=== PATIENT | female | born 1975 | race Caucasian/White ===

== ENCOUNTER 2020-01-28 12:59 | Emergency (ER) | payer MEDICARE, MEDICAID, SELFPAY ==
[2020-01-28 13:03] VITALS: BP 120/76; PULSE 80; RESP 16; TEMP 36.7; O2SAT 95; BMI 41.4
--- NOTE | 2020-01-28 13:28 | XR_ITS ---
PROCEDURE: XR KNEE RT 3V CLINICAL INDICATION: HOME INJURY COMPARISON: No exams were available for comparison FINDINGS: There is mild degenerative narrowing of the medial and patellofemoral joint compartments. There is no fracture or dislocation and the soft tissues are intact IMPRESSION: Mild degenerative changes above, no fracture. Dictated by: Wai Murillo 01/28/2020 15:07 Electronically signed by Wai Murillo in [place] 01/28/2020 15:07
--- NOTE | 2020-01-28 13:42 | HMH.EDUTC ---
[facility] [place] Disposition Clinical Impression: Knee pain Qualifiers: Chronicity: unspecified Laterality: right Qualified Code(s): M25.561 - Pain in right knee Disposition: Home, Self-Care Condition on Discharge: Good Additional Instructions: Over the counter Motrin and/or Tylenol may help with pain Over the counter Rubs like aspercream may help with arthritis pain Follow up with family doctor if no improvement or any worsening of symptoms in the next 48-72 hours REturn if needed Straight to ER if any life threatening symptoms Referrals: Provider,Referral, MD [Primary Care Provider] - As needed Time of Disposition: 15:03 Medical Decision Making - Obie Inquiry Pt receiving controlled substance: No Obie was queried for this patient: No Vital Signs: 01/28/20 13:03 Temperature 98.1 F Temperature Source Oral Pulse Rate [Left Radial] 80 Respiratory Rate 16 Blood Pressure [Right Arm] 120/76 Blood Pressure Mean [Right Arm] 90 Blood Pressure Source [Right Arm] Automatic Cuff Blood Pressure Position [Right Arm] Sitting 02 Sat by Pulse Oximetry 95 Oxygen Delivery Method Room Air Orders (Tests/Meds): ED MEDICATIONS Discontinued Medications Generic Name Dose Route Start Last Admin Trade Name Freq PRN Reason Stop Dose Admin Lidocaine HCl 5 ml 01/28/20 14:52 Lidocaine 1% 10ml Mdv IM 01/28/20 14:53 ONCE ONE Triamcinolone Acetonide 40 mg 01/28/20 14:40 Kenalog 40mg/Ml Vial IM 01/28/20 14:41 ONCE ONE ORDERS Category Date Time Status XR knee RT 3V Stat Exams 01/28/20 13:28 Taken - Radiology Data #1 Image(s): Knee Image Reviewed: Yes I reviewed the patient's radiology image Preliminary Findings: No Fracture Seen arthritis noted [facility] [place] HPI - General Stated complaint: right knee hurting Time Seen by Provider: 01/28/20 13:42 Mode of Arrival: Ambulatory Source of Information: Patient Limitations: Physical Limitations Description of Symptoms (Recalled from Triage Doc. by RN): pt stated she was movig heavy furniture this past week when she began to have increasing pain in her right knee. HEENT Symptoms (Recalled from RN notes): No Resp Symptoms (Recalled from RN notes): No Skin Symptoms (Recalled from RN notes): No MS Symptoms (Recalled from RN notes): Yes Functional Status (Recalled from RN notes): n/a - History of Present Illness Provider Complaint: Patient states that she has been helping family members clean and move States that she has been on her feet alot and has been bending and lifting more than normal States that she noticed a couple of days ago that she was having pain in her right knee when she would walk States that pain is worse when she bends the knee and today she was still having pain so she came in to get it checked out denies known injury - Related Data Allergies Allergy/AdvReac Type Severity Reaction Status Date / Time No Known Allergies Allergy Verified 01/28/20 13:51 - Worker's Comp Is this a Worker's Comp case?: No [facility] History - Hepatitis A Screen Drug use history?: No High risk sexual behaviors?: No History of sexually transmitted infection?: No Currently employed?: No Childcare worker?: No Do you have indoor plumbing?: Yes Do you have electricity?: Yes Attestation statement:: This patient has been screened for Hepatitis A risk factors. I have reviewed the patient's past medical history: Yes - Social History Smoking Status: Current every day smoker # Packs/Day (cigarettes): 1 Alcohol Intake: never Occupational Status: disabled ROS Obtained: Yes All systems reviewed & no additional complaints, Yes Systems reviewed as appropriate & no additional complaints - Constitutional Constitutional: Reports system reviewed and no additional complaints, except as docu - Eyes Eyes: Reports system reviewed and no additional complaints, except as docu - ENT Ears, Nose, Mouth, and Throat: Reports system reviewed and no additional complaints
[2020-01-28 15:20] VITALS: BP 120/76; PULSE 80; RESP 16; TEMP 36.7; O2SAT 95
== END 2020-01-28 15:21 | disposition home or self-care (01) ==
PROVIDERS: Emergency Provider Nurse Practitioner
DX: M25.561 Pain in right knee (principal); F17.210 Nicotine dependence, cigarettes, uncomplicated
CPT/HCPCS: 20610; G0463; 73562; 96372; 99202

== ENCOUNTER 2024-01-02 17:47 | Inpatient (IN) | payer MEDICARE, SELFPAY ==
[2024-01-02] VITALS (8 sets, daily range): BP systolic 137–165; BP diastolic 85–121; PULSE 60–75; RESP 18–20; TEMP 36.6–36.9; O2SAT 90–96; BMI 40.0; BMI 40.5
--- NOTE | 2024-01-02 17:48 | ED_ITS ---
Discharge Plan Disposition Patient Disposition: Admitted Condition: Serious Clinical Impressions Clinical Impression: Acute hypoxemic respiratory failure, Epigastric abdominal pain Congestive heart failure Qualifiers: Heart failure type: unspecified Heart failure chronicity: acute Qualified Code(s): I50.9 - Heart failure, unspecified Breast mass Qualifiers: Laterality: right Discharge ED Provider: Bubba Pérez General Adult HPI <TAYLOR Johnson - Last Filed: 01/02/24 20:26> General Chief complaint: Abdominal Pain Stated complaint: Abd x3 months Time Seen by Provider: 01/02/24 17:48 History of Present Illness HPI narrative: Patient presents for evaluation of epigastric abdominal pain. Patient states that she was off of her home medication for approximately 8 months due to having no insurance coverage. She has recently restarted all of her home medications. In addition patient states for the last 3 weeks she thinks that the addition of metformin is creating GI upset. Patient states that she has pain and bloating with the pain located in the epigastrium worse 30 minutes or so after eating and usually last several hours. It is not continuous. There is no other aggravating or relieving factors. In addition patient reports sores all over her back. Patient states that she does have a history of anxiety and has been on Benadryl in the past but Benadryl no longer controls her anxiety. Patient states that the sores itch her but they are not painful. Patient denies cardiac chest pain fever chills hemoptysis hematochezia melena nausea vomiting or diarrhea currently. Related Data Home Medications Medication Instructions Recorded Confirmed aspirin 81 mg chewable tablet 81 mg PO DAILY 01/02/24 01/02/24 atenolol 50 mg tablet 50 mg PO DAILY 01/02/24 01/02/24 atorvastatin 40 mg tablet 40 mg PO DAILY 01/02/24 01/02/24 fluoxetine 40 mg capsule 40 mg PO DAILY 01/02/24 01/02/24 lisinopril 10 mg tablet 10 mg PO DAILY 01/02/24 01/02/24 metformin 500 mg tablet 500 mg PO BID 01/02/24 01/02/24 Allergies Allergy/AdvReac Type Severity Reaction Status Date / Time ondansetron [From Zofran] Allergy Verified 01/02/24 18:12 PFSH <TAYLOR Johnson - Last Filed: 01/02/24 20:26> [facility] Disclaimer: The information contained in this section may have been updated after the patient was seen, as this information can be updated by other users. Social History (Updated 01/02/24 @ 21:30 by [place] Burroughs RN) Smoking Status: Current every day smoker alcohol intake: never current occupational status: disabled Travel in the last 8 weeks: None <TAYLOR Johnson - Last Filed: 01/02/24 20:26> ROS Obtained: Yes Systems reviewed as appropriate & no additional complaints except as documented Physical Exam <TAYLOR Johnson - Last Filed: 01/02/24 20:26> General General appearance: alert and in no apparent distress Head Head exam: atraumatic and normal inspection Eye Eye exam: Present normal appearance, PERRL and EOMI ENT ENT exam: Present normal exam, normal oropharynx, mucous membranes moist and other (Patient is deaf) Neck Neck exam: Present normal inspection and full ROM Chest Chest inspection: Present normal inspection and symmetric chest wall rise Respiratory Respiratory exam: Present normal lung sounds bilaterally; Absent respiratory distress, wheezes or accessory muscle use Cardiovascular Cardiovascular exam: Present regular rate, normal rhythm and normal heart sounds Abdominal Exam Abdominal exam: Present soft (Obese), tenderness (Tender to palpation in the epigastrium and right upper quadrant) and normal bowel sounds; Absent guarding or rebound Extremities Exam Extremities exam: Present normal inspection and full ROM Back Exam Back exam: Present normal inspection and full ROM; Absent tenderness Neurological Exam Neurological exam: Present alert and oriented X3 Psychiatric Psychiatric exam: Present normal affect and normal mood Skin Skin exam: Present warm, dry and normal color; Absent intact (Patient has too numerous to count areas of excoriation all over her back and the scars of the same on multiple sites on the trunk and extremities. None of these appear to be acutely infected with erythema fluctuance or drainage.) Medical Decision Making <TAYLOR Johnson - Last Filed: 01/02/24 20:26> Medical Records Medical records reviewed: Yes I reviewed the patient's medical records. Obie Inquiry Pt receiving controlled substance: No Vital Signs: 01/02/24 17:47 01/02/24 18:00 01/02/24 19:00 Temperature 97.9 F Temperature Source Oral Pulse Rate 65 60 Pulse Rate [Right Radial] 66 Respiratory Rate 20 18 Blood Pressure 137/90 151/102 H Blood Pressure [Right Arm] 139/85 Blood Pressure Mean 119 Blood Pressure Mean [Right Arm] 103 02 Sat by Pulse Oximetry 95 94 L 96 Oxygen Delivery Method Nasal Cannula Oxygen Flow Rate (LPM) 2 01/02/24 20:39 Temperature 98.5 F Temperature Source Pulse Rate 75 Pulse Rate [Right Radial] Respiratory Rate 20 Blood Pressure 143/85 H Blood Pressure [Right Arm] Blood Pressure Mean Blood Pressure Mean [Right Arm] 02 Sat by Pulse Oximetry Oxygen Delivery Method Room Air Oxygen Flow Rate (LPM) Lab Data Lab results reviewed: Yes I reviewed the patient's lab results. Lab Results 01/02/24 18:15: WBC 10.0, RBC 5.39, Hgb 16.6 H, Hct 52.6 H, MCV 97.7, MCH 30.7, MCHC 31.4 L, RDW 15.3, Plt Count 288, MPV 8.0, Neut % (Auto) 55.3, Lymph % (Auto) 36.1, [place] % (Auto) 4.1, Eos % (Auto) 1.4, Baso % (Auto) 3.1 H, Neut # (Auto) 5.5, Lymph # (Auto) 3.6, [place] # (Auto) 0.4, Eos # (Auto) 0.1, Baso # (Auto) 0.3 H, Sodium 136, Potassium 4.3, Chloride 102, Carbon Dioxide 25, Anion Gap 13.3, BUN 11, Creatinine 0.60, Estimated Creat Clear 184, Estimated GFR 106, Est GFR ( Amer) 129, Glucose 110 H, Hemoglobin A1c 7.6 H, Calcium 10.0, Magnesium 1.8, Total Bilirubin 0.8, AST 32, ALT 24, Alkaline Phosphatase 89, N T-Pro-B Natriuret Pep 4030 H, Total Protein 6.8, Albumin 3.7, Globulin 3.1, Albumin/Globulin Ratio 1.2, Lipase 104 01/02/24 18:25: VBG pH 7.43 H, VBG pCO2 35.5, VBG pO2 64.3 H, VBG HCO3 23.2, VBG Total CO2 24.3, VBG O2 Saturation 93.2 H, VBG Base Excess -1.0, VBG Lactic Acid 2.2 H 01/02/24 19:56: Urine Color Yellow, Urine Appearance Clear, Urine pH 7.0, Ur Specific [place] 1.010, Urine Protein 2+, Urine Glucose (UA) Negative, Urine Ketones Negative, Urine Blood Negative, Urine Nitrate Negative, Urine Bilirubin Negative, Urine Urobilinogen 0.2, Ur Leukocyte Esterase Negative, Urine RBC Occasional, Urine WBC None, Ur Squamous Epith Cells Occasional, Urine Bacteria None 01/02/24 18:15 01/02/24 18:15 Orders (Tests/Meds): ED MEDICATIONS Generic Name Dose Route Start Last Admin Trade Name Freq PRN Reason Stop Dose Admin Albuterol/Ipratropium 3 ml 01/02/24 22:30 01/02/24 23:07 Ipratropium/Albuterol 3 Ml Neb IH 02/01/24 22:29 3 ml Q6RT PIEDAD Administration Atenolol 50 mg 01/03/24 09:00 Atenolol 50mg Tablet PO 02/02/24 08:59 DAILY PIEDAD Lamotrigine 50 mg 01/02/24 21:30 01/02/24 21:37 Lamotrigine 100mg Tablet PO 02/01/24 21:29 Not Given HS PIEDAD Lisinopril 10 mg 01/03/24 09:00 Lisinopril 10mg Tablet PO 02/02/24 08:59 DAILY PIEDAD Metformin HCl 500 mg 01/03/24 07:00 Metformin 500mg Tablet PO 02/02/24 06:59 DAILYDM PIEDAD Sodium Chloride 10 ml 01/02/24 21:22 Sodium Chloride 0.9% 10ml Flush Syringe IV 02/01/24 21:21 NEEDED PRN Maintain IV Site Temazepam 30 mg 01/02/24 22:30 01/02/24 22:32 Temazepam 30mg Capsule PO 02/01/24 22:29 30 mg HS PIEDAD Administration Discontinued Medications Generic Name Dose Route Start Last Admin Trade Name Freq PRN Reason Stop Dose Admin Acetaminophen 1,000 mg 01/02/24 18:00 01/02/24 18:26 Acetaminophen 1,000mg/100ml Vial IV 01/02/24 18:01 1,000 mg ONCE ONE Administration Belladonna Alkaloids 60 ml 01/02/24 18:00 01/02/24 18:26 Belladonna Alkaloids 60 Ml Ml PO 01/02/24 18:01 60 ml ONCE ONE Administration Lactated Ringer's 1,000 mls @ 999 mls/hr 01/02/24 18:00 01/02/24 18:27 Lactated Ringer's 1000 Ml Bag IV 01/02/24 19:00 999 mls/hr .Q1H1M ONE Administration Iopamidol 75 ml 01/02/24 19:16 01/02/24 19:17 Iopamidol-370 (76%);100ml Bottle IV 01/02/24 19:17 75 ml ONCE ONE Administration Ketorolac Tromethamine 15 mg 01/02/24 18:00 01/02/24 18:26 Ketorolac 30mg/Ml Vial IV 01/02/24 18:01 15 mg ONCE ONE Administration Promethazine HCl 25 mg 01/02/24 18:43 01/02/24 19:01 Promethazine Hcl 25mg/Ml 1ml Vial IV 01/02/24 18:44 25 mg ONCE ONE Administration Sodium Chloride 25 ml 01/02/24 18:43 01/02/24 19:01 Sodium Chloride 0.9% 25ml Bag IV 01/02/24 18:44 25 ml ONCE ONE Administration Sodium Chloride 10 ml 01/02/24 19:16 01/02/24 19:17 Sodium Chloride 0.9% 10ml Syr (Rad Only) IV 01/02/24 19:17 10 ml ONCE ONE Administration ORDERS Category Date Time Status CT abdomen pelvis w con Stat Cat Scan 01/02/24 18:00 Completed Chest XR -- portable [XR chest portable] Stat Exams 01/02/24 18:25 Completed BNP [NT Pro Brain Natriuretic Pep.] Stat Lab 01/02/24 18:15 Completed CBC w/Auto Diff [Complete Blood Count Auto Diff] Stat Lab 01/02/24 18:15 Completed CMP [Comprehensive Metabolic Panel] Stat Lab 01/02/24 18:15 Completed Hemoglobin A1C Stat Lab 01/02/24 18:15 Completed Lipase Stat Lab 01/02/24 18:15 Completed Magnesium Stat Lab 01/02/24 18:15 Completed UA [Urinalysis and Microscopic] Stat Lab 01/02/24 19:56 Completed VBG [Venous Blood Gas] Stat RT 01/02/24 18:25 Completed Medical Decision Narrative: In summary patient is a 48-year-old female who presents to the emergency department for evaluation of epigastric and right upper quadrant abdominal pain. Patient is normotensive satting in the 80s on room air which corrects to 95% on 2 L by nasal cannula with a respiratory rate of 20 pulse of 66 upon arrival, and afebrile. Physical exam is remarkable for clear breath sounds to the bases, normal heart sounds, no peripheral edema noted, epigastric and right upper quadrant tenderness to palpation but no rebound or guarding no rigidity., And extensive excoriations in various stages of healing over extensive parts of visible trunk and extremities but no obvious acute drainage cellulitis or fluctuance. Differential diagnosis includes gastritis versus ulcer disease versus esophagitis versus ACS versus cholecystitis versus cholelithiasis versus CHF versus COPD versus excoriation versus OCD versus anxiety etc. Initial workup will be conducted with hematologic labs, CT scan of the abdomen pelvis, chest x-ray, VBG. Initial interventions include crystalloid bolus Toradol Tylenol supplemental O2 continuous cardiac monitoring and continuous pulse oximetry. Initial workup reviewed by me shows that patient has no elevated white count with no shift however she has a significantly elevated NT proBNP with no known heart failure history, my informal evaluation prior to radiology read of her CT scan abdomen pelvis shows no acute intra-abdominal processes, plain film chest x-ray shows possible left lower lobe atelectasis versus infiltrate. Patient has a new oxygen requirement of 2 L, elevated NT proBNP and possible infiltrate versus atelectasis in the left lower lobe versus effusion possibly.. Upon repeat evaluation patient is still epigastric pain free. Given this I had an interactive discussion with Dr. Burroughs regarding patient management and he has agreed for admission. Beto: Independent interpretation of EKG demonstrates sinus bradycardia 57 beats a minute without ST changes concerning for ischemia. Does have T wave inversions in 1 and aVL without reciprocal change. IA, QRS interval within normal limits, QRS mildly prolonged at 121 ms with right bundle branch block morphology. I was consulted by the DANTE, and we discussed the complexity of the problems being addressed. I approved the treatment and management plan for this patient?s care in the Emergency Department, thus performing a substantive portion of the medical decision making. Bubba Pérez MD <Bubba Pérez MD - Last Filed: 01/02/24 23:30> Vital Signs: 01/02/24 17:47 01/02/24 18:00 01/02/24 19:00 Temperature 97.9 F Temperature Source Oral Pulse Rate 65 60 Pulse Rate [Right Radial] 66 Respiratory Rate 20 18 Blood Pressure 137/90 151/102 H Blood Pressure [Right Arm] 139/85 Blood Pressure Mean 119 Blood Pressure Mean [Right Arm] 103 02 Sat by Pulse Oximetry 95 94 L 96 Oxygen Delivery Method Nasal Cannula Oxygen Flow Rate (LPM) 2 01/02/24 20:39 Temperature 98.5 F Temperature Source Pulse Rate 75 Pulse Rate [Right Radial] Respiratory Rate 20 Blood Pressure 143/85 H Blood Pressure [Right Arm] Blood Pressure Mean Blood Pressure Mean [Right Arm] 02 Sat by Pulse Oximetry Oxygen Delivery Method Room Air Oxygen Flow Rate (LPM) Lab Data Lab Results 01/02/24 18:15: WBC 10.0, RBC 5.39, Hgb 16.6 H, Hct 52.6 H, MCV 97.7, MCH 30.7, MCHC 31.4 L, RDW 15.3, Plt Count 288, MPV 8.0, Neut % (Auto) 55.3, Lymph % (Auto) 36.1, [place] % (Auto) 4.1, Eos % (Auto) 1.4, Baso % (Auto) 3.1 H, Neut # (Auto) 5.5, Lymph # (Auto) 3.6, [place] # (Auto) 0.4, Eos # (Auto) 0.1, Baso # (Auto) 0.3 H, Sodium 136, Potassium 4.3, Chloride 102, Carbon Dioxide 25, Anion Gap 13.3, BUN 11, Creatinine 0.60, Estimated Creat Clear 184, Estimated GFR 106, Est GFR ( Amer) 129, Glucose 110 H, Hemoglobin A1c 7.6 H, Calcium 10.0, Magnesium 1.8, Total Bilirubin 0.8, AST 32, ALT 24, Alkaline Phosphatase 89, N T-Pro-B Natriuret Pep 4030 H, Total Protein 6.8, Albumin 3.7, Globulin 3.1, Albumin/Globulin Ratio 1.2, Lipase 104 01/02/24 18:25: VBG pH 7.43 H, VBG pCO2 35.5, VBG pO2 64.3 H, VBG HCO3 23.2, VBG Total CO2 24.3, VBG O2 Saturation 93.2 H, VBG Base Excess -1.0, VBG Lactic Acid 2.2 H 01/02/24 19:56: Urine Color Yellow, Urine Appearance Clear, Urine pH 7.0, Ur Specific [place] 1.010, Urine Protein 2+, Urine Glucose (UA) Negative, Urine Ketones Negative, Urine Blood Negative, Urine Nitrate Negative, Urine Bilirubin Negative, Urine Urobilinogen 0.2, Ur Leukocyte Esterase Negative, Urine RBC Occasional, Urine WBC None, Ur Squamous Epith Cells Occasional, Urine Bacteria None Orders (Tests/Meds): ED MEDICATIONS Generic Name Dose Route Start Last Admin Trade Name Rozina PRN Reason Stop Dose Admin Albuterol/Ipratropium 3 ml 01/02/24 22:30 01/02/24 23:07 Ipratropium/Albuterol 3 Ml Neb IH 02/01/24 22:29 3 ml Q6RT PIEDAD Administration Atenolol 50 mg 01/03/24 09:00 Atenolol 50mg Tablet PO 02/02/24 08:59 DAILY PIEDAD Lamotrigine 50 mg 01/02/24 21:30 01/02/24 21:37 Lamotrigine 100mg Tablet PO 02/01/24 21:29 Not Given HS PIEDAD Lisinopril 10 mg 01/03/24 09:00 Lisinopril 10mg Tablet PO 02/02/24 08:59 DAILY PIEDAD Metformin HCl 500 mg 01/03/24 07:00 Metformin 500mg Tablet PO 02/02/24 06:59 DAILYDM PIEDAD Sodium Chloride 10 ml 01/02/24 21:22 Sodium Chloride 0.9% 10ml Flush Syringe IV 02/01/24 21:21 NEEDED PRN Maintain IV Site Temazepam 30 mg 01/02/24 22:30 01/02/24 22:32 Temazepam 30mg Capsule PO 02/01/24 22:29 30 mg HS PIEDAD Administration Discontinued Medications Generic Name Dose Route Start Last Admin Trade Name Fremelony PRN Reason Stop Dose Admin Acetaminophen 1,000 mg 01/02/24 18:00 01/02/24 18:26 Acetaminophen 1,000mg/100ml Vial IV 01/02/24 18:01 1,000 mg ONCE ONE Administration Belladonna Alkaloids 60 ml 01/02/24 18:00 01/02/24 18:26 Belladonna Alkaloids 60 Ml Ml PO 01/02/24 18:01 60 ml ONCE ONE Administration Lactated Ringer's 1,000 mls @ 999 mls/hr 01/02/24 18:00 01/02/24 18:27 Lactated Ringer's 1000 Ml Bag IV 01/02/24 19:00 999 mls/hr .Q1H1M ONE Administration Iopamidol 75 ml 01/02/24 19:16 01/02/24 19:17 Iopamidol-370 (76%);100ml Bottle IV 01/02/24 19:17 75 ml ONCE ONE Administration Ketorolac Tromethamine 15 mg 01/02/24 18:00 01/02/24 18:26 Ketorolac 30mg/Ml Vial IV 01/02/24 18:01 15 mg ONCE ONE Administration Promethazine HCl 25 mg 01/02/24 18:43 01/02/24 19:01 Promethazine Hcl 25mg/Ml 1ml Vial IV 01/02/24 18:44 25 mg ONCE ONE Administration Sodium Chloride 25 ml 01/02/24 18:43 01/02/24 19:01 Sodium Chloride 0.9% 25ml Bag IV 01/02/24 18:44 25 ml ONCE ONE Administration Sodium Chloride 10 ml 01/02/24 19:16 01/02/24 19:17 Sodium Chloride 0.9% 10ml Syr (Rad Only) IV 01/02/24 19:17 10 ml ONCE ONE Administration ORDERS Category Date Time Status CT abdomen pelvis w con Stat Cat Scan 01/02/24 18:00 Completed Chest XR -- portable [XR chest portable] Stat Exams 01/02/24 18:25 Completed BNP [NT Pro Brain Natriuretic Pep.] Stat Lab 01/02/24 18:15 Completed CBC w/Auto Diff [Complete Blood Count Auto Diff] Stat Lab 01/02/24 18:15 Completed CMP [Comprehensive Metabolic Panel] Stat Lab 01/02/24 18:15 Completed Hemoglobin A1C Stat Lab 01/02/24 18:15 Completed Lipase Stat Lab 01/02/24 18:15 Completed Magnesium Stat Lab 01/02/24 18:15 Completed UA [Urinalysis and Microscopic] Stat Lab 01/02/24 19:56 Completed VBG [Venous Blood Gas] Stat RT 01/02/24 18:25 Completed Medical Decision Narrative: In summary patient is a 48-year-old female who presents to the emergency department for evaluation of epigastric and right upper quadrant abdominal pain. Patient is normotensive satting in the 80s on room air which corrects to 95% on 2 L by nasal cannula with a respiratory rate of 20 pulse of 66 upon arrival, and afebrile. Physical exam is remarkable for clear breath sounds to the bases, normal heart sounds, no peripheral edema noted, epigastric and right upper quadrant tenderness to palpation but no rebound or guarding no rigidity., And extensive excoriations in various stages of healing over extensive parts of visible trunk and extremities but no obvious acute drainage cellulitis or fluctuance. Differential diagnosis includes gastritis versus ulcer disease versus esophagitis versus ACS versus cholecystitis versus cholelithiasis versus CHF versus COPD versus excoriation versus OCD versus anxiety etc. Initial workup will be conducted with hematologic labs, CT scan of the abdomen pelvis, chest x-ray, VBG. Initial interventions include crystalloid bolus Toradol Tylenol supplemental O2 continuous cardiac monitoring and continuous pulse oximetry. Initial workup reviewed by me [hematologic labs are remarkable for... Imaging remarkable for... Urinalysis remarkable for]. Upon repeat evaluation [patient had acceptable resolution of symptoms, had persistent pain for which additional interventions were conducted (describe interventions), tolerated p.o., was ambulatory, etc.]. Given this [patient is appropriate for discharge at this time and will be discharged with a prescription for... The case was discussed with hospital medicine regarding management and they will admit the patient their service for continued evaluation at this time... Etc.] Beto: Independent interpretation of EKG demonstrates sinus bradycardia 57 beats a minute without ST changes concerning for ischemia. Does have T wave inversions in 1 and aVL without reciprocal change. IA, QRS interval within normal limits, QRS mildly prolonged at 121 ms with right bundle branch block morphology. I was consulted by the DANTE, and we discussed the complexity of the problems being addressed. I approved the treatment and management plan for this patient?s care in the Emergency Department, thus performing a substantive portion of the medical decision making. Bubba Pérez MD Critical Care <TAYLOR Johnson - Last Filed: 01/02/24 20:26> Critical Care Time Critical Care Time: No
--- NOTE | 2024-01-02 18:00 | CT_ITS ---
PROCEDURE INFORMATION: Exam: CT Abdomen And Pelvis With Contrast Exam date and time: 01/02/2024 7:15 PM Age: 48 years old Clinical indication: Abdominal pain; Other: Ruq; Additional info: Right upper quadrant abdominal pain TECHNIQUE: Imaging protocol: Computed tomography of the abdomen and pelvis with contrast. Radiation optimization: All CT scans at this facility use at least one of these dose optimization techniques: automated exposure control; mA and/or kV adjustment per patient size (includes targeted exams where dose is matched to clinical indication); or iterative reconstruction. Contrast material: ISOVUE; Contrast volume: 75 ml; Contrast route: IV; COMPARISON: CR XR CHEST PORTABLE 01/02/2024 7:14 PM FINDINGS: Liver: Decreased density throughout the liver compatible with hepatic steatosis. Gallbladder and bile ducts: Gallbladder partially contracted Pancreas: Pancreas unremarkable Spleen: The spleen is unremarkable. Adrenal glands: Adrenal glands unremarkable. Kidneys and ureters: No hydronephrosis. Stomach and bowel: Mild-moderate stool burden Appendix: No evidence of appendicitis. Intraperitoneal space: Unremarkable. No free air. No significant fluid collection. Vasculature: Scattered regions of atherosclerotic vascular calcification within the abdominal aorta and common iliac arteries. Lymph nodes: Unremarkable. No enlarged lymph nodes. Urinary bladder: Unremarkable as visualized. Reproductive: Unremarkable as visualized. Bones/joints: Bilateral pars defects L5. No evidence of associated spondylolisthesis. Soft tissues: Incomplete visualization of the right breast demonstrates the presence of an asymmetric approximate 5.4 cm soft tissue mass. Recommend follow-up with dedicated breast imaging as well as ultrasound. Fat filled umbilical hernia IMPRESSION: 1. Incomplete visualization of approximate 5.4 cm soft tissue mass right breast. Malignancy could not be excluded on the basis of this study. Recommend follow-up with dedicated breast imaging. 2. No evidence of acute intra-abdominal abnormality.
--- NOTE | 2024-01-02 18:25 | XR_ITS ---
PROCEDURE INFORMATION: Exam: XR Chest Exam date and time: 01/02/2024 7:14 PM Age: 48 years old Clinical indication: Shortness of breath; Additional info: Acute hypoxemic respiratory failure TECHNIQUE: Imaging protocol: Radiologic exam of the chest. Views: 1 view. COMPARISON: No relevant prior studies available. FINDINGS: Lungs: Left lower lobe region of consolidation versus atelectasis. Clinically correlate. Pleural spaces: Unremarkable. No pleural effusion. No pneumothorax. Heart/Mediastinum: Accentuation of the cardiomediastinal silhouette secondary to patient positioning. Bones/joints: Unremarkable. IMPRESSION: Left lower lobe region of consolidation versus atelectasis. Clinically correlate.
[2024-01-02 18:26] LABS: Basophils # 0.3 K/mm3 (0-0.2); Basophils % 3.1 % (0.1-2.0); Eosinophils # 0.1 K/mm3 (0.0-0.4); Eosinophils % 1.4 % (0.1-12.0); Hematocrit 52.6 % (37.0-47.0); Hemoglobin 16.6 g/dL (12.2-16.2); Lymphocytes # 3.6 K/mm3 (0.7-4.5); Lymphocytes % 36.1 % (10-50); Mean Corpuscular HGB Conc 31.4 g/dL (31.8-35.4); Mean Corpuscular Hemoglobin 30.7 pg (27.0-31.2); Mean Corpuscular Volume 97.7 fl (81-99); Monocytes # 0.4 K/mm3 (0.1-1.0); Monocytes % 4.1 % (1.7-9.3); Neutrophils # 5.5 K/mm3 (1.8-7.8); Neutrophils % 55.3 % (37.0-80.0); Platelet Count 288 K/mm3 (142-424); Red Blood Count 5.39 M/mm3 (4.20-5.40); Red Cell Distribution Width 15.3 % (11.5-17.5)
[2024-01-02] MEDS: BELLADONNA ALKALOIDS 60 ML ML PO (18:26)
[2024-01-02] MEDS: KETOROLAC 30MG/ML VIAL 15 MG IV (18:26)
[2024-01-02] MEDS: ACETAMINOPHEN 1,000MG/100ML VIAL 1000 MG IV (18:26)
[2024-01-02] MEDS: LACTATED RINGERS 1000ML 1,000 ML 999 ML IV (18:27)
[2024-01-02 18:37] LABS: Alanine Aminotransferase 24 U/L (12-78); Albumin Level 3.7 g/dl (3.5-5.0); Albumin/Globulin Ratio 1.2 (1.1-1.8); Alkaline Phosphatase 89 U/L (38-126); Anion Gap 13.3 mEq/L (5-15); Aspartate Amino Transferase 32 U/L (14-36); Bilirubin,Total 0.8 mg/dl (0.2-1.3); Blood Urea Nitrogen 11 mg/dl (7-17); Carbon Dioxide 25 mmol/L (22.0-30.0); Chloride 102 mmol/L (98-107); Creatinine Clearance Estimated 184 mL/min (50-200); Estimated Glomerular Filt Rate 106 ml/min (>60); GFR (African American) 129 ML/MIN (>60); Globulin 3.1 g/dL (1.3-3.2); Glucose 110 mg/dl (74-100); Lipase 104 U/L (23-300); Magnesium 1.8 mg/dl (1.6-2.3); Potassium 4.3 mmoL/L (3.5-5.1); Sodium 136 mmol/L (136-145); Total Protein,Serum 6.8 g/dl (6.3-8.2)
[2024-01-02 18:37] LABS: VBG HCO3 23.2 mmol/L (23-30); VBG Oxygen Saturation 93.2 % (50-70); VBG PCO2 35.5 mmol/L (35-51); VBG PH 7.43 mmol/L (7.31-7.41); VBG PO2 64.3 mmol/L (28-40); VBG Total CO2 24.3 mmol/L (23-27)
[2024-01-02 18:39] LABS: Lactate Venous 2.2 mmol/L (0.4-2.0)
--- NOTE | 2024-01-02 18:52 | ECG_ITS ---
APPROVED REPORT Exam: Resting ECG HR:57 bpm ECG Measurements Heart Rate 57 AXES IN 174 P 52 QRSd 121 QRS 127 QT 438 T 86 QTc 431 Conclusion SINUS BRADYCARDIA RIGHT BUNDLE BRANCH BLOCK [120+ ms QRS DURATION, UPRIGHT V1, 40+ ms S IN I/aVL/V4/V5/V6] LEFT POSTERIOR FASCICULAR BLOCK [QRS AXIS > 109, INFERIOR Q] Electronically signed by : CHRISTOPHER PHAM, 01/02/2024 20:47:28
[2024-01-02 18:55] LABS: NT Pro Brain Natriuretic Pep. 4030 pg/mL (0-125)
[2024-01-02] MEDS: SODIUM CHLORIDE 0.9% 25ML BAG 25 ML IV (19:01)
[2024-01-02] MEDS: PROMETHAZINE HCL 25MG/ML 1ML VIAL 25 MG IV (19:01)
[2024-01-02 19:12] LABS: Hemoglobin A1C 7.6 % (4.0-6.0)
[2024-01-02] MEDS: SODIUM CHLORIDE 0.9% 10ML SYR (RAD ONLY) 10 ML IV (19:17)
[2024-01-02] MEDS: IOPAMIDOL-370 (76%);100ML BOTTLE 75 ML IV (19:17)
[2024-01-02 20:02] LABS: Microscopic, Urine URINE MICROSCOPIC (MICROSCOPIC)
[2024-01-02 20:12] LABS: Appearance,Urine CLEAR (Clear); Bilirubin,Urine Negative (Negative); Blood, Urine Negative (Negative); Color,Urine YELLOW (Yellow); Glucose,Urine (UA) Negative (Negative); Ketones,Urine Negative (Negative); Leukocyte Esterase,Urine Negative (Negative); Nitrate,Urine Negative (Negative); Protein,Urine 2+ (Negative); Urobilinogen,Urine 0.2 EU/dl (0.2)
--- NOTE | 2024-01-02 20:25 | PC.NURSE ---
spoke with [facility] for bed assignment. dx: acute hypoxemic resp failure. jimmy
[2024-01-02 20:28] LABS: RBC,Urine Occasional #/hpf (0-3); Squamous Epithelial Cell,Urine Occasional #/hpf (0-5)
--- NOTE | 2024-01-02 20:38 | PC.NURSE ---
Called report to luan campos on 2nd floor and answered all questions
--- NOTE | 2024-01-02 20:48 | PC.NURSE ---
pt to floor via wheelchair at this time
--- NOTE | 2024-01-02 22:11 | PC.NURSE ---
Contacted Dr. Burroughs at this time to notify pt request of medication to help her sleep. recieved orders for temazepam 30mg PO HS for sleep
[2024-01-02 22:27] LABS: Reflex Lactic Add Lactic Reflex
[2024-01-02] MEDS: TEMAZEPAM 30MG CAPSULE 30 MG PO (22:32)
[2024-01-02 22:38] LABS: POC Glucose,Bedside 120 (70-110)
[2024-01-02] MEDS: IPRATROPIUM/ALBUTEROL 3 ML NEB IH (23:07)
--- NOTE | 2024-01-02 23:55 | PC.NURSE ---
Addendum entered by RT Maxime, MYRNA 01/03/24 00:25: Nurse notified of adjustments Original Note: RESP CARE NOTE: Pt was on 3LNC satting 87%. Pt placed on venti mask 50% 15L sats now at 92%-94%
[2024-01-03] VITALS (12 sets, daily range): BP systolic 103–147; BP diastolic 62–94; PULSE 55–103; RESP 16–24; TEMP 36.1–36.6; O2SAT 90–97; BMI 41.8
--- NOTE | 2024-01-03 00:02 | PC.NURSE ---
Paged Dr. Burroughs at this time with concerns of O2 requirements, pt now on venti 50%, 15L.
--- NOTE | 2024-01-03 00:17 | PC.NURSE ---
Dr Burroughs paged again at this time
--- NOTE | 2024-01-03 00:32 | PC.NURSE ---
asked protective signal operator to call Dr. Burroughs at this time
--- NOTE | 2024-01-03 01:56 | CT_ITS ---
PROCEDURE INFORMATION: Exam: CTA Chest With Contrast Exam date and time: 01/03/2024 2:27 AM Age: 48 years old Clinical indication: Other: Hypoxia TECHNIQUE: Imaging protocol: Computed tomographic angiography of the chest with contrast. Exam focused on the arteries. 3D rendering (Not supervised by radiologist): MIP and/or 3D reconstructed images were created by the technologist. Radiation optimization: All CT scans at this facility use at least one of these dose optimization techniques: automated exposure control; mA and/or kV adjustment per patient size (includes targeted exams where dose is matched to clinical indication); or iterative reconstruction. Contrast material: ISOVUE; Contrast volume: 70 ml; Contrast route: INTRAVENOUS (IV); COMPARISON: CR XR CHEST PORTABLE 01/02/2024 7:14 PM FINDINGS: Pulmonary arteries: No vascular intraluminal filling defects to suggest pulmonary embolism. Aorta: Mild atherosclerotic tortuosity of the thoracic aorta. No aortic aneurysm or dissection. Lungs: Mild interstitial pulmonary edema. Left hilar and left lower lobe calcified granulomas. Pleural spaces: No significant pleural effusion. No pneumothorax. Heart: Heart size is enlarged. Coronary arteries: Proximal LAD coronary artery stent. Lymph nodes: Calcified left hilar lymph nodes. Partially calcified right paratracheal lymph node. Small nonspecific noncalcified mediastinal and hilar lymph nodes. Bones/joints: No acute osseous abnormality. No acute fracture. Soft tissues: Incompletely visualized right breast intermediate density lesion, collection or complicated cyst measuring at least 4.4 x 6.0 x 8.0 cm with associated tiny calcifications. Right breast lesion or collection extends beyond the scan field of view. Other findings: Abdomen and pelvis findings reported separately. IMPRESSION: 1. No evidence of pulmonary embolism. 2. Cardiomegaly and mild interstitial pulmonary edema. 3. Atherosclerotic vascular disease including coronary artery disease. 4. Incompletely visualized right breast intermediate density lesion, collection or complicated cyst measuring at least 4.4 x 6.0 x 8.0 cm with associated tiny calcifications. Recommend correlation with prior breast imaging studies and clinical breast exam. If no prior studies recommend nonemergent follow-up diagnostic mammogram and breast ultrasound for further evaluation.
--- NOTE | 2024-01-03 01:58 | PC.NURSE ---
Received call back from Dr. Burroughs updated on status and changes with O2 requirements. Orders for Chest CT and PE protocol.
--- NOTE | 2024-01-03 02:10 | PC.NURSE ---
Pt transported to CT at this time, via WC accompanied by radiology staff x1
--- NOTE | 2024-01-03 02:33 | PC.NURSE ---
Pt returned from CT at this time, via WC accompanied by radiology staff x1
[2024-01-03] MEDS: IOPAMIDOL-370 (76%);100ML BOTTLE 70 ML IV (02:42)
[2024-01-03] MEDS: 0.9 % SODIUM CHLORIDE 50 ML VIAL IV (02:42)
--- NOTE | 2024-01-03 03:24 | PC.NURSE ---
Pt returned from CT at this time, via WC accompanied by radiology staff x1
[2024-01-03 05:28] LABS: POC Glucose,Bedside 138 (70-110)
--- NOTE | 2024-01-03 05:48 | PC.NURSE ---
Pt is alert and oriented x4 and currently tolerating a venti mask at 50% and 15L, pt has removed mask a couple of times and this nurse and RT educated pt on importance of leaving mask on at this time. Pt requested something for sleep and was treated per MAR, pt has slept well since. Pt glucose levels have been slightly elevated but have stayed below treatment level. Pt did have a CT this shift and results are still pending. Pt denies pain and needs at this time.
[2024-01-03] MEDS: METFORMIN 500MG TABLET 500 MG PO (06:20)
[2024-01-03] MEDS: IPRATROPIUM/ALBUTEROL 3 ML NEB IH ×3 (06:34→18:10)
[2024-01-03 06:36] LABS: Basophils # 0.2 K/mm3 (0-0.2); Basophils % 2.5 % (0.1-2.0); Eosinophils # 0.1 K/mm3 (0.0-0.4); Eosinophils % 1.7 % (0.1-12.0); Hematocrit 49.5 % (37.0-47.0); Hemoglobin 15.4 g/dL (12.2-16.2); Lymphocytes # 3.3 K/mm3 (0.7-4.5); Lymphocytes % 40.7 % (10-50); Mean Corpuscular Hemoglobin 30.3 pg (27.0-31.2); Mean Corpuscular Volume 97.7 fl (81-99); Mean Platelet Volume 8.4 fl (7.4-10.4); Monocytes # 0.5 K/mm3 (0.1-1.0); Neutrophils # 3.9 K/mm3 (1.8-7.8); Platelet Count 228 K/mm3 (142-424); Red Blood Count 5.07 M/mm3 (4.20-5.40); Red Cell Distribution Width 15.3 % (11.5-17.5)
[2024-01-03] MEDS: FUROSEMIDE 40MG/4ML VIAL 40 MG IV ×3 (06:56→16:27)
--- NOTE | 2024-01-03 07:35 | HMH.PHAINT1 ---
Pharmacy Intervention Comments: VERIFIED HOME MEDICATION LIST USING LIST FROM OUTPATIENT PHARMACY
--- NOTE | 2024-01-03 08:31 | P.HP_ITS ---
History of Present Illness *Admission Date: 01/02/24 *Reason for visit:: bloating, epigastric pain *History of present illness: Patient presents for evaluation of epigastric abdominal pain. Patient states that she was off of her home medication for approximately 8 months due to having no insurance coverage. She has recently restarted all of her home medications. In addition patient states for the last 3 weeks she thinks that the addition of metformin is creating GI upset. Patient states that she has pain and bloating with the pain located in the epigastrium worse 30 minutes or so after eating and usually last several hours. It is not continuous. There is no other aggravating or relieving factors. In addition patient reports sores all over her back. Patient states that she does have a history of anxiety and has been on Benadryl in the past but Benadryl no longer controls her anxiety. Patient states that the sores itch her but they are not painful. Patient denies cardiac chest pain fever chills hemoptysis hematochezia melena nausea vomiting or diarrhea currently. In summary patient is a 48-year-old female who presents to the emergency department for evaluation of epigastric and right upper quadrant abdominal pain. Patient is normotensive satting in the 80s on room air which corrects to 95% on 2 L by nasal cannula with a respiratory rate of 20 pulse of 66 upon arrival, and afebrile. Physical exam is remarkable for clear breath sounds to the bases, normal heart sounds, no peripheral edema noted, epigastric and right upper quadrant tenderness to palpation but no rebound or guarding no rigidity., And extensive excoriations in various stages of healing over extensive parts of visible trunk and extremities but no obvious acute drainage cellulitis or fluctuance. Differential diagnosis includes gastritis versus ulcer disease versus esophagitis versus ACS versus cholecystitis versus cholelithiasis versus CHF versus COPD versus excoriation versus OCD versus anxiety etc. Initial workup will be conducted with hematologic labs, CT scan of the abdomen pelvis, chest x-ray, VBG. Initial interventions include crystalloid bolus Toradol Tylenol supplemental O2 continuous cardiac monitoring and continuous pulse oximetry. Initial workup reviewed by me shows that patient has no elevated white count with no shift however she has a significantly elevated NT proBNP with no known heart failure history, my informal evaluation prior to radiology read of her CT scan abdomen pelvis shows no acute intra-abdominal processes, plain film chest x-ray shows possible left lower lobe atelectasis versus infiltrate. Patient has a new oxygen requirement of 2 L, elevated NT proBNP and possible infiltrate versus atelectasis in the left lower lobe versus effusion possibly.. Upon repeat evaluation patient is still epigastric pain free. Given this I had an interactive discussion with Dr. Burroughs regarding patient management and he has agreed for admission. (above as per ER physician) Patient states she has felt poorly the past 3 weeks. She thought initially it was her metformin making her sick, but decreasing the dose did not seem to help. She has also had cold symptoms (cough, rhinorrhea) for the past week as well. She is now on a venti mask but denies any SOA except with exertion PFSH PFS Disclaimer: The information contained in this section may have been updated after the patient was seen, as this information can be updated by other users. Medical History (Updated 01/03/24 @ 08:52 by TAYLOR Henry) GERD (gastroesophageal reflux disease) IBS (irritable bowel syndrome) History of MD (myocardial infarction) High cholesterol Hypertension Anxiety Depression Diabetes mellitus, type 2 Surgical History (Updated 01/03/24 @ 08:36 by TAYLOR Henry) History of right breast biopsy History of D&C History of partial hysterectomy History of Family History (Updated 01/03/24 @ 08:38 by TAYLOR Henry) Other COPD (chronic obstructive pulmonary disease) Depression FHx: mental illness Hyperlipidemia Social History (Updated 01/02/24 @ 21:30 by [place] Burroughs RN) Smoking Status: Current every day smoker alcohol intake: never current occupational status: disabled Travel in the last 8 weeks: None Review of Systems Constitutional Constitutional: Denies chills, Denies fatigue, Reports headache(s) and Denies weakness Eyes Eyes: Denies blurry vision and Denies diplopia ENT Ears, Nose, Mouth, and Throat: Reports headache(s), Reports nasal congestion, Reports sore throat and Denies vertigo *Cardiovascular Cardiovascular: Denies chest pain, Reports dyspnea on exertion and Denies leg edema *Respiratory Respiratory: Reports cough, Reports dyspnea on exertion and Denies wheezing *Gastrointestinal Gastrointestinal: Reports abdominal pain, Reports belching, Reports bloating, Reports change in stool character, Reports constipation, Reports dyspepsia, Reports excessive flatus, Denies hematemesis, Denies loose stools, Denies nausea and Denies vomiting *Genitourinary Genitourinary: Denies difficulty voiding and Denies dysuria *Musculoskeletal Musculoskeletal: Denies arthralgias and Denies myalgias Integumentary/Breasts Skin/Breast: Reports rash (on back) *Neurologic Neurologic: Reports headache(s), Denies vertigo and Denies weakness Endocrine Endocrine: Denies fatigue Allergic/Immunologic Allergic/Immunologic: Denies wheezing Meds Home Medications and Allergies Home Medications Medication Instructions Recorded Confirmed Type aspirin 81 mg chewable tablet 81 mg PO DAILY 01/02/24 01/02/24 History atenolol 50 mg tablet 50 mg PO DAILY 01/02/24 01/02/24 History atorvastatin 40 mg tablet 40 mg PO HS 01/02/24 01/03/24 History fluoxetine 40 mg capsule 40 mg PO DAILY 01/02/24 01/02/24 History lisinopril 10 mg tablet 10 mg PO DAILY 01/02/24 01/02/24 History metformin 500 mg tablet 500 mg PO BIDWMEAL 01/02/24 01/03/24 History New Prescriptions to Start Prescriptions: Allergies Allergy/AdvReac Type Severity Reaction Status Date / Time ondansetron [From Zofran] Allergy Verified 01/02/24 18:12 Exam Data for Last 24 hours Vital signs and Labs for Last 24 Hours: Temp Pulse Resp BP Pulse Ox O2 Del Method O2 Flow Rate 97.9 F 61 24 125/72 90 L Venturi Mask 12 01/03/24 07:54 01/03/24 07:54 01/03/24 07:54 01/03/24 07:54 01/03/24 07:54 01/03/24 07:54 01/03/24 06:36 FiO2 40 01/03/24 06:36 Laboratory Results - last 24 hr 01/02/24 18:15: WBC 10.0, RBC 5.39, Hgb 16.6 H, Hct 52.6 H, MCV 97.7, MCH 30.7, MCHC 31.4 L, RDW 15.3, Plt Count 288, MPV 8.0, Neut % (Auto) 55.3, Lymph % (Auto) 36.1, [place] % (Auto) 4.1, Eos % (Auto) 1.4, Baso % (Auto) 3.1 H, Neut # (Auto) 5.5, Lymph # (Auto) 3.6, [place] # (Auto) 0.4, Eos # (Auto) 0.1, Baso # (Auto) 0.3 H, Sodium 136, Potassium 4.3, Chloride 102, Carbon Dioxide 25, Anion Gap 13.3, BUN 11, Creatinine 0.60, Estimated Creat Clear 184, Estimated GFR 106, Est GFR ( Amer) 129, Glucose 110 H, Hemoglobin A1c 7.6 H, Calcium 10.0, Magnesium 1.8, Total Bilirubin 0.8, AST 32, ALT 24, Alkaline Phosphatase 89, NT-Pro-B Natriuret Pep 4030 H, Total Protein 6.8, Albumin 3.7, Globulin 3.1, Albumin/Globulin Ratio 1.2, Lipase 104 01/02/24 18:25: VBG pH 7.43 H, VBG pCO2 35.5, VBG pO2 64.3 H, VBG HCO3 23.2, VBG Total CO2 24.3, VBG O2 Saturation 93.2 H, VBG Base Excess -1.0, VBG Lactic Acid 2.2 H 01/02/24 19:56: Urine Color Yellow, Urine Appearance Clear, Urine pH 7.0, Ur Specific [place] 1.010, Urine Protein 2+, Urine Glucose (UA) Negative, Urine Ketones Negative, Urine Blood Negative, Urine Nitrate Negative, Urine Bilirubin Negative, Urine Urobilinogen 0.2, Ur Leukocyte Esterase Negative, Urine RBC Occasional, Urine WBC None, Ur Squamous Epith Cells Occasional, Urine Bacteria None 01/02/24 21:32: POC Glucose 120 H 01/02/24 22:49: Lactate 1.0 01/03/24 05:09: POC Glucose 138 H 01/03/24 05:52: WBC 8.0, RBC 5.07, Hgb 15.4, Hct 49.5 H, MCV 97.7, MCH 30.3, MCHC 31.0 L, RDW 15.3, Plt Count 228, MPV 8.4, Neut % (Auto) 49.0, Lymph % (Auto) 40.7, [place] % (Auto) 6.0, Eos % (Auto) 1.7, Baso % (Auto) 2.5 H, Neut # (Auto) 3.9, Lymph # (Auto) 3.3, [place] # (Auto) 0.5, Eos # (Auto) 0.1, Baso # (Auto) 0.2 I & O for Last 24 hours: Intake & Output 12/31/23 01/01/24 01/02/24 01/03/24 11:59 11:59 11:59 11:59 Intake Total 120 / 120 Output Total 1200 / 1200 Balance -1080 / -1080 Weight 235 lb 12.8 oz Constitutional Constitutional: no acute distress *Routine HEENT Exam Head: Present normocephalic and atraumatic Eye: Present EOMI and PERRL ENT: Present mucous membranes moist *Routine Neck Exam Neck: Present supple and full ROM *Routine Respiratory Exam Respiratory: Present decreased breath sounds; Absent crackles *Routine Cardiovascular Exam Cardiovascular: Present RRR *Routine Abdominal Exam Abdominal: Present soft, normoactive bowel sounds and tenderness (in the epigastric area); Absent rebound, guarding, firm or rigid *Routine Rectal Exam Rectal:: deferred *Routine Genitalia Exam Genitalia:: deferred *Routine Extremities Exam Extremities: Absent cyanosis, clubbing or edema *Routine Skin Exam Skin: Present intact; Absent erythema *Routine Neurological Exam Neurological: Present alert and oriented X3 H&P: Result Impressions Abdominal/Pelvic CT 1. Incomplete visualization of approximate 5.4 cm soft tissue mass right breast. Malignancy could not be excluded on the basis of this study. Recommend follow-up with dedicated breast imaging. 2. No evidence of acute intra-abdominal abnormality. CXR Left lower lobe region of consolidation versus atelectasis. Clinically correlate. Chest CTA 1. No evidence of pulmonary embolism. 2. Cardiomegaly and mild interstitial pulmonary edema. 3. Atherosclerotic vascular disease including coronary artery disease. 4. Incompletely visualized right breast intermediate density lesion, collection or complicated cyst measuring at least 4.4 x 6.0 x 8.0 cm with associated tiny calcifications. Recommend correlation with prior breast imaging studies and clinical breast exam. If no prior studies recommend nonemergent f ollow-up diagnostic mammogram and breast ultrasound for further evaluation. Assessment and Plan *Assessment and plan (1) Epigastric abdominal pain: Status: Acute Category: Medical Code(s): R10.13 - Epigastric pain (2) Acute hypoxemic respiratory failure: Status: Acute Category: Medical Code(s): J96.01 - Acute respiratory failure with hypoxia (3) Congestive heart failure: Status: Acute Qualifiers: Heart failure chronicity: acute Heart failure type: unspecified Qualified Code(s): I50.9 - Heart failure, unspecified Category: Medical Code(s): I50.9 - Heart failure, unspecified (4) Elevated brain natriuretic peptide (BNP) level: Status: Acute Category: Medical Code(s): R79.89 - Other specified abnormal findings of blood chemistry (5) Breast mass: Status: Acute Qualifiers: Laterality: right Category: Medical Code(s): N63.0 - Unspecified lump in unspecified breast (6) GERD (gastroesophageal reflux disease): Status: Acute Category: Medical Code(s): K21.9 - Gastro-esophageal reflux disease without esophagitis (7) History of MD (myocardial infarction): Status: Acute Category: Medical Code(s): I25.2 - Old myocardial infarction (8) High cholesterol: Status: Acute Category: Medical Code(s): E78.00 - Pure hypercholesterolemia, unspecified (9) Hypertension: Status: Acute Category: Medical Code(s): I10 - Essential (primary) hypertension (10) Diabetes mellitus, type 2: Status: Acute Category: Medical Code(s): E11.9 - Type 2 diabetes mellitus without complications Plan Will get a covid/flu test. Cardiology has been consulted. Awaiting echo report. Patient will likely need an EGD at some point and further breast imaging. Will discuss with Dr. Burroughs.
[2024-01-03] MEDS: LISINOPRIL 10MG TABLET 10 MG PO (09:22)
[2024-01-03] MEDS: ATENOLOL 50MG TABLET 50 MG PO (09:22)
[2024-01-03 09:26] LABS: Coronavirus 19, PCR Not Detected (NotDetected); Influenza A, PCR Not Detected (NotDetected); Influenza B, PCR Not Detected (NotDetected)
[2024-01-03 09:44] LABS: Troponin I < 0.01 ng/ml (0.00-0.034)
[2024-01-03] MEDS: EMPAGLIFLOZIN 10MG TABLET 10 MG PO (10:42)
[2024-01-03] MEDS: SPIRONOLACTONE 25MG TABLET 25 MG PO (10:42)
[2024-01-03 10:54] LABS: Alanine Aminotransferase 20 U/L (12-78); Albumin/Globulin Ratio 1.2 (1.1-1.8); Alkaline Phosphatase 82 U/L (38-126); Anion Gap 12.6 mEq/L (5-15); Aspartate Amino Transferase 25 U/L (14-36); Bilirubin,Total 0.7 mg/dl (0.2-1.3); Blood Urea Nitrogen 14 mg/dl (7-17); Calcium 9.4 mg/dl (8.4-10.2); Carbon Dioxide 26 mmol/L (22.0-30.0); Chloride 103 mmol/L (98-107); Creatinine Clearance Estimated 77 mL/min (50-200); Estimated Glomerular Filt Rate 89 ml/min (>60); GFR (African American) 108 ML/MIN (>60); Globulin 2.6 g/dL (1.3-3.2); Glucose 130 mg/dl (74-100); Potassium 4.6 mmoL/L (3.5-5.1); Sodium 137 mmol/L (136-145); Total Protein,Serum 5.6 g/dl (6.3-8.2)
[2024-01-03 11:39] LABS: POC Glucose,Bedside 138 (70-110)
--- NOTE | 2024-01-03 13:01 | EXP.CARD.CON ---
History of Present Illness History of Present Illness Consult date: 01/03/24 Requesting physician: Patricia Burroughs Consult reason: shortness of breath Chief complaint: epigastric pain, SOB History of present illness: This is a 48-year-old white female who presented to the emergency department with complaints of epigastric pain and bloating. She states that she has been off of all of her medications for the last 8 to 9 months. She does have a history of coronary artery disease, hypertension, hyperlipidemia, diabetes and a history of an [place]. She states that where she was living previously she had significant issues with access to healthcare and she lost her insurance. She states that she moved back to this area approximately 3 months ago and just started seeing her family doctor within the last 3 weeks to a month. She was restarted on all of her medications and since that time she has not felt well. She states that she initially had diarrhea when she started back on her medications which they attributed to metformin. She states that she then started to have the epigastric pain and bloating. The medication was adjusted with no improvement in her symptoms and then she became constipated. She states that her epigastric pain and bloating continued to worsen and then she started being significantly short of breath with the bloating. She denies any lower extremity edema. She denies any chest pain or pressure. She states that she is short of breath all the time and this is much worse when she feels bloated and with exertion. It does improve with rest. She states despite decreasing her dose of metformin her symptoms did not improve and that is why she came to the emergency department. The patient was found to have an elevated BNP over 4000. She did get IV Lasix. This morning she is still requiring oxygen. Her lips do appear cyanotic. She does have clubbing noted to her fingers as well. She denies any fever, chills, PND orthopnea. She states that she has been nauseated with her epigastric pain and bloating but has had no vomiting. [facility] Disclaimer: The information contained in this section may have been updated after the patient was seen, as this information can be updated by other users. Medical History (Updated 01/03/24 @ 13:51 by Raudel Aviles MD) Clubbing of digits Cyanosis Acute respiratory failure with hypoxia Pulmonary edema CAD in [place] artery SOB (shortness of breath) on exertion GERD (gastroesophageal reflux disease) IBS (irritable bowel syndrome) History of [place] (myocardial infarction) High cholesterol Hypertension Anxiety Depression Diabetes mellitus, type 2 Surgical History (Updated 01/03/24 @ 08:36 by TAYLOR Henry) History of right breast biopsy History of D&C History of partial hysterectomy History of Family History (Updated 01/03/24 @ 08:38 by TAYLOR Henry) Other COPD (chronic obstructive pulmonary disease) Depression FHx: mental illness Hyperlipidemia Social History (Updated 01/02/24 @ 21:30 by [place] Burroughs RN) Smoking Status: Current every day smoker alcohol intake: never current occupational status: disabled Travel in the last 8 weeks: None Review of Systems Review of Systems Review of systems:: pertinent systems reviewed and negative unless documented below Constitutional Constitutional: Reports system reviewed and no additional complaints, except as documented, Reports headache(s), Reports lethargy and Denies weakness Eyes Eyes: Reports system reviewed and no additional complaints, except as documented ENT Ears, Nose, Mouth, and Throat: Reports system reviewed and no additional complaints, except as documented, Reports headache(s) and Denies vertigo *Cardiovascular Cardiovascular: Reports system reviewed and no additional complaints, except as documented, Denies chest pain, Reports dyspnea, Reports dyspnea on exertion and Denies leg edema *Respiratory Respiratory: Reports system reviewed and no additional complaints, except as documented, Reports dyspnea and Reports dyspnea on exertion *Gastrointestinal Gastrointestinal: Reports system reviewed and no additional complaints, except as documented, Reports abdominal pain (Epigastric pain) and Reports bloating *Genitourinary Genitourinary: Reports system reviewed and no additional complaints, except as documented *Musculoskeletal Musculoskeletal: Reports system reviewed and no additional complaints, except as documented Integumentary/Breasts Skin/Breast: Reports system reviewed and no additional complaints, except as documented *Neurologic Neurologic: Reports headache(s), Denies vertigo and Denies weakness Psychiatric Psychiatric: Reports system reviewed and no additional complaints, except as documented Endocrine Endocrine: Reports system reviewed and no additional complaints, except as documented Hematologic/Lymphatic Hematologic/Lymphatic: Reports system reviewed and no additional complaints, except as documented Allergic/Immunologic Allergic/Immunologic: Reports system reviewed and no additional complaints, except as documented Exam Data for Last 24 hours Vital signs and Labs for Last 24 Hours: Temp Pulse Resp BP Pulse Ox O2 Del Method O2 Flow Rate 97.5 F L 55 L 22 125/76 96 Venturi Mask 15 01/03/24 11:17 01/03/24 12:00 01/03/24 11:17 01/03/24 11:17 01/03/24 11:17 01/03/24 11:17 01/03/24 11:17 FiO2 40 01/03/24 06:36 Laboratory Results - last 24 hr 01/02/24 18:15: WBC 10.0, RBC 5.39, Hgb 16.6 H, Hct 52.6 H, MCV 97.7, MCH 30.7, MCHC 31.4 L, RDW 15.3, Plt Count 288, MPV 8.0, Neut % (Auto) 55.3, Lymph % (Auto) 36.1, [place] % (Auto) 4.1, Eos % (Auto) 1.4, Baso % (Auto) 3.1 H, Neut # (Auto) 5.5, Lymph # (Auto) 3.6, [place] # (Auto) 0.4, Eos # (Auto) 0.1, Baso # (Auto) 0.3 H, Sodium 136, Potassium 4.3, Chloride 102, Carbon Dioxide 25, Anion Gap 13.3, BUN 11, Creatinine 0.60, Estimated Creat Clear 184, Estimated GFR 106, Est GFR ( Amer) 129, Glucose 110 H, Hemoglobin A1c 7.6 H, Calcium 10.0, Magnesium 1.8, Total Bilirubin 0.8, AST 32, ALT 24, Alkaline Phosphatase 89, NT-Pro-B Natriuret Pep 4030 H, Total Protein 6.8, Albumin 3.7, Globulin 3.1, Albumin/Globulin Ratio 1.2, Lipase 104 01/02/24 18:25: VBG pH 7.43 H, VBG pCO2 35.5, VBG pO2 64.3 H, VBG HCO3 23.2, VBG Total CO2 24.3, VBG O2 Saturation 93.2 H, VBG Base Excess -1.0, VBG Lactic Acid 2.2 H 01/02/24 19:56: Urine Color Yellow, Urine Appearance Clear, Urine pH 7.0, Ur Specific [place] 1.010, Urine Protein 2+, Urine Glucose (UA) Negative, Urine Ketones Negative, Urine Blood Negative, Urine Nitrate Negative, Urine Bilirubin Negative, Urine Urobilinogen 0.2, Ur Leukocyte Esterase Negative, Urine RBC Occasional, Urine WBC None, Ur Squamous Epith Cells Occasional, Urine Bacteria None 01/02/24 21:32: POC Glucose 120 H 01/02/24 22:49: Lactate 1.0 01/03/24 05:09: POC Glucose 138 H 01/03/24 05:52: WBC 8.0, RBC 5.07, Hgb 15.4, Hct 49.5 H, MCV 97.7, MCH 30.3, MCHC 31.0 L, RDW 15.3, Plt Count 228, MPV 8.4, Neut % (Auto) 49.0, Lymph % (Auto) 40.7, [place] % (Auto) 6.0, Eos % (Auto) 1.7, Baso % (Auto) 2.5 H, Neut # (Auto) 3.9, Lymph # (Auto) 3.3, [place] # (Auto) 0.5, Eos # (Auto) 0.1, Baso # (Auto) 0.2, Sodium 137, Potassium 4.6, Chloride 103, Carbon Dioxide 26, Anion Gap 12.6, BUN 14 D, Creatinine 0.70, Estimated Creat Clear 77, Estimated GFR 89, Est GFR ( Amer) 108, Glucose 130 H, Calcium 9.4, Total Bilirubin 0.7, AST 25, ALT 20, Alkaline Phosphatase 82, Troponin I < 0.01, Total Protein 5.6 L, Albumin 3.0 L D, Globulin 2.6, Albumin/Globulin Ratio 1.2 01/03/24 09:20: SARS-CoV-2 (PCR) Not detected, Influenza A Untype (PCR) Not detected, Influenza Type B (PCR) Not detected 01/03/24 11:27: POC Glucose 138 H I & O for Last 24 hours: Intake & Output 12/31/23 01/01/24 01/02/24 01/03/24 23:59 23:59 23:59 23:59 Intake Total 120 / 120 Output Total 4000 / 4000 Balance 120 / 120 -4000 / -4000 Weight 228 lb 9.6 oz 235 lb 12.8 oz Narrative: EKG is sinus rhythm with a rate of 57 bpm, right bundle branch block and left posterior hemiblock. Constitutional Constitutional: no acute distress and morbidly obese *Routine HEENT Exam Head: Present normocephalic and atraumatic ENT: Present mucous membranes moist *Routine Neck Exam Neck: Present supple, full ROM and normal carotid upstroke; Absent JVD, carotid bruit or lymphadenopathy *Routine Respiratory Exam Respiratory: Present CTA bilaterally, normal respiratory effort, able to speak in complete sentences and symmetric chest movement *Routine Cardiovascular Exam Cardiovascular: Present RRR, Normal S1 and Normal S2; Absent murmur or gallop *Routine Abdominal Exam Abdominal: Present soft and normoactive bowel sounds; Absent tenderness, distended or organomegaly *Routine Extremities Exam Extremities: Present full ROM, pulses intact and normal capillary refill; Absent cyanosis, clubbing or edema *Routine Skin Exam Skin: Present intact and warm; Absent erythema *Routine Neurological Exam Neurological: Present alert, oriented X3 and CN II-XII intact; Absent sensory deficit or motor deficit Routine Psychiatric Exam Psychiatric: Present normal affect Meds Home Medications and Allergies Home Medications Medication Instructions Recorded Confirmed Type aspirin 81 mg chewable tablet 81 mg PO DAILY 01/02/24 01/02/24 History atenolol 50 mg tablet 50 mg PO DAILY 01/02/24 01/02/24 History atorvastatin 40 mg tablet 40 mg PO HS 01/02/24 01/03/24 History fluoxetine 40 mg capsule 40 mg PO DAILY 01/02/24 01/02/24 History lisinopril 10 mg tablet 10 mg PO DAILY 01/02/24 01/02/24 History metformin 500 mg tablet 500 mg PO BIDWMEAL 01/02/24 01/03/24 History New Prescriptions to Start Prescriptions: Allergies Allergy/AdvReac Type Severity Reaction Status Date / Time ondansetron [From Zofran] Allergy Verified 01/02/24 18:12 Assessment and Plan *Assessment and plan (1) SOB (shortness of breath) on exertion: Status: Acute Category: Medical Code(s): R06.02 - Shortness of breath (2) Epigastric abdominal pain: Status: Acute Category: Medical Code(s): R10.13 - Epigastric pain (3) Elevated brain natriuretic peptide (BNP) level: Status: Acute Category: Medical Code(s): R79.89 - Other specified abnormal findings of blood chemistry (4) CAD in [place] artery: Status: Acute Category: Medical Code(s): I25.10 - Atherosclerotic heart disease of [place] coronary artery without angina pectoris (5) Hypertension: Status: Acute Qualifiers: Hypertension type: primary hypertension Qualified Code(s): I10 - Essential (primary) hypertension Category: Medical Code(s): I10 - Essential (primary) hypertension (6) High cholesterol: Status: Acute Category: Medical Code(s): E78.00 - Pure hypercholesterolemia, unspecified (7) Diabetes mellitus, type 2: Status: Acute Qualifiers: Diabetes mellitus complication status: without complication Diabetes mellitus skilled nursing insulin use: with ocean transportation intermediary use Qualified Code(s): E11.9 - Type 2 diabetes mellitus without complications; Z79.4 - intermodal dispatcher (current) use of insulin Category: Medical Code(s): E11.9 - Type 2 diabetes mellitus without complications (8) Breast mass: Status: Acute Qualifiers: Breast mass location: unspecified quadrant Laterality: right Qualified Code(s): N63.10 - Unspecified lump in the right breast, unspecified quadrant Category: Medical Code(s): N63.0 - Unspecified lump in unspecified breast (9) Congestive heart failure: Status: Acute Qualifiers: Heart failure chronicity: acute Heart failure type: unspecified Qualified Code(s): I50.9 - Heart failure, unspecified Category: Medical Code(s): I50.9 - Heart failure, unspecified (10) GERD (gastroesophageal reflux disease): Status: Acute Qualifiers: Esophagitis presence: esophagitis presence not specified Qualified Code(s): K21.9 - Gastro-esophageal reflux disease without esophagitis Category: Medical Code(s): K21.9 - Gastro-esophageal reflux disease without esophagitis (11) Pulmonary edema: Status: Acute Qualifiers: Chronicity: acute Qualified Code(s): J81.0 - Acute pulmonary edema Category: Medical Code(s): J81.1 - Chronic pulmonary edema Plan Plan: 1. This is a 48-year-old female who was admitted to the hospital with acute CHF and epigastric pain. The patient had a BNP elevated over 4000. CT of the chest did show pulmonary edema. Will diurese her with Lasix 40 mg IV twice daily. 2. Start spironolactone 25 mg p.o. daily for CHF. 3. Start Jardiance 10 mg daily for CHF. 4. Continue atenolol and lisinopril for CHF. 5. The patient does have a history of coronary artery disease. She states that she had a heart attack when she was 40 years old and had 1 stent placed to her coronary artery. She does not know which coronary artery she had stented. Will obtain a stat troponin to rule out a non-STEMI. 6. Will obtain an echocardiogram to evaluate her LV function due to her shortness of breath and CHF and pulmonary edema on CT. 7. The patient does have a history of coronary artery disease as mentioned above. She would benefit from an ischemic evaluation. If her symptoms improve significantly with diuresis then we can do her ischemic evaluation on an outpatient basis. However, if she continues to be symptomatic despite aggressive diuresis then we will likely need to proceed with an ischemic evaluation while she is hospitalized. 8. Her blood pressure is well-controlled. 9. Her LDL goal is less than 55. Will get a lipid panel in the morning. She is on a statin. 10. The patient is diabetic. She will need aggressive control of her diabetes. Will defer this to her primary care provider. 11. The patient does have a mass noted to her right breast. Will defer this to her primary care team. 12. Further recommendations will be made pending the patient's response to treatment and the results of her echocardiogram today. Thank you for the opportunity to help participate in the care of this patient. All recommendations and orders are per Dr. Contreras.
--- NOTE | 2024-01-03 13:48 | EXP.PULM.CON ---
History of Present Illness History of present illness: Ms. Frankel is a 48-year-old female current smoker presented with abdominal abdominal pain Eventually found to be in hypoxic respiratory failure and pulmonary was called for further evaluation and management. Other significant physical examination findings including climbing sinuses. Positive for Raynaud's phenomenom. No obvious telangiectasias noted. Chest clear to auscultate. [facility] Disclaimer: The information contained in this section may have been updated after the patient was seen, as this information can be updated by other users. Medical History (Updated 01/03/24 @ 13:51 by Raudel Aviles MD) Clubbing of digits Cyanosis Acute respiratory failure with hypoxia Pulmonary edema CAD in [place] artery SOB (shortness of breath) on exertion GERD (gastroesophageal reflux disease) IBS (irritable bowel syndrome) History of [place] (myocardial infarction) High cholesterol Hypertension Anxiety Depression Diabetes mellitus, type 2 Surgical History (Updated 01/03/24 @ 08:36 by TAYLOR Henry) History of right breast biopsy History of D&C History of partial hysterectomy History of Family History (Updated 01/03/24 @ 08:38 by TAYLOR Henry) Other COPD (chronic obstructive pulmonary disease) Depression FHx: mental illness Hyperlipidemia Social History (Updated 01/02/24 @ 21:30 by [place] Burroughs RN) Smoking Status: Current every day smoker alcohol intake: never current occupational status: disabled Travel in the last 8 weeks: None Review of Systems Constitutional Constitutional: Reports fatigue, Reports headache(s) and Denies weakness Eyes Eyes: Denies eye discharge, Denies dry eyes, Denies irritation and Denies itchy eyes ENT Ears, Nose, Mouth, and Throat: Reports headache(s), Denies lip swelling, Denies throat swelling and Denies vertigo *Cardiovascular Cardiovascular: Reports dyspnea and Reports dyspnea on exertion *Respiratory Respiratory: Reports chest congestion, Reports cough, Reports dyspnea, Reports dyspnea on exertion, Denies excessive phlegm production and Denies wheezing *Gastrointestinal Gastrointestinal: Denies abdominal pain, Denies belching and Denies cramping *Musculoskeletal Musculoskeletal: Reports back pain, Reports myalgias and Reports other (No small joint swelling or Pain) *Neurologic Neurologic: Reports headache(s), Denies vertigo and Denies weakness Psychiatric Psychiatric: Denies homicidal ideation and Denies suicidal ideation Endocrine Endocrine: Reports fatigue and Denies heat intolerance Hematologic/Lymphatic Hematologic/Lymphatic: Denies easy bleeding and Denies lymphadenopathy Allergic/Immunologic Allergic/Immunologic: Denies itchy eyes, Denies lip swelling, Denies throat swelling and Denies wheezing Pulmonology Exam Inpatient Vital signs and Labs for Last 24 Hours: Temp Pulse Resp BP Pulse Ox O2 Del Method O2 Flow Rate 97.5 F L 101 H 22 125/76 91 L Venturi Mask 12 01/03/24 11:17 01/03/24 13:08 01/03/24 11:17 01/03/24 11:17 01/03/24 13:08 01/03/24 13:08 01/03/24 13:08 FiO2 40 01/03/24 13:08 Laboratory Results - last 24 hr 01/02/24 18:15: WBC 10.0, RBC 5.39, Hgb 16.6 H, Hct 52.6 H, MCV 97.7, MCH 30.7, MCHC 31.4 L, RDW 15.3, Plt Count 288, MPV 8.0, Neut % (Auto) 55.3, Lymph % (Auto) 36.1, [place] % (Auto) 4.1, Eos % (Auto) 1.4, Baso % (Auto) 3.1 H, Neut # (Auto) 5.5, Lymph # (Auto) 3.6, [place] # (Auto) 0.4, Eos # (Auto) 0.1, Baso # (Auto) 0.3 H, Sodium 136, Potassium 4.3, Chloride 102, Carbon Dioxide 25, Anion Gap 13.3, BUN 11, Creatinine 0.60, Estimated Creat Clear 184, Estimated GFR 106, Est GFR ( Amer) 129, Glucose 110 H, Hemoglobin A1c 7.6 H, Calcium 10.0, Magnesium 1.8, Total Bilirubin 0.8, AST 32, ALT 24, Alkaline Phosphatase 89, NT-Pro-B Natriuret Pep 4030 H, Total Protein 6.8, Albumin 3.7, Globulin 3.1, Albumin/Globulin Ratio 1.2, Lipase 104 01/02/24 18:25: VBG pH 7.43 H, VBG pCO2 35.5, VBG pO2 64.3 H, VBG HCO3 23.2, VBG Total CO2 24.3, VBG O2 Saturation 93.2 H, VBG Base Excess -1.0, VBG Lactic Acid 2.2 H 01/02/24 19:56: Urine Color Yellow, Urine Appearance Clear, Urine pH 7.0, Ur Specific [place] 1.010, Urine Protein 2+, Urine Glucose (UA) Negative, Urine Ketones Negative, Urine Blood Negative, Urine Nitrate Negative, Urine Bilirubin Negative, Urine Urobilinogen 0.2, Ur Leukocyte Esterase Negative, Urine RBC Occasional, Urine WBC None, Ur Squamous Epith Cells Occasional, Urine Bacteria None 01/02/24 21:32: POC Glucose 120 H 01/02/24 22:49: Lactate 1.0 01/03/24 05:09: POC Glucose 138 H 01/03/24 05:52: WBC 8.0, RBC 5.07, Hgb 15.4, Hct 49.5 H, MCV 97.7, MCH 30.3, MCHC 31.0 L, RDW 15.3, Plt Count 228, MPV 8.4, Neut % (Auto) 49.0, Lymph % (Auto) 40.7, [place] % (Auto) 6.0, Eos % (Auto) 1.7, Baso % (Auto) 2.5 H, Neut # (Auto) 3.9, Lymph # (Auto) 3.3, [place] # (Auto) 0.5, Eos # (Auto) 0.1, Baso # (Auto) 0.2, Sodium 137, Potassium 4.6, Chloride 103, Carbon Dioxide 26, Anion Gap 12.6, BUN 14 D, Creatinine 0.70, Estimated Creat Clear 77, Estimated GFR 89, Est GFR ( Amer) 108, Glucose 130 H, Calcium 9.4, Total Bilirubin 0.7, AST 25, ALT 20, Alkaline Phosphatase 82, Troponin I < 0.01, Total Protein 5.6 L, Albumin 3.0 L D, Globulin 2.6, Albumin/Globulin Ratio 1.2 01/03/24 09:20: SARS-CoV-2 (PCR) Not detected, Influenza A Untype (PCR) Not detected, Influenza Type B (PCR) Not detected 01/03/24 11:27: POC Glucose 138 H I & O for Labs for Last 24 Hours: Intake & Output 12/31/23 01/01/24 01/02/24 01/03/24 23:59 23:59 23:59 23:59 Intake Total 120 / 120 Output Total 4000 / 4000 Balance 120 / 120 -4000 / -4000 Weight 228 lb 9.6 oz 235 lb 12.8 oz Constitutional: Present moderate distress Head: Present normocephalic and atraumatic ENT: Present normal exam, normal oropharynx and mucous membranes moist Neck: Present normal inspection and full ROM Respiratory: Present respiratory distress and able to speak in complete sentences; Absent prolonged expiratory phase or wheezes Cardiac: Present S1/S2, Tachycardia and radial pulses present GI: Present soft and distention; Absent tenderness or guarding Rectal (female): Present deferred (female): Present deferred Skin: Present cyanosis; Absent jaundice Comment:: Skin lesions Neuro: Present alert, awake and oriented x 3 Extremities: Present normal inspection, clubbing and cyanosis Psychiatric: Present normal affect and cooperative Meds Home Medications and Allergies Home Medications Medication Instructions Recorded Confirmed Type aspirin 81 mg chewable tablet 81 mg PO DAILY 01/02/24 01/02/24 History atenolol 50 mg tablet 50 mg PO DAILY 01/02/24 01/02/24 History atorvastatin 40 mg tablet 40 mg PO HS 01/02/24 01/03/24 History fluoxetine 40 mg capsule 40 mg PO DAILY 01/02/24 01/02/24 History lisinopril 10 mg tablet 10 mg PO DAILY 01/02/24 01/02/24 History metformin 500 mg tablet 500 mg PO BIDWMEAL 01/02/24 01/03/24 History New Prescriptions to Start Prescriptions: Allergies Allergy/AdvReac Type Severity Reaction Status Date / Time ondansetron [From Zofran] Allergy Verified 01/02/24 18:12 Results Laboratory Findings 01/03/24 05:52 01/03/24 05:52 Abnormal lab findings: Abnormal Labs 01/02/24 01/02/24 01/02/24 18:15 18:25 21:32 Hgb 16.6 H Hct 52.6 H MCHC 31.4 L Baso % (Auto) 3.1 H Baso # (Auto) 0.3 H VBG pH 7.43 H VBG pO2 64.3 H VBG O2 Saturation 93.2 H VBG Lactic Acid 2.2 H Glucose 110 H POC Glucose 120 H Hemoglobin A1c 7.6 H NT-Pro-B Natriuret Pep 4030 H Total Protein Albumin 01/03/24 01/03/24 01/03/24 05:09 05:52 11:27 Hgb Hct 49.5 H MCHC 31.0 L Baso % (Auto) 2.5 H Baso # (Auto) VBG pH VBG pO2 VBG O2 Saturation VBG Lactic Acid Glucose 130 H POC Glucose 138 H 138 H Hemoglobin A1c NT-Pro-B Natriuret Pep Total Protein 5.6 L Albumin 3.0 L D Assessment and Plan *Assessment and plan (1) Pulmonary edema: Status: Acute Qualifiers: Chronicity: acute Qualified Code(s): J81.0 - Acute pulmonary edema Category: Medical Code(s): J81.1 - Chronic pulmonary edema (2) Acute respiratory failure with hypoxia: Status: Acute Category: Medical Code(s): J96.01 - Acute respiratory failure with hypoxia (3) Cyanosis: Status: Acute Category: Medical Code(s): R23.0 - Cyanosis (4) Clubbing of digits: Status: Acute Category: Medical Plan Ms. Frankel is a 48-year-old female current smoker presented with abdominal abdominal pain Eventually found to be in hypoxic respiratory failure and pulmonary was called for further evaluation and management. Other significant physical examination findings including climbing sinuses. Positive for Raynaud's phenomenom. No obvious telangiectasias noted. Chest clear to auscultate. CTA PE protocol bilateral diffuse groundglass opacities concerning for pulmonary edema. No dense consolidation/airspace disease noted. No obvious evidence of pulmonary embolism noted. Plan: DuoNebs every 6 hours and scheduled basis Continue oxygen supplementation to maintain O2 saturation 90% and above, currently on Ventimask 40% Follow with ABG and methemoglobin levels Follow-up MARISA screen, anticentromere and anti-SCL 70 antibodies we will hold off on initiating prednisone at this point of time. Follow-up with echocardiogram
[2024-01-03 14:24] LABS: C-Reactive Protein 6.6 mg/L (0-4)
[2024-01-03 15:03] LABS: ABG Base Excess 5.3 mmol/L (-2.4-2.3); ABG HCO3 29.3 mmhg (22.0-26.0); ABG Methemoglobin 0.2 % (0.4-1.5); ABG Oxygen Saturation 91 % (90-100); ABG PCO2 42.9 mmhg (35.0-45.0); ABG PH 7.45 mmol/L (7.35-7.45); ABG PO2 59.2 mmhg (80-100); ABG TCO2 30.6 mmhg (23-27)
[2024-01-03 15:06] LABS: Allen's Test Acceptable; Oxygen 40% 12L %; Source Right Radial
[2024-01-03 16:45] LABS: POC Glucose,Bedside 118 (70-110)
--- NOTE | 2024-01-03 16:46 | PC.NURSE ---
PT IS RESTING IN BED. ALERT AND ORIENTED X4. EATING AND DRINKING WELL. O2 SATURATION HAS MAINTAINED 90-92% ON 40% VENTI MASK. ABLE TO SPEAK IN COMPLETE SENTENCES W/O FEELING DISTRESSED. PT HAS DIURESED WELL THIS SHIFT. LUNG SOUNDS DIMINISHED WITH COARSE CRACKLES (bases). ABDOMEN SOFT/NON TENDER WITH ACTIVE BOWEL SOUNDS. SCATTERED SCABS NOTED TO PT'S BACK. REDNESS/DISCOLORATION NOTED TO BILATERAL HANDS. CYANOSIS NOTED TO LIPS. WILL CONTINUE TO MONITOR.
[2024-01-03] MEDS: ACETAMINOPHEN 325MG TAB 650 MG PO (17:33)
[2024-01-03] MEDS: lamoTRIgine 100MG TABLET 50 MG PO (20:12)
[2024-01-03] MEDS: TEMAZEPAM 30MG CAPSULE 30 MG PO (20:13)
[2024-01-03 20:22] LABS: POC Glucose,Bedside 129 (70-110)
--- NOTE | 2024-01-03 21:31 | CA_ITS ---
APPROVED REPORT EXAM: Comprehensive 2D, Doppler, and color-flow Echocardiogram [employer] Operator: Samantha Pagan CRT Ht: 5 ft 2 in Wt: 235lbs BSA: 2.05 BP: 143/85 mmHg Indications: Congestive Heart Failure, stent, smoker 2D Dimensions LA Volume 32.50 mL LA Volume Index 15.50 mL/m2 (M/F) 16-34 M-Mode Dimensions RVDd 3.91 cm (0.9-2.6) LA Diam 3.24 cm (1.9-4.0) LVDd 4.07 cm (3.5-5.7) LVDs 2.96 cm (3.5-5.7) IVSd 1.70 cm (0.6-1.1) PWd 0.93 cm (0.6-1.1) EF (Teich) 53.50% FS 27.30% EDV (Teich) 72.90 mL TAPSE 1.43 (<1.7) ESV (Teich) 33.90 mL LV Diastology E Decel Time 220 (160-240 msec) E/A Ratio 0.68 MED A' 7.70 cm/s LAT A' 11.80 cm/s Aortic Valve AO Peak GR. 4.80 mmHg Mitral Valve MV A Velocity 83.0 (40-130 cm/s) E/A Ratio 0.68 Pulmonary Valve PV Peak Velocity 214.0 (50-150 cm/s) Tricuspid Valve TR P. Velocity 233.00 cm/s RAP Estimate 10.00 mmHg RVSP 31.70 mmHg Left Ventricle The left ventricle is normal size. The left ventricular systolic function is normal. The left ventricular ejection fraction is within the normal range. There is increased LV wall thickness. Septal flattening is present, consistent with increased RV volume/pressure overload. Diastolic function is indeterminate. LVEF is 55%. Right Ventricle Right ventricle is severely dilated. Right ventricle is severely hypokinetic. Atria The left atrium size is normal. Right atrium is severely dilated. There is no Doppler evidence of interatrial shunt. Aortic Valve The aortic valve is mildly thickened. There is no aortic valvular stenosis. Trace aortic regurgitation. Mitral Valve The mitral valve leaflets are mildly thickened. No evidence of mitral valve stenosis. Mild mitral regurgitation. Tricuspid Valve The tricuspid valve leaflets are thin and pliable. At least mild tricuspid regurgitation. RVSP is not well estimated due to eccentric TR jet. Pulmonic Valve The pulmonary valve is normal in structure. Mild pulmonic regurgitation. Great Vessels The aortic root is normal in size. The ascending aorta is normal in size. IVC is normal in size and collapses >50% with inspiration. Pericardium There is no pericardial effusion. Other Information Study Quality: Fair Conclusion Normal LV systolic function. Septal flattening consistent with increased RV volume/pressure overload. Severely dilated RV with severe RV dysfunction. Mild TR. Mild MR. Mild PI. Electronically signed by : Tierney Contreras MD 01/08/2024 11:19:17
[2024-01-04] VITALS (27 sets, daily range): BP systolic 97–129; BP diastolic 53–80; PULSE 63–117; RESP 16–20; TEMP 36.5–36.8; O2SAT 90–94; BMI 38.9
[2024-01-04] MEDS: IPRATROPIUM/ALBUTEROL 3 ML NEB IH ×5 (00:17→23:33)
--- NOTE | 2024-01-04 05:16 | PC.NURSE ---
02 40% V-MASK IN USE. PATIENT'S 02SATS DROP INTO THE 70s AND LOW 80S WHEN UP OOB. VITAL SIGNS STABLE. AFEBRILE. SINUS RHYTHM/BBB NOTED ON TELEMETRY. NO C/O PAIN OR DISCOMFORT .
[2024-01-04 05:49] LABS: POC Glucose,Bedside 121 (70-110)
[2024-01-04] MEDS: METFORMIN 500MG TABLET 500 MG PO (06:01)
[2024-01-04 06:13] LABS: Basophils # 0.2 K/mm3 (0-0.2); Basophils % 1.9 % (0.1-2.0); Eosinophils # 0.2 K/mm3 (0.0-0.4); Eosinophils % 1.6 % (0.1-12.0); Hematocrit 54.5 % (37.0-47.0); Lymphocytes # 2.3 K/mm3 (0.7-4.5); Lymphocytes % 23.7 % (10-50); Mean Corpuscular HGB Conc 31.1 g/dL (31.8-35.4); Mean Corpuscular Hemoglobin 30.5 pg (27.0-31.2); Monocytes # 0.7 K/mm3 (0.1-1.0); Monocytes % 7.7 % (1.7-9.3); Neutrophils # 6.2 K/mm3 (1.8-7.8); Platelet Count 240 K/mm3 (142-424); Red Blood Count 5.57 M/mm3 (4.20-5.40); Red Cell Distribution Width 15.2 % (11.5-17.5); White Blood Count 9.5 K/mm3 (4.8-10.8)
[2024-01-04 06:20] LABS: Anion Gap 11.7 mEq/L (5-15); Blood Urea Nitrogen 16 mg/dl (7-17); Calcium 9.9 mg/dl (8.4-10.2); Carbon Dioxide 31 mmol/L (22.0-30.0); Chloride 99 mmol/L (98-107); Creatinine Clearance Estimated 134 mL/min (50-200); Estimated Glomerular Filt Rate 76 ml/min (>60); GFR (African American) 92 ML/MIN (>60); Glucose 130 mg/dl (74-100); Potassium 3.7 mmoL/L (3.5-5.1); Sodium 138 mmol/L (136-145)
[2024-01-04 07:06] LABS: Alanine Aminotransferase 20 U/L (12-78); Albumin Level 3.7 g/dl (3.5-5.0); Alkaline Phosphatase 84 U/L (38-126); Aspartate Amino Transferase 29 U/L (14-36); Bilirubin,Direct 0.2 mg/dl (0.0-0.4); Bilirubin,Indirect 1.1 mg/dL (0.0-0.9); Bilirubin,Total 1.3 mg/dl (0.2-1.3); Bilirubin,Unconjugated 1.1 mg/dL (0.0-1.1); Chol/HDL Ratio 6.3 (1-3.5); Cholesterol 126 mg/dl (140-200); HDL Cholesterol 20 mg/dl (40-60); Total Protein,Serum 6.7 g/dl (6.3-8.2); Triglycerides 125 mg/dl (30-150); VLDL Cholesterol 25 mg/dL (0-40)
[2024-01-04 07:18] LABS: Direct LDL Cholesterol 89.17 mg/dL (100-129)
--- NOTE | 2024-01-04 07:57 | EXP.ACUTE.PN ---
Subjective *Date: 01/04/24 *Time: 07:57 Interval history: Patient is feeling better this am. Her abdominal pain has improved. She wonders if it was hurting due to taking so much naproxen for headaches. She is still on a ventimask but feels less SOA. Medical Exam Vital signs and Labs for Last 24 Hours: Vital Signs Temp Pulse Pulse Resp BP Pulse Ox O2 Del Method 01/04/24 06:56 Venturi Mask 01/04/24 06:40 81 01/04/24 06:40 81 01/04/24 06:40 91 L Venturi Mask 01/04/24 05:00 Venturi Mask 01/04/24 04:00 65 01/04/24 03:59 97.8 F 71 18 108/57 L 91 L Venturi Mask 01/04/24 03:00 Venturi Mask 01/04/24 00:56 Venturi Mask 01/04/24 00:17 78 01/04/24 00:17 79 01/04/24 00:00 76 01/04/24 00:00 97.7 F 63 18 99/57 L 92 L Venturi Mask 01/03/24 23:00 Venturi Mask 01/03/24 21:00 Venturi Mask 01/03/24 20:00 92 L Venturi Mask 01/03/24 20:00 66 01/03/24 19:54 97.7 F 67 18 103/62 L 92 L Venturi Mask 01/03/24 18:55 Venturi Mask 01/03/24 18:11 100 H 01/03/24 18:11 100 H 01/03/24 18:11 92 L Venturi Mask 01/03/24 17:00 Venturi Mask 01/03/24 16:00 70 01/03/24 16:00 97.4 F L 65 20 147/74 H 95 Venturi Mask 01/03/24 14:51 Venturi Mask 01/03/24 13:08 101 H 01/03/24 13:08 103 H 01/03/24 13:08 91 L Venturi Mask 01/03/24 13:00 Venturi Mask 01/03/24 12:00 55 L 01/03/24 11:17 97.5 F L 57 L 22 125/76 96 Venturi Mask 01/03/24 10:50 Venturi Mask 01/03/24 09:00 Venturi Mask 01/03/24 08:00 24 90 L Venturi Mask 01/03/24 08:00 70 O2 Flow Rate FiO2 01/04/24 06:56 40 01/04/24 06:40 01/04/24 06:40 01/04/24 06:40 12 40 01/04/24 05:00 40 01/04/24 04:00 01/04/24 03:59 01/04/24 03:00 40 01/04/24 00:56 40 01/04/24 00:17 01/04/24 00:17 01/04/24 00:00 01/04/24 00:00 01/03/24 23:00 40 01/03/24 21:00 40 01/03/24 20:00 12 40 01/03/24 20:00 01/03/24 19:54 01/03/24 18:55 40 01/03/24 18:11 01/03/24 18:11 01/03/24 18:11 40 01/03/24 17:00 01/03/24 16:00 01/03/24 16:00 15 01/03/24 14:51 40 01/03/24 13:08 01/03/24 13:08 01/03/24 13:08 12 40 01/03/24 13:00 40 01/03/24 12:00 01/03/24 11:17 15 01/03/24 10:50 01/03/24 09:00 50 01/03/24 08:00 01/03/24 08:00 Intake and Output 01/03/24 01/04/24 01/04/24 19:59 03:59 11:59 Intake Total 630 / 1080 450 / 1080 Output Total 5650 / 5651 51 Balance -5020 / -4571 449 / -4571 Intake: Intake, Oral Amount 630 / 1080 450 / 1080 Output: Output, Urine Amount 5650 / 5651 5650 Other: Number of Voids 2 Number of Unmeasured Voids 1 Number of Bowel Movements 1 Weight 219 lb 14.4 oz Patient Weight 01/04/24 11:59 Weight 219 lb 14.4 oz Laboratory Results - last 24 hr 01/03/24 05:52: Sodium 137, Potassium 4.6, Chloride 103, Carbon Dioxide 26, Anion Gap 12.6, BUN 14 D, Creatinine 0.70, Estimated Creat Clear 77, Estimated GFR 89, Est GFR ( Amer) 108, Glucose 130 H, Calcium 9.4, Total Bilirubin 0.7, AST 25, ALT 20, Alkaline Phosphatase 82, Troponin I < 0.01, C-Reactive Protein 6.6 H, Total Protein 5.6 L, Albumin 3.0 L D, Globulin 2.6, Albumin/Globulin Ratio 1.2 01/03/24 09:20: SARS-CoV-2 (PCR) Not detected, Influenza A Untype (PCR) Not detected, Influenza Type B (PCR) Not detected 01/03/24 11:27: POC Glucose 138 H 01/03/24 13:44: Specimen Source Right radial, O2 % 40% 12l, ABG pH 7.45, ABG pCO2 42.9, ABG pO2 59.2 L, ABG HCO3 29.3 H, ABG Total CO2 30.6 H, ABG O2 Saturation 91, ABG Base Excess 5.3 H, ABG Methemoglobin 0.2 L, Claudio Test Acceptable 01/03/24 16:25: POC Glucose 118 H 01/03/24 20:08: POC Glucose 129 H 01/04/24 05:40: POC Glucose 121 H 01/04/24 05:41: WBC 9.5, RBC 5.57 H, Hgb 17.0 H D, Hct 54.5 H, MCV 98.0, MCH 30.5, MCHC 31.1 L, RDW 15.2, Plt Count 240, MPV 8.0, Neut % (Auto) 65.0, Lymph % (Auto) 23.7, [place] % (Auto) 7.7, Eos % (Auto) 1.6, Baso % (Auto) 1.9, Neut # (Auto) 6.2, Lymph # (Auto) 2.3, [place] # (Auto) 0.7, Eos # (Auto) 0.2, Baso # (Auto) 0.2, Sodium 138, Potassium 3.7, Chloride 99, Carbon Dioxide 31 H, Anion Gap 11.7, BUN 16, Creatinine 0.80, Estimated Creat Clear 134, Estimated GFR 76, Est GFR ( Amer) 92, Glucose 130 H, Calcium 9.9, Total Bilirubin 1.3, Direct Bilirubin 0.2, Conjugated Bilirubin 0.0, Indirect Bilirubin 1.1 H, Unconjugated Bilirubin 1.1, AST 29, ALT 20, Alkaline Phosphatase 84, Total Protein 6.7, Albumin 3.7 D, Triglycerides 125, Cholesterol 126 L, LDL Cholesterol Direct 89.17 L, VLDL Cholesterol 25, HDL Cholesterol 20 L, Cholesterol/HDL Ratio 6.3 H I & O for Labs for Last 24 Hours: Intake & Output 01/01/24 01/02/24 01/03/24 01/04/24 11:59 11:59 11:59 11:59 Intake Total 120 / 120 1080 / 1080 Output Total 4000 / 4000 5651 / 5651 Balance -3880 / -3880 -4571 / -4571 Weight 235 lb 12.8 oz 219 lb 14.4 oz Constitutional: Present no acute distress Respiratory: Present decreased breath sounds and CTA bilaterally Cardiac: Present Reg Rate and Rhythm GI: Present soft and normal bowel sounds; Absent distention or tenderness Extremities: Absent edema, clubbing or cyanosis Skin: Present intact and rash (on back) Neuro: Present alert and awake Assessment and Plan *Assessment and plan (1) Epigastric abdominal pain: Status: Acute Category: Medical Code(s): R10.13 - Epigastric pain (2) Acute hypoxemic respiratory failure: Status: Acute Category: Medical Code(s): J96.01 - Acute respiratory failure with hypoxia (3) Congestive heart failure: Status: Acute Qualifiers: Heart failure chronicity: acute Heart failure type: unspecified Qualified Code(s): I50.9 - Heart failure, unspecified Category: Medical Code(s): I50.9 - Heart failure, unspecified (4) Elevated brain natriuretic peptide (BNP) level: Status: Acute Category: Medical Code(s): R79.89 - Other specified abnormal findings of blood chemistry (5) Breast mass: Status: Acute Qualifiers: Breast mass location: unspecified quadrant Laterality: right Qualified Code(s): N63.10 - Unspecified lump in the right breast, unspecified quadrant Category: Medical Code(s): N63.0 - Unspecified lump in unspecified breast (6) GERD (gastroesophageal reflux disease): Status: Acute Qualifiers: Esophagitis presence: esophagitis presence not specified Qualified Code(s): K21.9 - Gastro-esophageal reflux disease without esophagitis Category: Medical Code(s): K21.9 - Gastro-esophageal reflux disease without esophagitis (7) History of NM (myocardial infarction): Status: Acute Category: Medical Code(s): I25.2 - Old myocardial infarction (8) High cholesterol: Status: Acute Category: Medical Code(s): E78.00 - Pure hypercholesterolemia, unspecified (9) Hypertension: Status: Acute Qualifiers: Hypertension type: primary hypertension Qualified Code(s): I10 - Essential (primary) hypertension Category: Medical Code(s): I10 - Essential (primary) hypertension (10) Diabetes mellitus, type 2: Status: Acute Qualifiers: Diabetes mellitus care home insulin use: with [employer] use Diabetes mellitus complication status: without complication Qualified Code(s): E11.9 - Type 2 diabetes mellitus without complications; Z79.4 - [employer] (current) use of insulin Category: Medical Code(s): E11.9 - Type 2 diabetes mellitus without complications Plan Covid/Flu negative. She was seen by pulmonology who recommended duoNebs every 6 hours and ventimask to keep oxygen in the 90's. He ordered further testing and wanted to see her echo. She was seen by cardiology. They started her on lasix 40mg IV bid, spironolactone 25mg daily, and jardiance 10mg daily. They want to do an ischemic evaluation if her symptoms improve with diuresis. Echo still pending. Will discuss further care with Dr. Burroughs.
[2024-01-04] MEDS: ACETAMINOPHEN 325MG TAB 650 MG PO (08:45)
[2024-01-04] MEDS: SPIRONOLACTONE 25MG TABLET 25 MG PO (09:09)
[2024-01-04] MEDS: ASPIRIN EC 81MG TABLET 81 MG PO (09:09)
[2024-01-04] MEDS: FUROSEMIDE 40MG/4ML VIAL 40 MG IV ×2 (09:09→16:15)
[2024-01-04] MEDS: EMPAGLIFLOZIN 10MG TABLET 10 MG PO (09:10)
[2024-01-04] MEDS: LISINOPRIL 10MG TABLET 10 MG PO (09:10)
[2024-01-04] MEDS: ATENOLOL 50MG TABLET 50 MG PO (09:10)
--- NOTE | 2024-01-04 09:16 | PC.NURSE ---
Atenolol 25 mg and Lisinopril 5 mg given this am and Sylvia with Cardiology to lower the dose on patient's MAR. Verbal to give half of MAR dose.
--- NOTE | 2024-01-04 09:45 | P.PN_ITS ---
Subjective Subjective Date: 01/04/24 Time: 09:00 Principal diagnosis: CAD, acute CHF Interval history: The patient states that her shortness of breath and abdominal bloating and pain has significantly improved with diuresis. She states that she is still short of breath and requiring oxygen which is unusual for her but she is feeling much better since diuresis. She denies any chest pain or pressure. She denies any lower extremity edema. She denies any fever, chills, nausea, vomiting, diarrhea. Shortness of breath has associated orthopnea. Exam Data for Last 24 hours Vital signs and Labs for Last 24 Hours: Temp Pulse Resp BP Pulse Ox O2 Del Method O2 Flow Rate 98.0 F 83 20 97/61 L 94 L Nasal Cannula, Venturi Mask 5.5 01/04/24 07:58 01/04/24 07:58 01/04/24 07:58 01/04/24 07:58 01/04/24 08:00 01/04/24 09:00 01/04/24 09:00 FiO2 40 01/04/24 08:00 Laboratory Results - last 24 hr 01/03/24 05:52: Sodium 137, Potassium 4.6, Chloride 103, Carbon Dioxide 26, Anion Gap 12.6, BUN 14 D, Creatinine 0.70, Estimated Creat Clear 77, Estimated GFR 89, Est GFR ( Amer) 108, Glucose 130 H, Calcium 9.4, Total Bilirubin 0.7, AST 25, ALT 20, Alkaline Phosphatase 82, C-Reactive Protein 6.6 H, Total Protein 5.6 L, Albumin 3.0 L D, Globulin 2.6, Albumin/Globulin Ratio 1.2 01/03/24 09:20: SARS-CoV-2 (PCR) Not detected, Influenza A Untype (PCR) Not detected, Influenza Type B (PCR) Not detected 01/03/24 11:27: POC Glucose 138 H 01/03/24 13:44: Specimen Source Right radial, O2 % 40% 12l, ABG pH 7.45, ABG pCO2 42.9, ABG pO2 59.2 L, ABG HCO3 29.3 H, ABG Total CO2 30.6 H, ABG O2 Saturation 91, ABG Base Excess 5.3 H, ABG Methemoglobin 0.2 L, Claudio Test Acceptable 01/03/24 16:25: POC Glucose 118 H 01/03/24 20:08: POC Glucose 129 H 01/04/24 05:40: POC Glucose 121 H 01/04/24 05:41: WBC 9.5, RBC 5.57 H, Hgb 17.0 H D, Hct 54.5 H, MCV 98.0, MCH 30.5, MCHC 31.1 L, RDW 15.2, Plt Count 240, MPV 8.0, Neut % (Auto) 65.0, Lymph % (Auto) 23.7, [place] % (Auto) 7.7, Eos % (Auto) 1.6, Baso % (Auto) 1.9, Neut # (Auto) 6.2, Lymph # (Auto) 2.3, [place] # (Auto) 0.7, Eos # (Auto) 0.2, Baso # (Auto) 0.2, Sodium 138, Potassium 3.7, Chloride 99, Carbon Dioxide 31 H, Anion Gap 11.7, BUN 16, Creatinine 0.80, Estimated Creat Clear 134, Estimated GFR 76, Est GFR ( Amer) 92, Glucose 130 H, Calcium 9.9, Total Bilirubin 1.3, Direct Bilirubin 0.2, Conjugated Bilirubin 0.0, Indirect Bilirubin 1.1 H, Unconj ugated Bilirubin 1.1, AST 29, ALT 20, Alkaline Phosphatase 84, Total Protein 6.7, Albumin 3.7 D, Triglycerides 125, Cholesterol 126 L, LDL Cholesterol Direct 89.17 L, VLDL Cholesterol 25, HDL Cholesterol 20 L, Cholesterol/HDL Ratio 6.3 H I & O for Last 24 hours: Intake & Output 01/01/24 01/02/24 01/03/24 01/04/24 23:59 23:59 23:59 23:59 Intake Total 120 / 120 630 / 1080 450 / 450 Output Total 9651 / 9651 700 / 700 Balance 120 / 120 -9021 / -8571 -250 / -250 Weight 228 lb 9.6 oz 235 lb 12.8 oz 219 lb 14.4 oz Progress Note: A&P Assessment and plan (1) Atypical angina: Status: Acute (2) SOB (shortness of breath) on exertion: Status: Acute (3) HFrEF (heart failure with reduced ejection fraction): Status: Acute (4) CAD in [place] artery: Status: Acute (5) RVF (right ventricular failure): Status: Acute (6) Pulmonary hypertension: Status: Acute (7) Elevated brain natriuretic peptide (BNP) level: Status: Acute (8) Epigastric abdominal pain: Status: Acute (9) Acute hypoxemic respiratory failure: Status: Acute (10) Breast mass: Status: Acute (11) GERD (gastroesophageal reflux disease): Status: Acute (12) History of AK (myocardial infarction): Status: Acute (13) High cholesterol: Status: Acute (14) Hypertension: Status: Acute (15) Diabetes mellitus, type 2: Status: Acute Assessment and Plan Assessment and Plan for All Diagnoses:: Plan: 1. This is a 48-year-old female who was admitted to the hospital with acute H FrEF and epigastric pain. The patient had a BNP elevated over 4000. CT of the chest did show pulmonary edema. The patient diuresed 9 L yesterday with a -8 L fluid balance. Her renal function remains normal. Will continue with IV diuresis at this time. Anticipate switching her over to oral diuretics tomorrow. 2. The patient's echocardiogram shows an ejection fraction of 45%. The patient is having an acute exacerbation of HFrEF. The patient has a severely dilated right ventricle and severely reduced right ventricular function consistent with RV failure and pulmonary hypertension. 3. The patient states that her shortness of breath has improved but she still continues to be short of breath and requires oxygen which is not her normal. The patient does have a history of coronary artery disease. She states that she has been very concerned in the last several years about worsening of her coronary artery disease since she has not had this evaluated for approximately 8 years. She states that she has had significant transportation and insurance issues that prevented her from getting the care that she needed. She is having symptoms of atypical angina with new onset CHF. Will plan to proceed with left cardiac catheterization today to evaluate her coronary artery disease. 4. We will also proceed with right cardiac catheterization to evaluate her intracardial pressures secondary to her RV failure and severely reduced RV function and pulmonary hypertension. 5. The patient has been educated the risk and benefits of proceeding with right and left left cardiac catheterization. She verbalizes understanding and is agreeable in proceeding with the procedures. 6. The patient will be n.p.o. in preparation for left cardiac catheterization. 7. Continue spironolactone and Jardiance for HFrEF. 8. Her blood pressure is on the lower side this morning. Will decrease her atenolol to 25 mg p.o. daily and decrease her lisinopril to 5 mg p.o. daily. 9. Her LDL goal is less than 55. Her LDL is 89. She has been started on a statin. 10. The patient is diabetic. She will need aggressive control of her diabetes. Will defer this to her primary care team. She is now on Jardiance in addition to her metformin. 11. The patient does have a right breast mass noted. Will defer this to her primary care team. 12. The patient is being seen by pulmonology for her acute hypoxemic respiratory failure. 13. Due to her severely dilated right ventricle and severely reduced RV function, the patient will need a cardiac MRI with ARVC protocol on an outpatient basis. 14. Further recommendations will be made pending the patient's response to treatment and the results of her right and left cardiac catheterization today. Thank you for the opportunity to help participate in the care of this patient. All recommendations and orders are per Dr. Contreras.
--- NOTE | 2024-01-04 09:53 | IR_ITS ---
APPROVED REPORT Patient Location: Inpatient Machine Operators: AIDEE Grimaldo RT (R) PROCEDURES Right heart catheterization Left heart catheterization Left ventriculogram Selective coronary angiogram Informed consent was obtained prior to the procedure. COMPLICATIONS NONE Estimated Blood Loss: LESS THAN 10 ML TECHNIQUE One percent lidocaine was used to anesthetize the right anterior aspect of the right wrist. The right radial artery was accessed via the Seldinger technique and a 6 [place] hydrophilic sheath was placed in the right radial artery. Following this one percent lidocaine was used to anesthetize the right anterior aspect of the right neck. The right internal jugular vein was accessed via the Seldinger technique and a 7 [place] sheath was placed in the right internal jugular vein. Following this an arterial cocktail was administered using 5000U heparin, 2.5 mg verapamil, 1mg Lidocaine and 800mcg nitroglycerin into the right radial sheath. A papa catheter was used to perform left heart catheterization left ventriculogram and selective coronary angiography while a Seadrift-Saqib catheter was used to perform right heart catheterization. Saturations were obtained in the pulmonary artery and right atrium. At the end of the diagnostic procedure therapeutic heparin was administered and the guide catheter was placed in the right coronary artery followed by a Choice PT extra-support wire being placed in the right coronary artery and pushed through the chronic occlusion. After several attempts it was apparent the right coronary artery was chronically occluded and densely calcified therefore it was decided to abandon the procedure. The apparatus was removed the sheath was removed and hemostasis was achieved and TR banding patient was transferred to the postop putting in stable condition ANGIOGRAPHIC RESULTS The left main artery Normal The left anterior descending artery Has a stent in the proximal segment which is widely patent free of in-stent restenosis with excellent proximal distal transitioning. The circumflex artery Large codominant with a 20% mid vessel stenosis and a large first obtuse marginal artery. The right coronary artery Dominant and proximally occluded with the distal vessel filling via [id number] collaterals The [place] ventriculogram reveals Normal left ventricular size ejection fraction 45% mild inferior wall hypokinesis The left ventricular end-diastolic pressure 22 mmHg Right atrial pressure 20 mmHg Right ventricular pressure 72/20 mmHg Pulmonary artery pressure 70/50 mmHg Pulmonary occlusion pressure 18 mmHg Hemoglobin 17 Right atrial saturation 65% Pulmonary artery saturation 68% Aortic saturation 93% Cardiac output 4.5 L/min Cardiac index 2.2 IMPRESSION Widely patent proximal LAD stent Chronically occluded right coronary which fills via left to right collaterals Reduced ejection fraction with regional wall motion abnormality Severe pulmonary hypertension which is multifactorial Mildly elevated left-sided filling pressures PLAN 1. Medical management for coronary artery disease 2. Treatment of pulmonary hypertension per primary cardiology and hospitalist service Electronically signed by : Wai Luque MD 01/04/2024 14:08:43
--- NOTE | 2024-01-04 10:06 | P.PN_ITS ---
Subjective *Date: 01/04/24 *Time: 12:10 Interval history: No acute respiratory vents overnight. Patient denies any new respiratory complaints but denies any significant improvement in her respiratory status. Pulmonology Exam Inpatient Vital signs and Labs for Last 24 Hours: Temp Pulse Resp BP Pulse Ox O2 Del Method O2 Flow Rate 98.0 F 83 20 97/61 L 94 L Nasal Cannula, Venturi Mask 5.5 01/04/24 07:58 01/04/24 07:58 01/04/24 07:58 01/04/24 07:58 01/04/24 08:00 01/04/24 09:00 01/04/24 09:00 FiO2 40 01/04/24 08:00 Laboratory Results - last 24 hr 01/03/24 05:52: Sodium 137, Potassium 4.6, Chloride 103, Carbon Dioxide 26, Anion Gap 12.6, BUN 14 D, Creatinine 0.70, Estimated Creat Clear 77, Estimated GFR 89, Est GFR ( Amer) 108, Glucose 130 H, Calcium 9.4, Total Bilirubin 0.7, AST 25, ALT 20, Alkaline Phosphatase 82, C-Reactive Protein 6.6 H, Total Protein 5.6 L, Albumin 3.0 L D, Globulin 2.6, Albumin/Globulin Ratio 1.2 01/03/24 09:20: SARS-CoV-2 (PCR) Not detected, Influenza A Untype (PCR) Not detected, Influenza Type B (PCR) Not detected 01/03/24 11:27: POC Glucose 138 H 01/03/24 13:44: Specimen Source Right radial, O2 % 40% 12l, ABG pH 7.45, ABG pCO2 42.9, ABG pO2 59.2 L, ABG HCO3 29.3 H, ABG Total CO2 30.6 H, ABG O2 Saturation 91, ABG Base Excess 5.3 H, ABG Methemoglobin 0.2 L, Claudio Test Acceptable 01/03/24 16:25: POC Glucose 118 H 01/03/24 20:08: POC Glucose 129 H 01/04/24 05:40: POC Glucose 121 H 01/04/24 05:41: WBC 9.5, RBC 5.57 H, Hgb 17.0 H D, Hct 54.5 H, MCV 98.0, MCH 30.5, MCHC 31.1 L, RDW 15.2, Plt Count 240, MPV 8.0, Neut % (Auto) 65.0, Lymph % (Auto) 23.7, [place] % (Auto) 7.7, Eos % (Auto) 1.6, Baso % (Auto) 1.9, Neut # (Auto) 6.2, Lymph # (Auto) 2.3, [place] # (Auto) 0.7, Eos # (Auto) 0.2, Baso # (Auto) 0.2, Sodium 138, Potassium 3.7, Chloride 99, Carbon Dioxide 31 H, Anion Gap 11.7, BUN 16, Creatinine 0.80, Estimated Creat Clear 134, Estimated GFR 76, Est GFR ( Amer) 92, Glucose 130 H, Calcium 9.9, Total Bilirubin 1.3, Direct Bilirubin 0.2, Conjugated Bilirubin 0.0, Indirect Bilirubin 1.1 H, Unconjugated Bilirubin 1.1, AST 29, ALT 20, Alkaline Phosphatase 84, Total Protein 6.7, Albumin 3.7 D, Triglycerides 125, Cholesterol 126 L, LDL Cholesterol Direct 89.17 L, VLDL Cholesterol 25, HDL Cholesterol 20 L, Cholesterol/HDL Ratio 6.3 H Temp Pulse Resp BP Pulse Ox O2 Del Method O2 Flow Rate 97.5 F L 101 H 22 125/76 91 L Venturi Mask 12 01/03/24 11:17 01/03/24 13:08 01/03/24 11:17 01/03/24 11:17 01/03/24 13:08 01/03/24 13:08 01/03/24 13:08 FiO2 40 01/03/24 13:08 Laboratory Results - last 24 hr 01/02/24 18:15: WBC 10.0, RBC 5.39, Hgb 16.6 H, Hct 52.6 H, MCV 97.7, MCH 30.7, MCHC 31.4 L, RDW 15.3, Plt Count 288, MPV 8.0, Neut % (Auto) 55.3, Lymph % (Auto) 36.1, [place] % (Auto) 4.1, Eos % (Auto) 1.4, Baso % (Auto) 3.1 H, Neut # (Auto) 5.5, Lymph # (Auto) 3.6, [place] # (Auto) 0.4, Eos # (Auto) 0.1, Baso # (Auto) 0.3 H, Sodium 136, Potassium 4.3, Chloride 102, Carbon Dioxide 25, Anion Gap 13.3, BUN 11, Creatinine 0.60, Estimated Creat Clear 184, Estimated GFR 106, Est GFR ( Amer) 129, Glucose 110 H, Hemoglobin A1c 7.6 H, Calcium 10.0, Magnesium 1.8, Total Bilirubin 0.8, AST 32, ALT 24, Alkaline Phosphatase 89, NT-Pro-B Natriuret Pep 4030 H, Total Protein 6.8, Albumin 3.7, Globulin 3.1, Albumin/Globulin Ratio 1.2, Lipase 104 01/02/24 18:25: VBG pH 7.43 H, VBG pCO2 35.5, VBG pO2 64.3 H, VBG HCO3 23.2, VBG Total CO2 24.3, VBG O2 Saturation 93.2 H, VBG Base Excess -1.0, VBG Lactic Acid 2.2 H 01/02/24 19:56: Urine Color Yellow, Urine Appearance Clear, Urine pH 7.0, Ur Specific [place] 1.010, Urine Protein 2+, Urine Glucose (UA) Negative, Urine Ketones Negative, Urine Blood Negative, Urine Nitrate Negative, Urine Bilirubin Negative, Urine Urobilinogen 0.2, Ur Leukocyte Esterase Negative, Urine RBC Occasional, Urine WBC None, Ur Squamous Epith Cells Occasional, Urine Bacteria None 01/02/24 21:32: POC Glucose 120 H 01/02/24 22:49: Lactate 1.0 01/03/24 05:09: POC Glucose 138 H 01/03/24 05:52: WBC 8.0, RBC 5.07, Hgb 15.4, Hct 49.5 H, MCV 97.7, MCH 30.3, MCHC 31.0 L, RDW 15.3, Plt Count 228, MPV 8.4, Neut % (Auto) 49.0, Lymph % (Auto) 40.7, [place] % (Auto) 6.0, Eos % (Auto) 1.7, Baso % (Auto) 2.5 H, Neut # (Auto) 3.9, Lymph # (Auto) 3.3, [place] # (Auto) 0.5, Eos # (Auto) 0.1, Baso # (Auto) 0.2, Sodium 137, Potassium 4.6, Chloride 103, Carbon Dioxide 26, Anion Gap 12.6, BUN 14 D, Creatinine 0.70, Estimated Creat Clear 77, Estimated GFR 89, Est GFR ( Amer) 108, Glucose 130 H, Calcium 9.4, Total Bilirubin 0.7, AST 25, ALT 20, Alkaline Phosphatase 82, Troponin I < 0.01, Total Protein 5.6 L, Albumin 3.0 L D, Globulin 2.6, Albumin/Globulin Ratio 1.2 01/03/24 09:20: SARS-CoV-2 (PCR) Not detected, Influenza A Untype (PCR) Not detected, Influenza Type B (PCR) Not detected 01/03/24 11:27: POC Glucose 138 H I & O for Labs for Last 24 Hours: Intake & Output 01/01/24 01/02/24 01/03/24 01/04/24 23:59 23:59 23:59 23:59 Intake Total 120 / 120 630 / 1080 450 / 450 Output Total 9651 / 9651 700 / 700 Balance 120 / 120 -9021 / -8571 -250 / -250 Weight 228 lb 9.6 oz 235 lb 12.8 oz 219 lb 14.4 oz Intake & Output 12/31/23 01/01/24 01/02/24 01/03/24 23:59 23:59 23:59 23:59 Intake Total 120 / 120 Output Total 4000 / 4000 Balance 120 / 120 -4000 / -4000 Weight 228 lb 9.6 oz 235 lb 12.8 oz Constitutional: Present moderate distress Head: Present normocephalic and atraumatic ENT: Present normal exam, normal oropharynx and mucous membranes moist Neck: Present normal inspection and full ROM Respiratory: Present respiratory distress and able to speak in complete sentences; Absent prolonged expiratory phase or wheezes Cardiac: Present S1/S2, Tachycardia and radial pulses present GI: Present soft and distention; Absent tenderness or guarding Rectal (female): Present deferred (female): Present deferred Skin: Present cyanosis; Absent jaundice Comment:: Skin lesions Neuro: Present alert, awake and oriented x 3 Extremities: Present normal inspection, clubbing and cyanosis Psychiatric: Present normal affect and cooperative Assessment and Plan *Assessment and plan (1) Pulmonary edema: Status: Acute Qualifiers: Chronicity: acute Qualified Code(s): J81.0 - Acute pulmonary edema Category: Medical Code(s): J81.1 - Chronic pulmonary edema (2) Acute respiratory failure with hypoxia: Status: Acute Category: Medical Code(s): J96.01 - Acute respiratory failure with hypoxia (3) Cyanosis: Status: Acute Category: Medical Code(s): R23.0 - Cyanosis (4) Clubbing of digits: Status: Acute Category: Medical Plan Ms. Frankel is a 48-year-old female current smoker presented with abdominal abdominal pain Eventually found to be in hypoxic respiratory failure and pulmonary was called for further evaluation and management. Other significant physical examination findings including climbing sinuses. Positive for Raynaud's phenomenom. No obvious telangiectasias noted. Chest clear to auscultate. CTA PE protocol bilateral diffuse groundglass opacities concerning for pulmonary edema. No dense consolidation/airspace disease noted. No obvious evidence of pulmonary embolism noted. CRP - 6.6, pending autoimmue workup Interval update: No acute respiratory events overnight. Continue to receive diuretics. Net -6 L yesterday. Weaned to 6 4 L this morning. Continue to monitor. At hemoglobin levels within normal limits but ABG showed hypoxic respiratory failure. No evidence of hypercarbia. Plan: DuoNebs every 6 hours and scheduled basis Continue oxygen supplementation to maintain O2 saturation 90% and above, currently on 4l NC Follow with ABG and methemoglobin levels Follow-up MARISA screen, anticentromere and anti-SCL 70 antibodies we will hold off on initiating prednisone at this point of time. Follow-up with echocardiogram. Thank you for involving pulmonary in this patient care. Will continue to follow.
[2024-01-04 10:30] LABS: Basophils # 0.2 K/mm3 (0-0.2); Basophils % 1.4 % (0.1-2.0); Eosinophils # 0.1 K/mm3 (0.0-0.4); Eosinophils % 1.1 % (0.1-12.0); Hematocrit 54.3 % (37.0-47.0); Hemoglobin 17.2 g/dL (12.2-16.2); Lymphocytes # 1.5 K/mm3 (0.7-4.5); Lymphocytes % 13.5 % (10-50); Mean Corpuscular HGB Conc 31.6 g/dL (31.8-35.4); Mean Corpuscular Volume 98.1 fl (81-99); Mean Platelet Volume 7.9 fl (7.4-10.4); Monocytes # 0.7 K/mm3 (0.1-1.0); Monocytes % 6.3 % (1.7-9.3); Neutrophils # 8.6 K/mm3 (1.8-7.8); Neutrophils % 77.7 % (37.0-80.0); Platelet Count 255 K/mm3 (142-424); Red Blood Count 5.53 M/mm3 (4.20-5.40); Red Cell Distribution Width 15.1 % (11.5-17.5); White Blood Count 11.1 K/mm3 (4.8-10.8)
[2024-01-04 10:42] LABS: POC Glucose,Bedside 151 (70-110)
[2024-01-04 10:43] LABS: Blood Urea Nitrogen 16 mg/dl (7-17); Calcium 10.1 mg/dl (8.4-10.2); Carbon Dioxide 30 mmol/L (22.0-30.0); Chloride 96 mmol/L (98-107); Creatinine Clearance Estimated 134 mL/min (50-200); Estimated Glomerular Filt Rate 76 ml/min (>60); GFR (African American) 92 ML/MIN (>60); Glucose 161 mg/dl (74-100); Sodium 137 mmol/L (136-145)
[2024-01-04] MEDS: diphenhydrAMINE 50MG/ML VIAL 50 MG IV (14:00)
[2024-01-04] MEDS: LIDOCAINE 1% 10ML MDV 20 ML IJ (14:00)
[2024-01-04] MEDS: HEPARIN 1,000 UNITS/500ML NS (CATH LAB) 3000 UNIT IV (14:00)
[2024-01-04] MEDS: VERAPAMIL 2.5MG/ML 2ML VIAL 2.5 MG IV (14:00)
[2024-01-04] MEDS: NITROGLYCERIN 800MCG/8ML SYR (CATH LAB) 800 MCG IA (14:00)
[2024-01-04] MEDS: 0.9 % SODIUM CHLORIDE 500 ML 25 ML IV (14:01)
[2024-01-04] MEDS: HEPARIN 1,000 UNITS/ML 10ML VIAL (CATH LAB) 10000 UNIT IV (14:01)
[2024-01-04] MEDS: FENTANYL 100MCG/2ML VIAL 50 MCG IV (14:03)
[2024-01-04] MEDS: MIDAZOLAM HCL 1MG/1ML 5ML VIAL 1 MG IV (14:04)
[2024-01-04 14:13] LABS: Antiscleroderma-70 Antibodies <0.2 AI (0.0-0.9)
--- NOTE | 2024-01-04 14:27 | PC.NURSE ---
Pt arrived back to the floor at 1427 from heart cath procedure by bed.
[2024-01-04 14:44] LABS: CATHL Arterial O2 SAT 68.6 % (90-100); CATHL Venous O2 SAT 65.4 % (75-80)
--- NOTE | 2024-01-04 15:05 | PC.NURSE ---
Pt was switched to NC today to eat meals, started at 5.5 L oxygen flow. Since lunchtime pt has remained on NC at 5.5 L and has maintained her O2 saturation at 91 and 92. Pt is A&O x3 and has stated that she feels a whole lot better today. Pt's morning meds, lisinopril and atenolol, were given at a half dose per Sylvia Us APRN and discontinued later today. 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 Pt returned to the floor at 1427 with no complaints. Pt was given water and a turkey sandwich. Post op vital signs are being taken per sheet/EMR. No significant changes noted at this time, will continue to monitor.
[2024-01-04 16:40] LABS: POC Glucose,Bedside 155 (70-110)
--- NOTE | 2024-01-04 18:17 | PC.NURSE ---
2x2 gauze with tegaderm applied to right wrist.
--- NOTE | 2024-01-04 18:54 | P.PN_ITS ---
Subjective *Date: 01/04/24 *Time: 18:54 Interval history: Heart cath today revealed 45% EF, chronically occluded RCA. Patent LAD stent. BP's improved. On nasal O2. Medical Exam Vital signs and Labs for Last 24 Hours: Vital Signs Temp Pulse Pulse Resp BP BP Pulse Ox 01/04/24 18:40 90 L 01/04/24 18:37 01/04/24 18:36 83 01/04/24 18:36 74 01/04/24 18:15 97.8 F 77 18 129/72 91 L 01/04/24 17:15 97.8 F 65 17 110/62 91 L 01/04/24 16:52 01/04/24 16:45 97.8 F 86 16 102/53 L 91 L 01/04/24 16:15 97.8 F 117 H 16 91 L 01/04/24 16:00 75 01/04/24 15:45 97.8 F 72 16 114/57 L 91 L 01/04/24 15:15 97.8 F 64 16 121/80 91 L 01/04/24 15:00 97.8 F 64 16 112/71 92 L 01/04/24 14:45 97.8 F 74 16 107/64 L 01/04/24 14:45 01/04/24 14:30 97.8 F 77 16 113/67 91 L 01/04/24 12:00 70 01/04/24 12:00 98.2 F 76 20 99/66 L 92 L 01/04/24 11:10 74 01/04/24 11:10 74 01/04/24 11:10 94 L 01/04/24 10:48 01/04/24 09:00 01/04/24 08:00 90 01/04/24 08:00 94 L 01/04/24 07:58 98.0 F 83 20 97/61 L 94 L 01/04/24 06:56 01/04/24 06:40 81 01/04/24 06:40 81 01/04/24 06:40 91 L 01/04/24 05:00 01/04/24 04:00 65 01/04/24 03:59 97.8 F 71 18 108/57 L 91 L 01/04/24 03:00 01/04/24 00:56 01/04/24 00:17 78 01/04/24 00:17 79 01/04/24 00:00 76 01/04/24 00:00 97.7 F 63 18 99/57 L 92 L 01/03/24 23:00 01/03/24 21:00 01/03/24 20:00 92 L 01/03/24 20:00 66 01/03/24 19:54 97.7 F 67 18 103/62 L 92 L 01/03/24 18:55 O2 Del Method O2 Flow Rate FiO2 01/04/24 18:40 Nasal Cannula 6 01/04/24 18:37 Nasal Cannula 6 01/04/24 18:36 01/04/24 18:36 01/04/24 18:15 Nasal Cannula 6 01/04/24 17:15 Nasal Cannula 6 01/04/24 16:52 Nasal Cannula 6 01/04/24 16:45 Nasal Cannula 6 01/04/24 16:15 Nasal Cannula 6 01/04/24 16:00 01/04/24 15:45 Nasal Cannula 6 01/04/24 15:15 Nasal Cannula 6 01/04/24 15:00 Nasal Cannula 6 01/04/24 14:45 Nasal Cannula 6 01/04/24 14:45 Nasal Cannula 6 01/04/24 14:30 Nasal Cannula 6 01/04/24 12:00 01/04/24 12:00 Nasal Cannula 2 01/04/24 11:10 01/04/24 11:10 01/04/24 11:10 Venturi Mask 12 40 01/04/24 10:48 Nasal Cannula 5.5 01/04/24 09:00 Nasal Cannula, Venturi Mask 5.5 01/04/24 08:00 01/04/24 08:00 Nasal Cannula, Venturi Mask 5.5 40 01/04/24 07:58 Venturi Mask 01/04/24 06:56 Venturi Mask 40 01/04/24 06:40 01/04/24 06:40 01/04/24 06:40 Venturi Mask 12 40 01/04/24 05:00 Venturi Mask 40 01/04/24 04:00 01/04/24 03:59 Venturi Mask 01/04/24 03:00 Venturi Mask 40 01/04/24 00:56 Venturi Mask 40 01/04/24 00:17 01/04/24 00:17 01/04/24 00:00 01/04/24 00:00 Venturi Mask 01/03/24 23:00 Venturi Mask 40 01/03/24 21:00 Venturi Mask 40 01/03/24 20:00 Venturi Mask 12 40 01/03/24 20:00 01/03/24 19:54 Venturi Mask 01/03/24 18:55 Venturi Mask 40 Intake and Output 01/04/24 01/04/24 01/04/24 03:59 11:59 19:59 Intake Total 450 / 1420 340 / 1420 Output Total 7050 1400 / 51 800 / 800 Balance 449 / -5631 -1060 / -5631 -800 / -800 Intake: Intake, Oral Amount 450 / 1420 340 / 1420 Output: Output, Urine Amount 7050 1400 / 7051 800 / 800 Other: Number of Voids 1 Number of Unmeasured Voids 1 2 Weight 219 lb 14.4 oz Laboratory Results - last 24 hr 01/03/24 05:52: Scl-70 Scleroderma Ab <0.2 01/03/24 20:08: POC Glucose 129 H 01/04/24 05:40: POC Glucose 121 H 01/04/24 05:41: WBC 9.5, RBC 5.57 H, Hgb 17.0 H D, Hct 54.5 H, MCV 98.0, MCH 30.5, MCHC 31.1 L, RDW 15.2, Plt Count 240, MPV 8.0, Neut % (Auto) 65.0, Lymph % (Auto) 23.7, [place] % (Auto) 7.7, Eos % (Auto) 1.6, Baso % (Auto) 1.9, Neut # (Auto) 6.2, Lymph # (Auto) 2.3, [place] # (Auto) 0.7, Eos # (Auto) 0.2, Baso # (Auto) 0.2, Sodium 138, Potassium 3.7, Chloride 99, Carbon Dioxide 31 H, Anion Gap 11.7, BUN 16, Creatinine 0.80, Estimated Creat Clear 134, Estimated GFR 76, Est GFR ( Amer) 92, Glucose 130 H, Calcium 9.9, Total Bilirubin 1.3, Direct Bilirubin 0.2, Conjugated Bilirubin 0.0, Indirect Bilirubin 1.1 H, Unconjugated Bilirubin 1.1, AST 29, ALT 20, Alkaline Phosphatase 84, Total Protein 6.7, Albumin 3.7 D, Triglycerides 125, Cholesterol 126 L, LDL Cholesterol Direct 89.17 L, VLDL Cholesterol 25, HDL Cholesterol 20 L, Cholesterol/HDL Ratio 6.3 H 01/04/24 10:20: WBC 11.1 H, RBC 5.53 H, Hgb 17.2 H, Hct 54.3 H, MCV 98.1, MCH 31.0, MCHC 31.6 L, RDW 15.1, Plt Count 255, MPV 7.9, Neut % (Auto) 77.7, Lymph % (Auto) 13.5, [place] % (Auto) 6.3, Eos % (Auto) 1.1, Baso % (Auto) 1.4, Neut # (Auto) 8.6 H, Lymph # (Auto) 1.5, [place] # (Auto) 0.7, Eos # (Auto) 0.1, Baso # (Auto) 0.2, Sodium 137, Potassium 4.0, Chloride 96 L, Carbon Dioxide 30, Anion Gap 15.0, BUN 16, Creatinine 0.80, Estimated Creat Clear 134, Estimated GFR 76, Est GFR ( Amer) 92, Glucose 161 H D, Calcium 10.1 01/04/24 10:29: POC Glucose 151 H 01/04/24 13:52: ABG O2 Sat (Measured) 68.6 L, POC VBG O2 Sat (Umesh) 65.4 L 01/04/24 16:23: POC Glucose 155 H I & O for Labs for Last 24 Hours: Intake & Output 01/02/24 01/03/24 01/04/24 01/05/24 11:59 11:59 11:59 11:59 Intake Total 120 / 120 1420 / 1420 Output Total 4000 / 4000 7051 / 7051 800 / 800 Balance -3880 / -3880 -5631 / -5631 -800 / -800 Weight 235 lb 12.8 oz 219 lb 14.4 oz Head: Present normocephalic Neck: Present normal inspection and full ROM Respiratory: Present decreased breath sounds; Absent respiratory distress Cardiac: Present Regular Rate and Regular Rhythm GI: Present soft; Absent tenderness Rectal (female): Present deferred (female): Present deferred Extremities: Present clubbing and cyanosis; Absent edema Skin: Present cyanosis (lips, extremities) Neuro: Present alert and oriented x 3 Assessment and Plan *Assessment and plan (1) Acute respiratory failure with hypoxia: Status: Acute Category: Medical Code(s): J96.01 - Acute respiratory failure with hypoxia (2) Pulmonary hypertension: Status: Acute Category: Medical Code(s): I27.20 - Pulmonary hypertension, unspecified (3) SOB (shortness of breath) on exertion: Status: Acute Category: Medical Code(s): R06.02 - Shortness of breath (4) History of [place] (myocardial infarction): Status: Acute Category: Medical Code(s): I25.2 - Old myocardial infarction (5) Hypertension: Status: Acute Qualifiers: Hypertension type: primary hypertension Qualified Code(s): I10 - Essential (primary) hypertension Category: Medical Code(s): I10 - Essential (primary) hypertension (6) Diabetes mellitus, type 2: Status: Acute Qualifiers: Diabetes mellitus long-term insulin use: with long term care administrator use Diabetes mellitus complication status: without complication Qualified Code(s): E11.9 - Type 2 diabetes mellitus without complications; Z79.4 - prison (current) use of insulin Category: Medical Code(s): E11.9 - Type 2 diabetes mellitus without complications (7) Breast mass: Status: Acute Qualifiers: Breast mass location: unspecified quadrant Laterality: right Qualified Code(s): N63.10 - Unspecified lump in the right breast, unspecified quadrant Category: Medical Code(s): N63.0 - Unspecified lump in unspecified breast Plan See cardiology and pulmonology reports. Continue present care.
[2024-01-04 20:27] LABS: POC Glucose,Bedside 128 (70-110)
[2024-01-04] MEDS: TEMAZEPAM 30MG CAPSULE 30 MG PO (20:42)
[2024-01-04] MEDS: ATORVASTATIN 40MG TABLET 40 MG PO (20:42)
[2024-01-04] MEDS: lamoTRIgine 100MG TABLET 50 MG PO (20:42)
[2024-01-05] VITALS (14 sets, daily range): BP systolic 93–116; BP diastolic 50–81; PULSE 51–94; RESP 16–22; TEMP 36.6–37; O2SAT 86–96; BMI 38.9
[2024-01-05] MEDS: ACETAMINOPHEN 325MG TAB 650 MG PO ×3 (02:12→20:59)
[2024-01-05 05:17] LABS: POC Glucose,Bedside 131 (70-110)
--- NOTE | 2024-01-05 05:19 | PC.NURSE ---
VITAL SIGNS STABLE. 02 SATS DROP WHEN UP TO BSC/BR. LOWEST 02 SAT NOTED WAS 84%. WHILE RESTING IN BED 02 SATS RANGE BETWEEN 91-94%. FINE END INSPIRATORY CRACKLES NOTED BILAT BASES. NO COUGH NOTED. SKIN IS WARM AND DRY. OVERALL COLOR IS PINK CUT CONTINUES TO HAVE DARK BLUE NOTED AT LIPS AND FINGER TIPS. DRESSINGS TO RIGHT WRIST AND RIGHT NECK C/D/I. NO BLEEDING NOTED. SINUS RHYTHM/BBB NOTED ON TELE. C/O SOME PAIN AT RIGHT NECK CATH SITE AND RECEIVED TYLENOL 650 MG PO WHICH WAS EFFECTIVE. HAS BEEN NPO SINCE VT ORDERED.
[2024-01-05] MEDS: IPRATROPIUM/ALBUTEROL 3 ML NEB IH ×3 (06:29→23:20)
[2024-01-05] MEDS: ASPIRIN EC 81MG TABLET 81 MG PO (07:55)
[2024-01-05] MEDS: FUROSEMIDE 40MG/4ML VIAL 40 MG IV (07:55)
[2024-01-05] MEDS: EMPAGLIFLOZIN 10MG TABLET 10 MG PO (07:56)
[2024-01-05] MEDS: ATENOLOL 25MG TABLET 25 MG PO (07:56)
[2024-01-05] MEDS: LISINOPRIL 5MG TABLET 5 MG PO (07:56)
[2024-01-05] MEDS: SPIRONOLACTONE 25MG TABLET 25 MG PO (07:56)
--- NOTE | 2024-01-05 09:21 | EXP.CARD.PN ---
Subjective Subjective Date: 01/05/24 Time: 09:00 Principal diagnosis: CAD, acute CHF Interval history: The patient was admitted to the hospital with acute HFrEF. She had new onset cardiomyopathy. The patient underwent left cardiac catheterization yesterday. She was found to have a patent stent to the LAD and an occluded right coronary artery filling via [id number] collaterals. The patient states that her shortness of breath continues to improve as well as her abdominal bloating. She states that she is still feeling much better. She denies chest pain or pressure. She still has an oxygen requirement which is new for her. She denies lower extremity edema. She denies fever, chills, nausea, vomiting, diarrhea. She still has some associated orthopnea with her shortness of breath. Exam Data for Last 24 hours Vital signs and Labs for Last 24 Hours: Temp Pulse Resp BP Pulse Ox O2 Del Method O2 Flow Rate 98.2 F 90 22 116/81 96 Nasal Cannula 6 01/05/24 08:00 01/05/24 08:00 01/05/24 08:00 01/05/24 08:00 01/05/24 08:00 01/05/24 08:00 01/05/24 08:00 FiO2 40 01/04/24 11:10 Laboratory Results - last 24 hr 01/03/24 05:52: Scl-70 Scleroderma Ab <0.2 01/04/24 10:20: WBC 11.1 H, RBC 5.53 H, Hgb 17.2 H, Hct 54.3 H, MCV 98.1, MCH 31.0, MCHC 31.6 L, RDW 15.1, Plt Count 255, MPV 7.9, Neut % (Auto) 77.7, Lymph % (Auto) 13.5, [place] % (Auto) 6.3, Eos % (Auto) 1.1, Baso % (Auto) 1.4, Neut # (Auto) 8.6 H, Lymph # (Auto) 1.5, [place] # (Auto) 0.7, Eos # (Auto) 0.1, Baso # (Auto) 0.2, Sodium 137, Potassium 4.0, Chloride 96 L, Carbon Dioxide 30, Anion Gap 15.0, BUN 16, Creatinine 0.80, Estimated Creat Clear 134, Estimated GFR 76, Est GFR ( Amer) 92, Glucose 161 H D, Calcium 10.1 01/04/24 10:29: POC Glucose 151 H 01/04/24 13:52: ABG O2 Sat (Measured) 68.6 L, POC VBG O2 Sat (Umesh) 65.4 L 01/04/24 16:23: POC Glucose 155 H 01/04/24 20:16: POC Glucose 128 H 01/05/24 05:07: POC Glucose 131 H I & O for Last 24 hours: Intake & Output 01/02/24 01/03/24 01/04/24 01/05/24 23:59 23:59 23:59 23:59 Intake Total 120 / 120 630 / 1080 1150 / 1150 Output Total 9651 / 9651 2200 / 2200 200 / 200 Balance 120 / 120 -9021 / -8571 -1050 / -1050 -200 / -200 Weight 228 lb 9.6 oz 235 lb 12.8 oz 219 lb 14.4 oz 219 lb 14.225 oz Constitutional Constitutional: no acute distress and obese *Routine HEENT Exam Head: Present normocephalic and atraumatic ENT: Present mucous membranes moist *Routine Neck Exam Neck: Present supple, full ROM and normal carotid upstroke; Absent JVD, carotid bruit or lymphadenopathy *Routine Respiratory Exam Respiratory: Present CTA bilaterally, normal respiratory effort, able to speak in complete sentences and symmetric chest movement *Routine Cardiovascular Exam Cardiovascular: Present RRR, Normal S1 and Normal S2; Absent murmur or gallop *Routine Abdominal Exam Abdominal: Present soft and normoactive bowel sounds; Absent tenderness, distended or organomegaly *Routine Extremities Exam Extremities: Present full ROM, pulses intact and normal capillary refill; Absent cyanosis, clubbing or edema *Routine Skin Exam Skin: Present intact and warm; Absent erythema *Routine Neurological Exam Neurological: Present alert, oriented X3 and CN II-XII intact; Absent sensory deficit or motor deficit Routine Psychiatric Exam Psychiatric: Present normal affect Progress Note: A&P Assessment and plan (1) HFrEF (heart failure with reduced ejection fraction): Status: Acute (2) SOB (shortness of breath) on exertion: Status: Acute (3) Pulmonary hypertension: Status: Acute (4) CAD in [place] artery: Status: Acute (5) RVF (right ventricular failure): Status: Acute (6) Elevated brain natriuretic peptide (BNP) level: Status: Acute (7) Epigastric abdominal pain: Status: Acute (8) Acute hypoxemic respiratory failure: Status: Acute (9) Breast mass: Status: Acute (10) GERD (gastroesophageal reflux disease): Status: Acute (11) History of [place] (myocardial infarction): Status: Acute (12) High cholesterol: Status: Acute (13) Hypertension: Status: Acute (14) Diabetes mellitus, type 2: Status: Acute Assessment and Plan Assessment and Plan for All Diagnoses:: Plan: 1. This is a 48-year-old female who was admitted to the hospital with acute HFrEF and epigastric bloating/pain. The patient's BNP was elevated over [address] of the chest did show pulmonary edema. The patient did have a -1 L fluid balance overnight. And her right cardiac catheterization showed severe pulmonary hypertension. Her wedge pressure is approaching euvolemia but is still slightly elevated. Her right atrial pressure was still elevated at 20 mmHg. The patient would benefit from continued IV diuresis today. 2. Continue with IV Lasix today. 3. The patient can be switched over to oral Lasix tomorrow. Recommend that she be switched over to Lasix 80 mg p.o. daily tomorrow, January 05. 4. The patient has severe pulmonary hypertension which does appear to be multifactorial but with her pulmonary artery pressure of 70/50 mmHg this is likely stemming from a primarily pulmonary cause per Dr. Contreras. She is currently seeing pulmonology. Will add isosorbide mononitrate 30 mg p.o. daily for the elevated pulmonary artery pressure. 5. Continue spironolactone and Jardiance for HFrEF. 6. Continue metoprolol and lisinopril for HFrEF. Will consider switching her lisinopril to Entresto on an outpatient basis but she has had a marginal blood pressure so we want to leave her medications as they are for now in order to add the isosorbide mononitrate. 7. Coronary artery disease is stable. Continue aspirin 81 mg daily. 8. Her blood pressure is well-controlled. 9. Her LDL goal is less than 55. Her LDL is 89. She has been started on a statin. 10. The patient is diabetic. She will need aggressive control of her diabetes. Will defer this to her primary care team. She is now on Jardiance in addition to her metformin. 11. The patient does have a right breast mass. Will defer this to her primary care team. 12. We do recommend a cardiac MRI with [facility] protocol on an outpatient basis. 13. Further recommendations will be made pending the patient's response to treatment. Anticipate discharge home tomorrow when she is switched over to oral Lasix. The patient will need to follow-up in cardiology clinic next week. She can be discharged on the following cardiac medications once she is stable for discharge tomorrow: Aspirin 81 mg daily, atenolol 25 mg daily, atorvastatin 40 mg p.o. nightly, Jardiance 10 mg daily, Lasix 80 mg p.o. daily, lisinopril 5 mg daily, spironolactone 25 mg daily. Thank you for the opportunity to help participate in the care of this patient. All recommendations and orders are per Dr. Contreras.
[2024-01-05 09:32] LABS: Basophils # 0.2 K/mm3 (0-0.2); Basophils % 1.7 % (0.1-2.0); Eosinophils # 0.2 K/mm3 (0.0-0.4); Eosinophils % 2.3 % (0.1-12.0); Hemoglobin 17.3 g/dL (12.2-16.2); Lymphocytes # 2.2 K/mm3 (0.7-4.5); Lymphocytes % 25.1 % (10-50); Mean Corpuscular HGB Conc 30.8 g/dL (31.8-35.4); Mean Corpuscular Hemoglobin 30.4 pg (27.0-31.2); Mean Corpuscular Volume 98.6 fl (81-99); Mean Platelet Volume 7.9 fl (7.4-10.4); Monocytes # 0.4 K/mm3 (0.1-1.0); Monocytes % 5.1 % (1.7-9.3); Neutrophils # 5.7 K/mm3 (1.8-7.8); Neutrophils % 65.8 % (37.0-80.0); Platelet Count 253 K/mm3 (142-424); Red Blood Count 5.68 M/mm3 (4.20-5.40); Red Cell Distribution Width 15.2 % (11.5-17.5); White Blood Count 8.7 K/mm3 (4.8-10.8)
--- NOTE | 2024-01-05 09:42 | EXP.ACUTE.PN ---
Subjective *Date: 01/05/24 *Time: 09:42 Interval history: She remains comfortable but is still cyanotic and not ready for discharge. See cardiology note. I need to speak to Dr. Jenkins today regarding her pulmonary status. She has some degree of pulmonary hypertension and like to know about addressing this further. Medical Exam Vital signs and Labs for Last 24 Hours: Vital Signs Temp Pulse Pulse Resp BP BP Pulse Ox 01/05/24 08:00 80 01/05/24 08:00 98.2 F 90 22 116/81 96 01/05/24 07:25 01/05/24 07:16 01/05/24 06:30 71 01/05/24 06:30 72 01/05/24 06:30 91 L 01/05/24 06:29 01/05/24 05:00 01/05/24 04:00 98.4 F 77 16 111/61 88 L 01/05/24 04:00 70 01/05/24 02:51 01/05/24 01:00 01/05/24 00:00 98.2 F 67 16 113/66 92 L 01/05/24 00:00 76 01/04/24 23:38 83 01/04/24 23:38 80 01/04/24 23:00 01/04/24 21:15 97.8 F 85 18 129/75 91 L 01/04/24 21:00 01/04/24 20:15 98.0 F 77 18 117/69 91 L 01/04/24 20:00 83 01/04/24 19:52 94 L 01/04/24 19:15 98.3 F 89 18 127/67 94 L 01/04/24 18:40 90 L 01/04/24 18:37 01/04/24 18:36 83 01/04/24 18:36 74 01/04/24 18:15 97.8 F 77 18 129/72 91 L 01/04/24 17:15 97.8 F 65 17 110/62 91 L 01/04/24 16:52 01/04/24 16:45 97.8 F 86 16 102/53 L 91 L 01/04/24 16:15 97.8 F 117 H 16 91 L 01/04/24 16:00 75 01/04/24 15:45 97.8 F 72 16 114/57 L 91 L 01/04/24 15:15 97.8 F 64 16 121/80 91 L 01/04/24 15:00 97.8 F 64 16 112/71 92 L 01/04/24 14:45 97.8 F 74 16 107/64 L 01/04/24 14:45 01/04/24 14:30 97.8 F 77 16 113/67 91 L 01/04/24 12:00 70 01/04/24 12:00 98.2 F 76 20 99/66 L 92 L 01/04/24 11:10 74 01/04/24 11:10 74 01/04/24 11:10 94 L 01/04/24 10:48 O2 Del Method O2 Flow Rate FiO2 01/05/24 08:00 01/05/24 08:00 Nasal Cannula 6 01/05/24 07:25 Nasal Cannula 6 01/05/24 07:16 Nasal Cannula 6 01/05/24 06:30 01/05/24 06:30 01/05/24 06:30 Nasal Cannula 6 01/05/24 06:29 Nasal Cannula 6 01/05/24 05:00 Nasal Cannula 6 01/05/24 04:00 Nasal Cannula 6 01/05/24 04:00 01/05/24 02:51 Nasal Cannula 6 01/05/24 01:00 Nasal Cannula 6 01/05/24 00:00 Nasal Cannula 6 01/05/24 00:00 01/04/24 23:38 01/04/24 23:38 01/04/24 23:00 Nasal Cannula 6 01/04/24 21:15 Nasal Cannula 6 01/04/24 21:00 Nasal Cannula 6 01/04/24 20:15 Nasal Cannula 6 01/04/24 20:00 01/04/24 19:52 Nasal Cannula 6 01/04/24 19:15 Nasal Cannula 6 01/04/24 18:40 Nasal Cannula 6 01/04/24 18:37 Nasal Cannula 6 01/04/24 18:36 01/04/24 18:36 01/04/24 18:15 Nasal Cannula 6 01/04/24 17:15 Nasal Cannula 6 01/04/24 16:52 Nasal Cannula 6 01/04/24 16:45 Nasal Cannula 6 01/04/24 16:15 Nasal Cannula 6 01/04/24 16:00 01/04/24 15:45 Nasal Cannula 6 01/04/24 15:15 Nasal Cannula 6 01/04/24 15:00 Nasal Cannula 6 01/04/24 14:45 Nasal Cannula 6 01/04/24 14:45 Nasal Cannula 6 01/04/24 14:30 Nasal Cannula 6 01/04/24 12:00 01/04/24 12:00 Nasal Cannula 2 01/04/24 11:10 01/04/24 11:10 01/04/24 11:10 Venturi Mask 12 40 01/04/24 10:48 Nasal Cannula 5.5 Intake and Output 01/04/24 01/05/24 01/05/24 19:59 03:59 11:59 Intake Total 360 / 360 Output Total 800 / 1000 200 / 1000 Balance -800 / -640 360 / -640 -200 / -640 Intake: Intake, Oral Amount 360 / 360 Output: Output, Urine Amount 800 / 1000 200 / 1000 Other: Number of Voids 1 Number of Unmeasured Voids 1 Number of Bowel Movements 1 Weight 219 lb 14.225 oz Patient Weight 01/05/24 11:59 Weight 219 lb 14.225 oz Laboratory Results - last 24 hr 01/03/24 05:52: Scl-70 Scleroderma Ab <0.2 01/04/24 10:20: WBC 11.1 H, RBC 5.53 H, Hgb 17.2 H, Hct 54.3 H, MCV 98.1, MCH 31.0, MCHC 31.6 L, RDW 15.1, Plt Count 255, MPV 7.9, Neut % (Auto) 77.7, Lymph % (Auto) 13.5, [place] % (Auto) 6.3, Eos % (Auto) 1.1, Baso % (Auto) 1.4, Neut # (Auto) 8.6 H, Lymph # (Auto) 1.5, [place] # (Auto) 0.7, Eos # (Auto) 0.1, Baso # (Auto) 0.2, Sodium 137, Potassium 4.0, Chloride 96 L, Carbon Dioxide 30, Anion Gap 15.0, BUN 16, Creatinine 0.80, Estimated Creat Clear 134, Estimated GFR 76, Est GFR ( Amer) 92, Glucose 161 H D, Calcium 10.1 01/04/24 10:29: POC Glucose 151 H 01/04/24 13:52: ABG O2 Sat (Measured) 68.6 L, POC VBG O2 Sat (Umesh) 65.4 L 01/04/24 16:23: POC Glucose 155 H 01/04/24 20:16: POC Glucose 128 H 01/05/24 05:07: POC Glucose 131 H 01/05/24 09:22: WBC 8.7, RBC 5.68 H, Hgb 17.3 H, Hct 56.0 H, MCV 98.6, MCH 30.4, MCHC 30.8 L, RDW 15.2, Plt Count 253, MPV 7.9, Neut % (Auto) 65.8, Lymph % (Auto) 25.1, [place] % (Auto) 5.1, Eos % (Auto) 2.3, Baso % (Auto) 1.7, Neut # (Auto) 5.7, Lymph # (Auto) 2.2, [place] # (Auto) 0.4, Eos # (Auto) 0.2, Baso # (Auto) 0.2 I & O for Labs for Last 24 Hours: Intake & Output 01/02/24 01/03/24 01/04/24 01/05/24 11:59 11:59 11:59 11:59 Intake Total 120 / 120 1420 / 1420 360 / 360 Output Total 4000 / 4000 7051 / 7051 1000 / 1000 Balance -3880 / -3880 -5631 / -5631 -640 / -640 Weight 235 lb 12.8 oz 219 lb 14.4 oz 219 lb 14.225 oz Head: Present normocephalic Neck: Present normal inspection Respiratory: Present rales (Bibasilar worse on the left.); Absent respiratory distress Cardiac: Present Reg Rate and Rhythm and S4 GI: Present soft; Absent tenderness Rectal (female): Present deferred (female): Present deferred Extremities: Present clubbing; Absent edema Skin: Present cyanosis Neuro: Present alert and oriented x 3 Assessment and Plan *Assessment and plan (1) Acute respiratory failure with hypoxia: Status: Acute Category: Medical Code(s): J96.01 - Acute respiratory failure with hypoxia (2) Pulmonary hypertension: Status: Acute Category: Medical Code(s): I27.20 - Pulmonary hypertension, unspecified (3) HFrEF (heart failure with reduced ejection fraction): Status: Acute Category: Medical Code(s): I50.20 - Unspecified systolic (congestive) heart failure (4) Diabetes mellitus, type 2: Status: Acute Qualifiers: Diabetes mellitus ferry terminal supervisor insulin use: with ferry terminal supervisor use Diabetes mellitus complication status: without complication Qualified Code(s): E11.9 - Type 2 diabetes mellitus without complications; Z79.4 - shelter (current) use of insulin Category: Medical Code(s): E11.9 - Type 2 diabetes mellitus without complications (5) Congestive heart failure: Status: Acute Qualifiers: Heart failure chronicity: acute Heart failure type: unspecified Qualified Code(s): I50.9 - Heart failure, unspecified Category: Medical Code(s): I50.9 - Heart failure, unspecified Plan Cont present care.
[2024-01-05 09:48] LABS: Alanine Aminotransferase 26 U/L (12-78); Albumin/Globulin Ratio 1.3 (1.1-1.8); Alkaline Phosphatase 83 U/L (38-126); Aspartate Amino Transferase 32 U/L (14-36); Bilirubin,Total 1.2 mg/dl (0.2-1.3); Blood Urea Nitrogen 14 mg/dl (7-17); Calcium 9.8 mg/dl (8.4-10.2); Carbon Dioxide 27 mmol/L (22.0-30.0); Chloride 97 mmol/L (98-107); Creatinine Clearance Estimated 119 mL/min (50-200); Estimated Glomerular Filt Rate 67 ml/min (>60); GFR (African American) 81 ML/MIN (>60); Globulin 3.1 g/dL (1.3-3.2); Glucose 223 mg/dl (74-100); Sodium 135 mmol/L (136-145); Total Protein,Serum 7.1 g/dl (6.3-8.2)
--- NOTE | 2024-01-05 10:13 | PC.NURSE ---
respiratory called about pt's sats in the mid 80's on 6L nc and also in the mid 80's on Venti mask 40%.
[2024-01-05 10:33] LABS: POC Glucose,Bedside 160 (70-110)
[2024-01-05] MEDS: ISOSORBIDE MONO 30MG TAB.ER.24H 30 MG PO (11:42)
--- NOTE | 2024-01-05 12:15 | EXP.PULM.PN ---
Subjective *Date: 01/05/24 *Time: 12:15 Interval history: No acute respiratory vents overnight. Patient admits improvement in her clinical symptoms. Pulmonology Exam Inpatient Vital signs and Labs for Last 24 Hours: Temp Pulse Resp BP Pulse Ox O2 Del Method O2 Flow Rate 98.3 F 76 20 109/66 L 90 L Venturi Mask 15 01/05/24 11:55 01/05/24 11:55 01/05/24 11:55 01/05/24 11:55 01/05/24 11:55 01/05/24 11:55 01/05/24 10:24 FiO2 50 01/05/24 10:24 Laboratory Results - last 24 hr 01/03/24 05:52: Scl-70 Scleroderma Ab <0.2 01/04/24 13:52: ABG O2 Sat (Measured) 68.6 L, POC VBG O2 Sat (Umesh) 65.4 L 01/04/24 16:23: POC Glucose 155 H 01/04/24 20:16: POC Glucose 128 H 01/05/24 05:07: POC Glucose 131 H 01/05/24 09:22: WBC 8.7, RBC 5.68 H, Hgb 17.3 H, Hct 56.0 H, MCV 98.6, MCH 30.4, MCHC 30.8 L, RDW 15.2, Plt Count 253, MPV 7.9, Neut % (Auto) 65.8, Lymph % (Auto) 25.1, [place] % (Auto) 5.1, Eos % (Auto) 2.3, Baso % (Auto) 1.7, Neut # (Auto) 5.7, Lymph # (Auto) 2.2, [place] # (Auto) 0.4, Eos # (Auto) 0.2, Baso # (Auto) 0.2, Sodium 135 L, Potassium 4.0, Chloride 97 L, Carbon Dioxide 27, Anion Gap 15.0, BUN 14, Creatinine 0.90, Estimated Creat Clear 119, Estimated GFR 67, Est GFR ( Amer) 81, Glucose 223 H D, Calcium 9.8, Total Bilirubin 1.2, AST 32, ALT 26 D, Alkaline Phosphatase 83, Total Protein 7.1, Albumin 4.0, Globulin 3.1, Albumin/Globulin Ratio 1.3 01/05/24 10:26: POC Glucose 160 H Temp Pulse Resp BP Pulse Ox O2 Del Method O2 Flow Rate 97.5 F L 101 H 22 125/76 91 L Venturi Mask 12 01/03/24 11:17 01/03/24 13:08 01/03/24 11:17 01/03/24 11:17 01/03/24 13:08 01/03/24 13:08 01/03/24 13:08 FiO2 40 01/03/24 13:08 Laboratory Results - last 24 hr 01/02/24 18:15: WBC 10.0, RBC 5.39, Hgb 16.6 H, Hct 52.6 H, MCV 97.7, MCH 30.7, MCHC 31.4 L, RDW 15.3, Plt Count 288, MPV 8.0, Neut % (Auto) 55.3, Lymph % (Auto) 36.1, [place] % (Auto) 4.1, Eos % (Auto) 1.4, Baso % (Auto) 3.1 H, Neut # (Auto) 5.5, Lymph # (Auto) 3.6, [place] # (Auto) 0.4, Eos # (Auto) 0.1, Baso # (Auto) 0.3 H, Sodium 136, Potassium 4.3, Chloride 102, Carbon Dioxide 25, Anion Gap 13.3, BUN 11, Creatinine 0.60, Estimated Creat Clear 184, Estimated GFR 106, Est GFR ( Amer) 129, Glucose 110 H, Hemoglobin A1c 7.6 H, Calcium 10.0, Magnesium 1.8, Total Bilirubin 0.8, AST 32, ALT 24, Alkaline Phosphatase 89, NT-Pro-B Natriuret Pep 4030 H, Total Protein 6.8, Albumin 3.7, Globulin 3.1, Albumin/Globulin Ratio 1.2, Lipase 104 01/02/24 18:25: VBG pH 7.43 H, VBG pCO2 35.5, VBG pO2 64.3 H, VBG HCO3 23.2, VBG Total CO2 24.3, VBG O2 Saturation 93.2 H, VBG Base Excess -1.0, VBG Lactic Acid 2.2 H 01/02/24 19:56: Urine Color Yellow, Urine Appearance Clear, Urine pH 7.0, Ur Specific [place] 1.010, Urine Protein 2+, Urine Glucose (UA) Negative, Urine Ketones Negative, Urine Blood Negative, Urine Nitrate Negative, Urine Bilirubin Negative, Urine Urobilinogen 0.2, Ur Leukocyte Esterase Negative, Urine RBC Occasional, Urine WBC None, Ur Squamous Epith Cells Occasional, Urine Bacteria None 01/02/24 21:32: POC Glucose 120 H 01/02/24 22:49: Lactate 1.0 01/03/24 05:09: POC Glucose 138 H 01/03/24 05:52: WBC 8.0, RBC 5.07, Hgb 15.4, Hct 49.5 H, MCV 97.7, MCH 30.3, MCHC 31.0 L, RDW 15.3, Plt Count 228, MPV 8.4, Neut % (Auto) 49.0, Lymph % (Auto) 40.7, [place] % (Auto) 6.0, Eos % (Auto) 1.7, Baso % (Auto) 2.5 H, Neut # (Auto) 3.9, Lymph # (Auto) 3.3, [place] # (Auto) 0.5, Eos # (Auto) 0.1, Baso # (Auto) 0.2, Sodium 137, Potassium 4.6, Chloride 103, Carbon Dioxide 26, Anion Gap 12.6, BUN 14 D, Creatinine 0.70, Estimated Creat Clear 77, Estimated GFR 89, Est GFR ( Amer) 108, Glucose 130 H, Calcium 9.4, Total Bilirubin 0.7, AST 25, ALT 20, Alkaline Phosphatase 82, Troponin I < 0.01, Total Protein 5.6 L, Albumin 3.0 L D, Globulin 2.6, Albumin/Globulin Ratio 1.2 01/03/24 09:20: SARS-CoV-2 (PCR) Not detected, Influenza A Untype (PCR) Not detected, Influenza Type B (PCR) Not detected 01/03/24 11:27: POC Glucose 138 H I & O for Labs for Last 24 Hours: Intake & Output 01/02/24 01/03/24 01/04/24 01/05/24 23:59 23:59 23:59 23:59 Intake Total 120 / 120 630 / 1080 1150 / 1150 Output Total 9651 / 9651 2200 / 2200 200 / 200 Balance 120 / 120 -9021 / -8571 -1050 / -1050 -200 / -200 Weight 228 lb 9.6 oz 235 lb 12.8 oz 219 lb 14.4 oz 219 lb 14.225 oz Intake & Output 12/31/23 01/01/24 01/02/24 01/03/24 23:59 23:59 23:59 23:59 Intake Total 120 / 120 Output Total 4000 / 4000 Balance 120 / 120 -4000 / -4000 Weight 228 lb 9.6 oz 235 lb 12.8 oz Constitutional: Present moderate distress Head: Present normocephalic and atraumatic ENT: Present normal exam, normal oropharynx and mucous membranes moist Neck: Present normal inspection and full ROM Respiratory: Present respiratory distress and able to speak in complete sentences; Absent prolonged expiratory phase or wheezes Cardiac: Present S1/S2, Tachycardia and radial pulses present GI: Present soft and distention; Absent tenderness or guarding Rectal (female): Present deferred (female): Present deferred Skin: Present cyanosis; Absent jaundice Comment:: Skin lesions Neuro: Present alert, awake and oriented x 3 Extremities: Present normal inspection, clubbing and cyanosis Psychiatric: Present normal affect and cooperative Assessment and Plan *Assessment and plan (1) Pulmonary edema: Status: Acute Qualifiers: Chronicity: acute Qualified Code(s): J81.0 - Acute pulmonary edema Category: Medical Code(s): J81.1 - Chronic pulmonary edema (2) Acute respiratory failure with hypoxia: Status: Acute Category: Medical Code(s): J96.01 - Acute respiratory failure with hypoxia (3) Cyanosis: Status: Acute Category: Medical Code(s): R23.0 - Cyanosis (4) Clubbing of digits: Status: Acute Category: Medical (5) Pulmonary hypertension: Status: Acute Category: Medical Code(s): I27.20 - Pulmonary hypertension, unspecified Plan Ms. Frankel is a 48-year-old female current smoker presented with abdominal abdominal pain Eventually found to be in hypoxic respiratory failure and pulmonary was called for further evaluation and management. Other significant physical examination findings including climbing sinuses. Positive for Raynaud's phenomenom. No obvious telangiectasias noted. Chest clear to auscultate. CTA PE protocol bilateral diffuse groundglass opacities concerning for pulmonary edema. No dense consolidation/airspace disease noted. No obvious evidence of pulmonary embolism noted. CRP - 6.6, pending autoimmue workup. With hemoglobin levels within normal limits. ABG showed hypoxic respiratory failure. Interval update: No acute respiratory vents overnight. No significant improvement in her respiratory status. Continued with diuresis. Right heart cath pulmonary hypertension with a mean of 50 and a PVR of 8.1 sam. PCWP at 18, concern for concomitant primary and secondary pulmonary hypertension continue to receive diuretics. Patient does have prior history of CAD status post stenting. Anti-SCL 70 negative. Other autoimmune workup pending. Plan: DuoNebs every 6 hours and scheduled basis Prednisone 40mg daily Continue oxygen supplementation to maintain O2 saturation 90% and above, Ventimask 35%, will attempt to wean to nasal cannula Follow-up MARISA screen, anticentromere and anti-SCL 70 antibodies we will hold off on initiating prednisone at this point of time. Initated on isosorbide for pulmonary hypertension. Will follow as outpatient and will initiate pulmonary hypertension definitive therapy pending further blood work and imaging studies. Thank you for involving pulmonary in this patient care. Will continue to follow.
[2024-01-05 13:02] LABS: C-Reactive Protein 9.6 mg/L (0-4)
[2024-01-05] MEDS: predniSONE 20MG TAB 40 MG PO (13:03)
--- NOTE | 2024-01-05 13:41 | CA_ITS ---
APPROVED REPORT EXAM: Comprehensive 2D, Doppler, and color-flow Echocardiogram Ring Attacher: Jeny Campos RT(R) Ht: 5 ft 3 in Wt: 226lbs BSA: 2.04 BP: 109/66 mmHg Indications: resp failure, HTN, smoker, HAJI, hyperlipidemia ,pulm edema, pulm HTN. Ordered as a limited bubble study. Complete echo performed 01/03/24. Echo Enhancing Agent Indication: Rule out Shunt Agent(s) / Amount(s) Used: Agitated Saline 15 cc Other Information Study Quality: Fair Conclusion This is a limited TTE to evaluate for interatrial shunt in the setting of severe RV dysfunction. Limited windows were obtained. Agitated saline administration demonstrates no evidence of interatrial shunt at rest and following sniff and Valsalva maneuvers. Electronically signed by : Tierney Contreras MD 01/10/2024 12:08:35
[2024-01-05] MEDS: SILDENAFIL 20 MG PO (14:29)
[2024-01-05 16:19] LABS: POC Glucose,Bedside 155 (70-110)
--- NOTE | 2024-01-05 17:09 | PC.NURSE ---
arrived byw/c from ED
[2024-01-05 19:59] LABS: POC Glucose,Bedside 225 (70-110)
[2024-01-05] MEDS: TEMAZEPAM 30MG CAPSULE 30 MG PO (20:56)
[2024-01-05] MEDS: ATORVASTATIN 40MG TABLET 40 MG PO (20:57)
[2024-01-05] MEDS: lamoTRIgine 100MG TABLET 50 MG PO (20:57)
[2024-01-06] VITALS (13 sets, daily range): BP systolic 106–138; BP diastolic 57–98; PULSE 70–110; RESP 18–22; TEMP 36.6–37.2; O2SAT 89–95; BMI 39.4
[2024-01-06] MEDS: ACETAMINOPHEN 325MG TAB 650 MG PO ×2 (03:10→10:30)
--- NOTE | 2024-01-06 05:29 | PC.NURSE ---
THIS RN PAGED DR. MARTINEZ @ 1982 FOR A NICOTINE PATCH REQUEST PER PT; GAVE TELEPHONE ORDER FOR 14MG PATCH; FAX SENT X 3; PRIMARY RN CALLED PHARMACY FOR UPDATE ON ORDER AND FAX WAS NEVER RECEIVED. PATCH ORDER PLACED PER DR. MARTINEZ'S TELEPHONE ORDER; PEGGY, RN VERIFIED ORDER W/ THIS RN.
[2024-01-06] MEDS: IPRATROPIUM/ALBUTEROL 3 ML NEB IH ×4 (06:10→23:23)
[2024-01-06] MEDS: METFORMIN 500MG TABLET 500 MG PO (06:19)
[2024-01-06] MEDS: NICOTINE 14MG/24HRS PATCH 14 MG TD (06:19)
[2024-01-06 06:54] LABS: POC Glucose,Bedside 147 (70-110)
[2024-01-06 07:53] LABS: Anion Gap 14.1 mEq/L (5-15); Blood Urea Nitrogen 18 mg/dl (7-17); Calcium 10.4 mg/dl (8.4-10.2); Carbon Dioxide 27 mmol/L (22.0-30.0); Chloride 98 mmol/L (98-107); Creatinine Clearance Estimated 155 mL/min (50-200); Estimated Glomerular Filt Rate 89 ml/min (>60); GFR (African American) 108 ML/MIN (>60); Glucose 142 mg/dl (74-100); Potassium 4.1 mmoL/L (3.5-5.1); Sodium 135 mmol/L (136-145)
[2024-01-06 08:42] LABS: Basophils # 0.1 K/mm3 (0-0.2); Basophils % 0.9 % (0.1-2.0); Eosinophils % 0.4 % (0.1-12.0); Hematocrit 57.6 % (37.0-47.0); Hemoglobin 17.3 g/dL (12.2-16.2); Lymphocytes # 2.3 K/mm3 (0.7-4.5); Lymphocytes % 22.4 % (10-50); Mean Corpuscular HGB Conc 30.1 g/dL (31.8-35.4); Mean Corpuscular Hemoglobin 30.4 pg (27.0-31.2); Mean Platelet Volume 8.3 fl (7.4-10.4); Monocytes # 0.6 K/mm3 (0.1-1.0); Monocytes % 5.5 % (1.7-9.3); Neutrophils # 7.3 K/mm3 (1.8-7.8); Neutrophils % 70.8 % (37.0-80.0); Platelet Count 253 K/mm3 (142-424); Red Blood Count 5.71 M/mm3 (4.20-5.40); Red Cell Distribution Width 15.1 % (11.5-17.5); White Blood Count 10.4 K/mm3 (4.8-10.8)
[2024-01-06] MEDS: ASPIRIN EC 81MG TABLET 81 MG PO (10:31)
[2024-01-06] MEDS: ATENOLOL 25MG TABLET 25 MG PO (10:31)
[2024-01-06] MEDS: EMPAGLIFLOZIN 10MG TABLET 10 MG PO (10:31)
[2024-01-06] MEDS: SPIRONOLACTONE 25MG TABLET 25 MG PO (10:32)
[2024-01-06] MEDS: FUROSEMIDE 40MG/4ML VIAL 40 MG IV ×2 (10:32→16:48)
[2024-01-06] MEDS: ISOSORBIDE MONO 30MG TAB.ER.24H 30 MG PO (10:32)
[2024-01-06] MEDS: LISINOPRIL 5MG TABLET 5 MG PO (10:33)
[2024-01-06] MEDS: SILDENAFIL 20 MG PO ×2 (10:33→13:29)
--- NOTE | 2024-01-06 11:22 | P.PN_ITS ---
Subjective *Date: 01/06/24 *Time: 11:22 Interval history: She seems better. Still with cyanosis. No respiratory distress. She is still on 6 L of nasal O2 to be able to sat greater then 90. Her current saturation is 94%. Sildenafil was added yesterday 10 mg 3 times a day for her pulmonary hypertension. This was after consultation with pulmonology and cardiology. Medical Exam Vital signs and Labs for Last 24 Hours: Vital Signs Temp Pulse Pulse Resp BP Pulse Ox O2 Del Method 01/06/24 11:18 94 H 01/06/24 11:18 97 H 01/06/24 11:18 94 L Nasal Cannula 01/06/24 08:00 90 01/06/24 07:58 98.2 F 91 H 18 127/66 95 Nasal Cannula 01/06/24 06:43 Nasal Cannula 01/06/24 06:11 95 H 01/06/24 06:11 85 01/06/24 06:11 93 L Venturi Mask 01/06/24 04:00 97.9 F 74 18 114/66 92 L Venturi Mask 01/06/24 04:00 70 01/06/24 00:00 90 01/06/24 00:00 98.9 F 88 22 106/57 L 92 L 01/05/24 23:28 83 01/05/24 23:28 85 01/05/24 20:00 90 01/05/24 20:00 98.6 F 93 H 18 104/58 L 92 L Nasal Cannula 01/05/24 20:00 Venturi Mask 01/05/24 18:25 94 H 01/05/24 18:25 89 01/05/24 18:25 91 L Venturi Mask 01/05/24 17:11 Venturi Mask 01/05/24 16:18 Venturi Mask 01/05/24 16:00 70 01/05/24 15:59 98.2 F 70 22 93/50 L 91 L Venturi Mask 01/05/24 15:52 86 L Venturi Mask 01/05/24 14:50 97.8 F 51 L 18 102/63 L 96 Room Air 01/05/24 13:11 Nasal Cannula 01/05/24 12:54 Nasal Cannula 01/05/24 12:00 70 01/05/24 11:55 98.3 F 76 20 109/66 L 90 L Venturi Mask O2 Flow Rate FiO2 01/06/24 11:18 01/06/24 11:18 01/06/24 11:18 6 01/06/24 08:00 01/06/24 07:58 6 01/06/24 06:43 6 01/06/24 06:11 01/06/24 06:11 01/06/24 06:11 15 50 01/06/24 04:00 01/06/24 04:00 01/06/24 00:00 01/06/24 00:00 15 01/05/24 23:28 01/05/24 23:28 01/05/24 20:00 01/05/24 20:00 15 01/05/24 20:00 15 50 01/05/24 18:25 01/05/24 18:25 01/05/24 18:25 15 50 01/05/24 17:11 01/05/24 16:18 01/05/24 16:00 01/05/24 15:59 01/05/24 15:52 35 01/05/24 14:50 01/05/24 13:11 6 01/05/24 12:54 6 01/05/24 12:00 01/05/24 11:55 Intake and Output 01/05/24 01/06/24 01/06/24 19:59 03:59 11:59 Intake Total 836 / 1396 200 / 1396 360 / 1396 Output Total 2500 / 4200 300 / 4200 1400 / 4200 Balance -1664 / -2804 -100 / -2804 -1040 / -2804 Intake: Intake, Oral Amount 836 / 1396 200 / 1396 360 / 1396 Output: Output, Urine Amount 2500 / 4200 300 / 4200 1400 / 4200 Other: Number of Unmeasured Voids 1 0 Number of Bowel Movements 1 Weight 222 lb 11.2 oz Patient Weight 01/06/24 11:59 Weight 222 lb 11.2 oz Laboratory Results - last 24 hr 01/05/24 09:22: C-Reactive Protein 9.6 H D 01/05/24 16:12: POC Glucose 155 H 01/05/24 19:51: POC Glucose 225 H 01/06/24 06:20: POC Glucose 147 H 01/06/24 06:46: WBC 10.4, RBC 5.71 H, Hgb 17.3 H, Hct 57.6 H, MCV 101.0 H, MCH 30.4, MCHC 30.1 L, RDW 15.1, Plt Count 253, MPV 8.3, Neut % (Auto) 70.8, Lymph % (Auto) 22.4, [place] % (Auto) 5.5, Eos % (Auto) 0.4, Baso % (Auto) 0.9, Neut # (Auto) 7.3, Lymph # (Auto) 2.3, [place] # (Auto) 0.6, Eos # (Auto) 0.0, Baso # (Auto) 0.1, Sodium 135 L, Potassium 4.1, Chloride 98, Carbon Dioxide 27, Anion Gap 14.1, BUN 18 H D, Creatinine 0.70 D, Estimated Creat Clear 155, Estimated GFR 89, Est GFR ( Amer) 108 D, Glucose 142 H D, Calcium 10.4 H I & O for Labs for Last 24 Hours: Intake & Output 01/03/24 01/04/24 01/05/24 01/06/24 11:59 11:59 11:59 11:59 Intake Total 120 / 120 1420 / 1420 360 / 360 1396 / 1396 Output Total 4000 / 4000 7051 / 7051 1000 / 1000 4200 / 4200 Balance -3880 / -3880 -5631 / -5631 -640 / -640 -2804 / -2804 Weight 235 lb 12.8 oz 219 lb 14.4 oz 219 lb 14.225 oz 222 lb 11.2 oz Head: Present normocephalic Neck: Present normal inspection Respiratory: Present decreased breath sounds and rales (Seem decreased today); Absent respiratory distress Cardiac: Present Reg Rate and Rhythm GI: Present soft; Absent tenderness Rectal (female): Present deferred (female): Present deferred Extremities: Present clubbing and cyanosis; Absent edema Skin: Present wounds (Excoriations of the back) Neuro: Present alert and oriented x 3 Assessment and Plan *Assessment and plan (1) Pulmonary hypertension: Status: Acute Category: Medical Code(s): I27.20 - Pulmonary hypertension, unspecified (2) HFrEF (heart failure with reduced ejection fraction): Status: Acute Category: Medical Code(s): I50.20 - Unspecified systolic (congestive) heart failure (3) RVF (right ventricular failure): Status: Acute Category: Medical Code(s): I50.810 - Right heart failure, unspecified (4) Clubbing of digits: Status: Acute Category: Medical (5) Cyanosis: Status: Acute Category: Medical Code(s): R23.0 - Cyanosis (6) Acute respiratory failure with hypoxia: Status: Acute Category: Medical Code(s): J96.01 - Acute respiratory failure with hypoxia (7) CAD in [place] artery: Status: Acute Category: Medical Code(s): I25.10 - Atherosclerotic heart disease of [place] coronary artery without angina pectoris (8) SOB (shortness of breath) on exertion: Status: Acute Category: Medical Code(s): R06.02 - Shortness of breath (9) Elevated brain natriuretic peptide (BNP) level: Status: Acute Category: Medical Code(s): R79.89 - Other specified abnormal findings of blood chemistry (10) GERD (gastroesophageal reflux disease): Status: Acute Qualifiers: Esophagitis presence: esophagitis presence not specified Qualified Code(s): K21.9 - Gastro-esophageal reflux disease without esophagitis Category: Medical Code(s): K21.9 - Gastro-esophageal reflux disease without esophagitis (11) History of [place] (myocardial infarction): Status: Acute Category: Medical Code(s): I25.2 - Old myocardial infarction (12) Hypertension: Status: Acute Qualifiers: Hypertension type: primary hypertension Qualified Code(s): I10 - Essential (primary) hypertension Category: Medical Code(s): I10 - Essential (primary) hypertension (13) Diabetes mellitus, type 2: Status: Acute Qualifiers: Diabetes mellitus extermination inspector insulin use: with mcfp use Diabetes mellitus complication status: without complication Qualified Code(s): E11.9 - Type 2 diabetes mellitus without complications; Z79.4 - superintendent marine [employer] (current) use of insulin Category: Medical Code(s): E11.9 - Type 2 diabetes mellitus without complications (14) Breast mass: Status: Acute Qualifiers: Breast mass location: unspecified quadrant Laterality: right Qualified Code(s): N63.10 - Unspecified lump in the right breast, unspecified quadrant Category: Medical Code(s): N63.0 - Unspecified lump in unspecified breast Plan Labs reviewed. Continue present respiratory management. An ultrasound was ordered to evaluate the breast mass on the right.
[2024-01-06] MEDS: predniSONE 20MG TAB 40 MG PO (12:20)
[2024-01-06 13:24] LABS: Lactate Dehydrogenase 273 U/L (313-618)
[2024-01-06] MEDS: IBUPROFEN 600 MG TABLET PO ×2 (13:29→20:49)
[2024-01-06 13:43] LABS: Procalcitonin 0.047 ng/mL (0.0-2.0)
[2024-01-06 16:56] LABS: POC Glucose,Bedside 146 (70-110)
--- NOTE | 2024-01-06 18:46 | PC.NURSE ---
Patient unable to wean past 6L this shift. Patient a&ox4 and vss.
[2024-01-06] MEDS: ATORVASTATIN 40MG TABLET 40 MG PO (20:49)
[2024-01-06] MEDS: lamoTRIgine 100MG TABLET 50 MG PO (20:49)
[2024-01-06] MEDS: TEMAZEPAM 30MG CAPSULE 30 MG PO (20:50)
[2024-01-06 21:05] LABS: POC Glucose,Bedside 205 (70-110)
[2024-01-07] VITALS (13 sets, daily range): BP systolic 101–130; BP diastolic 51–84; PULSE 66–100; RESP 16–26; TEMP 36.4–36.6; O2SAT 89–98; BMI 39.0
[2024-01-07 05:55] LABS: POC Glucose,Bedside 125 (70-110)
[2024-01-07] MEDS: IPRATROPIUM/ALBUTEROL 3 ML NEB IH ×4 (06:22→22:57)
--- NOTE | 2024-01-07 06:29 | PC.NURSE ---
Pt is alert and oriented x4 and currently tolerating 4L well. Pt has c/o of moderate ALEXANDER and has been treated per MAR. Pt has had no other acute changes this shift and denies pain at this time.
[2024-01-07] MEDS: METFORMIN 500MG TABLET 500 MG PO (07:51)
[2024-01-07] MEDS: ACETAMINOPHEN 325MG TAB 650 MG PO ×3 (07:52→22:08)
[2024-01-07] MEDS: EMPAGLIFLOZIN 10MG TABLET 10 MG PO (08:00)
[2024-01-07] MEDS: ATENOLOL 25MG TABLET 25 MG PO (08:00)
[2024-01-07] MEDS: LISINOPRIL 5MG TABLET 5 MG PO (08:00)
[2024-01-07] MEDS: ASPIRIN EC 81MG TABLET 81 MG PO (08:00)
[2024-01-07] MEDS: SPIRONOLACTONE 25MG TABLET 25 MG PO (08:00)
[2024-01-07] MEDS: ISOSORBIDE MONO 30MG TAB.ER.24H 30 MG PO (08:00)
[2024-01-07] MEDS: predniSONE 20MG TAB 40 MG PO (08:01)
[2024-01-07] MEDS: FUROSEMIDE 40MG/4ML VIAL 40 MG IV ×2 (08:01→15:55)
[2024-01-07] MEDS: NICOTINE 14MG/24HRS PATCH 14 MG TD (08:01)
[2024-01-07 08:53] LABS: Antinuclear Antibodies (ANA) Negative
[2024-01-07] MEDS: SILDENAFIL 20 MG PO ×2 (09:53→13:51)
[2024-01-07] MEDS: IBUPROFEN 600 MG TABLET PO (09:53)
[2024-01-07 12:00] LABS: POC Glucose,Bedside 181 (70-110)
[2024-01-07] MEDS: ALUMINUM/MAGNESIUM/SIMETHICONE 30ML UDC 30 ML PO ×2 (14:40→22:11)
--- NOTE | 2024-01-07 14:41 | EXP.ACUTE.PN ---
Subjective *Date: 01/07/24 *Time: 14:41 Interval history: She complains of a severe headache. Apart from that she is feeling better. She is breathing better. Her color is better. She is in no respiratory distress. Her weight is noted and seems stable around 220. Medical Exam Vital signs and Labs for Last 24 Hours: Vital Signs Temp Pulse Pulse Resp BP Pulse Ox O2 Del Method 01/07/24 12:00 97.8 F 86 17 120/80 92 L Room Air 01/07/24 11:08 78 01/07/24 11:08 88 01/07/24 11:08 90 L Nasal Cannula 01/07/24 09:00 Nasal Cannula 01/07/24 08:00 Nasal Cannula 01/07/24 08:00 100 H 01/07/24 08:00 97.7 F 85 17 124/83 91 L Nasal Cannula 01/07/24 06:43 Room Air 01/07/24 06:22 76 01/07/24 06:22 66 01/07/24 06:22 98 Nasal Cannula 01/07/24 05:00 Nasal Cannula 01/07/24 04:00 67 01/07/24 04:00 97.5 F L 69 18 101/55 L 94 L Nasal Cannula 01/07/24 03:00 Nasal Cannula 01/07/24 01:00 Nasal Cannula 01/07/24 00:00 85 01/07/24 00:00 97.5 F L 80 18 130/77 95 Nasal Cannula 01/06/24 23:41 89 L Room Air 01/06/24 23:40 Nasal Cannula 01/06/24 23:40 91 H 01/06/24 23:39 90 01/06/24 23:00 Nasal Cannula 01/06/24 21:00 Nasal Cannula 01/06/24 20:00 81 01/06/24 20:00 92 L Nasal Cannula 01/06/24 20:00 98.0 F 84 20 118/61 92 L Nasal Cannula 01/06/24 18:41 92 H 01/06/24 18:41 91 H 01/06/24 16:00 80 01/06/24 16:00 98.0 F 80 18 122/74 92 L Nasal Cannula O2 Flow Rate 01/07/24 12:00 01/07/24 11:08 01/07/24 11:08 01/07/24 11:08 2 01/07/24 09:00 2 01/07/24 08:00 2 01/07/24 08:00 01/07/24 08:00 01/07/24 06:43 01/07/24 06:22 01/07/24 06:22 01/07/24 06:22 4 01/07/24 05:00 4 01/07/24 04:00 01/07/24 04:00 4 01/07/24 03:00 4 01/07/24 01:00 4 01/07/24 00:00 01/07/24 00:00 4 01/06/24 23:41 01/06/24 23:40 4 01/06/24 23:40 01/06/24 23:39 01/06/24 23:00 4 01/06/24 21:00 4 01/06/24 20:00 01/06/24 20:00 6 01/06/24 20:00 4 01/06/24 18:41 01/06/24 18:41 01/06/24 16:00 01/06/24 16:00 5 Intake and Output 01/07/24 01/07/24 01/07/24 03:59 11:59 19:59 Intake Total 360 / 630 Output Total 0 / 0 1200 / 1200 Balance 360 / 630 -1200 / -1200 Intake: Intake, Oral Amount 360 / 630 Output: Output, Urine Amount 0 / 0 1200 / 1200 Other: Number of Unmeasured Voids 1 Weight 220 lb 6.4 oz Laboratory Results - last 24 hr 01/03/24 05:52: Anti-Centromere Ab 01/03/24 15:22: MARISA Screen Negative 01/06/24 16:48: POC Glucose 146 H 01/06/24 20:48: POC Glucose 205 H 01/07/24 05:35: POC Glucose 125 H 01/07/24 11:28: POC Glucose 181 H I & O for Labs for Last 24 Hours: Intake & Output 01/05/24 01/06/24 01/07/24 01/08/24 11:59 11:59 11:59 11:59 Intake Total 360 / 360 1396 / 1396 630 / 630 Output Total 1000 / 1000 4200 / 4200 0 / 0 1200 / 1200 Balance -640 / -640 -2804 / -2804 630 / 630 -1200 / -1200 Weight 219 lb 14.225 oz 222 lb 11.2 oz 220 lb 6.4 oz Head: Present normocephalic Neck: Present normal inspection Respiratory: Present CTA bilaterally (Moving air better. Not wheezing. Rales have decreased.); Absent respiratory distress Cardiac: Present Reg Rate and Rhythm GI: Present soft; Absent tenderness Rectal (female): Present deferred (female): Present deferred Extremities: Present clubbing and cyanosis (Seems improved); Absent edema Skin: Present wounds (Back lesions as mentioned before.) Neuro: Present alert and oriented x 3 Assessment and Plan *Assessment and plan (1) Pulmonary hypertension: Status: Acute Category: Medical Code(s): I27.20 - Pulmonary hypertension, unspecified (2) HFrEF (heart failure with reduced ejection fraction): Status: Acute Category: Medical Code(s): I50.20 - Unspecified systolic (congestive) heart failure (3) Clubbing of digits: Status: Acute Category: Medical (4) Cyanosis: Status: Acute Category: Medical Code(s): R23.0 - Cyanosis (5) Acute respiratory failure with hypoxia: Status: Acute Category: Medical Code(s): J96.01 - Acute respiratory failure with hypoxia (6) CAD in [place] artery: Status: Acute Category: Medical Code(s): I25.10 - Atherosclerotic heart disease of [place] coronary artery without angina pectoris (7) SOB (shortness of breath) on exertion: Status: Acute Category: Medical Code(s): R06.02 - Shortness of breath (8) Elevated brain natriuretic peptide (BNP) level: Status: Acute Category: Medical Code(s): R79.89 - Other specified abnormal findings of blood chemistry (9) GERD (gastroesophageal reflux disease): Status: Acute Qualifiers: Esophagitis presence: esophagitis presence not specified Qualified Code(s): K21.9 - Gastro-esophageal reflux disease without esophagitis Category: Medical Code(s): K21.9 - Gastro-esophageal reflux disease without esophagitis (10) History of [place] (myocardial infarction): Status: Acute Category: Medical Code(s): I25.2 - Old myocardial infarction (11) High cholesterol: Status: Acute Category: Medical Code(s): E78.00 - Pure hypercholesterolemia, unspecified (12) Hypertension: Status: Acute Qualifiers: Hypertension type: primary hypertension Qualified Code(s): I10 - Essential (primary) hypertension Category: Medical Code(s): I10 - Essential (primary) hypertension (13) Diabetes mellitus, type 2: Status: Acute Qualifiers: Diabetes mellitus nursing home insulin use: with terminal computer operator use Diabetes mellitus complication status: without complication Qualified Code(s): E11.9 - Type 2 diabetes mellitus without complications; Z79.4 - terminal supervisor (current) use of insulin Category: Medical Code(s): E11.9 - Type 2 diabetes mellitus without complications (14) Breast mass: Status: Acute Qualifiers: Breast mass location: unspecified quadrant Laterality: right Qualified Code(s): N63.10 - Unspecified lump in the right breast, unspecified quadrant Category: Medical Code(s): N63.0 - Unspecified lump in unspecified breast Plan I ordered tramadol for her headache. Nitroglycerin is discontinued though she has already had today's dose. Incentive spirometry ordered. Tomorrow cardiology and pulmonology will follow-up on the case.
[2024-01-07] MEDS: TRAMADOL 50MG TABLET 50 MG PO ×2 (18:29→22:08)
[2024-01-07 20:21] LABS: POC Glucose,Bedside 296 (70-110)
[2024-01-07] MEDS: ATORVASTATIN 40MG TABLET 40 MG PO (21:07)
[2024-01-07] MEDS: lamoTRIgine 100MG TABLET 50 MG PO (21:07)
[2024-01-07] MEDS: TEMAZEPAM 30MG CAPSULE 30 MG PO (21:07)
--- NOTE | 2024-01-07 21:19 | PC.NURSE ---
DR. MARTINEZ PAGED FOR PT C/O ALEXANDER AND NOT BEING RELIEVED WITH PRN MEDS GIVEN; NEW ORDERS RECEIVED; SEE MAR
[2024-01-08] VITALS (9 sets, daily range): BP systolic 104–131; BP diastolic 62–77; PULSE 65–90; RESP 16–18; TEMP 36.6–36.9; O2SAT 88–97; BMI 39.3
--- NOTE | 2024-01-08 | US_ITS ---
PROCEDURE INFORMATION: Exam: US Right Breast, Complete Exam date and time: 01/08/2024 9:09 AM Age: 48 years old Clinical indication: Recall on the basis CT 01/02/2024 Soft tissues: Incomplete visualization of the right breast demonstrates the presence of an asymmetric approximate 5.4 cm soft tissue mass. follow-up with dedicated breast imaging as well as ultrasound. TECHNIQUE: Imaging protocol: Complete ultrasound of all four quadrants of the right breast and the retroareolar regions, including ultrasound of the axilla when performed. COMPARISON: CT ABDOMEN PELVIS W CON 01/02/2024 7:15 PM FINDINGS: ULTRASOUND: Breast ultrasound findings: Right sonography, all 4 quadrants, retroareolar and axilla. At 10 o'clock 10 cm from the nipple, there is a heterogeneous isodense solid and cystic mass measuring 8.8 x 2.4 x 6.8 cm which appears to correspond to the mass seen on recent CT scan. There are a few dots of related Doppler flow within the mass. At 2 o'clock 4 cm from the nipple, oval hypoechoic avascular mass measuring 0.5 x 0.3 x 0.4 cm. Sonographically unremarkable axillary lymph node. IMPRESSION: See comments CT detected mass appears to correspond to an indeterminate 8.0 cm predominantly solid mass with ultrasound-guided see recommended. However, before biopsy, bilateral diagnostic mammography is recommended. Also, suggest six-month follow-up of probably benign mass on the right at 2 o'clock unless otherwise clinically indicated. ASSESSMENT: BI-RADS Category 4: Suspicious.
[2024-01-08] MEDS: ALUMINUM/MAGNESIUM/SIMETHICONE 30ML UDC 30 ML PO ×2 (03:20→16:15)
[2024-01-08] MEDS: TRAMADOL 50MG TABLET 50 MG PO ×4 (03:20→21:40)
[2024-01-08] MEDS: ACETAMINOPHEN 325MG TAB 650 MG PO ×3 (03:21→20:19)
[2024-01-08] MEDS: IPRATROPIUM/ALBUTEROL 3 ML NEB IH (06:08)
[2024-01-08 06:13] LABS: Basophils # 0.2 K/mm3 (0-0.2); Basophils % 1.5 % (0.1-2.0); Eosinophils # 0.1 K/mm3 (0.0-0.4); Eosinophils % 0.8 % (0.1-12.0); Hematocrit 57.1 % (37.0-47.0); Hemoglobin 17.9 g/dL (12.2-16.2); Lymphocytes # 3.6 K/mm3 (0.7-4.5); Lymphocytes % 30.2 % (10-50); Mean Corpuscular HGB Conc 31.4 g/dL (31.8-35.4); Mean Corpuscular Hemoglobin 30.8 pg (27.0-31.2); Mean Corpuscular Volume 97.9 fl (81-99); Mean Platelet Volume 8.2 fl (7.4-10.4); Monocytes # 0.8 K/mm3 (0.1-1.0); Neutrophils # 7.2 K/mm3 (1.8-7.8); Neutrophils % 60.5 % (37.0-80.0); Platelet Count 261 K/mm3 (142-424); Red Blood Count 5.83 M/mm3 (4.20-5.40); Red Cell Distribution Width 15.1 % (11.5-17.5); White Blood Count 11.9 K/mm3 (4.8-10.8)
[2024-01-08 06:22] LABS: Chloride 91 mmol/L (98-107)
[2024-01-08 06:23] LABS: Potassium 4.6 mmoL/L (3.5-5.1); Sodium 132 mmol/L (136-145)
[2024-01-08 06:25] LABS: Alanine Aminotransferase 30 U/L (12-78); Alkaline Phosphatase 80 U/L (38-126); Anion Gap 13.6 mEq/L (5-15); Aspartate Amino Transferase 38 U/L (14-36); Bilirubin,Total 1.2 mg/dl (0.2-1.3); Blood Urea Nitrogen 28 mg/dl (7-17); Creatinine Clearance Estimated 135 mL/min (50-200); Estimated Glomerular Filt Rate 76 ml/min (>60); GFR (African American) 92 ML/MIN (>60)
[2024-01-08 06:26] LABS: Calcium 10.9 mg/dl (8.4-10.2); Glucose 135 mg/dl (74-100); Total Protein,Serum 7.6 g/dl (6.3-8.2)
[2024-01-08 06:27] LABS: Troponin I 0.05 ng/ml (0.00-0.034)
[2024-01-08] MEDS: METFORMIN 500MG TABLET 500 MG PO (06:28)
--- NOTE | 2024-01-08 07:05 | ECG_ITS ---
APPROVED REPORT Exam: Resting ECG HR:79 bpm ECG Measurements Heart Rate 79 AXES MT 191 P 36 QRSd 132 QRS 125 QT 383 T 50 QTc 418 Conclusion SINUS RHYTHM RIGHT BUNDLE BRANCH BLOCK [120+ ms QRS DURATION, UPRIGHT V1, 40+ ms S IN I/aVL/V4/V5/V6] LEFT POSTERIOR FASCICULAR BLOCK [QRS AXIS > 109, INFERIOR Q] ABNORMAL ECG UNCONFIRMED REPORT Electronically signed by : Jovany Carrasco MD 01/09/2024 17:29:27
--- NOTE | 2024-01-08 07:58 | P.PN_ITS ---
Subjective *Date: 01/08/24 *Time: 07:58 Interval history: Patient's biggest complaint is her headache. It is much better after less medication during the night. She has some nausea associated with this. She has had no vomiting. She has had 2 watery stools throughout the night. She is a little nauseated this morning and does not want her breakfast. She is voiding QS. She ambulates in the room. She remains on O2 and is increased to 4 L/min. O2 sats are 96% on 4 L/min. Weight is 221 pounds today. White blood cell count is 11,900 with a hemoglobin of 17.9 hematocrit 57.1. Blood chemistries show sodium of 132 and potassium of 4.6. BUN is 28 and creatinine 0.8. Sputum cultu re is pending. Medical Exam Vital signs and Labs for Last 24 Hours: Vital Signs Temp Pulse Pulse Resp BP Pulse Ox O2 Del Method 01/08/24 07:49 Nasal Cannula 01/08/24 07:44 98.1 F 85 17 131/70 96 Nasal Cannula 01/08/24 07:00 Nasal Cannula 01/08/24 06:09 75 01/08/24 06:09 79 01/08/24 06:09 90 L Nasal Cannula 01/08/24 05:00 Nasal Cannula 01/08/24 04:00 98.4 F 80 16 116/70 90 L Nasal Cannula 01/08/24 04:00 70 01/08/24 03:00 Nasal Cannula 01/08/24 01:00 Nasal Cannula 01/08/24 00:00 80 01/08/24 00:00 98.2 F 84 18 108/64 L 88 L Nasal Cannula 01/07/24 23:52 73 01/07/24 23:52 73 01/07/24 23:00 Nasal Cannula 01/07/24 21:00 Nasal Cannula 01/07/24 20:00 90 01/07/24 20:00 Nasal Cannula 01/07/24 19:34 97.7 F 89 16 103/51 L 91 L Nasal Cannula 01/07/24 18:47 Nasal Cannula 01/07/24 18:47 73 01/07/24 18:47 73 01/07/24 18:34 Nasal Cannula 01/07/24 18:10 89 L Room Air 01/07/24 17:00 Nasal Cannula 01/07/24 16:00 90 06/02/24 15:34 97.8 F 89 26 H 121/84 91 L Nasal Cannula 01/07/24 15:00 Nasal Cannula 01/07/24 13:00 Nasal Cannula 01/07/24 12:00 90 01/07/24 12:00 97.8 F 86 17 120/80 92 L Room Air 01/07/24 11:08 78 01/07/24 11:08 88 01/07/24 11:08 90 L Nasal Cannula 01/07/24 11:00 Nasal Cannula 01/07/24 09:00 Nasal Cannula 01/07/24 08:00 Nasal Cannula 01/07/24 08:00 100 H 01/07/24 08:00 97.7 F 85 17 124/83 91 L Nasal Cannula O2 Flow Rate FiO2 01/08/24 07:49 4 01/08/24 07:44 4 01/08/24 07:00 4 01/08/24 06:09 01/08/24 06:09 01/08/24 06:09 4 01/08/24 05:00 4 01/08/24 04:00 4 01/08/24 04:00 01/08/24 03:00 4 01/08/24 01:00 2 01/08/24 00:00 01/08/24 00:00 2 01/07/24 23:52 01/07/24 23:52 01/07/24 23:00 2 01/07/24 21:00 2 01/07/24 20:00 01/07/24 20:00 2 01/07/24 19:34 2 01/07/24 18:47 2 28 01/07/24 18:47 01/07/24 18:47 01/07/24 18:34 2 01/07/24 18:10 01/07/24 17:00 2 01/07/24 16:00 01/07/24 15:34 2 01/07/24 15:00 2 01/07/24 13:00 2 01/07/24 12:00 01/07/24 12:00 01/07/24 11:08 01/07/24 11:08 01/07/24 11:08 2 01/07/24 11:00 2 01/07/24 09:00 2 01/07/24 08:00 2 01/07/24 08:00 01/07/24 08:00 Intake and Output 01/07/24 01/08/24 01/08/24 19:59 03:59 11:59 Intake Total 270 / 270 Output Total 2700 / 2700 0 / 2700 0 / 2700 Balance -2430 / -2430 0 / -2430 0 / -2430 Intake: Intake, Oral Amount 270 / 270 Output: Output, Urine Amount 2700 / 2700 0 / 2700 0 / 2700 Other: Number of Unmeasured Voids 0 2 1 Number of Bowel Movements 1 1 1 Weight 221 lb 14.4 oz Patient Weight 01/08/24 11:59 Weight 221 lb 14.4 oz Laboratory Results - last 24 hr 01/03/24 05:52: Anti-Centromere Ab 01/03/24 15:22: MARISA Screen Negative 01/07/24 11:28: POC Glucose 181 H 01/07/24 19:57: POC Glucose 296 H 01/08/24 05:44: WBC 11.9 H, RBC 5.83 H, Hgb 17.9 H, Hct 57.1 H, MCV 97.9, MCH 30.8, MCHC 31.4 L, RDW 15.1, Plt Count 261, MPV 8.2, Neut % (Auto) 60.5, Lymph % (Auto) 30.2, [place] % (Auto) 7.0, Eos % (Auto) 0.8, Baso % (Auto) 1.5, Neut # (Auto) 7.2, Lymph # (Auto) 3.6, [place] # (Auto) 0.8, Eos # (Auto) 0.1, Baso # (Auto) 0.2, Sodium 132 L, Potassium 4.6, Chloride 91 L, Carbon Dioxide 32 H, Anion Gap 13.6, BUN 28 H D, Creatinine 0.80, Estimated Creat Clear 135, Estimated GFR 76, Est GFR ( Amer) 92, Glucose 135 H, Calcium 10.9 H, Total Bilirubin 1.2, AST 38 H, ALT 30, Alkaline Phosphatase 80, Troponin I 0.05 H, Total Protein 7.6, Albumin 4.4 I & O for Labs for Last 24 Hours: Intake & Output 01/05/24 01/06/24 01/07/24 01/08/24 11:59 11:59 11:59 11:59 Intake Total 360 / 360 1396 / 1396 630 / 630 270 / 270 Output Total 1000 / 1000 4200 / 4200 0 / 0 2700 / 2700 Balance -640 / -640 -2804 / -2804 630 / 630 -2430 / -2430 Weight 219 lb 14.225 oz 222 lb 11.2 oz 220 lb 6.4 oz 221 lb 14.4 oz Microbiology Reports for the Last 24 Hours: Microbiology 01/07/24 14:15 Sputum - Expectorated Sputum Gram Stain - Final 01/07/24 14:15 Sputum - Expectorated Sputum Sputum Culture - Preliminary Constitutional: Present no acute distress Comment:: Conversant. Speech impediment noted. Speaks without shortness of breath. Respiratory: Present wheezes (Few wheezes noted greater on the left) Cardiac: Present Reg Rate and Rhythm GI: Present soft, normal bowel sounds and other (Obese); Absent tenderness Extremities: Present full ROM; Absent tenderness, edema or calf tenderness Neuro: Present alert and oriented x 3 Assessment and Plan *Assessment and plan (1) Pulmonary hypertension: Status: Acute Category: Medical Code(s): I27.20 - Pulmonary hypertension, unspecified (2) HFrEF (heart failure with reduced ejection fraction): Status: Acute Category: Medical Code(s): I50.20 - Unspecified systolic (congestive) heart failure (3) Clubbing of digits: Status: Acute Category: Medical (4) Cyanosis: Status: Acute Category: Medical Code(s): R23.0 - Cyanosis (5) Acute respiratory failure with hypoxia: Status: Acute Category: Medical Code(s): J96.01 - Acute respiratory failure with hypoxia (6) CAD in [place] artery: Status: Acute Category: Medical Code(s): I25.10 - Atherosclerotic heart disease of [place] coronary artery without angina pectoris (7) SOB (shortness of breath) on exertion: Status: Acute Category: Medical Code(s): R06.02 - Shortness of breath (8) Elevated brain natriuretic peptide (BNP) level: Status: Acute Category: Medical Code(s): R79.89 - Other specified abnormal findings of blood chemistry (9) GERD (gastroesophageal reflux disease): Status: Acute Qualifiers: Esophagitis presence: esophagitis presence not specified Qualified Code(s): K21.9 - Gastro-esophageal reflux disease without esophagitis Category: Medical Code(s): K21.9 - Gastro-esophageal reflux disease without esophagitis (10) History of [place] (myocardial infarction): Status: Acute Category: Medical Code(s): I25.2 - Old myocardial infarction (11) High cholesterol: Status: Acute Category: Medical Code(s): E78.00 - Pure hypercholesterolemia, unspecified (12) Hypertension: Status: Acute Qualifiers: Hypertension type: primary hypertension Qualified Code(s): I10 - Essential (primary) hypertension Category: Medical Code(s): I10 - Essential (primary) hypertension (13) Diabetes mellitus, type 2: Status: Acute Qualifiers: Diabetes mellitus tank terminal gauger insulin use: with assisted use Diabetes mellitus complication status: without complication Qualified Code(s): E11.9 - Type 2 diabetes mellitus without complications; Z79.4 - oil heaterman (current) use of insulin Category: Medical Code(s): E11.9 - Type 2 diabetes mellitus without complications (14) Breast mass: Status: Acute Qualifiers: Breast mass location: unspecified quadrant Laterality: right Qualified Code(s): N63.10 - Unspecified lump in the right breast, unspecified quadrant Category: Medical Code(s): N63.0 - Unspecified lump in unspecified breast (15) Headache: Status: Acute Category: Medical Code(s): R51.9 - Headache, unspecified Plan Continue with current care. Would like to wean oxygen. Pulmonology and cardiology to follow-up today.
[2024-01-08 08:05] LABS: Albumin Level 4.4 g/dl (3.5-5.0); Albumin/Globulin Ratio 1.4 (1.1-1.8); Carbon Dioxide 32 mmol/L (22.0-30.0); Globulin 3.2 g/dL (1.3-3.2)
[2024-01-08] MEDS: ATENOLOL 25MG TABLET 25 MG PO (08:11)
[2024-01-08] MEDS: ASPIRIN EC 81MG TABLET 81 MG PO (08:11)
[2024-01-08] MEDS: LISINOPRIL 5MG TABLET 5 MG PO (08:11)
[2024-01-08] MEDS: predniSONE 20MG TAB 40 MG PO (08:12)
[2024-01-08] MEDS: SPIRONOLACTONE 25MG TABLET 25 MG PO (08:12)
[2024-01-08] MEDS: NICOTINE 14MG/24HRS PATCH 14 MG TD (08:12)
[2024-01-08] MEDS: EMPAGLIFLOZIN 10MG TABLET 10 MG PO (08:12)
[2024-01-08] MEDS: SILDENAFIL 20 MG PO (08:13)
[2024-01-08] MEDS: FUROSEMIDE 40MG/4ML VIAL 40 MG IV (08:18)
--- NOTE | 2024-01-08 09:22 | P.PN_ITS ---
Subjective Subjective Date: 01/08/24 Time: 08:00 Principal diagnosis: CAD, acute CHF Interval history: Patient continues to require 4 L of oxygen to maintain oxygen saturation. Morning labs reviewed. Exam Data for Last 24 hours Vital signs and Labs for Last 24 Hours: Temp Pulse Resp BP Pulse Ox O2 Del Method O2 Flow Rate 98.1 F 90 17 131/70 96 Nasal Cannula 4 01/08/24 07:44 01/08/24 08:00 01/08/24 07:44 01/08/24 07:44 01/08/24 07:44 01/08/24 08:00 01/08/24 08:00 FiO2 28 01/07/24 18:47 Laboratory Results - last 24 hr 01/07/24 11:28: POC Glucose 181 H 01/07/24 19:57: POC Glucose 296 H 01/08/24 05:44: WBC 11.9 H, RBC 5.83 H, Hgb 17.9 H, Hct 57.1 H, MCV 97.9, MCH 30.8, MCHC 31.4 L, RDW 15.1, Plt Count 261, MPV 8.2, Neut % (Auto) 60.5, Lymph % (Auto) 30.2, [place] % (Auto) 7.0, Eos % (Auto) 0.8, Baso % (Auto) 1.5, Neut # (Aut o) 7.2, Lymph # (Auto) 3.6, [place] # (Auto) 0.8, Eos # (Auto) 0.1, Baso # (Auto) 0.2, Sodium 132 L, Potassium 4.6, Chloride 91 L, Carbon Dioxide 32 H, Anion Gap 13.6, BUN 28 H D, Creatinine 0.80, Estimated Creat Clear 135, Estimated GFR 76, Est GFR ( Amer) 92, Glucose 135 H, Calcium 10.9 H, Total Bilirubin 1.2, AST 38 H, ALT 30, Alkaline Phosphatase 80, Troponin I 0.05 H, Total Protein 7.6, Albumin 4.4, Globulin 3.2, Albumin/Globulin Ratio 1.4 I & O for Last 24 hours: Intake & Output 01/05/24 01/06/24 01/07/24 01/08/24 23:59 23:59 23:59 23:59 Intake Total 836 / 1036 830 / 1190 630 / 630 240 / 240 Output Total 2700 / 3000 1700 / 1700 2700 / 2700 0 / 0 Balance -1864 / -1964 -870 / -510 -2069 / -2069 240 / 240 Weight 219 lb 14.225 oz 222 lb 11.2 oz 220 lb 6.4 oz 221 lb 14.4 oz Microbiology Reports for the Last 24 Hours: Microbiology 01/07/24 14:15 Sputum - Expectorated Sputum Gram Stain - Final 01/07/24 14:15 Sputum - Expectorated Sputum Sputum Culture - Preliminary Progress Note: A&P Assessment and plan (1) Pulmonary hypertension: Status: Acute (2) HFrEF (heart failure with reduced ejection fraction): Status: Acute (3) Clubbing of digits: Status: Acute (4) Cyanosis: Status: Acute (5) Acute respiratory failure with hypoxia: Status: Acute (6) CAD in [place] artery: Status: Acute (7) SOB (shortness of breath) on exertion: Status: Acute (8) Elevated brain natriuretic peptide (BNP) level: Status: Acute (9) GERD (gastroesophageal reflux disease): Status: Acute (10) History of [place] (myocardial infarction): Status: Acute (11) High cholesterol: Status: Acute (12) Hypertension: Status: Acute (13) Diabetes mellitus, type 2: Status: Acute (14) Breast mass: Status: Acute (15) Headache: Status: Acute Assessment and Plan Assessment and Plan for All Diagnoses:: This is a 48-year-old white female with past medical history of coronary artery disease, hypertension, hyperlipidemia and diabetes mellitus who presented to emergency department with initial complaints of epigastric pain and bloating. Patient was found to have a BNP over 4000 on admission and was started on IV diuretics. Patient has underwent a left and right heart catheterization. Her right heart catheterization showed severe pulmonary hypertension and her left heart catheterization showed a widely patent proximal LAD stent with a chronically occluded right coronary which fills via left to right collaterals. Patient continues to require supplemental oxygen to maintain oxygen saturation. Acute HFpEF-NYHA III Right heart catheterization 01/04/2024: Severe pulmonary hypertension which is multifactorial and mildly elevated left-sided filling pressures Echo 01/02-Normal LV function, septal flattening consistent with increased RV volume pressure overload, severely dilated RV with severe RV dysfunction, mild TR mild MR mild PI Change lasix to Bumex 2mg IV BID Continue Aldactone 25 mg daily Continue Jardiance 10 mg daily Continue lisinopril 5 mg p.o. daily Recommend outpatient cardiac MRI/ARVC protocol Severe pulmonary hypertension Imdur has been stopped and sildenafil 10 mg 3 times daily has been started per pulmonology. Will increase to 20mg TID. Coronary artery disease Left heart catheterization 01/04/2024 showed widely patent proximal LAD stent, chronically occluded right coronary artery fills via left to right collaterals. Continue aspirin 81 mg daily, atorvastatin 40 mg daily, atenolol 25 mg daily and lisinopril 5 mg daily Right breast mass Defer to primary service CV summary 01/07/2023: Patient still requiring supplemental O2, will increase diuretics and increase sildenafil to 20mg TID.
--- NOTE | 2024-01-08 10:01 | XR_ITS ---
FINAL REPORT CLINICAL HISTORY: PNM COMPARISON: 01/02/2024 FINDINGS: A single portable view of the chest was obtained. The heart size is enlarged. The pulmonary vascularity is within normal limits. The mediastinum is within normal limits. There are persistent right base opacities which are consistent with pneumonia. The bony thorax is intact. IMPRESSION: Persistent right base opacities consistent with pneumonia. Reviewed, Interpreted and Dictated by Michael Rubio III, MD Transcribed by Nita Alfred Authenticated and [facility]
--- NOTE | 2024-01-08 10:01 | EXP.PULM.PN ---
Subjective *Date: 01/08/24 *Time: 11:02 Interval history: No acute respiratory events overnight. Patient denies any new respiratory complaints. Pulmonology Exam Inpatient Vital signs and Labs for Last 24 Hours: Temp Pulse Resp BP Pulse Ox O2 Del Method O2 Flow Rate 98.1 F 90 17 131/70 96 Nasal Cannula 4 01/08/24 07:44 01/08/24 08:00 01/08/24 07:44 01/08/24 07:44 01/08/24 07:44 01/08/24 08:00 01/08/24 08:00 FiO2 28 01/07/24 18:47 Laboratory Results - last 24 hr 01/07/24 11:28: POC Glucose 181 H 01/07/24 19:57: POC Glucose 296 H 01/08/24 05:44: WBC 11.9 H, RBC 5.83 H, Hgb 17.9 H, Hct 57.1 H, MCV 97.9, MCH 30.8, MCHC 31.4 L, RDW 15.1, Plt Count 261, MPV 8.2, Neut % (Auto) 60.5, Lymph % (Auto) 30.2, [place] % (Auto) 7.0, Eos % (Auto) 0.8, Baso % (Auto) 1.5, Neut # (Auto) 7.2, Lymph # (Auto) 3.6, [place] # (Auto) 0.8, Eos # (Auto) 0.1, Baso # (Auto) 0.2, Sodium 132 L, Potassium 4.6, Chloride 91 L, Carbon Dioxide 32 H, Anion Gap 13.6, BUN 28 H D, Creatinine 0.80, Estimated Creat Clear 135, Estimated GFR 76, Est GFR ( Amer) 92, Glucose 135 H, Calcium 10.9 H, Total Bilirubin 1.2, AST 38 H, ALT 30, Alkaline Phosphatase 80, Troponin I 0.05 H, Total Protein 7.6, Albumin 4.4, Globulin 3.2, Albumin/Globulin Ratio 1.4 I & O for Labs for Last 24 Hours: Intake & Output 01/05/24 01/06/24 01/07/24 01/08/24 23:59 23:59 23:59 23:59 Intake Total 836 / 1036 830 / 1190 630 / 630 240 / 240 Output Total 2700 / 3000 1700 / 1700 2700 / 2700 0 / 0 Balance -1864 / -1964 -870 / -510 -0 / -2069 240 / 240 Weight 219 lb 14.225 oz 222 lb 11.2 oz 220 lb 6.4 oz 221 lb 14.4 oz Microbiology Reports for the Last 24 Hours: Microbiology 01/07/24 14:15 Sputum - Expectorated Sputum Gram Stain - Final 01/07/24 14:15 Sputum - Expectorated Sputum Sputum Culture - Preliminary Assessment and Plan *Assessment and plan (1) Pulmonary edema: Status: Acute Qualifiers: Chronicity: acute Qualified Code(s): J81.0 - Acute pulmonary edema Category: Medical Code(s): J81.1 - Chronic pulmonary edema (2) Acute respiratory failure with hypoxia: Status: Acute Category: Medical Code(s): J96.01 - Acute respiratory failure with hypoxia (3) Cyanosis: Status: Acute Category: Medical Code(s): R23.0 - Cyanosis (4) Clubbing of digits: Status: Acute Category: Medical (5) Pulmonary hypertension: Status: Acute Category: Medical Code(s): I27.20 - Pulmonary hypertension, unspecified Plan Ms. Frankel is a 48-year-old female current smoker presented with abdominal abdominal pain Eventually found to be in hypoxic respiratory failure and pulmonary was called for further evaluation and management. Other significant physical examination findings including climbing sinuses. Positive for Raynaud's phenomenom. No obvious telangiectasias noted. Chest clear to auscultate. CTA PE protocol bilateral diffuse groundglass opacities concerning for pulmonary edema. No dense consolidation/airspace disease noted. No obvious evidence of pulmonary embolism noted. CRP - 6.6, pending autoimmue workup. MARISA screen negative. Anti-SCL 70 and anticentromere antibodies both resulted negative. CRP within normal limits. Right heart cath pulmonary hypertension with a mean of 50 and a PVR of 8.1 sam. PCWP at 18 Procalcitonin within normal limits. Interval update: No acute respiratory events over the weekend. Continue to remain on oxygen supplementation at this point, this morning on 4 L saturating 92 to 93%. Weaned to 3 L. Given negative autoimmune workup in the setting of smoking history, emphysema and heart failure with elevated PCWP it is not clear at this point of time as as whether this patient is having a competent of pulmonary arterial hypertension or not. However, she will definitely need to be evaluated for possible etiologies of primary/idiopathic pulmonary arterial hypertension as an outpatient basis. Up until then, recommend continuing active treatment for heart failure and COPD. She is also currently receiving sildenafil 20 mg 3 times daily given her significantly elevated PA pressure Plan: Follow with chest x-ray HIV screen Trelegy 100 inhaler along with DuoNebs every 6 hours on as-needed basis Continue prednisone for a total of 7 days and then discontinue. Continue oxygen supplementation to maintain O2 saturation 90% and above Thank you for involving pulmonary in this patient care. Will continue to follow.
[2024-01-08 10:49] LABS: POC Glucose,Bedside 190 (70-110)
[2024-01-08] MEDS: BUMETANIDE 1MG/4ML VIAL 1 MG IV (12:22)
[2024-01-08] MEDS: SILDENAFIL 20 MG 1 EACH PO ×2 (12:24→21:34)
--- NOTE | 2024-01-08 14:47 | PC.NURSE ---
pt has overall had an okay shift. she started the shift on 4L NC and continues to use her o2 at this level. she has been satting in between mid-80s and low 90s. pt has been walking throughout room this shift. pt has had c/o headaches off and on. pt was medicated per OCT. pt has had significant output throughout shift. pt is now taking bumex for diuresis . no new orders at this time.
[2024-01-08] MEDS: BUMETANIDE 1MG/4ML VIAL 2 MG IV (16:15)
[2024-01-08 16:53] LABS: POC Glucose,Bedside 199 (70-110)
[2024-01-08] MEDS: PROMETHAZINE HCL 25MG/ML 1ML VIAL 12.5 MG IV (20:15)
[2024-01-08 21:09] LABS: POC Glucose,Bedside 191 (70-110)
[2024-01-08] MEDS: ATORVASTATIN 40MG TABLET 40 MG PO (21:33)
[2024-01-08] MEDS: lamoTRIgine 100MG TABLET 50 MG PO (21:35)
[2024-01-08] MEDS: TEMAZEPAM 30MG CAPSULE 30 MG PO (21:38)
[2024-01-09] VITALS (9 sets, daily range): BP systolic 97–109; BP diastolic 53–85; PULSE 60–87; RESP 16–22; TEMP 36.4–37; O2SAT 91–95; BMI 37.6
--- NOTE | 2024-01-09 05:42 | PC.NURSE ---
pt remains on 4l/nc. sat 90-92%. pt cont to c/o caballero and nausea treated per mar
[2024-01-09] MEDS: FLUTICASONE/UMECLIDIN/VILANTER 100/62.5/25MCG INHALER 1 PUFF IH (05:58)
[2024-01-09 06:13] LABS: HIV Screen 4th Generation wRfx Non Reactive (Non Reactive)
[2024-01-09] MEDS: TRAMADOL 50MG TABLET 50 MG PO ×2 (06:18→14:51)
[2024-01-09] MEDS: ACETAMINOPHEN 325MG TAB 650 MG PO ×3 (06:18→20:43)
[2024-01-09] MEDS: METFORMIN 500MG TABLET 500 MG PO (06:18)
[2024-01-09 06:19] LABS: POC Glucose,Bedside 151 (70-110)
[2024-01-09] MEDS: LISINOPRIL 5MG TABLET 5 MG PO (08:59)
[2024-01-09] MEDS: predniSONE 20MG TAB 40 MG PO (08:59)
[2024-01-09] MEDS: EMPAGLIFLOZIN 10MG TABLET 10 MG PO (08:59)
[2024-01-09] MEDS: ASPIRIN EC 81MG TABLET 81 MG PO (08:59)
[2024-01-09] MEDS: SILDENAFIL 20 MG 1 EACH PO ×3 (09:00→20:45)
[2024-01-09] MEDS: ATENOLOL 25MG TABLET 25 MG PO (09:00)
[2024-01-09] MEDS: SPIRONOLACTONE 25MG TABLET 25 MG PO (09:00)
[2024-01-09] MEDS: NICOTINE 14MG/24HRS PATCH 14 MG TD (09:02)
[2024-01-09] MEDS: BUMETANIDE 1MG/4ML VIAL 2 MG IV (09:02)
--- NOTE | 2024-01-09 09:09 | P.PN_ITS ---
Subjective *Date: 01/09/24 *Time: 09:09 Interval history: She states that her headache is better this morning though it was bothersome last night. Sildenafil has been increased to 20 mg 3 times a day. We are still looking for cardiopulmonary stability. She Is still cyanotic but seems to tolerate activity better. See notes from cardiology and pulmonology. Medical Exam Vital signs and Labs for Last 24 Hours: Vital Signs Temp Pulse Pulse Resp BP Pulse Ox O2 Del Method 01/09/24 08:00 80 01/09/24 07:57 97.6 F 87 20 100/74 L 94 L Nasal Cannula 01/09/24 07:00 Nasal Cannula 01/09/24 05:00 Nasal Cannula 01/09/24 04:00 98.0 F 67 16 99/67 L 94 L Nasal Cannula 01/09/24 04:00 80 01/09/24 03:00 Nasal Cannula 01/09/24 01:00 Nasal Cannula 01/09/24 00:00 60 01/09/24 00:00 98.0 F 65 16 109/57 L 91 L Nasal Cannula 01/08/24 23:00 Nasal Cannula 01/08/24 21:00 Nasal Cannula 01/08/24 20:00 Nasal Cannula 01/08/24 20:00 78 01/08/24 20:00 97.8 F 77 17 104/62 L 97 Nasal Cannula 01/08/24 19:00 Nasal Cannula 01/08/24 16:47 Nasal Cannula 01/08/24 16:00 98.1 F 65 16 111/67 97 Nasal Cannula 01/08/24 16:00 70 01/08/24 14:45 Nasal Cannula 01/08/24 13:00 Nasal Cannula 01/08/24 12:00 80 01/08/24 11:58 98 F 75 17 123/77 94 L Nasal Cannula 01/08/24 10:44 Nasal Cannula O2 Flow Rate 01/09/24 08:00 01/09/24 07:57 4 01/09/24 07:00 4 01/09/24 05:00 4 01/09/24 04:00 01/09/24 04:00 01/09/24 03:00 4 01/09/24 01:00 4 01/09/24 00:00 01/09/24 00:00 01/08/24 23:00 4 01/08/24 21:00 4 01/08/24 20:00 4 01/08/24 20:00 01/08/24 20:00 01/08/24 19:00 4 01/08/24 16:47 4 01/08/24 16:00 01/08/24 16:00 01/08/24 14:45 4 01/08/24 13:00 3 01/08/24 12:00 01/08/24 11:58 3 01/08/24 10:44 4 Intake and Output 01/08/24 01/09/24 01/09/24 19:59 03:59 11:59 Intake Total 1200 / 1770 570 / 1770 Output Total 2650 / 2950 0 / 2950 300 / 2950 Balance -1450 / -1180 0 / -1180 270 / -1180 Intake: Intake, Oral Amount 1200 / 1770 570 / 1770 Output: Output, Urine Amount 2650 / 2950 0 / 2950 300 / 2950 Other: Number of Unmeasured Voids 0 1 0 Number of Bowel Movements 1 1 Weight 212 lb 8 oz Patient Weight 01/09/24 11:59 Weight 212 lb 8 oz Laboratory Results - last 24 hr 01/08/24 10:42: POC Glucose 190 H 01/08/24 11:32: HIV 1&2 Ag/Ab, 4th Gen Non reactive 01/08/24 16:45: POC Glucose 199 H 01/08/24 20:12: POC Glucose 191 H 01/09/24 06:10: POC Glucose 151 H I & O for Labs for Last 24 Hours: Intake & Output 01/06/24 01/07/24 01/08/24 01/09/24 11:59 11:59 11:59 11:59 Intake Total 1396 / 1396 630 / 630 510 / 510 1770 / 1770 Output Total 4200 / 4200 0 / 0 2700 / 2700 2950 / 2950 Balance -2804 / -2804 630 / 630 -2190 / -2190 -1180 / -1180 Weight 222 lb 11.2 oz 220 lb 6.4 oz 221 lb 14.4 oz 212 lb 8 oz Microbiology Reports for the Last 24 Hours: Microbiology 01/07/24 14:15 Sputum - Expectorated Sputum Gram Stain - Final 01/07/24 14:15 Sputum - Expectorated Sputum Sputum Culture - Preliminary Head: Present normocephalic ENT: Present normal exam Neck: Present normal inspection Respiratory: Present decreased breath sounds; Absent accessory muscle use or respiratory distress Cardiac: Present Reg Rate and Rhythm GI: Present soft; Absent tenderness Rectal (female): Present deferred (female): Present deferred Extremities: Present clubbing and cyanosis; Absent edema Skin: Present wounds (Excoriations of the back are healing) Neuro: Present alert and oriented x 3 Assessment and Plan *Assessment and plan (1) Pulmonary hypertension: Status: Acute Category: Medical Code(s): I27.20 - Pulmonary hypertension, unspecified (2) RVF (right ventricular failure): Status: Acute Category: Medical Code(s): I50.810 - Right heart failure, unspecified (3) Headache: Status: Acute Category: Medical Code(s): R51.9 - Headache, unspecified (4) Clubbing of digits: Status: Acute Category: Medical (5) Cyanosis: Status: Acute Category: Medical Code(s): R23.0 - Cyanosis (6) Acute respiratory failure with hypoxia: Status: Acute Category: Medical Code(s): J96.01 - Acute respiratory failure with hypoxia (7) SOB (shortness of breath) on exertion: Status: Acute Category: Medical Code(s): R06.02 - Shortness of breath (8) CAD in [place] artery: Status: Acute Category: Medical Code(s): I25.10 - Atherosclerotic heart disease of [place] coronary artery without angina pectoris (9) Elevated brain natriuretic peptide (BNP) level: Status: Acute Category: Medical Code(s): R79.89 - Other specified abnormal findings of blood chemistry (10) History of GA (myocardial infarction): Status: Acute Category: Medical Code(s): I25.2 - Old myocardial infarction (11) Hypertension: Status: Acute Qualifiers: Hypertension type: primary hypertension Qualified Code(s): I10 - Essential (primary) hypertension Category: Medical Code(s): I10 - Essential (primary) hypertension (12) Diabetes mellitus, type 2: Status: Acute Qualifiers: Diabetes mellitus longwall shearer operator insulin use: with longwall shearer operator use Diabetes mellitus complication status: without complication Qualified Code(s): E11.9 - Type 2 diabetes mellitus without complications; Z79.4 - terminal gauger supervisor (current) use of insulin Category: Medical Code(s): E11.9 - Type 2 diabetes mellitus without complications (13) Breast mass: Status: Acute Qualifiers: Breast mass location: unspecified quadrant Laterality: right Qualified Code(s): N63.10 - Unspecified lump in the right breast, unspecified quadrant Category: Medical Code(s): N63.0 - Unspecified lump in unspecified breast Plan needle biopsy of the breast mass is indicated. Continue present course of treatment.
--- NOTE | 2024-01-09 10:11 | EXP.PULM.PN ---
Subjective *Date: 01/09/24 *Time: 12:20 Interval history: No acute respiratory vents overnight. Denies any new respiratory complaints. Pulmonology Exam Inpatient Vital signs and Labs for Last 24 Hours: Temp Pulse Resp BP Pulse Ox O2 Del Method O2 Flow Rate 97.6 F 80 20 100/74 L 94 L Nasal Cannula 2 01/09/24 07:57 01/09/24 08:00 01/09/24 07:57 01/09/24 07:57 01/09/24 07:57 01/09/24 09:00 01/09/24 09:00 FiO2 28 01/07/24 18:47 Laboratory Results - last 24 hr 01/08/24 10:42: POC Glucose 190 H 01/08/24 11:32: HIV 1&2 Ag/Ab, 4th Gen Non reactive 01/08/24 16:45: POC Glucose 199 H 01/08/24 20:12: POC Glucose 191 H 01/09/24 06:10: POC Glucose 151 H I & O for Labs for Last 24 Hours: Intake & Output 01/06/24 01/07/24 01/08/24 01/09/24 23:59 23:59 23:59 23:59 Intake Total 830 / 1190 630 / 630 1440 / 1440 570 / 570 Output Total 1700 / 1700 2700 / 2700 2650 / 2650 300 / 300 Balance -870 / -510 -2070 / -2070 -1210 / -1210 270 / 270 Weight 222 lb 11.2 oz 220 lb 6.4 oz 221 lb 14.4 oz 212 lb 8 oz Microbiology Reports for the Last 24 Hours: Microbiology 01/07/24 14:15 Sputum - Expectorated Sputum Gram Stain - Final 01/07/24 14:15 Sputum - Expectorated Sputum Sputum Culture - Preliminary Assessment and Plan *Assessment and plan (1) Pulmonary edema: Status: Acute Qualifiers: Chronicity: acute Qualified Code(s): J81.0 - Acute pulmonary edema Category: Medical Code(s): J81.1 - Chronic pulmonary edema (2) Acute respiratory failure with hypoxia: Status: Acute Category: Medical Code(s): J96.01 - Acute respiratory failure with hypoxia (3) Cyanosis: Status: Acute Category: Medical Code(s): R23.0 - Cyanosis (4) Clubbing of digits: Status: Acute Category: Medical (5) Pulmonary hypertension: Status: Acute Category: Medical Code(s): I27.20 - Pulmonary hypertension, unspecified Plan Ms. Frankel is a 48-year-old female current smoker presented with abdominal abdominal pain Eventually found to be in hypoxic respiratory failure and pulmonary was called for further evaluation and management. Other significant physical examination findings including climbing sinuses. Positive for Raynaud's phenomenom. No obvious telangiectasias noted. Chest clear to auscultate. CTA PE protocol bilateral diffuse groundglass opacities concerning for pulmonary edema. No dense consolidation/airspace disease noted. No obvious evidence of pulmonary embolism noted. CRP - 6.6, pending autoimmue workup. MARISA screen negative. Anti-SCL 70 and anticentromere antibodies both resulted negative. CRP within normal limits. Right heart cath pulmonary hypertension with a mean of 50 and a PVR of 8.1 sam. PCWP at 18 Procalcitonin within normal limits. HIV screen non-reactivve Given negative autoimmune workup in the setting of smoking history, emphysema and heart failure with elevated PCWP it is not clear at this point of time as as whether this patient is having a competent of pulmonary arterial hypertension or not. However, she will definitely need to be evaluated for possible etiologies of primary/idiopathic pulmonary arterial hypertension as an outpatient basis. Up until then, recommend continuing active treatment for heart failure and COPD. Interval update: No acute respiratory events over the weekend. Continued needing oxygen supplementation, now on 2 L saturating 91 to 92%. Patient also today mentions about her younger sister diagnosed with pulmonary tract complications 30s. Chest x-ray from yesterday concerning right lower lobe infiltrate. Slight worsening leukocytosis. Procalcitonin negative. Will closely monitor. Continue to receive diuretics and sildenafil 20 mg 3 times daily. Hemodynamically stable. Plan: Trelegy 100 inhaler along with DuoNebs every 6 hours on as-needed basis Continue prednisone for a total of 7 days and then discontinue. Continue oxygen supplementation to maintain O2 saturation 90% and above Thank you for involving pulmonary in this patient care. Will continue to follow.
[2024-01-09 10:17] LABS: Anion Gap 18.6 mEq/L (5-15); Blood Urea Nitrogen 36 mg/dl (7-17); Calcium 11.2 mg/dl (8.4-10.2); Carbon Dioxide 27 mmol/L (22.0-30.0); Chloride 90 mmol/L (98-107); Creatinine Clearance Estimated 115 mL/min (50-200); Estimated Glomerular Filt Rate 67 ml/min (>60); GFR (African American) 81 ML/MIN (>60); Glucose 159 mg/dl (74-100); Potassium 4.6 mmoL/L (3.5-5.1); Sodium 131 mmol/L (136-145)
--- NOTE | 2024-01-09 10:37 | EXP.CARD.PN ---
Subjective Subjective Date: 01/09/24 Time: 08:00 Principal diagnosis: CAD, acute CHF Interval history: Patient doing well this morning. Denies chest pain or shortness of breath. Has continued to diurese. Morning labs reviewed and stable. Patient maintaining oxygen saturation on 2 L nasal cannula. Exam Data for Last 24 hours Vital signs and Labs for Last 24 Hours: Temp Pulse Resp BP Pulse Ox O2 Del Method O2 Flow Rate 97.6 F 80 20 100/74 L 94 L Nasal Cannula 2 01/09/24 07:57 01/09/24 08:00 01/09/24 07:57 01/09/24 07:57 01/09/24 07:57 01/09/24 09:00 01/09/24 09:00 FiO2 28 01/07/24 18:47 Laboratory Results - last 24 hr 01/08/24 10:42: POC Glucose 190 H 01/08/24 11:32: HIV 1&2 Ag/Ab, 4th Gen Non reactive 01/08/24 16:45: POC Glucose 199 H 01/08/24 20:12: POC Glucose 191 H 01/09/24 06:10: POC Glucose 151 H 01/09/24 09:55: Sodium 131 L, Potassium 4.6, Chloride 90 L, Carbon Dioxide 27, Anion Gap 18.6 H, BUN 36 H D, Creatinine 0.90, Estimated Creat Clear 115, Estimated GFR 67, Est GFR ( Amer) 81, Glucose 159 H, Calcium 11.2 H I & O for Last 24 hours: Intake & Output 01/06/24 01/07/24 01/08/24 01/09/24 23:59 23:59 23:59 23:59 Intake Total 830 / 1190 630 / 630 1440 / 1440 570 / 570 Output Total 1700 / 1700 2700 / 2700 2650 / 2650 300 / 300 Balance -870 / -510 -2070 / -2070 -1210 / -1210 270 / 270 Weight 222 lb 11.2 oz 220 lb 6.4 oz 221 lb 14.4 oz 212 lb 8 oz Microbiology Reports for the Last 24 Hours: Microbiology 01/07/24 14:15 Sputum - Expectorated Sputum Gram Stain - Final 01/07/24 14:15 Sputum - Expectorated Sputum Sputum Culture - Preliminary Constitutional Constitutional: no acute distress *Routine Respiratory Exam Respiratory: Present CTA bilaterally and symmetric chest movement *Routine Cardiovascular Exam Cardiovascular: Present RRR, Normal S1 and Normal S2 *Routine Abdominal Exam Abdominal: Present soft and normoactive bowel sounds; Absent tenderness *Routine Extremities Exam Extremities: Present full ROM and normal capillary refill; Absent edema *Routine Skin Exam Skin: Present intact, dry and warm Detailed Neck Exam: Thyroids Thyroid: Absent bruit Progress Note: A&P Assessment and plan (1) Pulmonary edema: Status: Acute (2) Acute respiratory failure with hypoxia: Status: Acute (3) Cyanosis: Status: Acute (4) Clubbing of digits: Status: Acute (5) Pulmonary hypertension: Status: Acute Assessment and Plan Assessment and Plan for All Diagnoses:: This is a 48-year-old white female with past medical history of coronary artery disease, hypertension, hyperlipidemia and diabetes mellitus who presented to emergency department with initial complaints of epigastric pain and bloating. Patient was found to have a BNP over 4000 on admission and was started on IV diuretics. Patient has underwent a left and right heart catheterization. Her right heart catheterization showed severe pulmonary hypertension and her left heart catheterization showed a widely patent proximal LAD stent with a chronically occluded right coronary which fills via left to right collaterals. Patient continues to require supplemental oxygen to maintain oxygen saturation, however is improving, sats > 92 on 2 Liters. Acute HFpEF-NYHA III on admission Right heart catheterization 01/04/2024: Severe pulmonary hypertension which is multifactorial and mildly elevated left-sided filling pressures Echo 01/02-Normal LV function, septal flattening consistent with increased RV volume pressure overload, severely dilated RV with severe RV dysfunction, mild TR mild MR mild PI Switch Bumex to 1mg BID Continue Aldactone 25 mg daily Continue Jardiance 10 mg daily Continue lisinopril 5 mg p.o. daily Recommend outpatient cardiac MRI/ARVC protocol Severe pulmonary hypertension Continue sildenafil 20 mg 3 times daily. Pulmonology is following Coronary artery disease Left heart catheterization 01/04/2024 showed widely patent proximal LAD stent, chronically occluded right coronary artery fills via left to right collaterals. Continue aspirin 81 mg daily, atorvastatin 40 mg daily, atenolol 25 mg daily and lisinopril 5 mg daily Right breast mass Defer to primary service CV summary 01/10/2024: Patient is CV stable for discharge home. Will transition patient from IV Bumex to oral Bumex today. Patient can follow-up in cardiology clinic in 1 week for reevaluation. Does need an outpatient cardiac MRI?ARVC protocol. Please continue below listed medications. Cardiac meds for discharge: Bumex 1 mg p.o. twice daily Aldactone 25 mg daily Jardiance 10 mg daily Lisinopril 5 mg daily Aspirin 81 mg daily Atorvastatin 40 mg daily Atenolol 25 mg daily
--- NOTE | 2024-01-09 12:32 | PC.NURSE ---
spoke with Fatimah in care management. Unable to perform bilateral mammogram for inpatient. dr camara office made aware.
[2024-01-09 12:33] LABS: POC Glucose,Bedside 169 (70-110)
[2024-01-09] MEDS: PROMETHAZINE HCL 25MG/ML 1ML VIAL 12.5 MG IV (13:39)
[2024-01-09] MEDS: BUMETANIDE 1 MG TABLET PO (16:55)
--- NOTE | 2024-01-09 17:40 | PC.NURSE ---
AOX4, PT WAS ABLE TO TOLERATE BEING WEANED TO 2LNC FOR A COUPLE OF HOURS BUT ENDED UP DESATING WHICH REQUIRED O2 TO BE TITRATED BACK TO 4LNC. MEDICATED FOR HEADACHE PER MAR. DID C/O NAUSEA ONCE AND WAS MEDICATED WITH PRN PHENERGAN WITH GOOD EFFECTIVENESS.
[2024-01-09] MEDS: TEMAZEPAM 30MG CAPSULE 30 MG PO (20:43)
[2024-01-09] MEDS: lamoTRIgine 100MG TABLET 50 MG PO (20:43)
[2024-01-09] MEDS: ATORVASTATIN 40MG TABLET 40 MG PO (20:44)
[2024-01-09 21:11] LABS: POC Glucose,Bedside 156 (70-110)
--- NOTE | 2024-01-09 23:13 | PC.NURSE ---
sat >90% @ 4L NC - RT Will increased to 5L NC
[2024-01-10] VITALS (7 sets, daily range): BP systolic 102–115; BP diastolic 61–74; PULSE 64–100; RESP 16–20; TEMP 36.4–37; O2SAT 90–98; BMI 38.9
[2024-01-10 05:43] LABS: POC Glucose,Bedside 129 (70-110)
[2024-01-10] MEDS: METFORMIN 500MG TABLET 500 MG PO (06:02)
[2024-01-10] MEDS: FLUTICASONE/UMECLIDIN/VILANTER 100/62.5/25MCG INHALER 1 PUFF IH (06:14)
--- NOTE | 2024-01-10 06:24 | PC.NURSE ---
Patient alert and oriented x4 through shift. Tolerating 5L NC well through night, stating >90%. Patient has had no complaints through shift and not expressed any needs. Call light within reach.
[2024-01-10] MEDS: EMPAGLIFLOZIN 10MG TABLET 10 MG PO (08:40)
[2024-01-10] MEDS: BUMETANIDE 1 MG TABLET PO ×2 (08:40→15:33)
[2024-01-10] MEDS: LISINOPRIL 5MG TABLET 5 MG PO (08:40)
[2024-01-10] MEDS: ASPIRIN EC 81MG TABLET 81 MG PO (08:40)
[2024-01-10] MEDS: ATENOLOL 25MG TABLET 25 MG PO (08:40)
[2024-01-10] MEDS: NICOTINE 14MG/24HRS PATCH 14 MG TD (08:41)
[2024-01-10] MEDS: SPIRONOLACTONE 25MG TABLET 25 MG PO (08:41)
[2024-01-10] MEDS: predniSONE 20MG TAB 40 MG PO (08:41)
[2024-01-10] MEDS: SILDENAFIL 20 MG 1 EACH PO ×2 (08:41→12:40)
[2024-01-10] MEDS: 0.9 % SODIUM CHLORIDE 25 ML 100 ML IV (08:54)
[2024-01-10] MEDS: PROMETHAZINE HCL 25MG/ML 1ML VIAL 12.5 MG IV (08:54)
[2024-01-10] MEDS: TRAMADOL 50MG TABLET 50 MG PO (08:54)
--- NOTE | 2024-01-10 09:30 | P.PN_ITS ---
Subjective *Date: 01/10/24 *Time: 10:11 Interval history: No acute respiratory events overnight. Stable oxygen requirements. Pulmonology Exam Inpatient Vital signs and Labs for Last 24 Hours: Temp Pulse Resp BP Pulse Ox O2 Del Method O2 Flow Rate 97.8 F 91 H 19 115/68 96 Nasal Cannula 4 01/10/24 08:00 01/10/24 08:00 01/10/24 08:00 01/10/24 08:00 01/10/24 08:00 01/10/24 09:00 01/10/24 09:00 FiO2 28 01/07/24 18:47 Laboratory Results - last 24 hr 01/09/24 09:55: Sodium 131 L, Potassium 4.6, Chloride 90 L, Carbon Dioxide 27, Anion Gap 18.6 H, BUN 36 H D, Creatinine 0.90, Estimated Creat Clear 115, Estimated GFR 67, Est GFR ( Amer) 81, Glucose 159 H, Calcium 11.2 H 01/09/24 12:25: POC Glucose 169 H 01/09/24 20:33: POC Glucose 156 H 01/10/24 05:30: POC Glucose 129 H Temp Pulse Resp BP Pulse Ox O2 Del Method O2 Flow Rate 97.5 F L 101 H 22 125/76 91 L Venturi Mask 12 01/03/24 11:17 01/03/24 13:08 01/03/24 11:17 01/03/24 11:17 01/03/24 13:08 01/03/24 13:08 01/03/24 13:08 FiO2 40 01/03/24 13:08 Laboratory Results - last 24 hr 01/02/24 18:15: WBC 10.0, RBC 5.39, Hgb 16.6 H, Hct 52.6 H, MCV 97.7, MCH 30.7, MCHC 31.4 L, RDW 15.3, Plt Count 288, MPV 8.0, Neut % (Auto) 55.3, Lymph % (Auto) 36.1, [place] % (Auto) 4.1, Eos % (Auto) 1.4, Baso % (Auto) 3.1 H, Neut # (Auto) 5.5, Lymph # (Auto) 3.6, [place] # (Auto) 0.4, Eos # (Auto) 0.1, Baso # (Auto) 0.3 H, Sodium 136, Potassium 4.3, Chloride 102, Carbon Dioxide 25, Anion Gap 13.3, BUN 11, Creatinine 0.60, Estimated Creat Clear 184, Estimated GFR 106, Est GFR ( Amer) 129, Glucose 110 H, Hemoglobin A1c 7.6 H, Calcium 10.0, Magnesium 1.8, Total Bilirubin 0.8, AST 32, ALT 24, Alkaline Phosphatase 89, NT-Pro-B Natriuret Pep 4030 H, Total Protein 6.8, Albumin 3.7, Globulin 3.1, Albumin/Globulin Ratio 1.2, Lipase 104 01/02/24 18:25: VBG pH 7.43 H, VBG pCO2 35.5, VBG pO2 64.3 H, VBG HCO3 23.2, VBG Total CO2 24.3, VBG O2 Saturation 93.2 H, VBG Base Excess -1.0, VBG Lactic Acid 2.2 H 01/02/24 19:56: Urine Color Yellow, Urine Appearance Clear, Urine pH 7.0, Ur Specific [place] 1.010, Urine Protein 2+, Urine Glucose (UA) Negative, Urine Ketones Negative, Urine Blood Negative, Urine Nitrate Negative, Urine Bilirubin Negative, Urine Urobilinogen 0.2, Ur Leukocyte Esterase Negative, Urine RBC Occasional, Urine WBC None, Ur Squamous Epith Cells Occasional, Urine Bacteria None 01/02/24 21:32: POC Glucose 120 H 01/02/24 22:49: Lactate 1.0 01/03/24 05:09: POC Glucose 138 H 01/03/24 05:52: WBC 8.0, RBC 5.07, Hgb 15.4, Hct 49.5 H, MCV 97.7, MCH 30.3, MCHC 31.0 L, RDW 15.3, Plt Count 228, MPV 8.4, Neut % (Auto) 49.0, Lymph % (Auto) 40.7, [place] % (Auto) 6.0, Eos % (Auto) 1.7, Baso % (Auto) 2.5 H, Neut # (Auto) 3.9, Lymph # (Auto) 3.3, [place] # (Auto) 0.5, Eos # (Auto) 0.1, Baso # (Auto) 0.2, Sodium 137, Potassium 4.6, Chloride 103, Carbon Dioxide 26, Anion Gap 12.6, BUN 14 D, Creatinine 0.70, Estimated Creat Clear 77, Estimated GFR 89, Est GFR ( Amer) 108, Glucose 130 H, Calcium 9.4, Total Bilirubin 0.7, AST 25, ALT 20, Alkaline Phosphatase 82, Troponin I < 0.01, Total Protein 5.6 L, Albumin 3.0 L D, Globulin 2.6, Albumin/Globulin Ratio 1.2 01/03/24 09:20: SARS-CoV-2 (PCR) Not detected, Influenza A Untype (PCR) Not detected, Influenza Type B (PCR) Not detected 01/03/24 11:27: POC Glucose 138 H I & O for Labs for Last 24 Hours: Intake & Output 01/07/24 01/08/24 01/09/24 01/10/24 23:59 23:59 23:59 23:59 Intake Total 630 / 630 1440 / 1440 570 / 570 450 / 450 Output Total 2700 / 2700 2650 / 2650 1150 / 1150 0 / 0 Balance -2070 / -2070 -1210 / -1210 -580 / -580 450 / 450 Weight 220 lb 6.4 oz 221 lb 14.4 oz 212 lb 8 oz 219 lb 14.4 oz Intake & Output 12/31/23 01/01/24 01/02/24 01/03/24 23:59 23:59 23:59 23:59 Intake Total 120 / 120 Output Total 4000 / 4000 Balance 120 / 120 -4000 / -4000 Weight 228 lb 9.6 oz 235 lb 12.8 oz Microbiology Reports for the Last 24 Hours: Microbiology 01/07/24 14:15 Sputum - Expectorated Sputum Gram Stain - Final 01/07/24 14:15 Sputum - Expectorated Sputum Sputum Culture - Preliminary Gram Negative Rods Constitutional: Present moderate distress Head: Present normocephalic and atraumatic ENT: Present normal exam, normal oropharynx and mucous membranes moist Neck: Present normal inspection and full ROM Respiratory: Present respiratory distress and able to speak in complete sentences; Absent prolonged expiratory phase or wheezes Cardiac: Present S1/S2, Tachycardia and radial pulses present GI: Present soft and distention; Absent tenderness or guarding Rectal (female): Present deferred (female): Present deferred Skin: Present cyanosis; Absent jaundice Comment:: Skin lesions Neuro: Present alert, awake and oriented x 3 Extremities: Present normal inspection, clubbing and cyanosis Psychiatric: Present normal affect and cooperative Assessment and Plan *Assessment and plan (1) Pulmonary edema: Status: Acute Qualifiers: Chronicity: acute Qualified Code(s): J81.0 - Acute pulmonary edema Category: Medical Code(s): J81.1 - Chronic pulmonary edema (2) Acute respiratory failure with hypoxia: Status: Acute Category: Medical Code(s): J96.01 - Acute respiratory failure with hypoxia (3) Cyanosis: Status: Acute Category: Medical Code(s): R23.0 - Cyanosis (4) Clubbing of digits: Status: Acute Category: Medical (5) Pulmonary hypertension: Status: Acute Category: Medical Code(s): I27.20 - Pulmonary hypertension, unspecified Plan Ms. Frankel is a 48-year-old female current smoker presented with abdominal abdominal pain Eventually found to be in hypoxic respiratory failure and pulmonary was called for further evaluation and management. Other significant physical examination findings including climbing sinuses. Positive for Raynaud's phenomenom. No obvious telangiectasias noted. Chest clear to auscultate. CTA PE protocol bilateral diffuse groundglass opacities concerning for pulmonary edema. No dense consolidation/airspace disease noted. No obvious evidence of pulmonary embolism noted. CRP - 6.6, pending autoimmue workup. MARISA screen negative. Anti-SCL 70 and anticentromere antibodies both resulted negative. CRP within normal limits. Right heart cath pulmonary hypertension with a mean of 50 and a PVR of 8.1 sam. PCWP at 18 Procalcitonin within normal limits. HIV screen non-reactivve Given negative autoimmune workup in the setting of smoking history, emphysema and heart failure with elevated PCWP it is not clear at this point of time as as whether this patient is having a competent of pulmonary arterial hypertension or not. However, she will definitely need to be evaluated for possible etiologies of primary/idiopathic pulmonary arterial hypertension as an outpatient basis. Up until then, recommend continuing active treatment for heart failure and COPD. Interval update: No acute respiratory events overnight, her oxygen Has been relatively stable ranging from 2 to 4 L for the last 48 hours. Stable slight worsening leukocytosis from yesterday. No labs from. Sputum cultures from this week and showing gram-negative rods. Given her complex clinical status despite negative/normal procalcitonin will initiate patient on levofloxacin pending final cultures, will have low threshold to discontinue. Plan: Trelegy 100 inhaler along with DuoNebs every 6 hours on as-needed basis Levofloxacin subsequently milligrams daily x 5 days. Follow with final sputum cultures. Continue prednisone for a total of 7 days and then discontinue. Stop date 01/15/2024 Continue oxygen supplementation to maintain O2 saturation 90% and above Thank you for involving pulmonary in this patient care. No acute interventions from pulmonary at this point of time. Pt can be discharged home with 5-10 days followup with pulmonary with repeat CXR on the day of clinic visit.
[2024-01-10] MEDS: LEVOFLOXACIN/D5W 750 MG/150 ML 750 MG/150 ML PIGGYBACK 100 MG IV (11:04)
[2024-01-10 11:51] LABS: POC Glucose,Bedside 169 (70-110)
--- NOTE | 2024-01-10 13:12 | P.PN_ITS ---
Subjective *Date: 01/10/24 *Time: 13:12 Interval history: I have discussed the case today with , pulmonology. He feels that she is nearing the point that she can be discharged. She will be continued on levofloxacin. There will be follow-up in his office with additional testing. Medical Exam Vital signs and Labs for Last 24 Hours: Vital Signs Temp Pulse Pulse Resp BP Pulse Ox O2 Del Method 01/10/24 12:38 Nasal Cannula 01/10/24 12:00 98.4 F 80 20 103/61 L 98 Room Air 01/10/24 12:00 80 01/10/24 11:00 Nasal Cannula 01/10/24 09:00 Nasal Cannula 01/10/24 08:00 100 H 01/10/24 08:00 Nasal Cannula 01/10/24 08:00 97.8 F 91 H 19 115/68 96 Nasal Cannula 01/10/24 06:39 Nasal Cannula 01/10/24 06:14 95 Nasal Cannula 01/10/24 05:00 Nasal Cannula 01/10/24 04:00 98.6 F 74 16 102/66 L 90 L Nasal Cannula 01/10/24 04:00 80 01/10/24 02:50 Nasal Cannula 01/10/24 00:48 Nasal Cannula 01/10/24 00:00 64 01/10/24 00:00 98.1 F 75 16 111/69 96 Nasal Cannula 01/09/24 23:33 Nasal Cannula 01/09/24 23:05 Nasal Cannula 01/09/24 21:00 Nasal Cannula 01/09/24 20:00 95 Nasal Cannula 01/09/24 20:00 97.7 F 84 20 108/67 L 95 Nasal Cannula 01/09/24 20:00 80 01/09/24 18:37 Nasal Cannula 01/09/24 17:00 Nasal Cannula 01/09/24 16:00 60 01/09/24 16:00 98.6 F 73 20 97/53 L 93 L Nasal Cannula 01/09/24 15:00 Nasal Cannula O2 Flow Rate 01/10/24 12:38 3 01/10/24 12:00 01/10/24 12:00 01/10/24 11:00 3 01/10/24 09:00 4 01/10/24 08:00 01/10/24 08:00 4 01/10/24 08:00 01/10/24 06:39 4 01/10/24 06:14 5 01/10/24 05:00 5 01/10/24 04:00 5 01/10/24 04:00 01/10/24 02:50 5 01/10/24 00:48 5 01/10/24 00:00 01/10/24 00:00 5 01/09/24 23:33 5 01/09/24 23:05 4 01/09/24 21:00 4 01/09/24 20:00 4 01/09/24 20:00 4 01/09/24 20:00 01/09/24 18:37 4 01/09/24 17:00 4 01/09/24 16:00 01/09/24 16:00 4 01/09/24 15:00 4 Intake and Output 01/10/24 01/10/24 01/10/24 03:59 11:59 19:59 Intake Total 450 / 450 Output Total 0 / 1450 600 / 1450 Balance 0 / -1000 -150 / -1000 Intake: Intake, Oral Amount 450 / 450 Output: Output, Urine Amount 0 / 1450 600 / 1450 Other: Number of Unmeasured Voids 1 0 Number of Bowel Movements 1 Weight 219 lb 14.4 oz Laboratory Results - last 24 hr 01/09/24 20:33: POC Glucose 156 H 01/10/24 05:30: POC Glucose 129 H 01/10/24 11:25: POC Glucose 169 H I & O for Labs for Last 24 Hours: Intake & Output 01/08/24 01/09/24 01/10/24 01/11/24 11:59 11:59 11:59 11:59 Intake Total 510 / 510 1770 / 1770 450 / 450 Output Total 2700 / 2700 2950 / 2950 1450 / 1450 Balance -2190 / -2190 -1180 / -1180 -1000 / -1000 Weight 221 lb 14.4 oz 212 lb 8 oz 219 lb 14.4 oz Microbiology Reports for the Last 24 Hours: Microbiology 01/07/24 14:15 Sputum - Expectorated Sputum Gram Stain - Final 01/07/24 14:15 Sputum - Expectorated Sputum Sputum Culture - Preliminary Gram Negative Rods Head: Present normocephalic Neck: Present normal inspection Respiratory: Present decreased breath sounds; Absent respiratory distress Cardiac: Present Reg Rate and Rhythm GI: Present soft; Absent tenderness Rectal (female): Present deferred (female): Present deferred Extremities: Present clubbing and cyanosis; Absent edema Skin: Present cyanosis Neuro: Present alert and oriented x 3 Assessment and Plan *Assessment and plan (1) Pulmonary hypertension: Status: Acute Category: Medical Code(s): I27.20 - Pulmonary hypertension, unspecified (2) RVF (right ventricular failure): Status: Acute Category: Medical Code(s): I50.810 - Right heart failure, unspecified (3) Clubbing of digits: Status: Acute Category: Medical (4) Cyanosis: Status: Acute Category: Medical Code(s): R23.0 - Cyanosis (5) Acute respiratory failure with hypoxia: Status: Acute Category: Medical Code(s): J96.01 - Acute respiratory failure with hypoxia (6) CAD in [place] artery: Status: Acute Category: Medical Code(s): I25.10 - Atherosclerotic heart disease of [place] coronary artery without angina pectoris (7) History of [place] (myocardial infarction): Status: Acute Category: Medical Code(s): I25.2 - Old myocardial infarction (8) Diabetes mellitus, type 2: Status: Acute Qualifiers: Diabetes mellitus shelter insulin use: with buttermaker continuous churn use Diabetes mellitus complication status: without complication Qualified Code(s): E11.9 - Type 2 diabetes mellitus without complications; Z79.4 - intermediate (current) use of insulin Category: Medical Code(s): E11.9 - Type 2 diabetes mellitus without complications Plan I hope to discharge the patient in the morning.
--- NOTE | 2024-01-10 13:29 | PC.NURSE ---
PATIENT'S ROOM AIR OXYGEN SATURATION 80% AT REST.
--- NOTE | 2024-01-10 15:18 | CARE MANAGER ---
Spoke with patient regarding need for home supplemental O2, she is agreeable to [facility] which is who her insurance mandates as supplier. Order/clinical faxed and they have confirmed that they are on their way to deliver to bedside.
--- NOTE | 2024-01-11 09:03 | CARE MANAGER ---
Called and spoke with patient regarding recent discharge. She stated that she has everything she needs. Home O2 has been set up. She plans to have her sister schedule [facility] for upcoming MD appointments.
--- NOTE | 2024-01-11 11:53 | CARE MANAGER ---
Addendum entered by Aniyah Santamaria 01/11/24 14:40: Maci abreu/ [facility] stated services will start tomorrow for this patient. Original Note: Received a call from PCP office who requested an order be placed for SN due to patient's new O2 requirement. Order and clinical faxed to [facility].
--- NOTE | 2024-01-14 19:36 | EXP.DC.SUM ---
General Admission date:: 01/02/24 Discharge date: 01/10/24 HPI HPI HPI: Patient presents for evaluation of epigastric abdominal pain. Patient states that she was off of her home medication for approximately 8 months due to having no insurance coverage. She has recently restarted all of her home medications. In addition patient states for the last 3 weeks she thinks that the addition of metformin is creating GI upset. Patient states that she has pain and bloating with the pain located in the epigastrium worse 30 minutes or so after eating and usually last several hours. It is not continuous. There is no other aggravating or relieving factors. In addition patient reports sores all over her back. Patient states that she does have a history of anxiety and has been on Benadryl in the past but Benadryl no longer controls her anxiety. Patient states that the sores itch her but they are not painful. Patient denies cardiac chest pain fever chills hemoptysis hematochezia melena nausea vomiting or diarrhea currently. In summary patient is a 48-year-old female who presents to the emergency department for evaluation of epigastric and right upper quadrant abdominal pain. Patient is normotensive satting in the 80s on room air which corrects to 95% on 2 L by nasal cannula with a respiratory rate of 20 pulse of 66 upon arrival, and afebrile. Physical exam is remarkable for clear breath sounds to the bases, normal heart sounds, no peripheral edema noted, epigastric and right upper quadrant tenderness to palpation but no rebound or guarding no rigidity., And extensive excoriations in various stages of healing over extensive parts of visible trunk and extremities but no obvious acute drainage cellulitis or fluctuance. Differential diagnosis includes gastritis versus ulcer disease versus esophagitis versus ACS versus cholecystitis versus cholelithiasis versus CHF versus COPD versus excoriation versus OCD versus anxiety etc. Initial workup will be conducted with hematologic labs, CT scan of the abdomen pelvis, chest x-ray, VBG. Initial interventions include crystalloid bolus Toradol Tylenol supplemental O2 continuous cardiac monitoring and continuous pulse oximetry. Initial workup reviewed by me shows that patient has no elevated white count with no shift however she has a significantly elevated NT proBNP with no known heart failure history, my informal evaluation prior to radiology read of her CT scan abdomen pelvis shows no acute intra-abdominal processes, plain film chest x-ray shows possible left lower lobe atelectasis versus infiltrate. Patient has a new oxygen requirement of 2 L, elevated NT proBNP and possible infiltrate versus atelectasis in the left lower lobe versus effusion possibly.. Upon repeat evaluation patient is still epigastric pain free. Given this I had an interactive discussion with Dr. Burroughs regarding patient management and he has agreed for admission. (above as per ER physician) Patient states she has felt poorly the past 3 weeks. She thought initially it was her metformin making her sick, but decreasing the dose did not seem to help. She has also had cold symptoms (cough, rhinorrhea) for the past week as well. She is now on a venti mask but denies any SOA except with exertion Hospital Course Hospital Course Hospital Course: Cardiology and pulmonology were consulted on admission and followed throughout her hospital stay. Patient was started on oxygen supplementation with DuoNebs every 6 hours. Pulmonology noted CTA PE protocol revealed diffuse ground glass opacities concerning for pulmonary edema. No obvious evidence of a PE. She was started on spironolactone, Jardiance, with continuation of atenolol and lisinopril for CHF.. Patient's shortness of breath and abdominal bloating did improve. And patient was feeling better. She denied chest pain or pressure. BNP was noted to be over 4000. She was started on aggressive diuresis therapy. She was noted to have severe pulmonary hypertension considered to be multifactorial with a pulmonary artery pressure of 70/50 mmHg. Isosorbide mono nitrite 30 mg was added daily for her elevated pulmonary artery pressure. Sildenafil was added to her medicine regime. Patient remained on O2 throughout her stay to maintain satisfactory O2 sats greater than 90. Patient did develop headaches. Body weight did decrease with her diuresis. Imdur was discontinued and Trelegy 100 was initiated 100 along with her DuoNebs. Breast mass was evaluated and revealed need for a biopsy of the breast mass. On 01/09 patient was felt to be stable by cardiology for discharge. Patient was transitioned to IV Bumex and then to oral Bumex. She was noted to need a cardiac MRI?[facility] protocol. Home medicines to be Bumex 1 mg p.o. twice daily, Aldactone 25 mg daily, Jardiance 10 mg daily, Lisinopril 5 mg daily, Aspirin 81 mg daily, Atorvastatin 40 mg daily and Atenolol 25 mg daily. Pulmonology noted sputum cultures at discharge showing gram-negative rods with a slight worsening leukocytosis from the previous day. She was initiated on levofloxacin pending the final cultures along with the Trelegy 100 daily with DuoNebs every 6 hours. She was to continue her prednisone for total of 7 days and oxygen to maintain her O2 sats 90% or better. And on 01/11/2024 patient was discharged home. She was to follow-up with [facility], cardiology, and pulmonology, Exam Data for Last 24 hours Vital signs and Labs for Last 24 Hours: Temp Pulse Resp BP Pulse Ox O2 Del Method O2 Flow Rate 97.5 F L 70 18 115/74 96 Nasal Cannula 3 01/10/24 15:39 01/10/24 16:00 01/10/24 15:39 01/10/24 15:39 01/10/24 15:39 01/10/24 17:00 01/10/24 17:00 FiO2 28 01/07/24 18:47 Narrative: Head: Present normocephalic Neck: Present normal inspection Respiratory: Present decreased breath sounds; Absent respiratory distress Cardiac: Present Reg Rate and Rhythm GI: Present soft; Absent tenderness Rectal (female): Present deferred (female): Present deferred Extremities: Present clubbing and cyanosis; Absent edema Skin: Present cyanosis Neuro: Present alert and oriented x 3 Results Data Completed and Pending Completed studies during hospitalization [Text1]: 01/02/2024 CT abd/pelvis Head: Present normocephalic Neck: Present normal inspection Respiratory: Present decreased breath sounds; Absent respiratory distress Cardiac: Present Reg Rate and Rhythm GI: Present soft; Absent tenderness Rectal (female): Present deferred (female): Present deferred Extremities: Present clubbing and cyanosis; Absent edema Skin: Present cyanosis Neuro: Present alert and oriented x 3 01/02/2024 CXR IMPRESSION: Left lower lobe region of consolidation versus atelectasis. Clinically correlate. 01/03/2024 Chest CTA IMPRESSION: 1. No evidence of pulmonary embolism. 2. Cardiomegaly and mild interstitial pulmonary edema. 3. Atherosclerotic vascular disease including coronary artery disease. 4. Incompletely visualized right breast intermediate density lesion, collection or complicated cyst measuring at least 4.4 x 6.0 x 8.0 cm with associated tiny calcifications. Recommend correlation with prior breast imaging studies and clinical breast exam. If no prior studies recommend nonemergent follow-up diagnostic mammogram and breast ultrasound for further evaluation. 01/03/2024 ECHO Conclusion Normal LV systolic function. Septal flattening consistent with increased RV volume/pressure overload. Severely dilated RV with severe RV dysfunction. Mild TR. Mild MR. Mild PI. 01/04/2024 heart cath IMPRESSION Widely patent proximal LAD stent Chronically occluded right coronary which fills via left to right collaterals Reduced ejection fraction with regional wall motion abnormality Severe pulmonary hypertension which is multifactorial Mildly elevated left-sided filling pressures PLAN 1. Medical management for coronary artery disease 2. Treatment of pulmonary hypertension per primary cardiology and hospitalist service 01/08/2024 US right breast IMPRESSION: See comments CT detected mass appears to correspond to an indeterminate 8.0 cm predominantly solid mass with ultrasound-guided see recommended. However, before biopsy, bilateral diagnostic mammography is recommended. Also, suggest six-month follow-up of probably benign mass on the right at 2 o'clock unless otherwise clinically indicated. 01/08/2024 CR IMPRESSION: Persistent right base opacities consistent with pneumonia. 01/02/24 18:15: WBC 10.0, RBC 5.39, Hgb 16.6 H, Hct 52.6 H, MCV 97.7, MCH 30.7, MCHC 31.4 L, RDW 15.3, Plt Count 288, MPV 8.0, Neut % (Auto) 55.3, Lymph % (Auto) 36.1, [place] % (Auto) 4.1, Eos % (Auto) 1.4, Baso % (Auto) 3.1 H, Neut # (Auto) 5.5, Lymph # (Auto) 3.6, [place] # (Auto) 0.4, Eos # (Auto) 0.1, Baso # (Auto) 0.3 H, Sodium 136, Potassium 4.3, Chloride 102, Carbon Dioxide 25, Anion Gap 13.3, BUN 11, Creatinine 0.60, Estimated Creat Clear 184, Estimated GFR 106, Est GFR ( Amer) 129, Glucose 110 H, Hemoglobin A1c 7.6 H, Calcium 10.0, Magnesium 1.8, Total Bilirubin 0.8, AST 32, ALT 24, Alkaline Phosphatase 89, NT-Pro-B Natriuret Pep 4030 H, Total Protein 6.8, Albumin 3.7, Globulin 3.1, Albumin/Globulin Ratio 1.2, Lipase 104 01/02/24 18:25: VBG pH 7.43 H, VBG pCO2 35.5, VBG pO2 64.3 H, VBG HCO3 23.2, VBG Total CO2 24.3, VBG O2 Saturation 93.2 H, VBG Base Excess -1.0, VBG Lactic Acid 2.2 H 01/02/24 19:56: Urine Color Yellow, Urine Appearance Clear, Urine pH 7.0, Ur Specific [place] 1.010, Urine Protein 2+, Urine Glucose (UA) Negative, Urine Ketones Negative, Urine Blood Negative, Urine Nitrate Negative, Urine Bilirubin Negative, Urine Urobilinogen 0.2, Ur Leukocyte Esterase Negative, Urine RBC Occasional, Urine WBC None, Ur Squamous Epith Cells Occasional, Urine Bacteria None 01/02/24 21:32: POC Glucose 120 H 01/02/24 22:49: Lactate 1.0 01/03/24 05:09: POC Glucose 138 H 01/03/24 05:52: WBC 8.0, RBC 5.07, Hgb 15.4, Hct 49.5 H, MCV 97.7, MCH 30.3, MCHC 31.0 L, RDW 15.3, Plt Count 228, MPV 8.4, Neut % (Auto) 49.0, Lymph % (Auto) 40.7, [place] % (Auto) 6.0, Eos % (Auto) 1.7, Baso % (Auto) 2.5 H, Neut # (Auto) 3.9, Lymph # (Auto) 3.3, [place] # (Auto) 0.5, Eos # (Auto) 0.1, Baso # (Auto) 0.2 01/04/24 05:41: WBC 9.5, RBC 5.57 H, Hgb 17.0 H D, Hct 54.5 H, MCV 98.0, MCH 30.5, MCHC 31.1 L, RDW 15.2, Plt Count 240, MPV 8.0, Neut % (Auto) 65.0, Lymph % (Auto) 23.7, [place] % (Auto) 7.7, Eos % (Auto) 1.6, Baso % (Auto) 1.9, Neut # (Auto) 6.2, Lymph # (Auto) 2.3, [place] # (Auto) 0.7, Eos # (Auto) 0.2, Baso # (Auto) 0.2, Sodium 138, Potassium 3.7, Chloride 99, Carbon Dioxide 31 H, Anion Gap 11.7, BUN 16, Creatinine 0.80, Estimated Creat Clear 134, Estimated GFR 76, Est GFR ( Amer) 92, Glucose 130 H, Calcium 9.9, Total Bilirubin 1.3, Direct Bilirubin 0.2, Conjugated Bilirubin 0.0, Indirect Bilirubin 1.1 H, Unconjugated Bilirubin 1.1, AST 29, ALT 20, Alkaline Phosphatase 84, Total Protein 6.7, Albumin 3.7 D, Triglycerides 125, Cholesterol 126 L, LDL Cholesterol Direct 89.17 L, VLDL Cholesterol 25, HDL Cholesterol 20 L, Cholesterol/HDL Ratio 6.3 H 01/08/24 05:44: WBC 11.9 H, RBC 5.83 H, Hgb 17.9 H, Hct 57.1 H, MCV 97.9, MCH 30.8, MCHC 31.4 L, RDW 15.1, Plt Count 261, MPV 8.2, Neut % (Auto) 60.5, Lymph % (Auto) 30.2, [place] % (Auto) 7.0, Eos % (Auto) 0.8, Baso % (Auto) 1.5, Neut # (Auto) 7.2, Lymph # (Auto) 3.6, [place] # (Auto) 0.8, Eos # (Auto) 0.1, Baso # (Auto) 0.2, Sodium 132 L, Potassium 4.6, Chloride 91 L, Carbon Dioxide 32 H, Anion Gap 13.6, BUN 28 H D, Creatinine 0.80, Estimated Creat Clear 135, Estimated GFR 76, Est GFR ( Amer) 92, Glucose 135 H, Calcium 10.9 H, Total Bilirubin 1.2, AST 38 H, ALT 30, Alkaline Phosphatase 80, Troponin I 0.05 H, Total Protein 7.6, Albumin 4.4 01/09/24 09:55: Sodium 131 L, Potassium 4.6, Chloride 90 L, Carbon Dioxide 27, Anion Gap 18.6 H, BUN 36 H D, Creatinine 0.90, Estimated Creat Clear 115, Estimated GFR 67, Est GFR ( Amer) 81, Glucose 159 H, Calcium 11.2 H 06/04/24 12:25: POC Glucose 169 H 01/09/24 20:33: POC Glucose 156 H 01/10/24 05:30: POC Glucose 129 H DS: Diagnosis Discharge Diagnosis (1) Pulmonary hypertension: Status: Acute Code(s): I27.20 - Pulmonary hypertension, unspecified (2) RVF (right ventricular failure): Status: Acute Code(s): I50.810 - Right heart failure, unspecified (3) Clubbing of digits: Status: Acute (4) Cyanosis: Status: Acute Code(s): R23.0 - Cyanosis (5) Acute respiratory failure with hypoxia: Status: Resolved Code(s): J96.01 - Acute respiratory failure with hypoxia (6) CAD in [place] artery: Status: Acute Code(s): I25.10 - Atherosclerotic heart disease of [place] coronary artery without angina pectoris (7) History of MN (myocardial infarction): Status: Acute Code(s): I25.2 - Old myocardial infarction (8) Diabetes mellitus, type 2: Status: Acute Code(s): E11.9 - Type 2 diabetes mellitus without complications Qualifiers: Diabetes mellitus complication status: without complication Diabetes mellitus detention insulin use: with detention use Qualified Code(s): E11.9 - Type 2 diabetes mellitus without complications; Z79.4 - tank terminal gauger (current) use of insulin Meds Home Medications and Allergies Home Medications Medication Instructions Recorded Confirmed Type aspirin 81 mg chewable tablet 81 mg PO DAILY 01/02/24 01/02/24 History atorvastatin 40 mg tablet 40 mg PO HS 01/02/24 01/03/24 History fluoxetine 40 mg capsule 40 mg PO DAILY 01/02/24 01/02/24 History metformin 500 mg tablet 500 mg PO BIDWMEAL 01/02/24 01/03/24 History bumetanide 1 mg tablet 1 mg PO BIDL #60 tabs 01/10/24 Rx empagliflozin 10 mg tablet 10 mg PO DAILY #30 tabs 01/10/24 Rx (Jardiance) fluticasone fur. 100 mcg-umeclid 1 inh inhalation DAILY #1 ea 01/10/24 Rx 62.5 mcg-vilant 25 mcg inhalat.powder (Trelegy Ellipta) ipratropium 0.5 mg-albuterol 3 mg 3 ml inhalation Q6HP PRN Shortness 01/10/24 Rx (2.5 mg base)/3 mL nebulization Of Breath Or Wheezing #120 mL soln levofloxacin 750 mg tablet 750 mg PO DAILY pneumonia #7 tabs 01/10/24 Rx nicotine 14 mg/24 hr daily 14 mg transdermal DAILY tobacco 01/10/24 Rx transdermal patch use #28 ea prednisone 10 mg tablet 10 mg PO DAILY #30 tabs 01/10/24 Rx sildenafil (pulm.hypertension) 20 20 mg PO TID pulmonary 01/10/24 Rx mg tablet hypertension #90 tabs spironolactone 25 mg tablet 25 mg PO DAILY #30 tabs 01/10/24 Rx tramadol 50 mg tablet 50 mg PO Q6HP PRN pain #60 tabs 01/10/24 Rx New Prescriptions to Start Prescriptions: bureneede Patricia Burroughs empagliflozin [Jardiance] Patricia Burroughs [id number] [Trelegy Ellipta] Patricia Burroughs ipratropium-albuterol Patricia Burroughs levofloxacin Patricia Burroughs nicotine Patricia Burroughs prednisone Patricia Burroughs sildenafil (pulm.hypertension) Patricia Burroughs spironolactone Patricia Burroughs tramadol Patricia Burroughs Allergies Allergy/AdvReac Type Severity Reaction Status Date / Time ondansetron [From Zofran] Allergy Verified 01/02/24 18:12 Discharge Plan Disposition Patient Disposition: Home Health Service Condition: Serious Discharge Order Discharge Orders: Discharge Order (Routine); Ordered 01/10/24 Ordered By: Patricia Burroughs Follow up Plan Follow up with: Patricia Burroughs MD [Primary Care Provider] - 02/01/24 Wai Luque MD [Staff Physician] - 01/16/24 1:45 pm Raudel Aviles MD [Physician] - 01/16/24 1:00 pm Prescriptions/Medication Reconciliation: New ipratropium-albuterol 0.5 mg-3 mg(2.5 mg base)/3 mL Solution For Nebulization 3 ml inhalation Q6HP PRN (Reason: Shortness Of Breath Or Wheezing) Qty: 120 5RF bumetanide 1 mg Tablet 1 mg PO BIDL Qty: 60 5RF Jardiance 10 mg Tablet 10 mg PO DAILY Qty: 30 5RF Trelegy Ellipta 100-62.5-25 mcg Blister With Device 1 inh inhalation DAILY Qty: 1 5RF nicotine 14 mg/24 hr Patch 24 Hour 14 mg transdermal DAILY Qty: 28 3RF tramadol 50 mg Tablet 50 mg PO Q6HP PRN (Reason: pain) Qty: 60 1RF spironolactone 25 mg Tablet 25 mg PO DAILY Qty: 30 5RF levofloxacin 750 mg tablet 750 mg PO DAILY Qty: 7 0RF sildenafil (pulm.hypertension) 20 mg tablet 20 mg PO TID Qty: 90 4RF Rx Instructions: administer doses at least 4-6 hours apart prednisone 10 mg tablet 10 mg PO DAILY Qty: 30 2RF Continued fluoxetine 40 mg capsule 40 mg PO DAILY Patient Comments: TAKE 1 CAPSULE BY MOUTH ONCE DAILY atorvastatin 40 mg tablet 40 mg PO HS Patient Comments: TAKE 1 TABLET BY MOUTH ONCE DAILY metformin 500 mg tablet 500 mg PO BIDWMEAL Patient Comments: TAKE 1 TABLET BY MOUTH TWICE DAILY WITH A MEAL aspirin 81 mg Tablet,Chewable 81 mg PO DAILY Discontinued lisinopril 10 mg tablet 10 mg PO DAILY atenolol 50 mg tablet 50 mg PO DAILY Patient Comments: TAKE 1 TABLET BY MOUTH ONCE DAILY Other Ambulatory Orders: RT walk test 6 minutes (Routine) Timeframe: 1 Week Facility: [facility] - Location: Respiratory Therapy Ordered By: Raudel Aviles XR chest 2V (Routine) Timeframe: 1 Week Facility: [facility] - Location: Radiology Ordered By: Raudel Aviles Problem Reconciliation Problems Reviewed?: Yes Patient Discharge Instructions ACTIVITY: Limited activity DIET: diabetic diet Patient Instructions: Low-Carbohydrate Diet (Alternative Therapy), Heart-Healthy Diet, High-Fiber Diet, Carbohydrate-Counting Diet, DI for Cardiac Catheterization, DI for Surgical Site Infection, DI for Respiratory Failure Providers Primary Care Provider: Patricia Burroughs Admit Provider: Patricia Burroughs Attending Provider: Patricia Burroughs
== END 2024-01-10 18:55 | disposition home or self-care (01) | DRG 286 ==
LOC: ER 18:38 → 2ND 20:29
PROVIDERS: Internal Medicine; Internal Medicine Pulmonary Disease; Nurse Practitioner; Nurse Practitioner Family; Physician Assistant; Admitting Provider Family Medicine; Emergency Provider Emergency Medicine; PCP Family Medicine; Visit Provider Family Medicine
PROC: 4A023N8 Measurement of Cardiac Sampling and Pressure, Bilateral, Percutaneous Approach (ICD-10-PCS; principal; 2024-01-04 13:00)
DX: I11.0 Hypertensive heart disease with heart failure (principal); I50.31 Acute diastolic (congestive) heart failure; J96.01 Acute respiratory failure with hypoxia; R79.89 Other specified abnormal findings of blood chemistry; K21.9 Gastro-esophageal reflux disease without esophagitis; I25.2 Old myocardial infarction; E78.00 Pure hypercholesterolemia, unspecified; E11.9 Type 2 diabetes mellitus without complications; I27.20 Pulmonary hypertension, unspecified; F17.210 Nicotine dependence, cigarettes, uncomplicated; Z79.84 Long term (current) use of oral hypoglycemic drugs; F32.A Depression, unspecified; F41.9 Anxiety disorder, unspecified; R51.9 Headache, unspecified; N63.11 Unspecified lump in the right breast, upper outer quadrant; R10.13 Epigastric pain; Z79.899 Other long term (current) drug therapy
CPT/HCPCS: 36415; 71045; 71275; 74177; 76641; 80048; 80053; 80061; 80076; 81001; 82803; 82810; 82962; 83036; 83050; 83605; 83615; 83690; 83735; 83880; 84145; 84484; 85025; 86038; 86140; 86235; 86703; 87070; 87077; 87186; 87205; 87636; 93005; 93306; 93308; 93460; 94640; 94761; 99152; 99153; 99285; C1725; C1769; C1894; G0432; J0131; J1644; J1956; J7120; Q9967

== ENCOUNTER 2024-01-16 16:29 | Outpatient (CLI) | payer MEDICARE, SELFPAY ==
[2024-01-16 17:53] LABS: Uric Acid 4.3 mg/dl (2.5-6.2)
[2024-01-16 18:00] LABS: C-Reactive Protein 10.8 mg/L (0-4)
[2024-01-16 18:12] LABS: Erythrocyte Sedimentation Rate 1 mm/hr (0-20)
[2024-01-18 11:19] LABS: RA Latex Turbid. 30.3 IU/mL (<14.0)
[2024-01-18 15:16] LABS: Aldolase 10.4 U/L (3.3-10.3)
[2024-01-18 16:36] LABS: Cytoplasmic (C-ANCA) <1:20 titer (Neg:<1:20); Perinuclear (P-ANCA) <1:20 titer (Neg:<1:20)
[2024-01-19 12:14] LABS: Antinuclear Antibodies, IFA Negative (.)
[2024-01-19 15:11] LABS: Sjogren's Anti-SS-A <0.2 AI (0.0-0.9); Sjogren's Anti-SS-B <0.2 AI (0.0-0.9); Smith/RNP Antibodies <0.2 AI (0.0-0.9)
[2024-01-19 22:06] LABS: QuantiFERON-TB Gold Plus Negative (Negative)
[2024-01-25 08:46] LABS: Strongyloides IgG Antibody Negative (Negative)
== END 2024-01-16 23:59 | disposition home or self-care (01) ==
LOC: LAB 16:29
PROVIDERS: PCP Family Medicine; Visit Provider Internal Medicine Pulmonary Disease
DX: J84.9 Interstitial pulmonary disease, unspecified (principal); I27.20 Pulmonary hypertension, unspecified; R06.09 Other forms of dyspnea; D72.10 Eosinophilia, unspecified; R23.0 Cyanosis
CPT/HCPCS: 36415; 82085; 84550; 85651; 86038; 86140; 86235; 86256; 86431; 86480; 86682

== ENCOUNTER 2024-01-22 13:53 | Outpatient (CLI) | payer MEDICARE, SELFPAY ==
--- NOTE | 2024-01-22 14:00 | MM_ITS ---
PROCEDURE INFORMATION: Exam: Right Diagnostic Breast Tomosynthesis Exam date and time: 01/22/2024 1:55 PM Age: 48 years old Clinical indication: Patient recalled on the basis of a screening mammogram for further evaluation; Right breast; mass TECHNIQUE: Imaging protocol: Right Diagnostic tomosynthesis and 2D mammography including computer-aided detection (CAD) when performed. Unilateral or bilateral exam. COMPARISON: US BREAST RT COMPLETE 01/08/2024 9:09 AM FINDINGS: MAMMOGRAPHY: Breast composition: The breasts are heterogeneously dense, which may obscure small masses. Breast mammogram findings: Partially calcified lobulated 10.0 x 5.7 cm mass in the right lateral breast corresponds to the patient's complaint of a palpable abnormality as well as to a recently CT detected mass. Probable subcentimeter cyst seen in the right 2 o'clock axis 4 cm from on sonogram dated 01/08/2024 is not seen on mammography. Coarse subcentimeter nodular parenchymal pattern throughout much of the left breast. No solitary suspicious mass lesion is noted on the left. No skin thickening or axillary adenopathy. IMPRESSION: Indeterminate mass in the right lateral breast. Ultrasound-guided core biopsy is recommended for further evaluation. ASSESSMENT: BI-RADS Category 4: Suspicious.
== END 2024-01-22 23:59 | disposition home or self-care (01) ==
LOC: RAD 13:55
PROVIDERS: PCP Family Medicine; Visit Provider Nurse Practitioner Family
DX: Z12.31 Encounter for screening mammogram for malignant neoplasm of breast (principal); N63.12 Unspecified lump in the right breast, upper inner quadrant
CPT/HCPCS: 77062; 77066; G0279

== ENCOUNTER 2024-01-26 07:31 | Emergency (ER) | payer MEDICARE, SELFPAY ==
[2024-01-26] VITALS (15 sets, daily range): BP systolic 115–153; BP diastolic 74–99; PULSE 68–89; RESP 10–18; TEMP 36.7–36.9; O2SAT 92–97; BMI 38.9
--- NOTE | 2024-01-26 07:11 | ECG_ITS ---
APPROVED REPORT Exam: Resting ECG HR:67 bpm ECG Measurements Heart Rate 67 AXES AZ 177 P 43 QRSd 119 QRS 113 QT 386 T 41 QTc 402 Conclusion SINUS RHYTHM RIGHT BUNDLE BRANCH BLOCK [120+ ms QRS DURATION, UPRIGHT V1, 40+ ms S IN I/aVL/V4/V5/V6] LEFT POSTERIOR FASCICULAR BLOCK [QRS AXIS > 109, INFERIOR Q] Electronically signed by : CHRISTOPHER PHAM, 01/26/2024 13:24:45
--- NOTE | 2024-01-26 07:14 | XR_ITS ---
FINAL REPORT CLINICAL HISTORY: soa, cp L sided FINDINGS: No acute pulmonary opacity is present. There is no evidence of effusion or pneumothorax. Mediastinum is unremarkable. Heart size is normal. IMPRESSION: No acute abnormality. Reviewed, Interpreted and Dictated by Patricia Jalloh MD Transcribed by Tomeka Sethi Authenticated and [facility]
--- NOTE | 2024-01-26 07:21 | PC.NURSE ---
dr britt at bedside
[2024-01-26 07:22] LABS: VBG Base Excess 2.4 mmol/L (-2.4-2.3); VBG HCO3 27.8 mmol/L (23-30); VBG Oxygen Saturation 53.9 % (50-70); VBG PH 7.36 mmol/L (7.31-7.41); VBG PO2 29.2 mmol/L (28-40); VBG Total CO2 29.4 mmol/L (23-27)
[2024-01-26 07:22] LABS: Basophils # 0.2 K/mm3 (0-0.2); Basophils % 1.9 % (0.1-2.0); Eosinophils # 0.2 K/mm3 (0.0-0.4); Eosinophils % 1.9 % (0.1-12.0); Hematocrit 57.9 % (37.0-47.0); Lymphocytes # 4.5 K/mm3 (0.7-4.5); Lymphocytes % 36.3 % (10-50); Mean Corpuscular HGB Conc 32.1 g/dL (31.8-35.4); Mean Corpuscular Hemoglobin 30.8 pg (27.0-31.2); Monocytes # 0.6 K/mm3 (0.1-1.0); Monocytes % 4.7 % (1.7-9.3); Neutrophils # 6.8 K/mm3 (1.8-7.8); Neutrophils % 55.3 % (37.0-80.0); Platelet Count 311 K/mm3 (142-424); Red Blood Count 6.03 M/mm3 (4.20-5.40); Red Cell Distribution Width 14.5 % (11.5-17.5); White Blood Count 12.3 K/mm3 (4.8-10.8)
[2024-01-26 07:24] LABS: Lactate Venous 3.3 mmol/L (0.4-2.0); VBG PCO2 50.3 mmol/L (35-51)
[2024-01-26 07:25] LABS: Hemoglobin 18.6 g/dL (12.2-16.2)
[2024-01-26] MEDS: ASPIRIN 81MG CHEWABLE TABLET 324 MG PO (07:32)
[2024-01-26 07:35] LABS: Chloride 98 mmol/L (98-107)
[2024-01-26 07:36] LABS: Potassium 3.3 mmoL/L (3.5-5.1); Sodium 139 mmol/L (136-145)
--- NOTE | 2024-01-26 07:36 | PC.NURSE ---
XR AT BEDSIDE
[2024-01-26 07:38] LABS: Alanine Aminotransferase 36 U/L (12-78); Aspartate Amino Transferase 40 U/L (14-36); Blood Urea Nitrogen 15 mg/dl (7-17); Creatinine Clearance Estimated 179 mL/min (50-200); Estimated Glomerular Filt Rate 106 ml/min (>60); GFR (African American) 129 ML/MIN (>60)
[2024-01-26 07:39] LABS: Albumin Level 4.7 g/dl (3.5-5.0); Albumin/Globulin Ratio 1.3 (1.1-1.8); Alkaline Phosphatase 64 U/L (38-126); Anion Gap 14.3 mEq/L (5-15); Bilirubin,Total 0.7 mg/dl (0.2-1.3); Calcium 10.9 mg/dl (8.4-10.2); Carbon Dioxide 30 mmol/L (22.0-30.0); Globulin 3.6 g/dL (1.3-3.2); Glucose 130 mg/dl (74-100); Total Protein,Serum 8.3 g/dl (6.3-8.2)
--- NOTE | 2024-01-26 07:49 | ED_ITS ---
Discharge Plan Disposition Patient Disposition: Home, Self-Care Prescriptions Prescriptions: New nitrofurantoin monohyd/m-cryst [Macrobid] 100 mg capsule 100 mg PO BID 5 Days Qty: 10 0RF Rx Instructions: must administer with a meal/food potassium chloride 20 mEq tablet extended release 20 meq PO DAILY Qty: 30 0RF No Action fluoxetine 40 mg capsule 40 mg PO DAILY Patient Comments: TAKE 1 CAPSULE BY MOUTH ONCE DAILY atorvastatin 40 mg tablet 40 mg PO HS Patient Comments: TAKE 1 TABLET BY MOUTH ONCE DAILY metformin 500 mg tablet 500 mg PO BIDWMEAL Patient Comments: TAKE 1 TABLET BY MOUTH TWICE DAILY WITH A MEAL aspirin 81 mg Tablet,Chewable 81 mg PO DAILY ipratropium-albuterol 0.5 mg-3 mg(2.5 mg base)/3 mL Solution For Nebulization 3 ml inhalation Q6HP PRN (Reason: Shortness Of Breath Or Wheezing) Qty: 120 5RF bumetanide 1 mg Tablet 1 mg PO BIDL Qty: 60 5RF Jardiance 10 mg Tablet 10 mg PO DAILY Qty: 30 5RF Trelegy Ellipta 100-62.5-25 mcg Blister With Device 1 inh inhalation DAILY Qty: 1 5RF nicotine 14 mg/24 hr Patch 24 Hour 14 mg transdermal DAILY Qty: 28 3RF tramadol 50 mg Tablet 50 mg PO Q6HP PRN (Reason: pain) Qty: 60 1RF spironolactone 25 mg Tablet 25 mg PO DAILY Qty: 30 5RF levofloxacin 750 mg tablet 750 mg PO DAILY Qty: 7 0RF sildenafil (pulm.hypertension) 20 mg tablet 20 mg PO TID Qty: 90 4RF Rx Instructions: administer doses at least 4-6 hours apart prednisone 10 mg tablet 10 mg PO DAILY Qty: 30 2RF Activity Restrictions/Add. Instructions Additional Instructions/Restrictions: Call your family doctor to establish care for this visit to the emergency department and schedule follow-up within 48 hours to ensure improvement. If you have any worsening of your condition or any other concerning signs or symptoms, return to the emergency department or your primary care doctor for further evaluation. Take Macrobid twice daily for 5 days to treat UTI. Potassium daily until following up with family doctor and cardiology. Clinical Impressions Clinical Impression: Chest pain Discharge ED Provider: Bubba Pérez General Chief Complaint: Chest Pain Stated Complaint: chest pain Time Seen by Provider: 01/26/24 07:33 Mode of Arrival: EMS Source of Information: Patient Limitations: No Limitations Description of Symptoms (Recalled from ER Triage Doc. by RN): chest pain started @0600. history of heart issues History of Present Illness HPI narrative: Please note that above description of symptoms, in this electronic medical record under categorization of recalled from ER triage doctor by RN are reflective of an initial nursing assessment, however, is not reflective of my full history and physical exam that was personally taken and clarified. Consequentially, this preceding description of symptoms, which may include the patient's categorized chief complaint in the EMR, do not reflect my personal clinical impression, and the ultimate description of history of present illness and patient stated complaints should be deferred to this section of the note. Unless stated otherwise or congruent with this section of the note, additional signs, symptoms, or incongruence should be interpreted as inaccurate with my clinical impression. Related Data Home Medications Medication Instructions Recorded Confirmed aspirin 81 mg chewable tablet 81 mg PO DAILY 01/02/24 01/16/24 atorvastatin 40 mg tablet 40 mg PO HS 01/02/24 01/16/24 fluoxetine 40 mg capsule 40 mg PO DAILY 01/02/24 01/16/24 metformin 500 mg tablet 500 mg PO BIDWMEAL 01/02/24 01/16/24 Previous Rx's Medication Instructions Recorded bumetanide 1 mg tablet 1 mg PO BIDL #60 tabs 01/10/24 empagliflozin 10 mg tablet 10 mg PO DAILY #30 tabs 01/10/24 (Jardiance) fluticasone fur. 100 mcg-umeclid 1 inh inhalation DAILY #1 ea 01/10/24 62.5 mcg-vilant 25 mcg inhalat.powder (Trelegy Ellipta) ipratropium 0.5 mg-albuterol 3 mg 3 ml inhalation Q6HP PRN Shortness 01/10/24 (2.5 mg base)/3 mL nebulization Of Breath Or Wheezing #120 mL soln levofloxacin 750 mg tablet 750 mg PO DAILY pneumonia #7 tabs 01/10/24 nicotine 14 mg/24 hr daily 14 mg transdermal DAILY tobacco 01/10/24 transdermal patch use #28 ea prednisone 10 mg tablet 10 mg PO DAILY #30 tabs 01/10/24 sildenafil (pulm.hypertension) 20 20 mg PO TID pulmonary 01/10/24 mg tablet hypertension #90 tabs spironolactone 25 mg tablet 25 mg PO DAILY #30 tabs 01/10/24 tramadol 50 mg tablet 50 mg PO Q6HP PRN pain #60 tabs 01/10/24 nitrofurantoin 100 mg PO BID 5 days #10 caps 01/26/24 monohydrate/macrocrystals 100 mg capsule (Macrobid) potassium chloride 20 mEq 20 meq PO DAILY #30 tabs 01/26/24 tablet,extended release Allergies Allergy/AdvReac Type Severity Reaction Status Date / Time ondansetron [From Zofran] Allergy Verified 01/16/24 14:39 [facility] Disclaimer: The information contained in this section may have been updated after the patient was seen, as this information can be updated by other users. Medical History (Updated 01/26/24 @ 11:17 by Bubba Pérez MD) Pulmonary emphysema Smoking greater than 30 pack years (HFpEF) heart failure with preserved ejection fraction Headache Elevated brain natriuretic peptide (BNP) level Epigastric abdominal pain Knee pain Pneumonia Pulmonary hypertension RVF (right ventricular failure) HFrEF (heart failure with reduced ejection fraction) Atypical angina Clubbing of digits Cyanosis Acute respiratory failure with hypoxia Pulmonary edema CAD in [place] artery SOB (shortness of breath) on exertion GERD (gastroesophageal reflux disease) IBS (irritable bowel syndrome) History of AR (myocardial infarction) High cholesterol Hypertension Anxiety Depression Diabetes mellitus, type 2 Surgical History History of right breast biopsy History of D&C History of partial hysterectomy History of Family History Other COPD (chronic obstructive pulmonary disease) Depression FHx: mental illness Hyperlipidemia Social History Smoking Status: Former smoker alcohol intake: never current occupational status: disabled Travel in the last 8 weeks: None ROS Obtained: Yes All systems reviewed & no additional complaints except as documented Physical Exam General General appearance: alert Neck Neck exam: Present trachea midline Chest Chest inspection: Present normal inspection and symmetric chest wall rise Respiratory Respiratory exam: Present normal lung sounds bilaterally; Absent respiratory distress, wheezes, stridor, accessory muscle use or prolonged expiratory phase Cardiovascular Cardiovascular exam: Present regular rate and normal rhythm Extremities Exam Extremities exam: Absent edema Neurological Exam Neurological exam: Present alert, oriented X3 and CN II-XII intact Skin Skin exam: Present warm and dry; Absent cyanosis, diaphoresis or pallor HEART Score HEART Score HEART Score assessment performed?: Yes History (anamnesis): Slightly suspicious ECG: Normal Age: 45-65 years Risk factors: 3 or more risk factors Troponin: </= normal limit HEART Score: 3 Procedures Limited Ultrasound Indication:: Limited cardiac ultrasound Indication: Chest pain Identified cardiac views: -Cardiac parasternal long axis -Cardiac parasternal short axis Findings: -Cardiac activity present -Gross wall motion normal -Pericardial effusion scant -Right heart strain absent Impression: -Scant pericardial effusion with otherwise normal echo Images were saved to permanent archive The study was technically adequate CPT: 90064 This study was performed by me, and I personally interpreted all images/videos. Based on my clinical judgement, these images were adequate and did not necessitate further imaging. Critical Care Critical Care Time Critical Care Time: No Medical Decision Making Medical Records Medical records reviewed: Yes I reviewed the patient's medical records. [place] Inquiry Pt receiving controlled substance: No [place] was queried for this patient: No Vital Signs Vital Signs: 01/26/24 07:11 01/26/24 07:31 01/26/24 07:40 Temperature 98.1 F Temperature Source Oral Pulse Rate 74 77 Pulse Rate [Right] 72 Respiratory Rate 18 15 Blood Pressure 141/84 H 133/82 Blood Pressure [Right Arm] 153/99 H Blood Pressure Mean [Right Arm] 117 02 Sat by Pulse Oximetry 95 97 92 L Oxygen Delivery Method Nasal Cannula Oxygen Flow Rate (LPM) 2 01/26/24 07:50 01/26/24 08:00 01/26/24 08:10 Temperature Temperature Source Pulse Rate 79 81 79 Pulse Rate [Right] Respiratory Rate 12 15 18 Blood Pressure 128/79 131/82 129/96 H Blood Pressure [Right Arm] Blood Pressure Mean [Right Arm] 02 Sat by Pulse Oximetry 93 L 94 L 96 Oxygen Delivery Method Oxygen Flow Rate (LPM) 01/26/24 08:30 01/26/24 08:40 01/26/24 09:00 Temperature Temperature Source Pulse Rate 81 89 78 Pulse Rate [Right] Respiratory Rate 14 18 13 Blood Pressure 115/89 136/99 H 130/85 Blood Pressure [Right Arm] Blood Pressure Mean [Right Arm] 02 Sat by Pulse Oximetry 96 97 94 L Oxygen Delivery Method Oxygen Flow Rate (LPM) 01/26/24 09:10 01/26/24 09:29 01/26/24 09:30 Temperature Temperature Source Pulse Rate 72 71 74 Pulse Rate [Right] Respiratory Rate 11 L 13 10 L Blood Pressure 128/80 122/76 137/96 H Blood Pressure [Right Arm] Blood Pressure Mean [Right Arm] 02 Sat by Pulse Oximetry 92 L 96 97 Oxygen Delivery Method Room Air Oxygen Flow Rate (LPM) 01/26/24 10:00 01/26/24 10:30 01/26/24 11:18 Temperature 98.4 F Temperature Source Oral Pulse Rate 79 68 72 Pulse Rate [Right] Respiratory Rate 18 16 18 Blood Pressure 117/83 124/82 119/74 Blood Pressure [Right Arm] Blood Pressure Mean [Right Arm] 02 Sat by Pulse Oximetry 97 94 L Oxygen Delivery Method Room Air Room Air Room Air Oxygen Flow Rate (LPM) Lab Data Labs: Lab Results 01/26/24 07:00: WBC 12.3 H, RBC 6.03 H, Hgb 18.6 H, Hct 57.9 H, MCV 96.0, MCH 30.8, MCHC 32.1, RDW 14.5, Plt Count 311, MPV 9.0, Neut % (Auto) 55.3, Lymph % (Auto) 36.3, [place] % (Auto) 4.7, Eos % (Auto) 1.9, Baso % (Auto) 1.9, Neut # (Auto) 6.8, Lymph # (Auto) 4.5, [place] # (Auto) 0.6, Eos # (Auto) 0.2, Baso # (Auto) 0.2, Sodium 139, Potassium 3.3 L, Chloride 98, Carbon Dioxide 30, Anion Gap 14.3, BUN 15, Creatinine 0.60, Estimated Creat Clear 179, Estimated GFR 106, Est GFR ( Amer) 129, Glucose 130 H, Calcium 10.9 H, Total Bilirubin 0.7, AST 40 H, ALT 36, Alkaline Phosphatase 64, Troponin I < 0.01, NT-Pro-B Natriuret Pep 173 H, Total Protein 8.3 H, Albumin 4.7, Globulin 3.6 H, Albumin/Globulin Ratio 1.3, Lipase 135 01/26/24 07:15: VBG pH 7.36, VBG pCO2 50.3, VBG pO2 29.2, VBG HCO3 27.8, VBG Total CO2 29.4 H, VBG O2 Saturation 53.9, VBG Base Excess 2.4 H, VBG Lactic Acid 3.3 H 01/26/24 10:15: Urine Color Yellow, Urine Appearance Clear, Urine pH 6.0, Ur Specific [place] 1.015, Urine Protein Negative, Urine Glucose (UA) 3+, Urine Ketones Negative, Urine Blood Negative, Urine Nitrate Negative, Urine Bilirubin Negative, Urine Urobilinogen 0.2, Ur Leukocyte Esterase Trace, Urine WBC 3-5, Ur Squamous Epith Cells 5-10, Urine Bacteria Trace 01/26/24 10:30: Troponin I < 0.01 01/26/24 07:00 01/26/24 07:00 Response Orders (Tests/Meds): ED MEDICATIONS Discontinued Medications Generic Name Dose Route Start Last Admin Trade Name Freq PRN Reason Stop Dose Admin Aspirin 324 mg 01/26/24 07:14 01/26/24 07:32 Aspirin 81mg Chewable Tablet PO 01/26/24 07:15 324 mg ONCE ONE Administration Potassium Chloride 40 meq 01/26/24 09:32 01/26/24 09:36 Potassium Chloride 20meq Tab PO 01/26/24 09:33 40 meq ONCE ONE Administration ORDERS Category Date Time Status POCUS Point of Care (ER Only) Stat Exams 01/26/24 09:51 Completed XR chest portable Stat Exams 01/26/24 07:14 Completed Complete Blood Count Auto Diff Stat Lab 01/26/24 07:00 Completed Comprehensive Metabolic Panel Stat Lab 01/26/24 07:00 Completed Lipase Stat Lab 01/26/24 07:00 Completed NT Pro Brain Natriuretic Pep. Stat Lab 01/26/24 07:00 Completed Troponin I Q3H Lab 01/26/24 10:30 Completed Troponin I Stat Lab 01/26/24 07:00 Completed UA [Urinalysis and Microscopic] Stat Lab 01/26/24 10:15 Completed VBG [Venous Blood Gas] Stat RT 01/26/24 07:15 Completed MDM Narrative Medical Decision Narrative: 48-year-old female history of hypertension, hyperlipidemia, COPD on nightly oxygen at home, CHF, type 2 diabetes, presenting with shortness of breath. Patient states that shortness of breath started this morning at 5 AM. Associated with left-sided/substernal chest pain that does not radiate. It is a dull pain, feels like the last time she had a minor heart attack, but is not currently present. Did not wake her up from sleep, woke up and realized that it was there. Did not radiate. Did not take anything for the pain or discomfort itself is resolved. She states she came to the emergency department because she wanted to make sure that it was not a heart attack or fluid based on her previous experience. States that she has been taking all her medications as prescribed and wearing her oxygen at night as she should be. History was obtained via conversation with patient. On arrival, patient hemodynamically stable, alert, oriented x4, appropriate, GCS 15, moving all extremities spontaneously, pupils equal and reactive to light. Full physical exam performed and significant for very well-appearing woman who is in no acute distress. Lungs are clear to auscultation anterior and posterior bilaterally. Cardiac exam within normal limits, pulses are equal and symmetric in upper and lower extremities. No evidence of murmurs, gallops, rubs. No lower extremity edema, neurologically intact. On arrival, patient placed on 2 L nasal cannula saturating right around 97%. I remove the nasal cannula and patient still saturating 92 to 95%. Differential includes COPD exacerbation, metabolic abnormality, microvascular coronary artery disease, CHF, ACS, AR, coronary artery dissection, pneumothorax, PE, dissection, pericarditis, myocarditis, pneumothorax, aortic aneurysm, pneumonia, bronchitis, among others. Patient was given 324 mg aspirin,for symptomatic management and correction of underlying abnormalities. Workup independently interpreted and significant for negative initial troponin. Mild leukocytosis 12.3. Remainder of workup with VBG pH 7.36, CO2 normal, oxygen normal, lactic acid mildly elevated at 3.3. Chemistry with mild hypokalemia 3.3, this was repleted. Sodium normal. BNP -173. UA with concern for UTI chest x-ray without acute cardiopulmonary airspace disease. See radiology read for full review of final results. Independent interpretation of EKG shows sinus rhythm 69 beats a minute with nonspecific T wave inversions in V2. [place] 178, QRS 117, QTc 403. [place] normal. Patient placed on continuous cardiac monitoring and continuous pulse ox with initial blood pressure 153/99, heart rate 72, saturation 95% on 2 L nasal cannula. Nasal cannula removed and patient still saturating 92 to 95%, this is appropriate given her COPD. Heart score 3. Patient was placed in observation beginning at 8 AM in order to rule out evolving AR with delta troponins and determine need for admission versus home-going. The patient was provided serial exams, monitoring, [id number] ultrasound at bedside while awaiting results. Independent interpretation of results demonstrated negative delta troponin. On reevaluation, patient still feeling baseline, no symptoms at this time. At this time, I feel patient is appropriate for discharge. Total observation time 3 hours. Macrobid sent to pharmacy as well as potassium for hypokalemia close return precautions were discussed with patient and family at bedside. They both voiced their understanding. Because patient at baseline without signs or symptoms of clinical decompensation, deemed appropriate for discharge. Results were relayed to patient who voiced understanding and were agreeable to outpatient management and follow up. I discussed my clinical impression with patient and answered all questions. At this time, the evidence for any other entities in the differential is insufficient to warrant any further testing or ED observation. This was explained as well. Advisory was given that persistent or worsening symptoms require further evaluation. I confirmed the understanding of this discussion. [employer] disclaimer Much of this encounter note is an electronic special investigation unit investigator spoken language to printed text. Electronic special investigation unit investigator of the spoken language may permit errors. Although I have reviewed the note, some errors may still exist.
[2024-01-26 07:53] LABS: Troponin I < 0.01 ng/ml (0.00-0.034)
--- NOTE | 2024-01-26 08:30 | PC.NURSE ---
PT RESTING IN BED, CALL LIGHT WITHIN REACH. NO NEEDS AT THIS TIME
[2024-01-26 08:56] LABS: Lipase 135 U/L (23-300)
[2024-01-26 09:06] LABS: NT Pro Brain Natriuretic Pep. 173 pg/mL (0-125)
[2024-01-26] MEDS: POTASSIUM CHLORIDE 20MEQ TAB 40 MEQ PO (09:36)
--- NOTE | 2024-01-26 09:47 | PC.NURSE ---
DR PHAM AT BEDSIDE TO UPDATE PT AND FAMILY
--- NOTE | 2024-01-26 10:11 | PC.NURSE ---
TO BATHROOM FOR UA
[2024-01-26 10:18] LABS: Microscopic, Urine URINE MICROSCOPIC (MICROSCOPIC)
[2024-01-26 10:29] LABS: Appearance,Urine CLEAR (Clear); Bilirubin,Urine Negative (Negative); Blood, Urine Negative (Negative); Color,Urine YELLOW (Yellow); Glucose,Urine (UA) 3+ (Negative); Ketones,Urine Negative (Negative); Leukocyte Esterase,Urine TRACE (Negative); Nitrate,Urine Negative (Negative); Protein,Urine Negative (Negative); Specific Gravity, Urine 1.015 (1.005-1.030); Urobilinogen,Urine 0.2 EU/dl (0.2)
--- NOTE | 2024-01-26 10:36 | PC.NURSE ---
REPEAT TROP SENT
[2024-01-26 10:44] LABS: Bacteria,Urine Trace /lpf
[2024-01-26 11:08] LABS: Troponin I < 0.01 ng/ml (0.00-0.034)
[2024-01-26 11:22] LABS: Reflex Lactic Add Lactic Reflex
== END 2024-01-26 11:25 | disposition home or self-care (01) ==
PROVIDERS: Emergency Provider Emergency Medicine; PCP Family Medicine
DX: R07.9 Chest pain, unspecified (principal); I44.4 Left anterior fascicular block; I45.19 Other right bundle-branch block; R06.02 Shortness of breath; J44.9 Chronic obstructive pulmonary disease, unspecified; E11.9 Type 2 diabetes mellitus without complications; I11.0 Hypertensive heart disease with heart failure; I50.9 Heart failure, unspecified; E78.5 Hyperlipidemia, unspecified; Z87.891 Personal history of nicotine dependence; Z79.84 Long term (current) use of oral hypoglycemic drugs; E87.6 Hypokalemia
CPT/HCPCS: 71045; 80053; 81001; 82803; 83690; 83880; 84484; 85025; 93005; 99285

== ENCOUNTER 2024-02-10 10:58 | Emergency (ER) | payer MEDICARE, SELFPAY ==
[2024-02-10 10:58] VITALS: BP 163/97; PULSE 77; RESP 20; TEMP 37.1; O2SAT 94; BMI 35.4
--- NOTE | 2024-02-10 11:02 | ECG_ITS ---
APPROVED REPORT Exam: Resting ECG HR:74 bpm ECG Measurements Heart Rate 74 AXES MN 169 P 46 QRSd 113 QRS 128 QT 359 T 59 QTc 386 Conclusion SINUS RHYTHM RIGHT BUNDLE BRANCH BLOCK [120+ ms QRS DURATION, UPRIGHT V1, 40+ ms S IN I/aVL/V4/V5/V6] LEFT POSTERIOR FASCICULAR BLOCK [QRS AXIS > 109, INFERIOR Q] ABNORMAL ECG Electronically signed by : JUDI DIAZ, 02/10/2024 23:20:36
--- NOTE | 2024-02-10 11:29 | HMH.EDGENADL ---
Discharge Plan Disposition Patient Disposition: Home, Self-Care Condition: Good Prescriptions Prescriptions: New omeprazole 20 mg capsule,delayed release(DR/EC) 20 mg PO BID 10 Days Qty: 20 0RF methocarbamol 500 mg tablet 500 mg PO Q8H Qty: 90 0RF sildenafil (pulm.hypertension) 20 mg tablet 20 mg PO TID 3 Days Qty: 9 0RF Rx Instructions: administer doses at least 4-6 hours apart omeprazole 20 mg capsule,delayed release(DR/EC) 20 mg PO BID 10 Days Qty: 20 0RF Held bumetanide 1 mg Tablet 1 mg PO BIDL Qty: 60 5RF Hold Instructions: Resume on 02/13/24. sildenafil (pulm.hypertension) 20 mg tablet 20 mg PO TID Qty: 90 4RF Hold Instructions: Resume on 02/13/24. Rx Instructions: administer doses at least 4-6 hours apart No Action fluoxetine 40 mg capsule 40 mg PO DAILY Patient Comments: TAKE 1 CAPSULE BY MOUTH ONCE DAILY atorvastatin 40 mg tablet 40 mg PO HS Patient Comments: TAKE 1 TABLET BY MOUTH ONCE DAILY metformin 500 mg tablet 500 mg PO BIDWMEAL Patient Comments: TAKE 1 TABLET BY MOUTH TWICE DAILY WITH A MEAL aspirin 81 mg Tablet,Chewable 81 mg PO DAILY ipratropium-albuterol 0.5 mg-3 mg(2.5 mg base)/3 mL Solution For Nebulization 3 ml inhalation Q6HP PRN (Reason: Shortness Of Breath Or Wheezing) Qty: 120 5RF Jardiance 10 mg Tablet 10 mg PO DAILY Qty: 30 5RF Trelegy Ellipta 100-62.5-25 mcg Blister With Device 1 inh inhalation DAILY Qty: 1 5RF nicotine 14 mg/24 hr Patch 24 Hour 14 mg transdermal DAILY Qty: 28 3RF tramadol 50 mg Tablet 50 mg PO Q6HP PRN (Reason: pain) Qty: 60 1RF spironolactone 25 mg Tablet 25 mg PO DAILY Qty: 30 5RF levofloxacin 750 mg tablet 750 mg PO DAILY Qty: 7 0RF prednisone 10 mg tablet 10 mg PO DAILY Qty: 30 2RF nitrofurantoin monohyd/m-cryst [Macrobid] 100 mg capsule 100 mg PO BID 5 Days Qty: 10 0RF Rx Instructions: must administer with a meal/food potassium chloride 20 mEq tablet extended release 20 meq PO DAILY Qty: 30 0RF Referrals Follow up/Referrals: Provider,Referral, [Primary Care Provider] - See instructions Activity Restrictions/Add. Instructions Additional Instructions/Restrictions: As we discussed, your labs overall reassuring, and not suggestive of a heart attack or heart failure, or infection. I have written prescriptions for a muscle relaxer as well as an increased dose of your omeprazole for you to take twice daily. Please take the muscle relaxer as needed. I have written prescriptions for short courses every 2 home medications for you to take until new medications arrive. Please return with any new or worsening symptoms and follow-up with your heart and lung doctors. Clinical Impressions Clinical Impression: Acute chest pain, Muscle spasm Discharge ED Provider: Aurelio Win Adult HPI General Chief complaint: PAIN Stated complaint: back pain Time Seen by Provider: 02/10/24 11:29 Mode of Arrival: EMS Source of Information: Patient Limitations: No Limitations Description of Symptoms (Recalled from ER Triage Doc. by RN): pt to ed c/o chest wall pain that radiates into her lower back. pt states she has a hx of sciatic pain that shppts down her legs constantly but the pain is radiating upwards. pt denies any new accident or injury. History of Present Illness HPI narrative: Patient reports approximately 24 hours of pain in left scapular area, chest wall, substernal area, radiating to left arm, nonpleuritic, exertional in nature, intermittent, no identifiable exacerbating or alleviating factors. She reports she has had similar symptoms before that were more localized to her chest wall. She denies any fevers or chills, denies any palpitations, denies any syncope or presyncope or changes in medications or new medications. Denies any shortness of breath, orthopnea, leg pain, leg swelling, no previous therapies. No missed doses of medications. No fevers, no sick contacts, no recent travel. Please note that above description of symptoms, in this electronic medical record under categorization of recalled from ER triage doctor by RN are reflective of an initial nursing assessment, however, is not reflective of my full history and physical exam that was personally taken and clarified. Consequentially, this preceding description of symptoms, which may include the patient's categorized chief complaint in the EMR, do not reflect my personal clinical impression, and the ultimate description of history of present illness and patient stated complaints should be deferred to this section of the note. Unless stated otherwise or congruent with this section of the note, additional signs, symptoms, or incongruence should be interpreted as inaccurate with my clinical impression. Related Data Home Medications Medication Instructions Recorded Confirmed aspirin 81 mg chewable tablet 81 mg PO DAILY 01/02/24 01/16/24 atorvastatin 40 mg tablet 40 mg PO HS 01/02/24 01/16/24 fluoxetine 40 mg capsule 40 mg PO DAILY 01/02/24 01/16/24 metformin 500 mg tablet 500 mg PO BIDWMEAL 01/02/24 01/16/24 Previous Rx's Medication Instructions Recorded bumetanide 1 mg tablet 1 mg PO BIDL #60 tabs 01/10/24 empagliflozin 10 mg tablet 10 mg PO DAILY #30 tabs 01/10/24 (Jardiance) fluticasone fur. 100 mcg-umeclid 1 inh inhalation DAILY #1 ea 01/10/24 62.5 mcg-vilant 25 mcg inhalat.powder (Trelegy Ellipta) ipratropium 0.5 mg-albuterol 3 mg 3 ml inhalation Q6HP PRN Shortness 01/10/24 (2.5 mg base)/3 mL nebulization Of Breath Or Wheezing #120 mL soln levofloxacin 750 mg tablet 750 mg PO DAILY pneumonia #7 tabs 01/10/24 nicotine 14 mg/24 hr daily 14 mg transdermal DAILY tobacco 01/10/24 transdermal patch use #28 ea prednisone 10 mg tablet 10 mg PO DAILY #30 tabs 01/10/24 sildenafil (pulm.hypertension) 20 20 mg PO TID pulmonary 01/10/24 mg tablet hypertension #90 tabs spironolactone 25 mg tablet 25 mg PO DAILY #30 tabs 01/10/24 tramadol 50 mg tablet 50 mg PO Q6HP PRN pain #60 tabs 01/10/24 nitrofurantoin 100 mg PO BID 5 days #10 caps 01/26/24 monohydrate/macrocrystals 100 mg capsule (Macrobid) potassium chloride 20 mEq 20 meq PO DAILY #30 tabs 01/26/24 tablet,extended release methocarbamol 500 mg tablet 500 mg PO Q8H #90 tabs 02/10/24 omeprazole 20 mg capsule,delayed 20 mg PO BID 10 days #20 caps 02/10/24 release omeprazole 20 mg capsule,delayed 20 mg PO BID 10 days #20 caps 02/10/24 release sildenafil (pulm.hypertension) 20 20 mg PO TID 3 days #9 tabs 02/10/24 mg tablet Allergies Allergy/AdvReac Type Severity Reaction Status Date / Time ondansetron [From Zofran] Allergy Verified 01/16/24 14:39 [facility] Disclaimer: The information contained in this section may have been updated after the patient was seen, as this information can be updated by other users. Medical History (Updated 02/10/24 @ 15:21 by Aurelio Win MD) Pulmonary emphysema Smoking greater than 30 pack years (HFpEF) heart failure with preserved ejection fraction Headache Elevated brain natriuretic peptide (BNP) level Epigastric abdominal pain Knee pain Pneumonia Pulmonary hypertension RVF (right ventricular failure) HFrEF (heart failure with reduced ejection fraction) Atypical angina Clubbing of digits Cyanosis Acute respiratory failure with hypoxia Pulmonary edema CAD in [place] artery SOB (shortness of breath) on exertion GERD (gastroesophageal reflux disease) IBS (irritable bowel syndrome) History of DC (myocardial infarction) High cholesterol Hypertension Anxiety Depression Diabetes mellitus, type 2 Surgical History History of right breast biopsy History of D&C History of partial hysterectomy History of Family History Other COPD (chronic obstructive pulmonary disease) Depression FHx: mental illness Hyperlipidemia Social History Smoking Status: Never smoker alcohol intake: never current occupational status: disabled Travel in the last 8 weeks: None ROS Obtained: Yes other As per HPI Physical Exam General General appearance: alert and in no apparent distress Head Head exam: atraumatic and normocephalic Eye Eye exam: Present normal appearance Neck Neck exam: Present normal inspection Chest Chest inspection: Present normal inspection and symmetric chest wall rise Respiratory Respiratory exam: Present normal lung sounds bilaterally; Absent respiratory distress Cardiovascular Cardiovascular exam: Present regular rate and normal rhythm Abdominal Exam Abdominal exam: Present soft Neurological Exam Neurological exam: Present alert and oriented X3 Psychiatric Psychiatric exam: Present normal affect and normal mood Skin Skin exam: Present warm and dry Other Other exam information: Reproducible left scapular tenderness to palpation, no reproducible chest wall tenderness to palpation, no abdominal tenderness to palpation Medical Decision Making Medical Records Medical records reviewed: Yes I reviewed the patient's medical records. Obie Inquiry Pt receiving controlled substance: No Vital Signs: 02/10/24 10:58 02/10/24 14:58 02/10/24 15:34 Temperature 98.7 F 98.7 F Temperature Source Oral Oral Pulse Rate 93 H 90 Pulse Rate [Left Radial] 77 Respiratory Rate 20 18 20 Blood Pressure 118/74 124/78 Blood Pressure [Right Arm] 163/97 H Blood Pressure Mean [Right Arm] 119 02 Sat by Pulse Oximetry 94 L 95 Oxygen Delivery Method Room Air Room Air Room Air Lab Data Lab Results 02/10/24 12:58: WBC 9.1, RBC 5.41 H, Hgb 16.8 H, Hct 50.8 H, MCV 93.9, MCH 31.0, MCHC 33.0, RDW 14.4, Plt Count 185, MPV 9.4, Neut % (Auto) 64.5, Lymph % (Auto) 28.3, [place] % (Auto) 3.7, Eos % (Auto) 2.3, Baso % (Auto) 1.1, Neut # (Auto) 5.9, Lymph # (Auto) 2.6, [place] # (Auto) 0.3, Eos # (Auto) 0.2, Baso # (Auto) 0.1, Sodium 139, Potassium 3.7, Chloride 103, Carbon Dioxide 28, Anion Gap 11.7, BUN 15, Creatinine 0.80, Estimated Creat Clear 122, Estimated GFR 76, Est GFR ( Amer) 92, Glucose 139 H, Calcium 11.3 H, Magnesium 1.9, Total Bilirubin 0.9, AST 43 H, ALT 42, Alkaline Phosphatase 70, Troponin I < 0.01, NT-Pro-B Natriuret Pep 185 H, Total Protein 8.0, Albumin 4.7, Globulin 3.3 H, Albumin/Globulin Ratio 1.4, Lipase 125 02/10/24 14:34: Troponin I < 0.01 02/10/24 12:58 02/10/24 12:58 Orders (Tests/Meds): ED MEDICATIONS Discontinued Medications Generic Name Dose Route Start Last Admin Trade Name Freq PRN Reason Stop Dose Admin Belladonna Alkaloids 60 ml 02/10/24 11:49 02/10/24 12:11 Belladonna Alkaloids 60 Ml Ml PO 02/10/24 11:50 60 ml ONCE ONE Administration ORDERS Category Date Time Status XR chest 2V Stat Exams 02/10/24 11:49 Completed BNP [NT Pro Brain Natriuretic Pep.] Stat Lab 02/10/24 12:58 Completed CBC w/Auto Diff [Complete Blood Count Auto Diff] Stat Lab 02/10/24 12:58 Completed CMP [Comprehensive Metabolic Panel] Stat Lab 02/10/24 12:58 Completed Lipase Stat Lab 02/10/24 12:58 Completed MAG [Magnesium] Stat Lab 02/10/24 12:58 Completed Troponin I Q3H Lab 02/10/24 12:58 Completed Troponin I Q3H Lab 02/10/24 14:34 Completed HEART Score History (anamnesis): Moderately suspicious ECG: Non-specific disturbance Age: 45-65 years Risk factors: 3 or more risk factors Troponin: </= normal limit HEART Score: 5 Medical Decision Narrative: Patient with history and exam per above presenting for evaluation of chest pain, back pain Diagnoses considered include ACS,, pneumonia, GERD, costochondritis, referred pain. Insufficient evidence based off of history of present illness and clinical exam to warrant testing for dissection, pulmonary embolism. ED workup and treatment included: ED MEDICATIONS Discontinued Medications Generic Name Dose Route Start Last Admin Trade Name Freq PRN Reason Stop Dose Admin Belladonna Alkaloids 60 ml 02/10/24 11:49 02/10/24 12:11 Belladonna Alkaloids 60 Ml Ml PO 02/10/24 11:50 60 ml ONCE ONE Administration ORDERS Category Date Time Status XR chest 2V Stat Exams 02/10/24 11:49 Completed BNP [NT Pro Brain Natriuretic Pep.] Stat Lab 02/10/24 12:58 Completed CBC w/Auto Diff [Complete Blood Count Auto Diff] Stat Lab 02/10/24 12:58 Completed CMP [Comprehensive Metabolic Panel] Stat Lab 02/10/24 12:58 Completed Lipase Stat Lab 02/10/24 12:58 Completed MAG [Magnesium] Stat Lab 02/10/24 12:58 Completed Troponin I Q3H Lab 02/10/24 12:58 Completed Troponin I Q3H Lab 02/10/24 14:34 Completed Labs were independently interpreted by me, significant for BNP 185, lipase within normal limits, no leukocytosis, troponins undetectable x 2 Imaging was independently visualized and interpreted by me, significant for no acute findings Please refer to radiology report for full details. Patient reports resolution of symptoms upon repeat evaluation after administration of GI cocktail. She is deemed stable for discharge at this time and reports multiple upcoming appointments with cardiology, pulmonology, and primary care provider. I discussed my clinical impression with patient and answered all questions. At this time, the evidence for any other entities in the differential is insufficient to warrant any further testing or ED observation. This was explained to the patient. The patient was advised that persistent or worsening symptoms require further evaluation. I confirmed the patient's understanding of this discussion. Critical Care Critical Care Time Critical Care Time: No
--- NOTE | 2024-02-10 11:49 | XR_ITS ---
PROCEDURE INFORMATION: Exam: XR Chest Exam date and time: 02/10/2024 11:47 AM Age: 48 years old Clinical indication: Pain; Chest pressure; Additional info: Chest pain, HX chf TECHNIQUE: Imaging protocol: Radiologic exam of the chest. Views: 2 views. COMPARISON: CR XR CHEST PORTABLE 01/26/2024 7:29 AM FINDINGS: Lungs: Unremarkable. No consolidation. Pleural spaces: Unremarkable. No pleural effusion. No pneumothorax. Heart/Mediastinum: Unremarkable. No cardiomegaly. Bones/joints: Unremarkable. IMPRESSION: No acute findings.
--- NOTE | 2024-02-10 12:00 | PC.NURSE ---
rounded on pt no need at this time,call light in reach
[2024-02-10] MEDS: BELLADONNA ALKALOIDS 60 ML ML PO (12:11)
--- NOTE | 2024-02-10 13:15 | PC.NURSE ---
rounded on pt no need at this time,call light in reach
[2024-02-10 13:21] LABS: Chloride 103 mmol/L (98-107); Potassium 3.7 mmoL/L (3.5-5.1); Sodium 139 mmol/L (136-145)
[2024-02-10 13:23] LABS: Alanine Aminotransferase 42 U/L (12-78); Aspartate Amino Transferase 43 U/L (14-36); Blood Urea Nitrogen 15 mg/dl (7-17); Creatinine Clearance Estimated 122 mL/min (50-200); Estimated Glomerular Filt Rate 76 ml/min (>60); GFR (African American) 92 ML/MIN (>60)
[2024-02-10 13:24] LABS: Albumin Level 4.7 g/dl (3.5-5.0); Albumin/Globulin Ratio 1.4 (1.1-1.8); Alkaline Phosphatase 70 U/L (38-126); Anion Gap 11.7 mEq/L (5-15); Bilirubin,Total 0.9 mg/dl (0.2-1.3); Calcium 11.3 mg/dl (8.4-10.2); Carbon Dioxide 28 mmol/L (22.0-30.0); Globulin 3.3 g/dL (1.3-3.2); Glucose 139 mg/dl (74-100); Lipase 125 U/L (23-300); Magnesium 1.9 mg/dl (1.6-2.3)
[2024-02-10 13:33] LABS: NT Pro Brain Natriuretic Pep. 185 pg/mL (0-125)
[2024-02-10 13:39] LABS: Troponin I < 0.01 ng/ml (0.00-0.034)
[2024-02-10 13:57] LABS: Basophils # 0.1 K/mm3 (0-0.2); Basophils % 1.1 % (0.1-2.0); Eosinophils # 0.2 K/mm3 (0.0-0.4); Eosinophils % 2.3 % (0.1-12.0); Hematocrit 50.8 % (37.0-47.0); Hemoglobin 16.8 g/dL (12.2-16.2); Lymphocytes # 2.6 K/mm3 (0.7-4.5); Lymphocytes % 28.3 % (10-50); Mean Corpuscular Volume 93.9 fl (81-99); Mean Platelet Volume 9.4 fl (7.4-10.4); Monocytes # 0.3 K/mm3 (0.1-1.0); Monocytes % 3.7 % (1.7-9.3); Neutrophils # 5.9 K/mm3 (1.8-7.8); Neutrophils % 64.5 % (37.0-80.0); Platelet Count 185 K/mm3 (142-424); Red Blood Count 5.41 M/mm3 (4.20-5.40); Red Cell Distribution Width 14.4 % (11.5-17.5); White Blood Count 9.1 K/mm3 (4.8-10.8)
--- NOTE | 2024-02-10 14:20 | PC.NURSE ---
rounded on pt no need at this time,call light in reach
[2024-02-10 14:58] VITALS: BP 118/74; PULSE 93; RESP 18; O2SAT 95
[2024-02-10 15:03] LABS: Troponin I < 0.01 ng/ml (0.00-0.034)
--- NOTE | 2024-02-10 15:06 | PC.NURSE ---
rounded on pt no need at this time,call light in reach
[2024-02-10 15:34] VITALS: BP 124/78; PULSE 90; RESP 20; TEMP 37.1; O2SAT 97
== END 2024-02-10 15:37 | disposition home or self-care (01) ==
PROVIDERS: Emergency Provider Emergency Medicine
DX: R07.89 Other chest pain (principal); I45.10 Unspecified right bundle-branch block; I44.5 Left posterior fascicular block; E11.9 Type 2 diabetes mellitus without complications; F17.210 Nicotine dependence, cigarettes, uncomplicated; J43.9 Emphysema, unspecified; K21.9 Gastro-esophageal reflux disease without esophagitis; I11.9 Hypertensive heart disease without heart failure; I25.119 Atherosclerotic heart disease of native coronary artery with unspecified angina pectoris; E78.5 Hyperlipidemia, unspecified; Z79.84 Long term (current) use of oral hypoglycemic drugs
CPT/HCPCS: 71046; 80053; 83690; 83735; 83880; 84484; 85025; 93005; 99284

== ENCOUNTER 2024-02-14 12:58 | Outpatient (CLI) | payer MEDICARE, SELFPAY ==
--- NOTE | 2024-02-14 14:36 | XR_ITS ---
FINAL REPORT CLINICAL HISTORY: Pneumonia COMPARISON: None FINDINGS: Two views of the chest were obtained. The heart size and pulmonary vascularity are within normal limits. The mediastinum is normal. Mild right base opacities are present, atelectasis or pneumonia. There is no pneumothorax. The bony thorax is intact. IMPRESSION: Mild right base opacities are present, atelectasis or pneumonia. Reviewed, Interpreted and Dictated by Michael Rubio III, MD Transcribed by Gerri Ram Authenticated and . [facility]
== END 2024-02-14 23:59 | disposition home or self-care (01) ==
LOC: RT 12:59
PROVIDERS: PCP Family Medicine; Visit Provider Internal Medicine Pulmonary Disease
DX: I27.20 Pulmonary hypertension, unspecified (principal); J18.9 Pneumonia, unspecified organism; R06.09 Other forms of dyspnea
CPT/HCPCS: 71046; 94060; 94618; 94726; 94729

== ENCOUNTER 2024-02-16 07:07 | Outpatient (CLI) | payer MEDICARE, SELFPAY ==
--- NOTE | 2024-02-16 07:11 | CT_ITS ---
FINAL REPORT TECHNIQUE: Axial images through the chest was performed by computed tomography utilizing high-resolution technique with supine images inspiration and expiration and prone inspiration. CLINICAL HISTORY: soa COMPARISON: 01/03/2024 FINDINGS: There is persistent mild mediastinal adenopathy. Precarinal node measures 26 mm, was 29 mm. There is a small calcified granuloma in the left lower lobe. There is mild scarring. There is no significant interstitial lung disease, emphysema, or bronchiectasis. There has been interval improvement in the bronchial wall thickening. Minimal patchy ground-glass opacities have improved, may represent improved edema. No pleural effusion is identified. Again identified is a right lateral breast mass measuring up to approximately 4 cm. IMPRESSION: No evidence of interstitial lung disease, emphysema, or bronchiectasis. Improved bronchial wall thickening. Minimal ground-glass opacities have improved, may represent improved edema. Reviewed, Interpreted and Dictated by Michael Rubio III, MD Transcribed by Tomeka Sethi Authenticated and [facility]
== END 2024-02-16 23:59 | disposition home or self-care (01) ==
PROVIDERS: PCP Family Medicine; Visit Provider Internal Medicine Pulmonary Disease
DX: J84.9 Interstitial pulmonary disease, unspecified (principal)
CPT/HCPCS: 71250

== ENCOUNTER 2024-02-19 08:10 | Outpatient (CLI) | payer MEDICARE, SELFPAY ==
--- NOTE | 2024-02-19 08:30 | US_ITS ---
FINAL REPORT CLINICAL HISTORY: 1000 10 CM FN NODULE -- LT BREAST CORE BX -- DR JANETH BECK FINDINGS: ULTRASOUND-GUIDED RIGHT BREAST CORE BIOPSY HISTORY: Right breast mass COMPARISON: Ultrasound 01/08/2024 and mammogram 01/22/2024. Imaging revealed a large mass exceeding 8 cm in the upper outer quadrant. TECHNIQUE: The right breast was prepped in a routine sterile fashion and locally anesthetized with 1% lidocaine. Using sonographic guidance a 16 gauge needle was directed toward the lesion of interest. The needle was positioned within the outer periphery of the lesion. A total of 4 passes were made with a 16 gauge core biopsy needle. Tissue material were noted to be fragmented with complex cystic fluid A biopsy marker clip was deployed in satisfactory position. Limited postbiopsy images showed no evidence of significant hemorrhage. Procedure was well tolerated. IMPRESSION: 1. Technically successful image guided biopsy of right breast lesion as above. 2. Biopsy marker clip deployed Histopathology results reveal cystic dilatation of the ducts with stromal fibrosis. Pathology does not account for sonographic and mammographic findings consisting of a greater than 8 cm mass. Surgical consultation is recommended for consideration of excisional biopsy. Authenticated and [facility]
== END 2024-02-19 23:59 | disposition home or self-care (01) ==
LOC: RAD 08:11
PROVIDERS: PCP Family Medicine; Visit Provider Family Medicine
DX: R92.8 Other abnormal and inconclusive findings on diagnostic imaging of breast
CPT/HCPCS: 19083; 88305

== ENCOUNTER 2024-03-04 15:09 | Outpatient (CLI) | payer MEDICARE, SELFPAY ==
[2024-03-04 16:48] LABS: Free T4 (Free Thyroxine) 0.72 ng/dl (0.78-2.19)
[2024-03-04 17:01] LABS: Thyroid Stimulating Hormone 0.59 uIU/mL (0.465-4.68)
== END 2024-03-04 23:59 | disposition home or self-care (01) ==
LOC: LAB 15:10
PROVIDERS: PCP Family Medicine; Visit Provider Physician Assistant
DX: R00.2 Palpitations (principal); I51.9 Heart disease, unspecified; I50.32 Chronic diastolic (congestive) heart failure; I27.20 Pulmonary hypertension, unspecified; I50.810 Right heart failure, unspecified; I25.10 Atherosclerotic heart disease of native coronary artery without angina pectoris; K21.9 Gastro-esophageal reflux disease without esophagitis; E78.00 Pure hypercholesterolemia, unspecified; I10 Essential (primary) hypertension; E11.9 Type 2 diabetes mellitus without complications; Z79.4 Long term (current) use of insulin; N63.10 Unspecified lump in the right breast, unspecified quadrant
CPT/HCPCS: 36415; 84439; 84443; 93225; 93227

== ENCOUNTER 2024-03-06 15:57 | Outpatient (CLI) | payer MEDICARE, SELFPAY | END 2024-03-06 23:59 | disposition home or self-care (01) | LOC: RT 15:59 | PROVIDERS: PCP Family Medicine; Visit Provider Internal Medicine | DX: R00.2 Palpitations (principal) | CPT/HCPCS: 93270 ==

== ENCOUNTER 2024-03-29 08:32 | Outpatient (CLI) | payer MEDICARE, MEDICAID, SELFPAY ==
--- NOTE | 2024-03-29 08:32 | MM_ITS ---
FINAL REPORT CLINICAL HISTORY: .RT BREAST DENSITY FINDINGS: PROCEDURE: VACUUM ASSISTED STEREOTACTIC BREAST NEEDLE CORE BIOPSY WITH POST BIOPSY MAMMOGRAM, SPECIMEN RADIOGRAPH AND CLIP PLACMENT ? INDICATION: ?Mass/abnormal density/abnormal mammogram? TECHNIQUE/FINDINGS: ? Informed consent was obtained. Time-out was observed to verify patient's identity and correct location of the breast abnormality. ? Lateral approach was used. The lesion was targeted with stereotactic images. The breast was cleansed with Betadine and local anesthesia was obtained with 1% Lidocaine, with and without Epinephrine. A small skin incision was made with a scalpel and an 9 gauge Mammotome probe was then advanced into the breast using tomographic and stereotactic guidance. Images were obtained to confirm accurate positioning of the probe. Multiple vacuum-assisted core samples were then obtained in a radial fashion. Sampling was thought to be adequate and the biopsy marker clip was deployed in the region of biopsy. . The needle was withdrawn and pressure was applied until all appreciable bleeding subsided. The incision was closed with Steri-strips and a dressing/ice pack was applied. ? Routine mammographic images were obtained in MLO and CC projections to document position of the clip relative to the biopsy site. A specimen radiograph was obtained. ? ?Post procedure routine CC and lateral view mammogram: Normal post biopsy changes. Biopsy marker clip located in appropriate position. ?Specimen radiograph: No suspicious calcification are seen within the tissue specimen samples.? Biopsy specimens were forwarded to the Pathology Department. Post-biopsy instructions were reviewed with the patient and a written copy was given to the patient as well. IMPRESSION: 1. Technically successful stereotactic guided biopsy of right breast lesion. 2. Biopsy marker clip deployed. 3. Post biopsy mammogram obtained as above. 4. Specimen radiograph obtained as above. Histopathology results reveal fibroadenoma. Pathology is ?concordant ?with mammographic findings. ??? Authenticated and [facility]
--- NOTE | 2024-03-29 09:09 | MM_ITS ---
FINAL REPORT CLINICAL HISTORY: .SPECIMEN RADIOGRAPH FINDINGS: Specimen radiograph: No calcifications are seen contained within multiple core soft tissue specimens. Authenticated and [facility]
--- NOTE | 2024-03-29 09:09 | MM_ITS ---
FINAL REPORT CLINICAL HISTORY: .CLIP PLACEMENT FINDINGS: MAMMOGRAM RIGHT 2D ?? TECHNIQUE: Standard digital 2D views COMPARISON: ?None? DENSITY: ?There are scattered areas of fibroglandular density? FINDINGS: Post biopsy marker clip is noted in satisfactory position. Postbiopsy changes are noted. ?findings? IMPRESSION: Biopsy marker clip in good position ? ASSESSMENT: Post procedure mammogram for marker placement RECOMMENDATION: Pathology shows fibroadenoma, concordant with imaging findings. Annual mammography Authenticated and [facility]
[2024-03-29] MEDS: ALPRAZolam 0.5MG TABLET 0.5 MG PO (09:10)
[2024-03-29] MEDS: HYDROCODONE/APAP 5/325 MG TABLET 1 TAB PO (09:10)
[2024-03-29] MEDS: LIDOCAINE 1% W/EPI 1:100,000 20ML VIAL 20 ML IJ (11:25)
== END 2024-03-29 23:59 | disposition home or self-care (01) ==
LOC: RAD 08:32
PROVIDERS: PCP Family Medicine; Visit Provider Surgery
DX: R92.1 Mammographic calcification found on diagnostic imaging of breast (principal); R92.8 Other abnormal and inconclusive findings on diagnostic imaging of breast
CPT/HCPCS: 19081; 76098; 77065

== ENCOUNTER 2024-04-12 10:04 | Outpatient (CLI) | payer MEDICARE, MEDICAID, SELFPAY | END 2024-04-12 23:59 | disposition home or self-care (01) | LOC: RT 10:05 | PROVIDERS: PCP Family Medicine; Visit Provider Internal Medicine Pulmonary Disease | DX: R06.09 Other forms of dyspnea (principal) | CPT/HCPCS: 94618 ==

== ENCOUNTER 2024-04-19 08:19 | Outpatient (CLI) | payer MEDICARE, MEDICAID, SELFPAY ==
--- NOTE | 2024-04-19 08:21 | CA_ITS ---
APPROVED REPORT EXAM: Comprehensive 2D, Doppler, and color-flow Echocardiogram Curriculum Development Specialist: Scarlet Lowry, DANIEL, RVS Ht: 5 ft 3 in Wt: 208lbs BSA: 1.97 BP: 111/71 mmHg Indications: portable O2, SOA, CAD, H/o-DC, HFrEF, PHTN, COPD, Smoker, DM, HTN, HLD 2D Dimensions Aortic Root 2.99 cm LVEF (Keene's) 45.70 % Left Atrium 2.77 cm LV Volume 49.90 mL RVID Base (AP4) 3.77 cm (M/F) 2.5-4.1 LV Volume Index 25.170258 mL/m2 F: 29 - 61 LVOT 1.71 cm (M/F) 1.5-2.5 LA Volume 31.80 mL LA Volume Index 16.143753 mL/m2 (M/F) 16-34 EF AP4 47.00 % EF AP2 46.8 % EF BP 45.7 % GL Strain -15.9 % M-Mode Dimensions RVDd 3.16 cm (0.9-2.6) LVDd 4.13 cm (3.5-5.7) Ao Diam 3.27 cm (2.0-3.7) LVDs 2.65 cm (3.5-5.7) IVSd 1.26 cm (0.6-1.1) PWd 1.11 cm (0.6-1.1) EF (Teich) 65.80% EPSs 0.68 cm FS 35.80% EDV (Teich) 75.50 mL TAPSE 1.49 (<1.7) ESV (Teich) 25.80 mL LV Diastology E Decel Time 147 (160-240 msec) E/A Ratio 0.76 MED E' 4.9 (>= 7 cm/sec) MED A' 10.80 cm/s E'/MED E' Ratio 8.67 (<= 14) LAT E' 7.1 (>= 10 cm/sec) LAT A' 10.20 cm/s E/LAT E' Ratio 5.99 (<= 14) Aortic Valve LVOT Max 83.0 (70-110 cm/s) LISETH Index 0.75 cm2/m2 LVOT VTI 12.68 cm AoV Peak Joselito. 107.0 (50-130 cm/s) AO Mean GR. 3.10 (<5 mmHg) AO VTI 19.7 (18-25 cm) LISETH (VTI) 1.48 (2.5-4.5 cm2) Mitral Valve MV E Max Joselito. 43.0 (40-130 cm/s) MV A Velocity 56.0 (40-130 cm/s) E/A Ratio 0.76 MV Decel. Time 147 (160-240 ms) Pulmonary Valve MA End VMAX 189.0 cm/s Tricuspid Valve TR P. Velocity 264.00 cm/s RAP Estimate 10.00 mmHg RVSP 38.00 mmHg Left Ventricle The left ventricle is normal size. The left ventricular systolic function is low normal. There is increased LV wall thickness. There is mild hypokinesis of the inferolateral LV wall. The left ventricular diastolic function is normal. LVEF is 50%. Right Ventricle The right ventricle is normal size. The right ventricular systolic function is normal. Atria The left atrium size is normal. The right atrium size is normal. There is no Doppler evidence of interatrial shunt. Aortic Valve The aortic valve opens well. There is no aortic valvular stenosis. No aortic regurgitation is present. Mitral Valve The mitral valve is normal in structure. No evidence of mitral valve stenosis. Mild mitral regurgitation. Tricuspid Valve The tricuspid valve leaflets are thin and pliable. Mild tricuspid regurgitation. RVSP is 20-25 mmHg. Pulmonic Valve The pulmonary valve is normal in structure. Mild pulmonic regurgitation. Great Vessels The aortic root is normal in size. The ascending aorta is normal in size. IVC is normal in size and collapses >50% with inspiration. Pericardium There is no pericardial effusion. Other Information Study Quality: Fair Conclusion Low-normal LV systolic function (LVEF 50%). Mild hypokinesis of the inferolateral LV wall. Normal RV size and function. Mild MR, mild TR, mild PI. RVSP 20-25 mmHg. Electronically signed by : Tierney Contreras MD 04/24/2024 12:28:43
--- NOTE | 2024-04-19 09:01 | MR_ITS ---
APPROVED REPORT Retail Team Member: CLINICAL INDICATION RV dilation on TTE TECHNIQUE Image Acquisition: Cardiac magnetic resonance (CMR) was performed on Siemens Espree MRI 1.5T scanner. Software platform sequences were performed using the Siemens [employer] MR B19 platform. A set of three-plane, low-resolution, large [id number] localizers were initially acquired. Then axial, coronal, sagittal TrueFISP, as well as axial HASTE images, were obtained. These were followed by gated TrueFISP breathold cinematic sequences obtained in the short axis with 8 mm slices and 2 mm gaps, 2-chamber (vertical long axis), 3-chamber, 4-chamber (horizontal long axis). A bolus of contrast was injected intravenously with first-pass sequences obtained in the short axis and four-chamber planes. After approximately 10 minutes, a TI advance scout sequence was performed to determine the optimal TI time. Using the optimized TI time, delayed contrast enhancement segmented inversion???recovery TurboFLASH sequences were obtained in the short axis, 2-chamber, 3-chamber, and 4-chamber projections. 2D-velocity phase mapping was performed. Functional parameters were calculated by offline analysis on an independent workstation ([employer], [employer]). Contrast: ProHance??? (Gadoteridol) FINDINGS MORPHOLOGY AND FUNCTION Left ventricle: The left ventricle is normal in size. The indexed left ventricular end-diastolic volume (LVEDVi) is 50 ml/m2 (reference range 57-105 ml/m2 in males, 56-96 ml/m2 in females). Normal left ventricular systolic function is present. There is normal left ventricular wall thickness. There are no regional wall motion abnormalities noted. LVEF is calculated at 53.9% (reference range 57-77%). Right ventricle: The right ventricle is normal in size. The indexed right ventricular end-diastolic volume (RVEDVi) is 74 ml/m2 (reference range 61-121 ml/m2 in males, 48-112 ml/m2 in females). There is moderate reduction in right ventricular systolic function. RVEF is calculated at 36.0% (reference range 52-72% in males, 51-71% in females). Atria: The left atrium is normal in size. The maximum indexed left atrial volume is 24 ml/m2 (reference range 26-52 ml/m2 in males, 27-53 ml/m2 in females). The right atrium is normal in size. The maximum indexed right atrial volume is 18 ml/m2 (reference range 18-90 ml/m2). Aorta: The diameter of the aortic annulus is normal, measuring 24 mm (coronal view reference range 21-30 mm in males, 19-27 mm in females). The diameter of the aortic sinus is normal, measuring 29 mm (coronal view reference range 25-42 mm in males, 24-36 mm in females). The diameter of the sinotubular junction is normal, measuring 25 mm (coronal view reference range 18-32 mm in males, 18-28 mm in females). The diameters of the ascending and descending thoracic aorta are normal. Main pulmonary artery: The main pulmonary artery d is mildly dilated, measuring 3.1 cm in diameter. Pericardium: The pericardial thickness is normal. The pericardial thickness measures 2.6 mm (normal < 4.0 mm). There is no pericardial effusion. VALVES The valvular morphologies in the visualized sequences appear normal. There is no significant valvular stenosis or regurgitation of the mitral, aortic, tricuspid, or pulmonic valve noted visually. Systolic anterior motion of the mitral valve is not visualized. Ratio of pulmonary to systemic flow, Qp:Qs ratio = 1.3 (normal < or = 1.2, hemodynamically significant shunt > 1.5), demonstrating no evidence of hemodynamically significant shunt. TISSUE CHARACTERIZATION Resting Perfusion: Normal myocardial blood flow at rest. No evidence of resting hypoperfusion. Myocardial Fibrosis and/or edema: Normal gadolinium kinetics are present. No evidence of late gadolinium enhancement is noted, consistent with absence of myocardial scarring, infarction, or necrosis. T2-weighted imaging demonstrates no evidence of myocardial edema or inflammation. OTHER Bilateral increase in pulmonary interstitial markings. Heterogeneous pulmonary lesion is noted in the right lower lobe, measuring up to 3 cm time 1.7 cm in its largest dimensions. Bilateral increase in pulmonary interstitial markings. IMPRESSION Normal LV size with normal LV systolic function. LVEDVi= 50 ml/m2 and LVEF= 53.9 %. Normal RV size with moderate reductoin in RV systolic function. RVEDVi= 74 ml/m2 and RVEF= 36.0%. No atrial enlargement. No CMR evidence of myocardial scarring, infarction, or necrosis. No evidence of myocardial edema or inflammation. Perfusion analysis demonstrates normal blood flow at rest with no evidence of resting hypoperfusion. Ratio of pulmonary to systemic flow, Qp:Qs ratio = 1.3 (normal < or = 1.2, hemodynamically significant shunt > 1.5), demonstrating no evidence of hemodynamically significant shunt. The main pulmonary artery d is mildly dilated, measuring 3.1 cm in diameter. Heterogeneous pulmonary lesion is noted in the right lower lobe, measuring up to 3 cm time 1.7 cm in its largest dimensions. Bilateral increase in pulmonary interstitial markings. The above findings are suggestive of normal LV systolic function with moderate reduction in RV function. Findings do not meet CMR criteria for ARVC. The pulmonary findings, including dilated PA, increased interstitial markings and possible right lower lobe lesion, warrant further pulmonary workup. COMPARISON None CRITICAL RESULT None COMMUNICATION The above findings were communicated with the patient at the time of her routine outpatient clinic visit. The findings of this cardiac MR were reviewed, reported, and signed by Jason Contreras MD (Tugboat Dispatcher). Conclusion Electronically signed by : Tierney Contreras MD 04/30/2024 01:30:22
[2024-04-19] MEDS: SODIUM CHLORIDE 0.9% 10ML SYR (RAD ONLY) 10 ML IV (11:34)
[2024-04-19] MEDS: 0.9 % SODIUM CHLORIDE 50 ML VIAL 25 ML IV (11:34)
[2024-04-19] MEDS: GADOTERIDOL INJ 20ML SYRINGE 20 ML IV (11:35)
== END 2024-04-19 23:59 | disposition home or self-care (01) ==
LOC: RT 08:21
PROVIDERS: PCP Family Medicine; Visit Provider Nurse Practitioner Family
DX: I34.0 Nonrheumatic mitral (valve) insufficiency (principal); I07.1 Rheumatic tricuspid insufficiency; I37.1 Nonrheumatic pulmonary valve insufficiency; R06.02 Shortness of breath; R00.2 Palpitations; I25.10 Atherosclerotic heart disease of native coronary artery without angina pectoris; I27.20 Pulmonary hypertension, unspecified; I50.32 Chronic diastolic (congestive) heart failure; I11.0 Hypertensive heart disease with heart failure
CPT/HCPCS: 75561; 93306; A9576

== ENCOUNTER 2024-05-16 08:24 | Day surgery (SDC) | payer MEDICARE, MEDICAID, SELFPAY ==
--- NOTE | 2024-05-16 07:04 | IR_ITS ---
APPROVED REPORT Patient Location: Outpatient PROCEDURES Right heart catheterization INDICATION Pulmonary hypertension Informed consent was obtained prior to the procedure. COMPLICATIONS none Estimated Blood Loss: less than 10ml TECHNIQUE One percent lidocaine was used to anesthetize the right anterior aspect of the right wrist. The right radial artery was accessed via the Seldinger technique and a 6 [place] hydrophilic sheath was placed in the right radial artery. Following this one percent lidocaine was used to anesthetize the right anterior aspect of the right neck. The right internal jugular vein was accessed via the Seldinger technique and a 7 [place] sheath was placed in the right internal jugular vein. Following this an arterial cocktail was administered using 5000U heparin, 2.5 mg verapamil, 1mg Lidocaine and 800mcg nitroglycerin into the right radial sheath. A papa catheter was used to perform left heart catheterization left ventriculogram and selective coronary angiography while a [place]-Saqib catheter was used to perform right heart catheterization. Saturations were obtained in the pulmonary artery and right atrium. At the end of the procedure the arterial sheath was removed good hemostasis was achieved using Traclet band. Patient was transferred to the postop holding area in stable condition for venous sheath removal. ANGIOGRAPHIC RESULTS Right atrial pressure 7 mmHg Right ventricular pressure 50/7 mmHg Pulmonary artery pressure 50/25 mmHg Pulmonary occlusion pressure 25 mmHg Right atrial saturation 79% Pulmonary saturation 79% Aortic saturation 99% Hemoglobin 15 Cardiac output 6.0 L/min Cardiac index 3.1 IMPRESSION Moderate pulmonary hypertension with elevated left-sided filling pressures consistent with diastolic dysfunction PLAN 1. Treatment of HFpEF/diastolic dysfunction 2. Increased diuretics fluid and sodium restriction Electronically signed by : Wai Luque MD 05/16/2024 11:35:59
[2024-05-16 08:29] VITALS: BMI 37.0
[2024-05-16 08:43] VITALS: BP 135/77; PULSE 87; RESP 20; O2SAT 97
[2024-05-16 08:53] LABS: Basophils # 0.2 K/mm3 (0-0.2); Basophils % 2.2 % (0.1-2.0); Eosinophils # 0.3 K/mm3 (0.0-0.4); Eosinophils % 3.1 % (0.1-12.0); Hematocrit 45.4 % (37.0-47.0); Hemoglobin 15.3 g/dL (12.2-16.2); Lymphocytes # 3.3 K/mm3 (0.7-4.5); Lymphocytes % 34.8 % (10-50); Mean Corpuscular HGB Conc 33.7 g/dL (31.8-35.4); Mean Corpuscular Hemoglobin 33.4 pg (27.0-31.2); Mean Corpuscular Volume 99.1 fl (81-99); Mean Platelet Volume 8.2 fl (7.4-10.4); Monocytes # 0.4 K/mm3 (0.1-1.0); Monocytes % 4.5 % (1.7-9.3); Neutrophils # 5.3 K/mm3 (1.8-7.8); Neutrophils % 55.4 % (37.0-80.0); Platelet Count 302 K/mm3 (142-424); Red Blood Count 4.58 M/mm3 (4.20-5.40); Red Cell Distribution Width 14.2 % (11.5-17.5); White Blood Count 9.6 K/mm3 (4.8-10.8)
[2024-05-16 09:02] LABS: Chloride 98 mmol/L (98-107); Potassium 4.2 mmoL/L (3.5-5.1); Sodium 137 mmol/L (136-145)
[2024-05-16 09:05] LABS: Blood Urea Nitrogen 19 mg/dl (7-17); Creatinine Clearance Estimated 170 mL/min (50-200); Estimated Glomerular Filt Rate 106 ml/min (>60); GFR (African American) 129 ML/MIN (>60)
[2024-05-16 09:06] LABS: Anion Gap 14.2 mEq/L (5-15); Calcium 10.7 mg/dl (8.4-10.2); Carbon Dioxide 29 mmol/L (22.0-30.0); Glucose 126 mg/dl (74-100)
[2024-05-16] MEDS: diphenhydrAMINE 50MG/ML VIAL 50 MG IV (11:19)
[2024-05-16] MEDS: 0.9 % SODIUM CHLORIDE 500 ML 25 ML IV (11:19)
[2024-05-16] MEDS: HEPARIN 1,000 UNITS/500ML NS (CATH LAB) 3000 UNIT IV (11:19)
[2024-05-16] MEDS: LIDOCAINE 1% 10ML MDV 20 ML IJ (11:19)
[2024-05-16] MEDS: MIDAZOLAM HCL 1MG/1ML 5ML VIAL 1 MG IV (11:35)
[2024-05-16] MEDS: FENTANYL 100MCG/2ML VIAL 50 MCG IV (11:35)
[2024-05-16 11:46] VITALS: BP 122/78; PULSE 67; PULSE 68; RESP 20; O2SAT 97
[2024-05-16 11:50] VITALS: BP 142/80; PULSE 68; RESP 20; O2SAT 100
[2024-05-16 11:55] VITALS: BP 129/76; PULSE 65; RESP 20; O2SAT 100
[2024-05-16 12:20] VITALS: BP 130/69; PULSE 79; RESP 20; O2SAT 100
[2024-05-16 12:30] VITALS: BP 137/86; PULSE 80; RESP 20; O2SAT 100
[2024-05-16 12:32] LABS: CATHL Arterial O2 SAT 79 % (90-100); CATHL Venous O2 SAT 79.7 % (75-80)
== END 2024-05-16 12:50 | disposition home or self-care (01) ==
LOC: CATHLAB 08:25
PROVIDERS: PCP Family Medicine; Visit Provider Internal Medicine
DX: I27.20 Pulmonary hypertension, unspecified (principal); Z79.899 Other long term (current) drug therapy; Z79.84 Long term (current) use of oral hypoglycemic drugs; I50.42 Chronic combined systolic (congestive) and diastolic (congestive) heart failure; I25.2 Old myocardial infarction; F17.210 Nicotine dependence, cigarettes, uncomplicated; I11.0 Hypertensive heart disease with heart failure; I25.10 Atherosclerotic heart disease of native coronary artery without angina pectoris; Z95.5 Presence of coronary angioplasty implant and graft
CPT/HCPCS: 80048; 82810; 85025; 93451; 99152; C1894; J1200; J1644; J2250; J3010

== ENCOUNTER 2024-05-25 11:21 | Emergency (ER) | payer MEDICARE, MEDICAID, SELFPAY ==
[2024-05-25] VITALS (7 sets, daily range): BP systolic 93–116; BP diastolic 53–69; PULSE 72–87; RESP 14–20; TEMP 36.7–37.2; O2SAT 93–97; BMI 35.9
--- NOTE | 2024-05-25 11:22 | ECG_ITS ---
APPROVED REPORT Exam: Resting ECG HR:72 bpm ECG Measurements Heart Rate [address] 157 P 38 QRSd 121 QRS 87 QT 370 T 52 QTc 394 Conclusion SINUS RHYTHM POSSIBLE INFERIOR MYOCARDIAL INFARCTION , OF INDETERMINATE AGE [30 ms Q WAVE IN II/aVF] ABNORMAL ECG UNCONFIRMED REPORT Electronically signed by : Paul Love, 05/25/2024 15:04:26
--- NOTE | 2024-05-25 11:40 | XR_ITS ---
PROCEDURE INFORMATION: Exam: XR Chest Exam date and time: 05/25/2024 11:45 AM Age: 48 years old Clinical indication: Dyspnea; Prior surgery; Surgery date: <1 month; Surgery type: Heart cath TECHNIQUE: Imaging protocol: Radiologic exam of the chest. Views: 1 view. COMPARISON: CT HR CHEST X3 02/16/2024 7:12 AM FINDINGS: Lungs: Bibasilar atelectasis versus parenchymal scarring. Pleural spaces: Unremarkable. No pleural effusion. No pneumothorax. Heart/Mediastinum: See Soft tissues finding. Bones/joints: Unremarkable. Soft tissues: Previous noncontrast CT demonstrated presence of mediastinal adenopathy as well as right breast mass. Postoperative changes partially visualized in the right breast. Other findings: Consider follow-up with computerized tomography with contrast if appropriate. IMPRESSION: 1. No evidence of acute cardiopulmonary disease. 2. Consider follow-up with computerized tomography with contrast if appropriate.
--- NOTE | 2024-05-25 11:44 | HMH.EDGENADL ---
Discharge Plan Disposition Patient Disposition: Home, Self-Care Prescriptions Prescriptions: No Action atorvastatin 40 mg tablet 40 mg PO HS Qty: 90 3RF sildenafil (pulm.hypertension) 20 mg tablet 10 mg PO TID Qty: 135 3RF Rx Instructions: administer doses at least 4-6 hours apart fluoxetine 40 mg capsule 40 mg PO DAILY Patient Comments: TAKE 1 CAPSULE BY MOUTH ONCE DAILY metformin 500 mg tablet 500 mg PO BIDWMEAL Patient Comments: TAKE 1 TABLET BY MOUTH TWICE DAILY WITH A MEAL aspirin 81 mg Tablet,Chewable 81 mg PO DAILY ipratropium-albuterol 0.5 mg-3 mg(2.5 mg base)/3 mL Solution For Nebulization 3 ml inhalation Q6HP PRN (Reason: Shortness Of Breath Or Wheezing) Qty: 120 5RF Jardiance 10 mg Tablet 10 mg PO DAILY Qty: 30 5RF Trelegy Ellipta 100-62.5-25 mcg Blister With Device 1 inh inhalation DAILY Qty: 1 5RF nicotine 14 mg/24 hr Patch 24 Hour 14 mg transdermal DAILY Qty: 28 3RF tramadol 50 mg Tablet 50 mg PO Q6HP PRN (Reason: pain) Qty: 60 1RF prednisone 10 mg tablet 10 mg PO DAILY Qty: 30 2RF omeprazole 20 mg capsule,delayed release(DR/EC) 20 mg PO BID 10 Days Qty: 20 0RF methocarbamol 500 mg tablet 500 mg PO Q8H Qty: 90 0RF omeprazole 20 mg capsule,delayed release(DR/EC) 20 mg PO BID 10 Days Qty: 20 0RF bumetanide 2 mg Tablet 2 mg PO BID Qty: 60 3RF spironolactone [Aldactone] 100 mg Tablet 100 mg PO DAILY Qty: 30 3RF Referrals Follow up/Referrals: Provider,Referral, MD [Referring] - See instructions Activity Restrictions/Add. Instructions Additional Instructions/Restrictions: There is no clinical evidence of significant soft tissue fluid retention or any acute exacerbation of your chronic medical conditions. No evidence of any emergent medical condition identified today. You are stable to continue outpatient management and follow-up with your primary care doctor and temperature control inspector and dinkey engine firer/fireman as previously instructed. Please return with any acute or significant worsening of your symptoms. Clinical Impressions Clinical Impression: Chronic dyspnea, Pulmonary hypertension Print Language Print Language: Divehi Discharge ED Provider: Love,J Ezequiel General Adult HPI General Chief complaint: Weakness Stated complaint: fluid around abdomen, low back pain Time Seen by Provider: 05/25/24 11:25 Mode of Arrival: EMS Source of Information: Patient and EMS Limitations: No Limitations Description of Symptoms (Recalled from ER Triage Doc. by RN): pt has general complaints such as abd pain and swelling, chest pain and back pain. recent heart cath done here, pt is alox4 upon triage and all vitals WNL History of Present Illness HPI narrative: 48-year-old female presenting today with multiple complaints. Pulmonary hypertension had an admission several months ago where in her words she states that she had fluid around her heart and lungs sound her interpretation of what was told to her is that if her fluid continue to increase that her heart would stop and she was worried about that today. She states that she has had a little bit decreased urine output with her diuretics and that she feels like her abdomen was getting slightly more distended. She denies any significant weight gain or edema in her lower extremities she did states she had an intermittent episode of chest discomfort and right arm discomfort yesterday but nothing today. She currently denies any shortness of breath. No fevers or chills. Related Data Home Medications ?Medication ?Instructions ?Recorded ?Confirmed aspirin 81 mg chewable tablet 81 mg PO DAILY 01/02/24 05/16/24 fluoxetine 40 mg capsule 40 mg PO DAILY 01/02/24 05/16/24 metformin 500 mg tablet 500 mg PO BIDWMEAL 01/02/24 05/16/24 Previous Rx's ?Medication ?Instructions ?Recorded empagliflozin 10 mg tablet 10 mg PO DAILY #30 tabs 01/10/24 (Jardiance) fluticasone fur. 100 mcg-umeclid 1 inh inhalation DAILY #1 ea 01/10/24 62.5 mcg-vilant 25 mcg inhalat.powder (Trelegy Ellipta) ipratropium 0.5 mg-albuterol 3 mg 3 ml inhalation Q6HP PRN Shortness 01/10/24 (2.5 mg base)/3 mL nebulization Of Breath Or Wheezing #120 mL soln nicotine 14 mg/24 hr daily 14 mg transdermal DAILY tobacco 01/10/24 transdermal patch use #28 ea prednisone 10 mg tablet 10 mg PO DAILY #30 tabs 01/10/24 tramadol 50 mg tablet 50 mg PO Q6HP PRN pain #60 tabs 01/10/24 methocarbamol 500 mg tablet 500 mg PO Q8H #90 tabs 02/10/24 omeprazole 20 mg capsule,delayed 20 mg PO BID 10 days #20 caps 02/10/24 release omeprazole 20 mg capsule,delayed 20 mg PO BID 10 days #20 caps 02/10/24 release atorvastatin 40 mg tablet 40 mg PO HS #90 tabs 04/30/24 sildenafil (pulm.hypertension) 20 10 mg (1/2 x 20 mg) PO TID #135 05/02/24 mg tablet tabs bumetanide 2 mg tablet 2 mg PO BID #60 tabs 05/16/24 spironolactone 100 mg tablet 100 mg PO DAILY #30 tabs 05/16/24 (Aldactone) Allergies Allergy/AdvReac Type Severity Reaction Status Date / Time ondansetron [From Zofran] Allergy Headache Verified 05/16/24 08:48 [facility] Disclaimer: The information contained in this section may have been updated after the patient was seen, as this information can be updated by other users. Medical History Right ventricular dysfunction Pulmonary emphysema Smoking greater than 30 pack years (HFpEF) heart failure with preserved ejection fraction Headache Elevated brain natriuretic peptide (BNP) level Epigastric abdominal pain Knee pain Pneumonia Pulmonary hypertension RVF (right ventricular failure) HFrEF (heart failure with reduced ejection fraction) Atypical angina Clubbing of digits Cyanosis Acute respiratory failure with hypoxia Pulmonary edema CAD in [place] artery SOB (shortness of breath) on exertion GERD (gastroesophageal reflux disease) IBS (irritable bowel syndrome) History of VT (myocardial infarction) High cholesterol Hypertension Anxiety Depression Diabetes mellitus, type 2 Surgical History History of right breast biopsy History of D&C History of partial hysterectomy History of Family History Other COPD (chronic obstructive pulmonary disease) Depression FHx: mental illness Hyperlipidemia Social History Smoking Status: Former smoker alcohol intake: never current occupational status: disabled Travel in the last 8 weeks: None Other Medical History Have you received the Flu Vaccine for this season: No Have you received the Pneumonia Vaccine: No ROS Obtained: Yes All systems reviewed & no additional complaints except as documented Physical Exam General General appearance: alert and in no apparent distress Respiratory Respiratory exam: Present normal lung sounds bilaterally; Absent respiratory distress Cardiovascular Cardiovascular exam: Present regular rate and normal rhythm Abdominal Exam Abdominal exam: Present soft and other (No abdominal wall edema noted or fluid wave); Absent distention or tenderness Extremities Exam Extremities exam: Present other (No lower extremity edema) Neurological Exam Neurological exam: Present alert and oriented X3 Medical Decision Making Medical Records Screening: Per USPSTF and CDC recommendations, given the prevalence of disease in our region, it is our hospital?s policy to screen for HIV and viral Hepatitis for all patients aged 18 and over and those with ongoing risk factors. Obie Inquiry Pt receiving controlled substance: No Vital Signs: 05/25/24 11:21 05/25/24 11:22 05/25/24 11:30 Temperature 98.9 F Temperature Source Oral Pulse Rate 73 79 Pulse Rate [Left Radial] 73 Respiratory Rate 20 Blood Pressure 103/62 L 114/69 Blood Pressure [Right Arm] 103/62 L Blood Pressure Mean Blood Pressure Mean [Right Arm] 75 02 Sat by Pulse Oximetry 95 95 96 Oxygen Delivery Method Nasal Cannula Room Air Room Air Oxygen Flow Rate (LPM) 2 05/25/24 12:00 05/25/24 12:30 Temperature Temperature Source Pulse Rate 72 Pulse Rate [Left Radial] Respiratory Rate 14 Blood Pressure 93/53 L 109/59 L Blood Pressure [Right Arm] Blood Pressure Mean 66 76 Blood Pressure Mean [Right Arm] 02 Sat by Pulse Oximetry 93 L Oxygen Delivery Method Nasal Cannula Oxygen Flow Rate (LPM) 2 Lab Data Lab Results 05/25/24 11:23: WBC 9.3, RBC 4.69, Hgb 15.2, Hct 46.5, MCV 99.3 H, MCH 32.4 H, MCHC 32.6, RDW 13.1, Plt Count 259, MPV 8.1, Neut % (Auto) 68.6, Lymph % (Auto) 23.6, Harper % (Auto) 4.5, Eos % (Auto) 1.5, Baso % (Auto) 1.8, Neut # (Auto) 6.4, Lymph # (Auto) 2.2, Harper # (Auto) 0.4, Eos # (Auto) 0.1, Baso # (Auto) 0.2, Sodium 138, Potassium 4.3, Chloride 98, Carbon Dioxide 28, Anion Gap 16.3 H, BUN 28 H, Creatinine 1.00, Estimated Creat Clear 99, Estimated GFR 59, Est GFR ( Amer) 71, Glucose 156 H, Calcium 11.1 H, Magnesium 1.7, Total Bilirubin 0.6, AST 34, ALT 31, Alkaline Phosphatase 67, Troponin I < 0.01, NT-Pro-B Natriuret Pep 38.0, Total Protein 8.1, Albumin 4.9, Globulin 3.2, Albumin/Globulin Ratio 1.5, Lipase 268 05/25/24 11:23 05/25/24 11:23 Orders (Tests/Meds): ORDERS Category Date Time Status CXR --portable [XR chest portable] Stat Exams 05/25/24 11:40 Completed POCUS Point of Care (ER Only) Stat Exams 05/25/24 11:32 Completed BNP [NT Pro Brain Natriuretic Pep.] Stat Lab 05/25/24 11:23 Completed CBC w/Auto Diff [Complete Blood Count Auto Diff] Stat Lab 05/25/24 11:23 Completed CMP [Comprehensive Metabolic Panel] Stat Lab 05/25/24 11:23 Completed Lipase Stat Lab 05/25/24 11:23 Completed Magnesium Stat Lab 05/25/24 11:23 Completed Trop I [Troponin I] Stat Lab 05/25/24 11:23 Completed Troponin I Q3H Lab 05/25/24 14:45 Ordered Troponin I Q3H Lab 05/25/24 17:45 Ordered 12-lead EKG Request [ECG Request] Stat Y 05/25/24 11:28 Ordered ECG Data Tracing #1: I reviewed this ECG and interpreted as documented below: Ventricular to 72 no acute ischemic changes noted there is a an indeterminate axis no significant conduction abnormalities Medical Decision Narrative: Well-appearing female with above history and physical. Her perception in terms of her medical condition is that she had fluid around her heart and abdomen. She also believes that if her fluid continue to accumulate that her heart would stop. On reviewing her recent heart cath which was just 1 week ago as well as her hospitalization several months ago she has pulmonary hypertension it seems as though she was started on diuretics at that time with some improvement which seems to be what she was perceiving as what was going on. No evidence of any ascites or pericardial effusion. Today limited bedside ultrasound also confirmed that there was no ascites or pericardial effusion. She is at 92 kg today which is actually about as low as she has been in our system no clinical evidence of any edema in her abdomen pulmonary edema or lower extremity edema as well. Will get basic blood work and she appears very stable without any acute abnormalities at the moment and she will be okay to follow-up outpatient with her primary care doctor and temperature control inspector. Chest x-ray performed which I personally interpreted which shows no acute cardiopulmonary emergency specifically no evidence of any pulmonary edema. Again clinically patient has no lower extremity edema her weight is at its lowest point since we have been measuring it she has no pulmonary edema BNP is normal no other abnormalities on her lab from an acute standpoint that I am worried about. In fact her BUN/creatinine ratio is elevated which suggest that she may have even be vascular depleted. Certainly no evidence of volume retention or fluid retention. It appears that the majority of her dyspnea is chronic in the setting of pulmonary hypertension which she is being followed by cardiology and pulmonology for. From my perspective there is no emergent medical condition going on and she is stable to follow-up outpatient with she was discharged in stable condition. Critical Care Critical Care Time Critical Care Time: No
[2024-05-25 12:00] LABS: Basophils # 0.2 K/mm3 (0-0.2); Basophils % 1.8 % (0.1-2.0); Eosinophils # 0.1 K/mm3 (0.0-0.4); Eosinophils % 1.5 % (0.1-12.0); Hematocrit 46.5 % (37.0-47.0); Hemoglobin 15.2 g/dL (12.2-16.2); Lymphocytes # 2.2 K/mm3 (0.7-4.5); Lymphocytes % 23.6 % (10-50); Mean Corpuscular HGB Conc 32.6 g/dL (31.8-35.4); Mean Corpuscular Hemoglobin 32.4 pg (27.0-31.2); Mean Corpuscular Volume 99.3 fl (81-99); Mean Platelet Volume 8.1 fl (7.4-10.4); Monocytes # 0.4 K/mm3 (0.1-1.0); Monocytes % 4.5 % (1.7-9.3); Neutrophils # 6.4 K/mm3 (1.8-7.8); Neutrophils % 68.6 % (37.0-80.0); Platelet Count 259 K/mm3 (142-424); Red Blood Count 4.69 M/mm3 (4.20-5.40); Red Cell Distribution Width 13.1 % (11.5-17.5); White Blood Count 9.3 K/mm3 (4.8-10.8)
[2024-05-25 12:05] LABS: Albumin Level 4.9 g/dl (3.5-5.0); Chloride 98 mmol/L (98-107); Potassium 4.3 mmoL/L (3.5-5.1); Sodium 138 mmol/L (136-145)
[2024-05-25 12:07] LABS: Blood Urea Nitrogen 28 mg/dl (7-17); Creatinine Clearance Estimated 99 mL/min (50-200); Estimated Glomerular Filt Rate 59 ml/min (>60); GFR (African American) 71 ML/MIN (>60)
[2024-05-25 12:08] LABS: Alanine Aminotransferase 31 U/L (12-78); Albumin/Globulin Ratio 1.5 (1.1-1.8); Alkaline Phosphatase 67 U/L (38-126); Anion Gap 16.3 mEq/L (5-15); Aspartate Amino Transferase 34 U/L (14-36); Bilirubin,Total 0.6 mg/dl (0.2-1.3); Calcium 11.1 mg/dl (8.4-10.2); Carbon Dioxide 28 mmol/L (22.0-30.0); Globulin 3.2 g/dL (1.3-3.2); Glucose 156 mg/dl (74-100); Lipase 268 U/L (23-300); Magnesium 1.7 mg/dl (1.6-2.3); Total Protein,Serum 8.1 g/dl (6.3-8.2)
[2024-05-25 12:22] LABS: Troponin I < 0.01 ng/ml (0.00-0.034)
== END 2024-05-25 13:17 | disposition home or self-care (01) ==
PROVIDERS: Emergency Provider Student in an Organized Health Care Education/Training Program; PCP Family Medicine
DX: I27.20 Pulmonary hypertension, unspecified (principal); R06.09 Other forms of dyspnea; R10.9 Unspecified abdominal pain; R14.0 Abdominal distension (gaseous); R07.9 Chest pain, unspecified; M54.9 Dorsalgia, unspecified; R53.1 Weakness
CPT/HCPCS: 71045; 80053; 83690; 83735; 83880; 84484; 85025; 93005; 99284

== ENCOUNTER 2024-05-30 10:46 | Outpatient (CLI) | payer MEDICARE, MEDICAID, SELFPAY ==
[2024-05-30 11:04] LABS: Basophils # 0.2 K/mm3 (0-0.2); Basophils % 1.7 % (0.1-2.0); Eosinophils # 0.3 K/mm3 (0.0-0.4); Eosinophils % 2.6 % (0.1-12.0); Hematocrit 44.2 % (37.0-47.0); Hemoglobin 15.2 g/dL (12.2-16.2); Lymphocytes # 3.1 K/mm3 (0.7-4.5); Lymphocytes % 29.2 % (10-50); Mean Corpuscular HGB Conc 34.3 g/dL (31.8-35.4); Mean Corpuscular Hemoglobin 33.3 pg (27.0-31.2); Mean Corpuscular Volume 97.1 fl (81-99); Mean Platelet Volume 8.3 fl (7.4-10.4); Monocytes # 0.6 K/mm3 (0.1-1.0); Monocytes % 5.7 % (1.7-9.3); Neutrophils # 6.4 K/mm3 (1.8-7.8); Neutrophils % 60.7 % (37.0-80.0); Platelet Count 261 K/mm3 (142-424); Red Blood Count 4.55 M/mm3 (4.20-5.40); White Blood Count 10.5 K/mm3 (4.8-10.8)
[2024-05-30 11:32] LABS: Albumin Level 4.8 g/dl (3.5-5.0); Chloride 100 mmol/L (98-107); Potassium 4.7 mmoL/L (3.5-5.1); Sodium 137 mmol/L (136-145)
[2024-05-30 11:34] LABS: Bilirubin,Unconjugated 0.5 mg/dL (0.0-1.1); Blood Urea Nitrogen 15 mg/dl (7-17); Estimated Glomerular Filt Rate 89 ml/min (>60); GFR (African American) 108 ML/MIN (>60)
[2024-05-30 11:35] LABS: Alanine Aminotransferase 28 U/L (12-78); Alkaline Phosphatase 32 U/L (38-126); Anion Gap 12.7 mEq/L (5-15); Aspartate Amino Transferase 45 U/L (14-36); Bilirubin,Direct 0.5 mg/dl (0.0-0.4); Bilirubin,Indirect 0.5 mg/dL (0.0-0.9); Calcium 10.6 mg/dl (8.4-10.2); Carbon Dioxide 29 mmol/L (22.0-30.0); Chol/HDL Ratio 4.4 (1-3.5); Cholesterol 164 mg/dl (140-200); Glucose 128 mg/dl (74-100); HDL Cholesterol 37 mg/dl (40-60); Total Protein,Serum 7.7 g/dl (6.3-8.2); Triglycerides 127 mg/dl (30-150); VLDL Cholesterol 25 mg/dL (0-40)
[2024-05-30 11:46] LABS: Direct LDL Cholesterol 107.44 mg/dL (100-129)
[2024-05-30 11:52] LABS: Free T4 (Free Thyroxine) 1.14 ng/dl (0.78-2.19)
[2024-05-30 12:05] LABS: Thyroid Stimulating Hormone 1.23 uIU/mL (0.465-4.68)
== END 2024-05-30 23:59 | disposition home or self-care (01) ==
LOC: LAB 10:47
PROVIDERS: PCP Family Medicine; Visit Provider Physician Assistant
DX: I25.10 Atherosclerotic heart disease of native coronary artery without angina pectoris (principal); I27.20 Pulmonary hypertension, unspecified; E78.00 Pure hypercholesterolemia, unspecified; I10 Essential (primary) hypertension
CPT/HCPCS: 36415; 80048; 80061; 80076; 84439; 84443; 85025

== ENCOUNTER → 2024-06-27 10:08 | Outpatient (CLI) | payer MEDICARE, MEDICAID, SELFPAY | LOC: RT 10:11 → SL 10:15 | PROVIDERS: PCP Family Medicine; Visit Provider Internal Medicine Pulmonary Disease | DX: I27.20 Pulmonary hypertension, unspecified (principal); J43.9 Emphysema, unspecified | CPT/HCPCS: 94762 ==

== ENCOUNTER 2024-09-06 07:33 | Outpatient (CLI) | payer MEDICARE, MEDICAID, SELFPAY ==
--- NOTE | 2024-09-06 07:35 | CT_ITS ---
FINAL REPORT TECHNIQUE: Sagittal and coronal images were obtained by computed tomography without contrast. This study was performed with techniques to keep radiation doses as low as reasonably achievable, (ALARA). Individualized dose reduction techniques using automated exposure control or adjustment of mA and/or kV according to the patients' size were employed. CLINICAL HISTORY: ACUTE SINUSITIS COMPARISON: None FINDINGS: There is no evidence of mucoperiosteal thickening. No fluid levels are identified. There is a small amount of soft tissue partially bridging the right ostiomeatal unit. The left ostiomeatal unit is widely patent. The nasal septum is in the midline. No fracture or acute bony abnormality is identified. IMPRESSION: Small amount of soft tissue partially bridging the right ostiomeatal unit. Reviewed, Interpreted and Dictated by Ramos Walsh MD Transcribed by Nisha Roper Authenticated and [facility]
== END 2024-09-06 23:59 | disposition home or self-care (01) ==
LOC: RAD 07:33
PROVIDERS: PCP Family Medicine; Visit Provider Family Medicine
DX: J01.90 Acute sinusitis, unspecified (principal)
CPT/HCPCS: 70486

== ENCOUNTER 2024-11-04 10:27 | Outpatient (CLI) | payer MEDICARE, MEDICAID, SELFPAY ==
--- NOTE | 2024-11-04 10:34 | MM_ITS ---
PROCEDURE INFORMATION: Exam: MG Bilateral Diagnostic Breast Tomosynthesis Exam date and time: 11/04/2024 10:41 AM Age: 49 years old Clinical indication: Short-term radiographic followup; Right breast; Bilateral breast palpable lumps; Additional info: New lump felt in left breast, right breast (patient still feels area that was previously biopsied ) TECHNIQUE: Imaging protocol: Bilateral Diagnostic tomosynthesis and 2D mammography including computer-aided detection (CAD) when performed. Unilateral or bilateral exam. COMPARISON: 1. MG MM CLIP PLACEMENT RT 03/29/2024 10:03 AM 2. MG MM SURGICAL SPECIMEN RT 03/29/2024 9:45 AM FINDINGS: MAMMOGRAPHY: Breast composition: The breasts are heterogeneously dense, which may obscure small masses. Breast mammogram findings: Coarse nodular parenchyma throughout the entirety of the left upper outer quadrant including a round palpable mass in the middle third of the left upper quadrant measuring 1.0 cm . Previously biopsied mass in the right upper outer quadrant containing several coarse calcifications and 2 clips is stable measuring 10.4 cm in greatest dimension No suspicious calcifications in either breast. No skin thickening or axillary adenopathy IMPRESSION: Patient to return for complete left breast ultrasound for further evaluation of a 1 cm ovoid palpable mass in the upper-outer quadrant as well as scattered subcentimeter masses throughout the entire left upper outer quadrant possibly on the basis of underlying cystic change ASSESSMENT: BI-RADS Category 0: Incomplete- Need Additional Imaging Evaluation
== END 2024-11-04 23:59 | disposition home or self-care (01) ==
LOC: RAD 10:28
PROVIDERS: PCP Family Medicine; Visit Provider Family Medicine
DX: R92.8 Other abnormal and inconclusive findings on diagnostic imaging of breast (principal); R89.7 Abnormal histological findings in specimens from other organs, systems and tissues
CPT/HCPCS: 77062; 77066; G0279

== ENCOUNTER 2024-11-14 14:13 | Outpatient (CLI) | payer MEDICARE, MEDICAID, SELFPAY ==
--- NOTE | 2024-11-14 14:18 | XR_ITS ---
FINAL REPORT CLINICAL HISTORY: .great toe pain COMPARISON: None FINDINGS: 2 views of the left great toe were obtained. There is no acute fracture or dislocation. The joint spaces are intact. There is no soft tissue abnormality. IMPRESSION: No acute findings. Reviewed, Interpreted and Dictated by Patricia Jalloh MD Transcribed by Nita Alfred Authenticated and [facility]
--- NOTE | 2024-11-14 14:18 | XR_ITS ---
FINAL REPORT CLINICAL HISTORY: .pain COMPARISON: None FINDINGS: LUMBOSACRAL SPINE SERIES Five views of the lumbosacral spine were obtained. There is no fracture present. There is grade 2 spondylolisthesis of L5 on S1 secondary to pars defects. Mild disc space narrowing is noted at L3-4 and L4-5. IMPRESSION: Grade 2 spondylolisthesis of L5 on S1. Reviewed, Interpreted and Dictated by Patricia Jalloh MD Transcribed by Nita Alfred Authenticated and [facility]
--- NOTE | 2024-11-14 14:18 | XR_ITS ---
FINAL REPORT CLINICAL HISTORY: PAIN COMPARISON: None FINDINGS: LEFT HIP: Two views of the left hip with an AP view of the pelvis demonstrate no acute fracture or dislocation. There are moderate degenerative changes. Mild spurring is noted. There is mild subchondral sclerosis. IMPRESSION: Moderate degenerative changes. Reviewed, Interpreted and Dictated by Patricia Jalloh MD Transcribed by Nita Alfred Authenticated and [facility]
--- OUTSIDE RECORDS SUMMARY | 2024-11-14 23:33 | XMS_ITS ---
Author Organization Unknown Problems Date Problem Result OnSetDate Icd10 SnomedCode Severity 12/14/2023 00:00:00 Essential hypertension I10 [id number] 12/14/2023 00:00:00 Type 2 diabetes mellitus without complication, without long-term current use of insulin E11.9 [id number] 12/14/2023 00:00:00 Depression with anxiety F41.8 [id number] 01/11/2024 00:00:00 Pulmonary hypertension I27.20 [id number] 01/11/2024 00:00:00 Atherosclerosis of [place] coronary artery without angina pectoris, unspecified whether [place] or transplanted heart I25.10 [id number] 01/11/2024 00:00:00 Type 2 diabetes mellitus without complication, unspecified whether prison insulin use E11.9 [id number] 01/16/2024 00:00:00 GERD (gastroesophageal reflux disease) K21.9 01/26/2024 00:00:00 Abnormal mammogram R92.8 [id number] 02/01/2024 00:00:00 Pulmonary emphysema, unspecified emphysema type J43.9 [id number] 02/01/2024 00:00:00 Bandemia D72.825 [id number] 02/27/2024 00:00:00 Abnormal breast biopsy R89.7 [id number] 08/30/2024 00:00:00 Acute sinusitis, recurrence not specified, unspecified location J01.90 [id number] 10/25/2024 00:00:00 Constipation K59.00 10/25/2024 00:00:00 Hyperlipidemia, unspecified hyperlipidemia type E78.5 [id number]
== END 2024-11-14 23:59 | disposition home or self-care (01) ==
LOC: RAD 14:15
PROVIDERS: PCP Family Medicine; Visit Provider Physician Assistant
DX: M25.552 Pain in left hip (principal); M79.675 Pain in left toe(s); M54.50 Low back pain, unspecified
CPT/HCPCS: 72110; 73502; 73660

== ENCOUNTER 2024-12-17 08:34 | Outpatient (CLI) | payer MEDICARE, MEDICAID, SELFPAY ==
--- NOTE | 2024-12-17 08:37 | MR_ITS ---
FINAL REPORT CLINICAL HISTORY: low back pain [id number]. no injury COMPARISON: None FINDINGS: Multiplanar MR imaging of the lumbar spine was performed without contrast. On the sagittal T2-weighted images, there is abnormal decreased signal at the L2-3, L3-4, and L5-S1 disc levels. The vertebrae are of normal height. The vertebral alignment is normal. L1-2: There is no significant canal stenosis or neural foraminal narrowing. L2-3: There is no significant canal stenosis or neural foraminal narrowing. L3-4: There is no significant canal stenosis or neural foraminal narrowing. L4-5: There is no significant canal stenosis or neural foraminal narrowing. L5-S1: Right posterolateral disc protrusion. Moderate right and mild left neuroforaminal narrowing. IMPRESSION: Right posterolateral disc protrusion at L5-S1 with moderate right and mild left neuroforaminal narrowing. Reviewed, Interpreted and Dictated by Ramos Walsh MD Transcribed by Nita Alfred Authenticated and . [facility]
--- NOTE | 2024-12-17 09:23 | US_ITS ---
PROCEDURE INFORMATION: Exam: US Left Breast, Complete Exam date and time: 12/17/2024 10:18 AM Age: 49 years old Clinical indication: Findings on left breast mammogram dated 11/04/2024, for further evaluation with ultrasound. TECHNIQUE: Imaging protocol: Complete ultrasound of all four quadrants of the left breast and the retroareolar regions, including ultrasound of the axilla when performed. COMPARISON: MG MM DIG MAMM BI DX W/CAD 11/04/2024 10:41 AM FINDINGS: ULTRASOUND: Breast ultrasound findings: In the left breast at the palpable area concern in the upper-outer quadrant there is a hypoechoic circumscribed mass that is most consistent with fat necrosis, measuring 1.1 x 0.8 x 1.1 cm. This correlates to the finding on the mammogram in this region. Scattered subcentimeter cystic changes are noted in the 2 o'clock axis, 10-12 cm from the nipple. A complicated cyst is seen in the left breast 2 o'clock axis, 6 cm from the nipple measuring 0.5 x 0.3 x 0.5 cm. Calipers are drawn around what appears to be fibroglandular tissue in the left breast lower outer quadrant, 6 cm from the nipple, measuring up to 2.0 cm. In the left breast lower outer quadrant, 5 o'clock axis, 3 cm from the nipple, there is a complicated cyst/hypoechoic mass that measures 0.5 x 0.4 x 0.3 cm. IMPRESSION: 1. Probably benign cystic changes in the left breast at the 2 o'clock axis, 6 cm from the nipple, 5 o'clock axis, 3 cm from the nipple, and lower outer quadrant, 6 cm from the nipple as above. 2. The palpable area concern in the left upper outer quadrant correlates to an area of what is believed to be fat necrosis with underlying hypoechoic mass that measures 1.1 cm just beneath the skin surface. This correlates to the round mass seen mammographically in this region. Further evaluation of a palpable abnormality should be based on clinical grounds regardless of radiographic findings or lack thereof. 3. Follow-up left breast mammogram and ultrasound in 6 months is recommended to ensure stability the above findings. ASSESSMENT: BI-RADS Category 3: Probably benign.
== END 2024-12-17 23:59 | disposition home or self-care (01) ==
LOC: RAD 08:35
PROVIDERS: PCP Family Medicine; Visit Provider Physician Assistant
DX: M51.27 Other intervertebral disc displacement, lumbosacral region (principal); M99.73 Connective tissue and disc stenosis of intervertebral foramina of lumbar region; R92.8 Other abnormal and inconclusive findings on diagnostic imaging of breast; N60.12 Diffuse cystic mastopathy of left breast; N63.21 Unspecified lump in the left breast, upper outer quadrant
CPT/HCPCS: 72148; 76641

== ENCOUNTER 2025-01-15 09:24 | Emergency (ER) | payer MEDICARE, MEDICAID, SELFPAY ==
--- OUTSIDE RECORDS SUMMARY | 2024-11-14 09:30 | XMS_ITS ---
Author Organization [facility] Address 12[address] [facility] [address] [place] [id number] Care Team Providers Care Medicare Nurse Name Role Phone Brionna Burroughs Unavailable [phone] Carlie Garcia Unavailable [phone] Allergies Allergen (clinical drug ingredient) Drug/Non Drug [...] ck pain without sciatica (M54.50) [facility] Referring Provider First Name Carlie Referring Provider Last Name Radha Referring Provider Speciality Physician Channel Sales Manager Referred Provider Orthopedics, . Referred Provider Specialty [...] 40 MG 1 capsule Orally Once a day for 30 day(s) Not-Taking Potassium Chloride ER 20 MEQ 1 tablet with food Orally Once a day for 30 day(s) Not-Taking Mupirocin 2 % 1 application Externally Twice a day for 7 days 09/19/2024 Active Ipratropium-Albutero l 0.5-2.5 [...] 50 MG 1 tablet Orally Once a day for 30 day(s) Active Medrol 4 MG as directed orally daily for 6 days 11/14/2024 Active oxyBUTYnin Chloride ER 5 MG 1 tablet Orally Once a day for 30 day(s) Urinary Incontinence 09/09/2024 Active Nitroglycerin 0.4 MG as directed Sublingual Active predniSONE 10 mg TAKE 1/2 TABLET BY MOUTH EVERY DAY --TAKE WITH FOOD-- for Active Omeprazole 20 MG 1 capsule 30 minutes before morning meal Orally Once a day for 30 day(s) Active Aspirin 81 81 MG 1 tablet Orally Once a day Active Atorvastatin Calcium 40 MG 1 tablet Orally Once a day for 90 days Active Metoprolol Succinate ER 25 MG 1 tablet Orally Once a day for 30 day(s) Active Acetaminophen PM 500-25 MG [...] tablet with a meal Orally once daily for 90 days Active Jardiance 10 MG 1 tablet Orally Once a day for 90 days Active traMADol HCl 50 MG 1 tablet as needed Orally four times a day as needed for 15 day(s) 10/25/2024 Active Social History Tobacco Use: Social History Observation Description Date Smoking Status WARNING: Information temporarily unavailable CURRENT TOBACCO USE: Question Answer Notes Are you a: 1/2 pack per day Problems Problem Type SNOMED Code ICD Code Onset Dates Problem Status W/U Status Risk Notes Problem [id number] BMI 33.0-33.9,ad ult (Z68.33) Active confirmed Vital Signs Blood pressure systolic 100 mm Hg 11/15/19 25 Blood pressure diastolic 72 mm Hg 025 Heart Rate 78 /min 11/14/2024 Height 63.5 in 11/14/2024 Weight 190.0 lbs 11/14/2024 BMI 33.13 kg/m2 11/14/2024 Encounters Encounter Location Date Provider Diagnosis [facility] [address] [facility] 36 [facility] [address] [place] [id number] 11/14/2024 Carlie Garcia Left hip pain M25.55 2 ; Acute [...] Notes Medrol 4 MG as directed orally daily for 6 days 11/14/2024 Referrals Referral Date Details 11/14/2024 11/14/2024, . Orthop edics Next Appt Details Follow Up: via phone to repo rt test results, Reason: Provider Name:Brionna king, 01/27/2025 03:15:00 PM, [address] [facility] 36 [facility], [address], [place], [id number], Provider Name:Brionna king, 02/24/2025 10:15:00 AM, [address], [place], [phone], Progress Notes * ARUNA TIANDOB:[birth year] (49 yo F)Acc No.[id number]:11/14/2024 Progress Notes Patient: ARUNA HARTMAN Provider: TAYLOR Franco :1975 A ge:49 Y S ex:Female Date:11/14/2024 Address:[address] [place], [place] [id number] Subjective: * Chief Complaints: * 1 . [...] acute respiratory failure with hypoxia; ASCVD of [place] coronoary artery; T2 DM; Breast mass 01/01-01/10/2024. [...] H ip / Thigh: Hip joint: left. Inspection: n o effusion, ecchymosis or deformities. Palpation: tenderness on trochanteric bursa and in the groin area. Range of motion: restricted rotations and abduction. Ipsilateral knee joint: n ormal ROM, no tenderness. Gait: favoring affected side. L ower back: Inspection: n ormal curvature of spine. Palpation: v ertebral spine tenderness along the lower lumbar spine. Straight leg raising test: n egative bilaterally. Motor system: pain with figure 4 test. Sensory exam: n ormal bilateral LE. Gait: favoring affected side. Range of motion: decreased at terminal ranges. A nkle / Foot: Foot: left great toe unable to fully flex. ? Assessment: * Assessment: 1. L eft hip pain - M25.552 (Primary) 2 . A cute midline low back pain without sciatica - M54.50 3 . T oe pain, left - M79.675 4 . T obacco use - Z72.0 5 . B VT 33.0-33.9,adult - Z68.33 Plan: * Treatment: ? Referral To:. Orthopedics??Orthopedic Surgery ?Reason: 2.?Acute midline low back pain without sciatica?Imaging: X ray : Spine, lumbosacral (Performed Date - 11/15/2024)* Carlie Garcia 11/14/2024 01:56:28 PM > left great toe Arlene Browning 11/20/2024 03:55:26 PM > See phone encounter ? Referral To:. Orthopedics??Orthopedic Surgery ?Reason: 3.?Toe pain, left?Imaging: X ray : Toe (Performed Date - 11/14/2024)* Carlei Garcia 11/14/2024 01:56:28 PM > left great toe Arlene Browning 11/20/2024 03:55:26 PM > See phone encounter ? Referral To:. Orthopedics??Orthopedic Surgery ?Reason: * Procedure Codes: G 2211 Complex e/m visit add on, G8752 MOST RECENT SYSTOLIC BP < 140MM HG, G8754 MOST RECENT DIASTOLIC BP < 90MM HG * Follow Up: v ia phone to report test results * Billing Information: * Visit Code: 38718 Office Visit, Est Pt., Level 4. * Procedure Codes: G2211 Complex e/m visit add on. G8752 MOST RECENT SYSTOLIC BP < 140MM HG. G8754 MOST RECENT DIASTOLIC BP < 90MM HG. * Electronic signature of TAYLOR Barber on 01/15/2025 at 09:38 AM EDT Sign off status: Pending * Provider: TAYLOR Franco Date: 0 11/14/2024 Generated for Iraisi corrina/Faedward/eTransmitting on: 0 01/15/2025 09:38 AM EDT History and Physical Notes * HPI (History [...]
--- OUTSIDE RECORDS SUMMARY | 2024-12-06 07:00 | XMS_ITS ---
Author Organization [facility] Address [facility] [facility] [address] [place] [id number] Care Team Providers Care Guest Service Supervisor Name Role Phone Brionna Burroughs Unavailable [phone] Allergies Allergen (clinical drug ingredient) Drug/Non Drug [...] Once a day for 30 day(s) Not-Taking Bumetanide 2 MG 1 tablet Orally Two times a day Active oxyBUTYnin Chloride ER 5 MG 1 tablet Orally Once a day for 30 day(s) Urinary Incontinence 09/09/2024 Active Mupirocin 2 % 1 application Externally Twice a day for 7 days 09/19/2024 Active Atorvastatin Calcium 40 MG 1 tablet Orally Once a day for 90 days Active Desvenlafaxine Succinate ER 50 MG 1 tablet Orally Once a day for 30 day(s) Active Spironolactone 100 MG 1 tablet Orally Once a day Active predniSONE 10 mg TAKE 1/2 TABLET BY MOUTH EVERY DAY --TAKE WITH FOOD-- for 90 Not-Taking Omeprazole 20 MG 1 capsule [...] as needed for 15 day(s) 10/25/2024 Active Metoprolol Succinate ER 25 MG 1 tablet Orally Once a day for 30 day(s) Active metFORMIN HCl 500 MG 1 tablet with a meal Orally once daily for 90 days Active Social History Tobacco Use: [...] 12/06/2024 Encounters Encounter Location Date Provider Diagnosis [facility] [address], [place] [phone] 12/06/2024 Brionna Burroughs Essential hypertensi on I10 [...] Up: PAP, Reason: Provider Name:Brionna Dietrich er, 01/27/2025 03:15:00 PM, [address], [address], [place], [phone], Provider Name:Brionna Dietrich er, 02/24/2025 10:15:00 AM, [address], [address], [place], [phone], Progress Notes * ARUNA TIANDOB:[birth year] (49 yo F)Acc No.[id number]:12/06/2024 Progress Notes Patient: ARUNA HARTMAN Provider: Brionna Burroughs M.D. :1975 A ge:49 Y S ex:Female Date:12/06/2024 Address:[address] [place] [address] [id number] Subjective: * Chief Complaints: * 1 . 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 [...] General Appearance: N AD, color is good. HEENT: u nremarkable. Oral cavity: n o lesions, mucosa moist and WNL, no erythema. Neck: s upple, no lymphadenopathy, no carotid bruits. Chest: n ormal shape and expansion. Heart: R SR. Lungs: c lear to auscultation, occasional wheeze. Abdomen: soft and nontender, no organomegaly or masses.? Neurologic Exam: I ntact, gait normal. Skin: n ormal, no rash. Peripheral pulses: n ormal . Back: normal. Extremities: n o significant l eg edema, clubbing of fingers, n ails painted. Assessment: * Assessment: 1. E ssential hypertension [...] 7.0% * Follow Up: P AP * Billing Information: * Visit Code: 37788 Office Visit, Est Pt., Level 4. * Procedure Codes: G2211 Complex e/m visit add on. G8752 MOST RECENT SYSTOLIC BP < 140MM HG. G8754 MOST RECENT DIASTOLIC BP < 90MM HG. 3044F HG A1C LEVEL LT 7.0%. * Electronic signature of Brionna Burroughs MD on 01/15/2025 at 09:38 AM EDT Sign off status: Pending * Provider: Brionna Burroughs M.D. Date: 0 12/06/2024 Generated for Iraisi ng/Fagonzálezg/eTransmitting on: 0 01/15/2025 09:38 AM EDT History [...]
--- OUTSIDE RECORDS SUMMARY | 2024-12-09 11:00 | XMS_ITS ---
Author Organization [facility] Address [address] [place] [id number] Care Team Providers Care Cylinder Machine Operator Pulp Drier Name Role Phone Brionna Burroughs Unavailable [phone] Allergies Allergen (clinical drug ingredient) Drug/Non Drug Allergy documented on EMR Reaction Allergy Type Onset Date Status buspirone busPIRone HCl Unknown Drug Allergy Act edson sertraline Zoloft Unknown Drug Allergy Active Results Component Value Reference Range Notes HPV High Risk Screen (TMA) ( Not yet reviewed by provider) Interpretation:DETECTED Performing Lab: Notes/Report: HPV High Risk DETECTED The human papillomavirus (HPV) High Risk Screen is an FDA-approved in-vitro amplified nucleic acid test for the qualitative detection of E6/E7 viral mRNA. Results should be correlated with patient presentation, history, cervical cytology and other clinical and laboratory findings. See https://www.GreenItaly1.com/ sites/default/files/2017/AW-12820_002_01.pd f for further information. Test performed by [facility] d/b/a [facility], [address] [place] [address] , [address], [place] [address], Abdiel Oates DO, Proposal Analyst, [facility]# [id number] P-Pap Test Thin Prep (Not ye t reviewed by provider) Interpretation:ATYPICAL SQUAMOUS CELLS OF UNDETERMINED SIGNIFICANCE Performing Lab: Notes/Report: Pap Test Thin Prep ATYPICAL SQUAMOUS CELLS OF UNDETERMINED SIGNIFICANCE Source: Cervical/Endocervical LMP: and gt;5 years Date Taken: 12/09/2024 Specimen Type: ThinPrep Vial Date Reported: 12/11/2024 Clinical Data: partial hysterectomy Hyst: Total Last Pap: WNL ( and gt; 5 years) Cytotech: HAO Duff(ASCP) MD Abby electronically signed 12/11/2024 at 3:57 PM Specimen Adequacy: Satisfactory for evaluation General Categorization: EPITHELIAL CELL ABNORMALITY: SEE INTERPRETATION/RESULT Interpretation/Result: ATYPICAL SQUAMOUS CELLS OF UNDETERMINED SIGNIFICANCE Shift in isaak suggestive of bacterial vaginosis The following tests have been ordered as requested and a separate report will be issued: HPV High Risk Screen (TMA), HPV Genotype (TMA) This specimen has been analyzed by the [employer] Imaging System, an interactive computer system which assists the lab in the screening of ThinPrep Pap Test slides. Following imaging, the slide was reviewed by a Access Tech and/or Pathologist. End of Report Technical services provided by [facility], d/b/a [facility], [address] [place] [address] , [place] [address] Jose Meza MD, Proposal Analyst. Case reviewed and diagnosis rendered at [facility], [address] [place] [address] Michael Mora MD, Proposal Analyst. CONFIDENTIAL HPV Genotype (TMA) (Not yet reviewed by provider) Interpretation:Negative Performing Lab: Notes/Report: HPV Type 16 NOT DETECTED The human papillomavirus (HPV) Genotype test is an FDA-approved in-vitro diagnostic amplified nucleic acid test for the qualitative detection of E6/E7 viral mRNA of independent HPV types 16 and 18/45 in cervical specimens. See https://www.GreenItaly1.com/ sites/default/files/2017AW-12821_002_01.pd f for further information. Test performed by [facility] d/b/a [address] [place], [place] [address], Abdiel Oates DO, Proposal Analyst, [place]# [id number] HPV Type 18/45 NOT DETECTED The human papillomavirus (HPV) Genotype test is an FDA-approved in-vitro diagnostic amplified nucleic acid test for the qualitative detection of E6/E7 viral mRNA of independent HPV types 16 and 18/45 in cervical specimens. See https://www.GreenItaly1.com/ sites/default/files/2017AW-12821_002_01.pd f for further information. Test performed by [facility] d/b/a [facility], [address] [place] [address] [address] [place] [address], Abdiel Oates DO, Proposal Analyst, [facility]# [id number] REASON FOR VISIT pap, Needs shingles vaccine Medications Medication SIG (Take, Route, Frequency, Duration) Notes Start Date End Date Status Potassium Chloride ER 20 MEQ 1 tablet with food Orally Once a day for 30 day(s) Not-Taking FLUoxetine HCl 40 MG 1 capsule Orally Once a day for 30 day(s) Not-Taking predniSONE 10 mg TAKE 1/2 TABLET BY MOUTH EVERY DAY --TAKE WITH FOOD-- for 90 Not-Taking Sildenafil Citrate 20 MG 1/2 tablet Orally Three times a day Would like delivered Not-Taking Ipratropium-Albutero l 0.5-2.5 (3) MG/3ML 3 mL as needed Inhalation every 6 hrs Not-Taking Spironolactone 100 MG 1 tablet Orally Once a day Active Stool Softener Laxative 8.6-50 MG 2 TABS Orally Twice a day Active Mupirocin 2 % 1 application Externally Twice a day for 7 days 09/19/2024 Active oxyBUTYnin Chloride ER 5 MG 1 tablet Orally Once a day for 30 day(s) Urinary Incontinence 09/09/2024 Active Bumetanide 2 MG 1 tablet Orally Two times a day Active Atorvastatin Calcium 40 MG 1 tablet Orally Once a day for 90 days Active Aspirin 81 81 MG 1 tablet Orally Once a day Active Nitroglycerin 0.4 MG as directed Sublingual Active Desvenlafaxine Succinate ER 50 MG 1 tablet Orally Once a day for 30 day(s) Active Omeprazole 20 MG 1 capsule 30 minutes before morning meal Orally Once a day for 30 day(s) Active Trelegy Ellipta 100-62.5-25 MCG/ACT 1 puff Inhalation Once a day Active Vitamin B-12 1000 MCG 1 tablet Orally Once a day Active Acetaminophen PM 500-25 MG 1 tablet at bedtime as needed Orally Once a day Active Metoprolol Succinate ER 25 MG 1 tablet Orally Once a day for 30 day(s) Active traMADol HCl 50 MG 1 tablet as needed Orally four times a day as needed for 15 day(s) 10/25/2024 Active metFORMIN HCl 500 MG 1 tablet with a meal Orally once daily for 90 days Active Social History Tobacco Use: Social History Observation Description Date Smoking Status WARNING: Information temporarily unavailable CURRENT TOBACCO USE: Question Answer Notes Are you a: 1/2 pack per day Problems Problem Type SNOMED Code ICD Code Onset Dates Problem Status W/U Status Risk Notes Problem [id number] BMI 32.0-32.9,ad ult (Z68.32) Active confirmed Vital Signs Blood pressure systolic 114 mm Hg 12/10/19 25 Blood pressure diastolic 70 mm Hg 025 Heart Rate 71 /min 12/09/2024 Height 63.5 in 12/09/2024 Weight 188.6 lbs 12/09/2024 BMI 32.88 kg/m2 12/09/2024 Encounters Encounter Location Date Provider Diagnosis [facility] [address] [place] [id number] 12/09/2024 Brionna Burroughs Well woman exam with routine gynecological exam Z01.419 and BMI 32.0-32.9,adult Z68.32 Assessments Encounter Date Diagnosis (ICD Code) Assessment Notes Treatment Notes Treatment Clinical Notes Section Notes 12/09/2024 Well woman exam with routine gynecological exam (ICD-10 - Z01.419) 12/09/2024 BMI 32.0-32.9,adult (ICD-10 - Z68.32) Plan Of Treatment Pending Test Test Name Order Date HPV High Risk Screen (TMA) 12/09/2024 P-Pap Test Thin Prep 12/09/2024 HPV Genotype (TMA) 12/09/2024 Next Appt Details Follow Up: 3 Months, Reason: Provider Name:Brionna Dietrich , 01/27/2025 03:15:00 PM, [address] [facility], [address], [place], [id number], Provider Name:Brionna Dietrich , 02/24/2025 10:15:00 AM, [address] [facility], [address], [place], [id number], Progress Notes * ARUNA TIANDOB:[birth year] (49 yo F)Acc No.[id number]:12/09/2024 Progress Notes Patient: ARUNA HARTMAN Provider: Brionna Burroughs M.D. :1975 A ge:49 Y S ex:Female Date:12/09/2024 Address:[address] [place] [address] [place], [id number] Subjective: * Chief Complaints: * 1 . Pap. 2. Needs shingles vaccine. * HPI: G YN: 49 year old female presents with c/o routine pap smear L ast Pap Smear 5 years ago. LMP 2019. Partial Hysterectomy in 2019. Denies : vaginal discharge. D enies : pelvic pain. D enies : Fever. She describes a Partial hysterectomy and thinks she may have a cervix. We do not have surgical records. * ROS: D ERMATOLOGY: no R josafat. [...] acute respiratory failure with hypoxia; ASCVD of grindstone coronoary artery; T2 DM; Breast mass 01/01-01/10/2024. [...] needed Orally Once a day , Taking Vitamin B-12 1000 [...] 1 application Externally Twice a day , Taking Stool Softener Laxative 8.6-50 MG Tablet 2 TABS Orally Twice a day , Not-Taking predniSONE 10 [...] Side Effects. Objective: * Vitals: W t: 188.6, Temp: 98.3, BP: 114/70, HR: 71, Nurse: DIONY, Ht: 63.5, BMI:32.88. * Examination: G eneral Examination: General Appearance: N AD, color is good. HEENT: u nremarkable. Oral cavity: n o lesions, mucosa moist and WNL, no erythema. Neck: s upple, no lymphadenopathy, no carotid bruits. Chest: n ormal shape and expansion. Heart: R SR. Lungs: c lear to auscultation , decreased breath sounds.? Abdomen: soft and nontender, no organomegaly or masses.? Neurologic Exam: I ntact, gait normal. Skin: n ormal, no rash. Peripheral pulses: n ormal . Back: normal. Extremities: n o significant l eg edema, clubbing of fingers, n ails painted. G YN: External genitalia n ormal , no lesions seen. Urethra: m eatus normal. Vagina: n ormal, no lesions , cuff well healed, I DO NOT THINK THERE IS CERVICAL TISSUE, but a PAP was performed with broom and brush. Uterus: a bsent. Adnexa: n ormal, no masses. Rectal exam: n ormal , no masses. Breasts: n ot examined, wearing bra. Assessment: * Assessment: 1. W ell woman exam with routine gynecological exam - Z01.419 (Primary) 2 .?BMI 32.0-32.9,adult - Z68.32 Plan: * Treatment: Value Reference Range P ap Test Thin Prep ATYPICAL SQUAMOUS CELLS OF UNDETERMINED SIGNIFICANCE A - * Labs: * L ab: HPV Genotype (TMA) (Collection Date & Time - 12/09/2024 03:13 PM) N egative Value Reference Range H PV Type 16 NOT DETECTED - * H PV Type 18/45 NOT DETECTED - * [facility], IT support 12/12/2024 09:25:03 : This order was created by the Interface. ?Lab: HPV High Risk Screen (TMA) (Collection Date & Time - 12/09/2024 03:13 PM)?DETECTED* Value Reference Range H PV High Risk DETECTED A - * [facility], IT support 12/12/2024 09:25:03 : This order was created by the Interface. * Procedure Codes: G 2211 Complex e/m visit add on, G8752 MOST RECENT SYSTOLIC BP < 140MM HG, G8754 MOST RECENT DIASTOLIC BP < 90MM HG * Follow Up: 3 Months * Billing Information: * Visit Code: 20532 Preventive Care Est Pt Age 40-64. * Procedure Codes: G2211 Complex e/m visit add on. G8752 MOST RECENT SYSTOLIC BP < 140MM HG. G8754 MOST RECENT DIASTOLIC BP < 90MM HG. * Electronic signature of Brionna Burroughs MD on 01/15/2025 at 09:38 AM EDT Sign off status: Pending * Provider: Brionna Burroughs M.D. 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 We do not have surgical records. vaginal discharge pelvic pain routine pap smear Last Pap Smear 5 yea rs ago. LMP 2019. Partial Hysterectomy in 2020 Examination Category Sub-Category Detail Notes Category Not es General Examination HEENT: unremarkable Heart: RSR Lungs: clear to auscultatio n , decreased breath sounds Abdomen: soft and nontender, no organomegaly or [...] normal Chest: normal shape and exp ansion DOOR MANAGER Vagina: normal, no lesio ns , cuff well healed, I DO NOT THINK THERE IS CERVICAL TISSUE, but a PAP was performed with broom and brush Uterus: absent Adnexa: normal, no masses Urethra: meatus normal Rectal exam: normal , no masses Breasts: not examined, wearin g bra External genitalia normal , no lesions seen
[2025-01-15 09:31] VITALS: BP 125/78; PULSE 80; O2SAT 88
--- OUTSIDE RECORDS SUMMARY | 2025-01-15 09:38 | XMS_ITS | Encounter Summary ---
Author Organization [facility] Address [address] [place] [address] Care Team Providers Care Screen Printing Machine Operator Helper Name Role Phone Jossue Orourke MD Primary Care Provider [phone] Encounter Details Date Type Department Care Team (Late st Contact Info) Description 04/24/2023 Orders Only Bonnie [facility] [address] [place] [address] ProviderBonnie MD Social History Tobacco Use Types Packs/Day Years Used Date Smoking Tobacco: Every Day Cigarettes Smokeless Tobacco: Never Alcohol Use Standard Drinks/Week Comments No 0 (1 standard drink = 0.6 oz pur e alcohol) Overall Financial Resource Strain (CARDIA) Answe r Date Recorded How hard is it for you to pa y for the very basics like food, housing, medical care, and heating? Not very hard 04/05/2023 PHQ-2 Answer Date Recorded PHQ-9 Total Score 1 02/08/2022 Exercise Vital Sign Answer Date Recorde d On average, how many days pe r week do you engage in moderate to strenuous exercise (like a brisk walk)? 0 days 02/08/2022 On average, how many minutes do you engage in exercise at this level? 20 min 02/08/2022 Hunger Vital Sign Answer Date Recorded Within the past 12 months, y ou worried that your food would run out before you got the money to buy more. Sometimes true Within the past 12 months, t he food you bought just didn't last and you didn't have money to get more. Sometimes true PRAPARE - Transportation Answer Date Re corded Lack of Transportation (Medical) Not on file 04/05/2023 In the past 12 months, has l ack of transportation kept you from meetings, work, or from getting things needed for daily living? Yes 04/05/2023 Housing Stability Vital Sign Answer Anthony e Recorded Unable to Pay for Housing in the Last Year Not o n file 04/05/2023 Number of Places Lived in the Last Year Not on f ile 04/05/2023 In the last 12 months, was t here a time when you did not have a steady place to sleep or slept in a chcf (including now)? No 04/05/2023 Food Insecurity Answer Date Recorded Within the past 12 months, y ou worried that your food would run out before you got the money to buy more. 2 04/05/2023 Within the past 12 months, t he food you bought just didn't last and you didn't have money to get more. 2 04/05/2023 Comments No Sex and Gender Information Value Date Recorded Sex Assigned at Female 02/08/2022 12:08 PM EDT Legal Sex Female 6:49 AM EST Gender Identity Female 02/08/2022 12:08 PM EDT Sexual Orientation Not on file documented as of this encounter Plan of Treatment Not on file documented as of this encounter Procedures Procedure Name Priority Date/Time Associated Diagnosis Comments HEMOGLOBIN A1C Routine 04/14/2023 LIPID PANEL Routine 04/14/2023 documented in this encounter Results * Hemoglobin A1C (04/14/2023) Hemoglobin A1C 6.3 % Estimated Avg Glucose BLOOD SPECIMEN / Unknown us Historical Provider CHEMISTRY ORDERABLES Edit ed Result - Final * (ABNORMAL) Lipid Panel (04/14/2023) Cholesterol, Total 181 mg/dL HDL 26(A) 35 - 70 mg/dL LDL Calculated 119 0 - 160 mg/dL Triglycerides 181 mg/dL Chol/HDL Ratio VLDL 36 mg/dL Cholesterol non HDL 155 BLOOD SPECIMEN / Unknown us Historical Provider CHEMISTRY ORDERABLES Edit ed Result - Final documented in this encounter Visit Diagnoses Not on filedocumented in this encounter Care Teams Screen Printing Machine Operator Helper Relationship Specialty Start Date End Date Jossue Orourke MD [address] [place] [id number] PCP - General Family Medicine 02/13/22 documented as of this encounter
--- OUTSIDE RECORDS SUMMARY | 2025-01-15 09:38 | XMS_ITS | Patient Health Record ---
Author Organization [facility] Address [address] [place] [id number] Care Team Providers Care Clip Riveter Name Role Phone Brionna Burroughsory Unavailable [phone] Giovanna Martinez Unavailable [phone] Carlie Garcia Unavailable [phone] Allergies Allergen (clinical drug ingredient) Drug/Non Drug Allergy documented on EMR Reaction Allergy Type Onset Date Status buspirone busPIRone HCl Unknown Drug Allergy Act edson sertraline Zoloft Unknown Drug Allergy Active Results Component Value Reference Range Notes Ultrasound Guided Core Biops y : Right Breast Reviewed date:02/01/2024 02:19:29 PM Interpretation:see duplicate order Performing Lab: Notes/Report: see duplicate order Mammogram Reviewed date:01/26/2024 08:43:20 AM Interpretation:see diagnostic mammogram Performing Lab: Notes/Report: see diagnostic mammogram Mammogram, Bilateral Diagnos tic Reviewed date:01/29/2024 03:36:12 PM Interpretation:suspicious Performing Lab: Notes/Report: suspicious X ray : Toe Reviewed date:11/20/2024 03:57:30 PM Interpretation: Performing Lab: Notes/Report: X ray : Hip, left Reviewed date:11/20/2024 03:57:30 PM Interpretation: Performing Lab: Notes/Report: X ray : Spine, lumbosacral Reviewed date:11/20/2024 03:57:30 PM Interpretation: Performing Lab: Notes/Report: X ray : Spine, lumbosacral Reviewed date:11/20/2024 03:57:30 PM Interpretation: Performing Lab: Notes/Report: Biopsy : Stereotactic, right breast Reviewed date:02/26/2024 08:40:19 AM Interpretation:surgical consult recommended for excisional biopsy Performing Lab: Notes/Report: surgical consult recommended for excisional biopsy P-Culture, Urine Reviewed date:02/05/2024 11:42:06 AM Interpretation:No growth Performing Lab: Notes/Report: Test performed by [facility] [address] [place] [address] , [address], [place] [address] Christopher Valdez MD, Collection Systems Technician CLIA: [id number] Specimen Source Urine - Void Culture, Urine See Below Final Report : No growth P-Basic Metabolic Panel (BMP ) Reviewed date:02/05/2024 11:42:06 AM Interpretation:gluc 165, bun 24, Ca 11.6 Performing Lab: Notes/Report: Test performed by [facility] [address] [place] [address] , [address], [place] [address] Christopher Valdez MD, Collection Systems Technician CLIA: [id number] Sodium 135 135-145 mmol/L Potassium 5.2 3.5-5.3 mmol/L Chloride 97 97-108 mmol/L CO2 23 22-32 mmol/L Glucose 165 65-99 mg/dL BUN 24 6-20 mg/dL Creatinine 0.83 0.50-1.00 mg/dL Calcium 11.6 8.6-10.4 mg/dL eGFR by Creatinine 86 >59 mL/min/1.73m2 CBC Venipuncture (in house) Reviewed date:02/02/2024 04:06:42 PM Interpretation: Performing Lab: Notes/Report: wbc 12.3 3.5 - 10 lymph 14.7% 15 - 50 mid 4.0% 2 - 15 gran 81.3% 35 - 80 rbc 6.02`18.0 3.5 - 5.5 hgb 55.5 11.5 - 16.5 hct 92.1 35 - 55 mcv 30.0 75 - 100 mch 32.5 25 - 35 mchc 248 31 - 38 Urinalysis - Inhouse Reviewed date:02/02/2024 04:05:42 PM Interpretation: Performing Lab: Notes/Report: Color/Clarity yellow/clear Leuk Neg Nitrite Neg Urobili 3.2 Protein Neg pH 5.5 Blood trace-intact Sp. Gr. <1.005 Ketone Neg Bili 3+ Mammogram, Bilateral Diagnos tic Reviewed date:11/13/2024 04:09:12 PM Interpretation:Needs Additional Imaging; Left Breast US Needed Performing Lab: Notes/Report: Needs Additional Imaging; Left Breast US Needed MRI : Lumbar Spine without c ontrast Reviewed date:12/26/2024 12:28:24 PM Interpretation: Performing Lab: Notes/Report: Ultrasound : Breast, left Reviewed date:12/25/2024 04:35:33 PM Interpretation:probably benign, 6 month f/u Performing Lab: Notes/Report: probably benign, 6 month f/u CBC Venipuncture (in house) Reviewed date:08/30/2024 03:09:09 PM Interpretation: Performing Lab: Notes/Report: wbc 13.4 3.5 - 10 lymph 26.5 15 - 50 mid 6.2 2 - 15 gran 67.3 35 - 80 rbc 4.41 3.5 - 5.5 hgb 14.2 11.5 - 16.5 hct 41.7 35 - 55 mcv 94.5 75 - 100 mch 32.3 25 - 35 mchc 34.2 31 - 38 platlet 284 100 - 400 Glycohemoglobin A1c (in hous e) Reviewed date:08/30/2024 03:09:19 PM Interpretation: Performing Lab: Notes/Report: glycohemoglobin 7.2% 5 - 6.5 % P-Comprehensive Metabolic Pa elena (CMP) Reviewed date:09/02/2024 08:34:24 AM Interpretation:gluc 139, Ca 11.2 Performing Lab: Notes/Report: Test performed by [facility] [address] [place] [address] , [address], [place] [address] Christopher Valdez MD, Collection Systems Technician CLIA: [id number] Sodium 139 135-145 mmol/L Potassium 4.4 3.5-5.3 mmol/L Chloride 98 97-108 mmol/L CO2 28 22-32 mmol/L Glucose 139 65-99 mg/dL BUN 14 6-20 mg/dL Creatinine 0.85 0.50-1.00 mg/dL Calcium 11.2 8.6-10.4 mg/dL eGFR by Creatinine 83 >59 mL/min/1.73m2 Protein 7.5 6.0-8.3 g/dL Albumin 4.8 3.5-5.3 g/dL Alkaline Phosphatase 78 35-121 IU/L ALT (SGPT) 21 <5-47 IU/L AST (SGOT) 16 <5-40 IU/L Bilirubin, Total 0.5 <0.2-1.2 mg/dL A/G Ratio 1.8 1.1-2.5 P-Microalbumin/Creatinine, R andom Urine Sample Reviewed date:09/02/2024 08:34:24 AM Interpretation:Normal Performing Lab: Notes/Report: Test performed by [facility] [address] [place] [address] , [address], [place] [address] Christopher Valdez MD, Collection Systems Technician CLIA: [id number] Albumin/Creatinine Ratio, Urine 11 0-30 ug/mg Microalbumin, Urine, Random 0.4 Creatinine, Urine 36.1 HPV High Risk Screen (TMA) ( Not yet reviewed by provider) Interpretation:DETECTED Performing Lab: Notes/Report: HPV High Risk DETECTED The human papillomavirus (HPV) High Risk Screen is an FDA-approved in-vitro amplified nucleic acid test for the qualitative detection of E6/E7 viral mRNA. Results should be correlated with patient presentation, history, cervical cytology and other clinical and laboratory findings. See https://www.[employer] /sites/default/files/ 2017-10/[email or web address]_[email or web address] 1.pd f for further information. Test performed by [facility], [facility] d/[facility]/a [address] , [address], [place] [address], Abdiel Oates DO, Collection Systems Technician, CLIA# [id number] P-Pap Test Thin Prep (Not ye t [...] This specimen has been analyzed by the ThinPrep Imaging System, an interactive computer system which assists the lab in the screening of ThinPrep Pap Test slides. Following imaging, the slide was reviewed by a Ac/Dc Rewinder and/or Pathologist. End of Report Technical services provided by [facility], [facility], d/b/a [facility], [address] [place] [address] , [place] [address] Jose Meza MD, Collection Systems Technician. Case reviewed and diagnosis rendered at [facility], d/[facility]/a [facility], [address] [place] [address] Michael Mora MD, Collection Systems Technician. CONFIDENTIAL HPV Genotype (TMA) (Not yet reviewed by provider) Interpretation:Negative Performing Lab: Notes/Report: HPV Type 16 NOT DETECTED The human papillomavirus (HPV) Genotype test is an FDA-approved in-vitro diagnostic amplified nucleic acid test for the qualitative detection of E6/E7 viral mRNA of independent HPV types 16 and 18/45 in cervical specimens. See https://www.Building[employer] /sites/default/files/ AW-12821_002_0 1.pd f for further information. Test performed by [facility], [facility] [address] , [place] [address], Abdiel Oates DO, Collection Systems Technician, CLIA# [id number] HPV Type 18/45 NOT DETECTED The human papillomavirus (HPV) Genotype test is an FDA-approved in-vitro diagnostic amplified nucleic acid test for the qualitative detection of E6/E7 viral mRNA of independent HPV types 16 and 18/45 in cervical specimens. See https://www.[employer] /sites/default/files/ AW-12821_002_0 1.pd f for further information. Test performed by [facility], [facility] [address] , [place] [address], Abdiel Oates DO, Collection Systems Technician, CLIA# [id number] CT Scan : Sinuses, without c ontrast Reviewed date:09/09/2024 12:32:35 PM Interpretation:Abnormal Performing Lab: Notes/Report: Abnormal Glycohemoglobin A1c (in hous e) Reviewed date:10/28/2024 09:50:31 AM Interpretation:6.7 Performing Lab: Notes/Report: 6.7 glycohemoglobin 6.7% 5 - 6.5 % P-Comprehensive Metabolic Pa elena (CMP) Reviewed date:10/28/2024 09:50:31 AM Interpretation:gluc 143, Ca 11.3 Performing Lab: Notes/Report: Test performed by [facility] [address] [place] [address] , [address], [place] [address] Christopher Valdez MD, Collection Systems Technician CLIA: [id number] Sodium 135 135-145 mmol/L Potassium 4.5 3.5-5.3 [...] 132 Performing Lab: Notes/Report: Test performed by [facility] [address] [place] [address] , [address], [place] [address] Christopher Valdez MD, Collection Systems Technician CLIA: [id number] Cholesterol 164 <200 mg/dL Triglycerides 176 <150 [...] date:11/20/2024 03:24:49 PM Interpretation: Performing Lab: Notes/Report: Reason For Referral Diagnosis 1 Breast mass, right ( N63.10) Referral Organization [facility] Referring Provider First Name Giovanna Referring Provider Last Name Juan Referring Provider Speciality Family Pra ctice Referred Provider SABINO FLORENTINO Referred Provider Specialty General Surg pennie General Notes Giovanna Martniez 06/2024 4:06:07 PM > right breast mass; mammogram ordered, Padmini Ocampo 01/19/2024 8:58:18 AM > lvm for BJ in Dr. Florentino's office, Padmini Ocampo 01/19/2024 9:12:21 AM > [facility] 01/30/2024 at 10:30am; pt informed; order faxed Referral Priority Routine Diagnosis 1 Abnormal breast biop sy (R89.7) Referral Organization [facility] Referring Provider First Name Brionna Pritchett Referring Provider Last Name Manjeet Referring Provider [facility] ctice Referred Provider SABINO FLORENTINO Referred Provider Specialty General Surg pennie General Notes Yuliya Ruiz 02/27/20 2:23:34 PM > Per Dr. Burroughs- Biopsy does not show malignancy, but excision is recommended for definitive diagnosis. Damaris Brynn 02/28/2024 8:53:44 AM > left message with BJ with results Referral Priority Routine Reason Breast mass Diagnosis 1 Abnormal breast biop sy (R89.7) [facility] Referring Provider First Name Brionna Pritchett Referring Provider Last Name Manjeet Referring Provider [facility] ctice Referred Provider SABINO FLORENTINO Referred Provider Specialty General Surg pennie General Notes Padmini Ocampo 02/29/20 3:39:40 PM > informed Dr. Florentino's office of patient results via message to BJ Referral Priority Routine Reason seeking letter for e motional support animal Diagnosis 1 Depression with anxi ety (F41.8) [facility] Referring Provider First Name Brionna Pritchett Referring Provider Last Name Manjeet Referring Provider [facility] ctice Referred Organization [facility] OP Referred Provider Petra Oconnor Referred Address [address] [place] [address] E [place],[id number], Referred Provider Specialty Psychiatry General Notes Padmini Ocampo 04/19/20 8:46:23 AM > faxed referral to Nneka Ortiz Leigh Ann 04/19/2024 10:15:37 AM > Maribel wong [phone] please call sisterAdarsh Shannon 04/30/2024 2:03:45 PM > patient is not wanting to see Petra for anxiety and depression , she is only wanting the letter for the animal, spoke with Augustina and Petra will not see her for only that reason Referral Priority Routine Diagnosis [address] scan, si nus (R93.0) Referral Organization [facility] Referring Provider First Name Brionna Pricthett Referring Provider Last Name Manjeet Referring Provider [facility] ctice Referred Provider Specialty ENT General Notes Padmini Ocampo 3:04:54 PM > faxed to [facility] ENT, Padmini Ocampo 09/12/2024 9:43:54 AM > spoke with Margie at [facility] ENT; confirmed they received referral Referral Priority Routine Diagnosis 1 Left hip pain (M25.5 52) Diagnosis 2 Toe pain, left (M79. 675) Diagnosis 3 Acute midline low ba ck pain without sciatica (M54.50) Referral Organization [facility] Referring Provider First Name Carlie Referring Provider Last Name Radha Referring Provider Speciality Physician Sheriff Detective Referred Provider Orthopedics, . Referred Provider Specialty Orthopedic S urgery General Notes Carlie Garcia 11/14 4:32:41 PM > Pt needs an appt with Damaris Keith Brynn 11/15/2024 08:53:33 AM > lvm for Dr. Abebe's office to call me backDamaris Brynn 11/18/2024 10:16:08 AM > 11/20/2024 at 11:00am Referral Priority Routine Medications Medication SIG (Take, Route, Frequency, Duration) Notes Start Date End Date Status metFORMIN HCl 500 MG 1 tablet with a meal Orally once daily for 90 days Active Spironolactone 100 MG 1 tablet Orally Once a day Active Desvenlafaxine Succinate ER 50 mg TAKE ONE TABLET BY MOUTH EVERY DAY for 30 Active Omeprazole 20 MG 1 capsule 30 minutes before morning meal Orally Once a day for 30 day(s) Active Sildenafil Citrate 20 MG 1/2 tablet Orally Three times a day Would like delivered Not-Taking Ipratropium-Albutero l 0.5-2.5 (3) MG/3ML 3 mL as needed Inhalation every 6 hrs Not-Taking Vitamin B-12 1000 MCG 1 tablet Orally Once a day Active Stool Softener Laxative 8.6-50 MG 2 TABS Orally Twice a day Active Acetaminophen PM 500-25 MG 1 tablet at bedtime as needed Orally Once a day Active Mupirocin 2 % 1 application Externally Twice a day for 7 days 09/19/2024 Active Metoprolol Succinate ER 25 MG 1 tablet Orally Once a day for 30 day(s) Active oxyBUTYnin Chloride ER 5 MG 1 tablet Orally Once a day for 30 day(s) Urinary Incontinence 09/09/2024 Active traMADol HCl 50 MG 1 tablet as needed Orally four times a day as needed for 15 day(s) 10/25/2024 Active Bumetanide 2 MG 1 tablet Orally Two times a day Active Atorvastatin Calcium 40 MG 1 tablet Orally Once a day for 90 days Active Aspirin 81 81 MG 1 tablet Orally Once a day Active Potassium Chloride ER 20 MEQ 1 tablet with food Orally Once a day for 30 day(s) Not-Taking Nitroglycerin 0.4 MG as directed Sublingual Active FLUoxetine HCl 40 MG 1 capsule Orally Once a day for 30 day(s) Not-Taking Trelegy Ellipta 100-62.5-25 MCG/ACT 1 puff Inhalation Once a day Active predniSONE 10 mg TAKE 1/2 TABLET BY MOUTH EVERY DAY --TAKE WITH FOOD-- for 90 Not-Taking Immunizations Vaccine Route Administration Date Status Comme nts PNEUMOVAX 23 VACCINE IM Intramuscular 04/18/2024 Pending Fluzone Quad (6months&older) IM Intramuscular 04/18/2024 Administered Social History Tobacco Use: Social History Observation Description Date Smoking Status WARNING: Information temporarily unavailable CURRENT TOBACCO USE: Question Answer Notes Are you a: 1/2 pack per day Problems Problem Type SNOMED Code ICD Code Onset Dates Problem Status W/U Status Risk Notes Problem Gastroesophageal reflux disease (111587442) GERD (gastroesophageal reflux disease) (K21.9) Active confirmed Problem 93063145 Essential hypertension (I10) Active confirmed Problem 480549074 Abnormal mammogr am (R92.8) Active confirmed Problem Constipation (K59.00) Active confirmed Problem 493614427 Depression with anxiety (F41.8) Active confirmed Problem 418062575 BMI 32.0-32.9,adult (Z68.32) Active confirmed Problem 336315004 BMI 33.0-33.9,adult (Z68.33) Active confirmed Problem 560536438 Bandemia (D72.825) Active confirmed Problem 79778000 Pulmonary emphysema, unspecified emphysema type (J43.9) Active confirmed Problem 13666907 Hyperlipidemia, unspecified hyperlipidemia type (E78.5) Active confirmed Problem 78423594 Acute sinusitis, recurrence not specified, unspecified location (J01.90) Active confirmed Problem 032388764 Type 2 diabetes mellitus without complication, without long-term current use of insulin (E11.9) Active confirmed Problem 290568872 Atherosclerosis of [place] coronary artery without angina pectoris, unspecified whether [place] or transplanted heart (I25.10) Active confirmed Problem 43159687 Pulmonary hypertension (I27.20) Active confirmed Problem 978150738 Type 2 diabetes mellitus without complication, unspecified whether roasterman insulin use (E11.9) Active confirmed Problem 660987483 Abnormal x-ray (R93.89) Active confirmed Problem 414139096 Abnormal breast biopsy (R89.7) Active confirmed Vital Signs Heart Rate 71 /min 12/09/2024 Blood pressure diastolic 70 mm Hg 12/09/2024 Height 63.5 in 12/09/2024 Blood pressure systolic 114 mm Hg 12/09/2024 Weight 188.6 lbs 12/09/2024 BMI 32.88 kg/m2 12/09/2024 Encounters Encounter Location Date Provider Diagnosis [address] [id number] 01/16/2024 Giovanna Martinez Breast mass, right N63.10 ; GERD (gastroesophageal reflux disease) K21.9 ; Type 2 diabetes mellitus without complication, without long-term current use of insulin E11.9 ; Pulmonary hypertension I27.20 ; Atherosclerosis of [place] coronary artery without angina pectoris, unspecified whether [place] or transplanted heart I25.10 ; Congestive heart failure with right heart failure I50.810 ; Depression with anxiety F41.8 and Tobacco use disorder Z72.0 [address] [id number] 02/01/2024 Brionna Burroughs Pulmonary hypertensi on I27.20 ; Pulmonary emphysema, unspecified emphysema type J43.9 ; Type 2 diabetes mellitus without complication, without long-term current use of insulin E11.9 ; Mass of right breast on mammogram N63.10 ; Acute UTI N39.0 and Bandemia D72.825 [address] [id number] 02/29/2024 Brionna Burroughs Abnormal breast biop sy R89.7 ; Pulmonary emphysema, unspecified emphysema type J43.9 ; Type 2 diabetes mellitus without complication, unspecified whether assisted insulin use E11.9 and Depression with anxiety F41.8 [address] [id number] 04/18/2024 Brionna Burroughs Pulmonary emphysema, unspecified emphysema type J43.9 ; 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 ; Type 2 diabetes mellitus without complication, without long-term current use of insulin E11.9 ; Depression with anxiety F41.8 and Encounter for immunization Z23 [address] [place] [id number] 08/30/2024 Brionna Burroughs Acute sinusitis, recurrence not specified, unspecified location J01.90 ; Type 2 diabetes mellitus without complication, without long-term current use of insulin E11.9 ; Essential hypertension I10 ; Pulmonary hypertension I27.20 ; Bandemia D72.825 and Screen for colon cancer Z12.[address] [place] [id number] 09/19/2024 Brionna Burroughs Abscess of left ear canal H60.02 ; Type 2 diabetes mellitus without complication, without long-term current use of insulin E11.9 and Pulmonary emphysema, unspecified emphysema type J43.[address] [place] [id number] 10/25/2024 Brionna Burroughs Type 2 diabetes iva itus without complication, unspecified whether assisted insulin use E11.9 ; Pulmonary emphysema, unspecified emphysema type J43.9 ; Essential hypertension I10 ; Pulmonary hypertension I27.20 ; Acute sinusitis, recurrence not specified, unspecified location J01.90 ; Constipation K59.00 ; Abnormal breast biopsy R89.7 ; Headache, unspecified R51.9 and Hyperlipidemia, unspecified hyperlipidemia type E78.[address] [place] [id number] 11/14/2024 Carlie Crowdy Left hip pain M25.55 2 ; Acute midline low back pain without sciatica M54.50 ; Toe pain, left M79.675 ; Tobacco use Z72.0 and BMI 33.0-33.9,adult Z68.[address] [id number] 12/06/2024 Brionna Burroughs Essential hypertensi on I10 ; Type 2 diabetes mellitus without complication, without long-term current use of insulin E11.9 ; Blood in stool K92.1 and Chronic constipation K59.09 [address], [place] [id number] 12/09/2024 Brionna Burroughs Well woman exam with routine gynecological exam Z01.419 and BMI 32.0-32.9,adult Z68.32 [facility] [address] [place], [place] [id number] 12/26/2024 Carlie Garcia [facility] [address] [place], [place] [id number] 01/17/2024 Carlie Garcia [facility] [address] [place], [place] [id number] 01/19/2024 Brionna Burroughs Depression with anxi ety F41.8 [facility] [address] [facility] [address] [place], [place] [id number] 01/22/2024 Brionna Burroughs Type 2 diabetes iva itus without complication, without long-term current use of insulin E11.9 [facility] [address] [facility] [address] [place], [place] [id number] 01/22/2024 Brionna Burroughs Type 2 diabetes iva itus without complication, without long-term current use of insulin E11.9 [facility] [address] [place], [place] [id number] 01/24/2024 Brionna Burroughs [facility] [address] [place], [place] [id number] 01/25/2024 Brionna Burroughs Abnormal mammogram R 92.8 [facility] [address] [place], [place] [id number] 02/02/2024 Brionna Burroughs Type 2 diabetes iva itus without complication, without long-term current use of insulin E11.9 ; Congestive heart failure with right heart failure I50.810 ; Pulmonary hypertension I27.20 and Pulmonary emphysema, unspecified emphysema type J43.9 [facility] [address] [place], [place] [id number] 02/02/2024 Brionna Burroughs [facility] [address] [place], [place] [id number] 02/05/2024 Brionna Burroughs [facility] [address] [place], [place] [id number] 02/07/2024 Brionna Burroughs Pulmonary hypertensi on I27.20 [facility] [address] [place], [place] [id number] 02/12/2024 Brionna Burroughs [facility] [address] [place], [place] [id number] 02/26/2024 Brionna Burroughs Abnormal breast biop sy R89.7 [facility] [address] [place], [place] [id number] 04/19/2024 Brionna Burroughs Pulmonary emphysema, unspecified emphysema type J43.9 ; Congestive heart failure with right heart failure I50.810 ; Type 2 diabetes mellitus without complication, without long-term current use of insulin E11.9 and Pulmonary hypertension I27.20 [facility] [address] [place], [place] [id number] 04/30/2024 Brionna Burroughs [facility] [address] [place], [place] [id number] 05/22/2024 Brionna Burroughs Type 2 diabetes iav itus without complication, without long-term current use of insulin E11.9 [facility] [address] [place], [place] [id number] 06/13/2024 Brionna Burroughs [facility] [address] [place], [place] [id number] 07/12/2024 Brionna Burroughs [facility] [address] [place], [place] [id number] 08/13/2024 Brionna Burroughs [facility] [address] [place], [place] [id number] 09/02/2024 Brionna Burroughs [facility] [address] [place], [place] [id number] 09/05/2024 Brionna Burroughs [facility] [address] [place], [place] [id number] 09/09/[address] scan, si nus R93.0 [facility] [address] [place], [place] [id number] 10/21/2024 Brionna Burroughs [facility] [address] [place], [place] [id number] 10/28/2024 Brionna Burroughs [facility] [address] [place], [place] [id number] 11/13/2024 Brionna Burroughs [facility] [address] [place], [place] [id number] 11/20/2024 Carlie Garcia [facility] [address] [place], [place] [id number] 12/05/2024 Brionna Burroughs [facility] [address] [place], [place] [id number] 12/18/2024 Brionna Burroughs Assessments Encounter Date Diagnosis (ICD Code) Assessment Notes Treatment Notes Treatment Clinical Notes Section Notes 01/16/2024 GERD (gastroesophageal reflux disease) (ICD-10 - K21.9) 01/16/2024 Breast mass, right (ICD-10 - N63.10) to schedule bilateral diagnostic mammogram and surgical appt for biopsy 01/19/2024 Depression with anxiety (ICD-10 - F41.8) 01/22/2024 Type 2 diabetes mellitus without complication, without long-term current use of insulin (ICD-10 - E11.9) 01/22/2024 Type 2 diabetes mellitus without complication, without long-term current use of insulin (ICD-10 - E11.9) 01/25/2024 Abnormal mammogram (ICD-10 - R92.8) 02/01/2024 Pulmonary emphysema, unspecified emphysema type (ICD-10 - J43.9) 02/01/2024 Pulmonary hypertension (ICD-10 - I27.20) 02/02/2024 Type 2 diabetes mellitus without complication, without long-term current use of insulin (ICD-10 - E11.9) 02/07/2024 Pulmonary hypertension (ICD-10 - I27.20) 02/26/2024 Abnormal breast biopsy (ICD-10 - R89.7) 02/29/2024 Pulmonary emphysema, unspecified emphysema type (ICD-10 - J43.9) 02/29/2024 Abnormal breast biopsy (ICD-10 - R89.7) 04/18/2024 Pulmonary emphysema, unspecified emphysema type (ICD-10 - J43.9) She is trying to get a ramp built for her step at her home. She does not use a wheelchair or a walker. 04/18/2024 Fibroadenoma of right breast (ICD-10 - D24.1) 04/19/2024 Pulmonary emphysema, unspecified emphysema type (ICD-10 - J43.9) 05/22/2024 Type 2 diabetes mellitus without complication, without long-term current use of insulin (ICD-10 - E11.9) 08/30/2024 Acute sinusitis, recurrence not specified, unspecified location (ICD-10 - J01.90) 08/30/2024 Type 2 diabetes mellitus without complication, without long-term current use of insulin (ICD-10 - E11.9) 09/09/[address] scan, sinus (ICD-10 - R93.0) 09/19/2024 Type 2 diabetes mellitus without complication, without long-term current use of insulin (ICD-10 - E11.9) 09/19/2024 Abscess of left ear canal (ICD-10 - H60.02) 10/25/2024 Pulmonary emphysema, unspecified emphysema type (ICD-10 - J43.9) 10/25/2024 Type 2 diabetes mellitus without complication, unspecified whether roasterman insulin use (ICD-10 - E11.9) 11/14/2024 Left hip pain (ICD-10 - M25.552) 11/14/2024 Acute midline low back pain without sciatica (ICD-10 - M54.50) 12/06/2024 Essential hypertension (ICD-10 - I10) 12/06/2024 Type 2 diabetes mellitus without complication, without long-term current use of insulin (ICD-10 - E11.9) 12/09/2024 BMI 32.0-32.9,adult (ICD-10 - Z68.32) 12/09/2024 Well woman exam with routine gynecological exam (ICD-10 - Z01.419) 12/06/2024 Blood in stool (ICD-10 - K92.1) 10/25/2024 Essential hypertension (ICD-10 - I10) 09/19/2024 Pulmonary emphysema, unspecified emphysema type (ICD-10 - J43.9) 08/30/2024 Essential hypertension (ICD-10 - I10) 04/19/2024 Congestive heart failure with right heart failure (ICD-10 - I50.810) 04/18/2024 Type 2 diabetes mellitus without complication, without long-term current use of insulin (ICD-10 - E11.9) 02/29/2024 Type 2 diabetes mellitus without complication, unspecified whether assisted insulin use (ICD-10 - E11.9) Jardiance samples given 02/01/2024 Type 2 diabetes mellitus without complication, without long-term current use of insulin (ICD-10 - E11.9) 02/02/2024 Congestive heart failure with right heart failure (ICD-10 - I50.810) 01/16/2024 Type 2 diabetes mellitus without complication, without long-term current use of insulin (ICD-10 - E11.9) 11/14/2024 Toe pain, left (ICD-10 - M79.675) 01/16/2024 Pulmonary hypertension (ICD-10 - I27.20) continue to follow with Dr. Aviles; additional labs/tests ordered by him 02/02/2024 Pulmonary hypertension (ICD-10 - I27.20) 02/01/2024 Mass of right breast on mammogram (ICD-10 - N63.10) 02/29/2024 Depression with anxiety (ICD-10 - F41.8) 04/18/2024 Depression with anxiety (ICD-10 - F41.8) 04/19/2024 Type 2 diabetes mellitus without complication, without long-term current use of insulin (ICD-10 - E11.9) 08/30/2024 Pulmonary hypertension (ICD-10 - I27.20) 12/06/2024 Chronic constipation (ICD-10 - K59.09) 11/14/2024 Tobacco use (ICD-10 - Z72.0) 10/25/2024 Pulmonary hypertension (ICD-10 - I27.20) 10/25/2024 Acute sinusitis, recurrence not specified, unspecified location (ICD-10 - J01.90) 11/14/2024 BMI 33.0-33.9,adult (ICD-10 - Z68.33) 04/19/2024 Pulmonary hypertension (ICD-10 - I27.20) 08/30/2024 Bandemia (ICD-10 - D72.825) 04/18/2024 Encounter for immunization (ICD-10 - Z23) 02/02/2024 Pulmonary emphysema, unspecified emphysema type (ICD-10 - J43.9) 02/01/2024 Acute UTI (ICD-10 - N39.0) 01/16/2024 Atherosclerosis of [place] coronary artery without angina pectoris, unspecified whether [place] or transplanted heart (ICD-10 - I25.10) continue to follow with cardiology ; heart meds [facility] per [facility] 01/16/2024 Congestive heart failure with right heart failure (ICD-10 - I50.810) 02/01/2024 Bandemia (ICD-10 - D72.825) 08/30/2024 Screen for colon cancer (ICD-10 - Z12.11) 10/25/2024 Constipation (ICD-10 - K59.00) Miralax recommended 10/25/2024 Abnormal breast biopsy (ICD-10 - R89.7) 01/16/2024 Depression with anxiety (ICD-10 - F41.8) 01/16/2024 Tobacco use disorder (ICD-10 - Z72.0) discussed iw pt to avoid all tobacco ; she is in agreement 10/25/2024 Headache, unspecified (ICD-10 - R51.9) 10/25/2024 Hyperlipidemia, unspecified hyperlipidemia type (ICD-10 - E78.5) Plan Of Treatment Pending Test Test Name Order Date Cologuard 08/30/2024 HPV High Risk Screen (TMA) 12/09/2024 P-Pap Test Thin Prep 12/09/2024 HPV Genotype (TMA) 12/09/2024 Next Appt Details Provider Name:Brionna Dietrich er, 01/27/2025 03:15:00 PM, [address], [address], [place], [id number], Provider Name:Brionna king, 02/24/2025 10:15:00 AM, [address], [address], [place], [id number], Insurance Providers Payer Name Payer Address Payer Phone Subscriber Number Group Number Insured Name Patient Relationship to Insured Coverage Start Date Coverage End Date [employer] (MEDICAR E) [address] [address] [place] [address] [id number] ARUNA TIAN Self - patient is the insured Medical (General) History Medical History History ICD Code Hypertension Heart attack 40 yo, Sep 03, [address] Hyperlipidemia Diabetes Allergies Arthritis Irritable Bowel Syndrome Depression Kidney stones GERD pulmonary HTN ASCVD T2DM Positive RA 01/2024 Surgical History Surgery Date(Month/Year) C section 1995 & 1998 Partial Hysterectomy D & C Right breast Biopsy Hospitalization History Reason Date(Month/Year) [facility] Pulmonary HTN; Right hrt failure; acute respiratory failure with hypoxia; ASCVD of [place] coronoary artery; T2 DM; Breast mass 01/01-01/10/2024
--- OUTSIDE RECORDS SUMMARY | 2025-01-15 09:38 | XMS_ITS | Patient Health Record ---
Author Organization [facility] Address [address] [place] [place] [address] Care Team Providers Care Warp Yarn Sorter Name Role Phone [facility] Unavailable Unavailable Reason For Referral No Information Medications Medication SIG (Take, Route, Frequency, Duration) Notes Start Date End Date Status Augmentin XR 1000-62.5 MG 0 Oral Twice daily TAKE 2 TABLETS TWICE DAILY-Med Status:Filled Rx, DrugStatus-Y,Jose -RxBy- , 05/27/2008 Active Potassium Chloride Lina ER 20 MEQ 0 Oral Twice daily TAKE 1 TABLET TWICE DAILY-Med Status:Filled Rx, DrugStatus-Y,Jose -RxBy- , 05/27/2008 Active predniSONE 10 MG 0 Oral TAKE 3 TABLETS DAILY FOR 2 DAYS, TAKE 2 TABLETS FOR 2 DAYS, THEN TAKE 1 TABLET FOR 2 DAYS-Med Status:Filled Rx, DrugStatus-N,Jose -RxBy- , 05/27/2008 Active Problems Problem Type SNOMED Code ICD Code Onset Dates Problem Status W/U Status Risk Notes Problem Adult health examination ([id number]) Encounter for general adult medical examination without abnormal findings (Z00.00) 0 Active confirmed Jose Plan Of Treatment No Information
--- OUTSIDE RECORDS SUMMARY | 2025-01-15 09:38 | XMS_ITS | Clinical Summary ---
Author Organization Healthcare Address [address] [place] [address] Care Team Providers Care Farmworker Bulbs Name Role Phone Pcp, No Primary Care Provider Unavailabl e Allergies Active Allergy Reactions Criticality Noted Date Comments Buspirone Other - please docum ent in the comment field Low 04/25/2024 Increase anxiety Ondansetron Headache Low 01/02/2024 Sertraline Other - please docum ent in the comment field Low 04/25/2024 Hallucinations and SI Medications aspirin 81 MG chewable tablet Chew 1 tablet (81 mg) 1 (one) time each day. 4 Active atorvastatin (Lipitor) 40 MG tablet Take 1 tablet (40 mg) by mouth Daily. 4 Active bumetanide (Bumex) 1 MG tablet every 12 (twelve) hours. 4 Active desvenlafaxine succinate er (Pristiq) 25 MG 24 hr tablet Take 1 tablet (25 mg) by mouth 1 (one) time each day. 4 Active Jardiance 10 MG Take 1 tablet (10 mg) by mouth Daily. 4 Active FLUoxetine (PROzac) 40 MG capsule Take 1 capsule (40 mg) by mouth 1 (one) time each day. Active Trelegy Ellipta 100-62.5-25 MCG/ACT aerosol powder Inhale 1 puff. Activ e ipratropium-alb uterol (Duo-Neb) 0.5-2.5 mg/3 mL nebulizer solution every 6 (six) hours. 4 Active metFORMIN (Glucophage) 500 MG tablet 1 (one) time each day at the same time. 4 Active methocarbamol (Robaxin) 500 MG tablet TAKE ONE TABLET BY MOUTH EVERY 8 HOURS MAY CAUSE DROWSINESS 4 Active nicotine (Nicoderm CQ) 14 MG/24HR patch 1 (one) time each day at the same time. 4 Active nitroglycerin (Nitrostat) 0.4 MG SL tablet as directed Sublingual Active omeprazole (PriLOSEC) [address] capsule TAKE ONE CAPSULE BY MOUTH 30 minutes BEFORE morning meal ONCE daily Active predniSONE (Deltasone) 10 MG tablet 1 tablet (10 mg). Active sildenafil (Revatio) 20 MG tablet every 8 (eight) hours. Active spironolactone (Aldactone) 25 MG tablet Take 1 tablet (25 mg) by mouth Daily. Active traMADol (Ultram) 50 MG tablet Take 1 tablet (50 mg) by mouth every 6 (six) hours if needed. Active Active Problems Problem Noted Date Diagnosed Date Obesity (BMI 35.0-39.9 without comorbidity) 04/08 Acute hypoxemic respiratory failure 04/25/2024 CAD in [place] artery 04/25/2024 Diabetes mellitus, type 2 04/25/2024 Congestive heart failure 04/25/2024 HFrEF (heart failure with reduced ejection fract ion) 04/25/2024 History of [place] (myocardial infarction) 04/25/2024 Hypertension 04/25/2024 Pulmonary edema 04/25/2024 Pulmonary hypertension 04/25/2024 Family History Medical History Relation Name Comments Lung cancer Father Breast cancer Other Lung cancer Sister Relation Name Status Comments Father Other Alive Sister Social History Tobacco Use Types Packs/Day Years Used Date Smoking Tobacco: Some Days Cigarettes Smokeless Tobacco: Never Tobacco Cessation:Ready to Q uit: Not Asked; Counseling Given: Not Answered Alcohol Use Standard Drinks/Week Comments Never 0 (1 standard drink = 0.6 oz pur e alcohol) PHQ-2 Answer Date Recorded Patient Health Questionnaire-2 Score 0 04/25/2024 Comments No Sex and Gender Information Value Date Recorded Sex Assigned at Not on file Legal Sex Female 6:56 PM EDT Gender Identity Not on file Sexual Orientation Not on file Last Filed Vital Signs Vital Sign Reading Time Taken Comments Blood Pressure 126/83 04/25/2024 12:27 PM EDT Pulse 91 04/25/2024 12:27 PM EDT Temperature 36.6 C (97.9 F) 04/25/2024 12:27 PM EDT Respiratory Rate - - Oxygen Saturation 95% 04/25/2024 12:27 PM EDT Inhaled Oxygen Concentration - - Weight 94.6 kg (208 lb 8.9 oz) 04/25/2024 12:27 PM EDT Height 160 cm (5' 3 ) 04/25/2024 12:27 PM EDT Body Mass Index 36.94 04/25/2024 12:27 PM EDT Plan of Treatment Health Maintenance Due Date Last Done Comments [facility]-Diabetes: Hemoglobin A1C 1974 [facility]-HIV Screening 1974 [facility]-Hepatitis C Screening 1974 [facility]-Medicare Annual Wellness (AWV) 1974 [facility]-Infant/Child/Adol SDOH Screenings 1974 [id number] Vaccine (#1) 1979 Diabetes: Dental Exam 1984 [facility]- SDOH Screenings 1992 [facility]-Adult SDOH Screenings 1992 [facility]-Hepatitis B Vaccines (1 of 3 - 19+ 3-dose series) 1993 [facility]-Pneumococcal Vaccine: 50 + Years (1 of 2 - PCV) 1993 [facility]-Zoster Vaccines (1 of 2) 1993 [facility]-Pap Smear 1995 [facility]-DTaP,Tdap,and Td Vaccine s (1 - Tdap) 05/15/1996 05/14/1996 [facility]-Cervical Cancer Screening 2004 [facility]-HPV/Cotest 2004 CT Colonography 2019 Colonoscopy 2019 FIT-DNA 2019 FIT 2019 FOBT 2019 Sigmoidoscopy 2019 [facility]-Colorectal Cancer Screening 2019 [facility]-Breast Cancer Screening 2024 [facility]-Influenza Vaccine ([place] n Ended) 2025 [facility]-Depression Screening 04/25/2025 04/25/2024 [facility]-Obesity Intervention Completed 04/25/2024 HPV Vaccines Aged Out No longer eligi ble based on patient's age to complete this topic [facility]-HIB Vaccines Aged Out No longer e ligible based on patient's age to complete this topic [facility]-Hepatitis A Vaccines Aged Out No longer eligible based on patient's age to complete this topic [facility]-IPV Vaccines Aged Out No longer e ligible based on patient's age to complete this topic [facility]-Rotavirus Vaccines Aged Out No lo nger eligible based on patient's age to complete this topic Insurance [place]ICAID-[place] HU[employer]NA MEDICARE Care Teams Farmworker Bulbs Relationship Specialty Start Date End Date Pcp, [place] [address] PCP - General Family Medicine 04/07/24
--- OUTSIDE RECORDS SUMMARY | 2025-01-15 09:38 | XMS_ITS | Clinical Summary ---
Author Organization Maury Navarro [employer] Address [address] [place] [address] Care Team Providers Care Grapple Skidder Operator Name Role Phone Jossue Orourke MD Primary Care Provider [phone] Allergies Active Allergy Reactions Criticality Noted Date Comments Aspirin 06/24/2016 Irritates stomach Medications aspirin 81 MG tablet Take 1 tablet by mouth daily Active NITROSTAT 0.4 MG SL tablet AMIE 11 6 Active folic acid (FOLVITE) 400 MCG tablet Take 1 tablet by mouth daily Active Cholecalciferol (VITAMIN D3) 1.25 MG (18172 UT) CAPSIndications:Vit shipman D deficiency Take 1 capsule by mouth once a week 12 capsule 1 2 Active omeprazole (PRILOSEC) 20 MG delayed release capsule Take 1 capsule by mouth Daily 30 capsule 2 3 Active blood glucose test strips (ASCENSIA AUTODISC ;ONE TOUCH ULTRA TEST ) strip 1 each by In Vitro route daily DX: Diabetes 100 each 1 3 Active atorvastatin (LIPITOR) 40 MG tabletIndications:H yperlipidemia, unspecified hyperlipidemia type TAKE ONE TABLET BY MOUTH DAILY 30 tablet 1 3 Active FLUoxetine (PROZAC) 40 MG capsuleIndications: Mood disorder,Anxiety,Mo derate episode of recurrent major depressive disorder (HCC) TAKE ONE CAPSULE BY MOUTH DAILY 30 capsule 1 3 Active lisinopril (PRINIVIL;ZESTRIL) 2.5 MG tabletIndications:P rimary hypertension TAKE ONE TABLET BY MOUTH DAILY 30 tablet 1 3 Active metFORMIN (GLUCOPHAGE) 500 MG tabletIndications:T ype 2 diabetes mellitus without complication, without long-term current use of insulin (HCC) TAKE ONE TABLET BY MOUTH TWICE A DAY WITH MEALS 60 tablet 1 3 Active atenolol (TENORMIN) 50 MG tabletIndications:P rimary hypertension TAKE ONE TABLET BY MOUTH DAILY 30 tablet 1 3 Active lamoTRIgine (LAMICTAL) 25 MG tabletIndications:M ood disorder,Anxiety,Mo derate episode of recurrent major depressive disorder (HCC) TAKE TWO TABLETS BY MOUTH EVERY EVENING 60 tablet 1 3 Active sulfamethoxazole-tr imethoprim (BACTRIM;SEPTRA) 400-80 MG per tablet Take 1 tablet by mouth 2 times daily Active Active Problems Problem Noted Date Diagnosed Date Type 2 diabetes mellitus wit hout complication, without long-term current use of insulin 02/12/2022 Primary hypertension 02/12/2022 Hyperlipidemia 02/12/2022 Anxiety 02/12/2022 Moderate episode of recurrent major depressive d isorder 02/12/2022 Mood disorder 02/12/2022 Arthritis 02/12/2022 Vitamin D deficiency 02/12/2022 Cigarette smoker 02/12/2022 Lump or mass in breast 02/10/2016 Immunizations Immunization Administration Dates Next Due TDaP, ADACEL (age 10y-64y), BOOSTRIX (age 10y+), IM, 0.5mL 01/29/2017 Family History Medical History Relation Name Comments Heart Disease Brother Liver Disease Brother Lung Cancer Father Lung cancer High Blood Pressure Mother Cancer Sister Not sure High Blood Pressure Sister Relation Name Status Comments Brother Father Mother Sister Social History Tobacco Use Types Packs/Day [...] place to sleep or slept in a fdc (including now)? No 04/05/2023 Food Insecurity Answer [...] PM EDT Sexual Orientation Not on file Last Filed Vital Signs Vital Sign Reading Time Taken Comments Blood Pressure 121/76 08/30/2023 11:05 AM ACADEMIC AFFAIRS MANAGER Pulse 120 08/30/2023 11:05 AM ACADEMIC AFFAIRS MANAGER Temperature 36.5 C (97.7 F) 08/30/2023 11:05 AM ACADEMIC AFFAIRS MANAGER Respiratory Rate 20 02/08/2022 3:25 PM CDT Oxygen Saturation 91% 08/30/2023 11: 05 AM ACADEMIC AFFAIRS MANAGER Inhaled Oxygen Concentration - - Weight 100.6 kg (221 lb 12.8 oz) 2023 11:05 AM ACADEMIC AFFAIRS MANAGER Height 160 cm (5' 3 ) 08/30/2023 11:05 AM ACADEMIC AFFAIRS MANAGER Body Mass Index 39.29 08/30/2023 11:05 AM ACADEMIC AFFAIRS MANAGER Plan of Treatment Health Maintenance Due Date Last Done Comments Diabetic foot exam 1984 Depression Monitoring 1986 HIV screen 1989 Diabetic retinal exam 1992 Hepatitis C screen 1992 Hepatitis B vaccine (1 of 3 - 19+ 3-dose series) 1993 Pneumococcal 50+ years Vaccine (1 of 2 - PCV) 1993 Pap smear 1995 Cervical cancer screen 2004 HPV (without or with Pap) 2004 Colonoscopy 2019 Colorectal Cancer Screen 2019 FIT/FOBT: Average risk 2019 Fecal-DNA (Cologuard): Average risk 2019 Sigmoidoscopy/CT colonography 2019 Breast cancer screen 01/17/2020 01/16/2018, 01/21/2016, 08/04/2011, Additional history exists Diabetic Alb to Cr ratio (uACR) test 02/08/2023 02/08/2022 GFR test (Diabetes, CKD 3-4, OR last GFR 15-59) 02/08/2023 02/08/2022, 11/24/2017, 11/23/2017, Additional history exists COVID-19 Vaccine ( - 2023- season) 2024 A1C test (Diabetic or Prediabetic) 04/14/2024 04/14/2023, 02/08/2022 Lipids 04/14/2024 04/14/2023, 02/08/2022 Shingles vaccine (1 of 2) 2024 Annual Wellness Visit (Medicare Advantage) 08/07/2024 Flu vaccine (Season Ended) 2025 DTaP/Tdap/Td vaccine (2 - Td or Tdap) 01/29/2027 01/29/2017, 05/14/1996 Diabetes screen Discontinued 04/14/2023, 02/08/2022 Hepatitis A vaccine Aged Out No longe r eligible based on patient's age to complete this topic Hib vaccine Aged Out No longer eligi ble based on patient's age to complete this topic Meningococcal (ACWY) vaccine Aged Out No longer eligible based on patient's age to complete this topic Meningococcal B vaccine Aged Out No l onger eligible based on patient's age to complete this topic Polio vaccine Aged Out No longer elig ible based on patient's age to complete this topic Procedures Procedure Name Priority Date/Time Associated Diagnosis Comments LIPID PANEL Routine 04/14/2023 HEMOGLOBIN A1C Routine 04/14/2023 COMPREHENSIVE METABOLIC PANEL Routine 02/08/2022 4:20 PM CDT Type 2 diabetes mellitus without complication, without long-term current use of insulin (HCC) Primary hypertension ALBUMIN/CREATININE RATIO, URINE Routine 02/08/2022 4:19 PM CDT Type 2 diabetes mellitus without complication, without long-term current use of insulin (HCC) Primary hypertension LAURNET DIGITAL DIAGNOSTIC W OR WO CAD BILATERAL Routine 01/16/2018 3:20 PM CDT Fibroadenoma of right breast from Last 3 Months or Most Recently Relevant to Health Maintenance Results * Hemoglobin A1C (04/14/2023) Hemoglobin A1C [...] Edit ed Result - Final * (ABNORMAL) Comprehensive Metabolic Panel (02/08/2022 4:20 PM CDT) Sodium 139 136 - 145 mmol/L 02/08/2022 4:49 PM [facility] Potassium 5.2(H) 3.5 - 5.0 mmol/L 02/08/2022 4:49 PM [facility] Chloride 103 98 - 111 mmol/L 02/08/2022 4:49 PM [facility] CO2 20(L) 22 - 29 mmol/L 02/08/2022 4:49 PM [facility] Anion Gap 16 7 - 19 mmol/L 02/08/2022 4:49 PM [facility] Glucose 128(H) 74 - 109 mg/dL 02/08/2022 4:49 PM [facility] BUN 7 6 - 20 mg/dL 02/08/2022 4:49 PM [facility] Creatinine 0.4(L) 0.5 - 0.9 mg/dL 02/08/2022 4:49 PM [facility] GFR Non- >60 >60 02/08/2022 4:49 PM [facility] Comment: This calculation may be inaccurate for patients under the age of 18 years. For ages 18 and older, a GFR >60 mL/min/1.73m2 (not corrected for weight) is valid for stable renal function. GFR >59 >59 02/08/2022 4:49 PM [facility] Comment: Chronic Kidney Disease: less than 60 ml/min/1.73 sq.m. Kidney Failure: less than 15 ml/min/1.73 sq.m. Results valid for patients 18 years and older. Calcium 10.1(H) 8.6 - 10.0 mg/dL 02/08/2022 4:49 PM [facility] Total Protein 7.3 6.6 - 8.7 g/dL 02/08/2022 4:49 PM [facility] Albumin 4.3 3.5 - 5.2 g/dL 02/08/2022 4:49 PM [facility] Total Bilirubin 0.3 0.2 - 1.2 mg/dL 02/08/2022 4:49 PM [facility] Alkaline Phosphatase 90 35 - 104 U/L 02/08/2022 4:49 PM [facility] ALT 10 5 - 33 U/L 02/08/2022 4:49 PM [facility] AST 13 5 - 32 U/L 02/08/2022 4:49 PM [facility] BLOOD SPECIMEN / Unknown 02/08/2022 4:20 PM CDT 02/08/2022 5:30 PM CDT us Jossue Orourke MD CHEMISTRY ORDERABLES Final Resul t [facility] [address] [place] [address], [facility] [phone] * Microalbumin / Creatinine Urine Ratio (02/08/2022 4:19 PM CDT) Microalb, Ur 1.50 0.00 - 19.00 mg/dL 02/09/2022 10:38 AM [facility] Creatinine, Ur 55.2 4.2 - 622.0 mg/dL 02/09/2022 10:38 AM [facility] Albumin/Creatin ine Ratio 27.2 mg/g 02/09/2022 10:38 AM T [facility] Comment: Normal: 0-29 mg/g creatinine Moderately increased: 30-300 mg/g creatinine Severely increased: >300 mg/g creatinine URINE SPECIMEN / Unknown 02/08/2022 4:19 PM CDT 02/09/2022 11:26 AM CDT us Jossue Orourke MD URINE ORDERABLES Final Result [facility] [address] [place] [id number] [phone] * LAURENT DIGITAL DIAGNOSTIC W OR WO CAD BILATERAL (01/16/2018 3:20 PM CDT) Anatomical Region Laterality Modality Bilateral Mammography Narrative 01/16/2018 4:38 PM CDT LAURENT DIGITAL DIAGNOSTIC W OR WO CAD BILATERAL, US BREAST LIMITED RIGHT 01/16/2018 1:40 PM HISTORY: D24.1 ADDITIONAL HISTORY: The patient has a history of bilateral fibroadenomas. The patient's maternal aunt also has a history of breast cancer. Benign biopsies of the breast were performed in 2010 and 2015. COMPARISON STUDIES: 01/21/2016 and 02/10/2016. BREAST COMPOSITION: Category B -- Scattered fibroglandular densities (approximately 25-50 percent glandular tissue). FINDINGS: 2-D and 3-D digital mammography of bilateral breasts was obtained in the CC and MLO projection. CAD was also utilized for assistance in diagnosis. Additionally, transverse and longitudinal sonographic images of the right breast were obtained. Bilateral breast masses are again noted and have not significantly changed. No suspicious calcifications are identified. No skin thickening is present. Transverse and longitudinal sonographic images of the right breast demonstrate a hypoechoic mass that measures 5.4 x 2.3 x 4.9 cm. This has minimally increased in size since the previous study. IMPRESSION AND RECOMMENDATION: Stable benign masses in bilateral breasts are consistent with reported fibroadenomas. There is no mammographic or sonographic evidence of malignancy. The patient should return in one year for screening mammography. BI-RADS CATEGORY 2: BENIGN FINDINGS. Signed by Dr Ezequiel Rosales on 01/16/2018 3:38 PM Procedure Note Ezequiel Rosales MD - 01/16/2018 LAURENT DIGITAL DIAGNOSTIC W OR WO CAD BILATERAL, US BREAST LIMITED RIGHT 01/16/2018 1:40 PM HISTORY: D24.1 ADDITIONAL HISTORY: The patient has a history of bilateral fibroadenomas. The patient's maternal aunt also has a history of breast cancer. Benign biopsies of the breast were performed in 2010 and 2015. COMPARISON STUDIES: 01/21/2016 and 02/10/2016. BREAST COMPOSITION: Category B -- Scattered fibroglandular densities (approximately 25-50 percent glandular tissue). FINDINGS: 2-D and 3-D digital mammography of bilateral breasts was obtained in the CC and MLO projection. CAD was also utilized for assistance in diagnosis. Additionally, transverse and longitudinal sonographic images of the right breast were obtained. Bilateral breast masses are again noted and have not significantly changed. No suspicious calcifications are identified. No skin thickening is present. Transverse and longitudinal sonographic images of the right breast demonstrate a hypoechoic mass that measures 5.4 x 2.3 x 4.9 cm. This has minimally increased in size since the previous study. IMPRESSION AND RECOMMENDATION: Stable benign masses in bilateral breasts are consistent with reported fibroadenomas. There is no mammographic or sonographic evidence of malignancy. The patient should return in one year for screening mammography. BI-RADS CATEGORY 2: BENIGN FINDINGS. Signed by Dr Ezequiel Rosales on 01/16/2018 3:38 PM Deya Gleason PA-C [facility] MAMMO[facility]APHY ORDERABLES Final Result from Last 3 Months or Most Recently Relevant to Health Maintenance Insurance Advance Directives Documents on File Type Date Recorded Patient Blown Film Extrusion Operator Expl anation ACP-Advance Directive 11/23/2017 5:34 AM Care Teams Grapple Skidder Operator Relationship Specialty Start Date End Date Jossue Orourke MD [address] [place] [id number] PCP - General Family Medicine 02/13/22
--- OUTSIDE RECORDS SUMMARY | 2025-01-15 09:38 | XMS_ITS | Encounter Summary ---
Author Organization Healthcare Address [address] [place] [address] Care Team Providers Care Lead Simulation Modeling Engineer Name Role Phone Pcp, No Primary Care Provider Unavailabl e Encounter Details Date Type Department Care Team (Late st Contact Info) Description 04/18/2024 Lab Requisition [facility] [address] [place] [address] Marcella Lui MD [address] [facility] Alexsandra [facility] [address] [place] [address] Unspecified lump in unspecified breast Social History Tobacco Use Types Packs/Day Years Used Date Smoking Tobacco: Never Assessed Comments Unknown Sex and Gender Information Value Date Recorded Sex Assigned at Not on file Legal Sex Female 6:56 PM EDT Gender Identity Not on file Sexual Orientation Not on file documented as of this encounter Plan of Treatment Not on file documented as of this encounter Procedures Procedure Name Priority Date/Time Associated Diagnosis Comments SURGICAL PATHOLOGY CONSULT Routine 04/18/2024 10:53 AM EDT Unspecified lump in unspecified breast documented in this encounter Results * Surgical Pathology Consult (04/18/2024 10:53 AM EDT) Case Report Sugical Pathology Consult Case: [id number] Authorizing Provider: Marcella Lui MD Collected: 04/18/2024 1053 Ordering Location: [facility] Received: 04/18/2024 1054 Pathologist: Peyton Urena MD Specimen: Breast, Right, [id number] 04/23/2024 9:24 AM EDT [facility] Final Diagnosis A. BREAST, RIGHT, NEEDLE CORE BIOPSY (OUTSIDE SLIDES [id number], 03/29/24): - FIBROADENOMA WITH ASSOCIATED DUCTAL CALCIFICATIONS 04/23/2024 9:24 AM EDT [facility] at 0924 EDT Clinical Information N63.0 - Unspecified lump in unspecified breast [ICD-10-CM] 04/23/2024 9:24 AM EDT [facility] Gross Description A. [id number] Received along with a corresponding pathology report from [facility] are 5 slides labeled outside case: [id number] collected on 03/29/2024. 04/23/2024 9:24 AM EDT [facility] Note: A resident was involved in the service. I attest I examined the relevant preparations for the specimens and confirmed the diagnosis or interpretation. 04/23/2024 9:24 AM EDT [facility] Tissue Right breast structure / Unknown 04/18/2024 10:53 AM EDT 04/18/2024 10:54 AM EDT us Marcella Lui MD LAB PATHOLOGY ORDERABLES F inal Result [facility] [address] [place] [address] documented in this encounter Visit Diagnoses Diagnosis Unspecified lump in unspecified breast documented in this encounter Care Teams Lead Simulation Modeling Engineer Relationship Specialty Start Date End Date Pcp, No [address] [place] [address] PCP - General Family Medicine 04/07/24 documented as of this encounter
[2025-01-15 09:41] VITALS: BP 125/78; PULSE 88; RESP 20; TEMP 36.6; O2SAT 92; BMI 32.2
--- NOTE | 2025-01-15 09:52 | PC.NURSE ---
pt placed on 2L NC. pt reports that she does have hx of COPD and does have oxygen at home that she uses when needed. pt oxygen saturation 87-89%. pt states no shortness of air.
[2025-01-15 10:00] VITALS: BP 111/78; PULSE 74; O2SAT 95
--- NOTE | 2025-01-15 10:00 | XR_ITS ---
FINAL REPORT CLINICAL HISTORY: fall/injury COMPARISON: None FINDINGS: RIGHT ANKLE 3 views of the right ankle were obtained. There is no acute fracture or dislocation. The mortise is intact. There is an os trigonum measuring 10 mm. Moderate plantar spur is noted. Visualized joint spaces are normally aligned. Soft tissues are unremarkable. IMPRESSION: No acute bony abnormality. Reviewed, Interpreted and Dictated by Ramos Walsh MD Transcribed by Nita Alfred Authenticated and [facility]
--- NOTE | 2025-01-15 10:00 | XR_ITS ---
FINAL REPORT CLINICAL HISTORY: fall/injury COMPARISON: None FINDINGS: Two views of the right tibia/fibula were obtained. There is no acute fracture or dislocation. The joint spaces are intact. There is no soft tissue abnormality. IMPRESSION: No acute bony abnormality. Reviewed, Interpreted and Dictated by Ramos Walsh MD Transcribed by Nita Alfred Authenticated and [facility]
--- NOTE | 2025-01-15 10:00 | XR_ITS ---
FINAL REPORT CLINICAL HISTORY: fall/injury COMPARISON: None FINDINGS: Two views of the right foot were obtained. There is no acute fracture or dislocation. The joint spaces are intact. There is a moderate plantar spur. There is no soft tissue abnormality. IMPRESSION: No acute bony abnormality. Reviewed, Interpreted and Dictated by Ramos Walsh MD Transcribed by Nita Alfred Authenticated and [facility]
[2025-01-15] MEDS: NAPROXEN 500MG TABLET 500 MG PO (10:16)
--- NOTE | 2025-01-15 10:42 | HMH.EDGENADL ---
Discharge Plan Disposition Patient Disposition: Home, Self-Care Prescriptions Prescriptions: New naproxen 500 mg tablet 500 mg PO BID PRN (Reason: pain) 7 Days Qty: 14 0RF No Action atorvastatin 40 mg tablet 40 mg PO HS Qty: 90 3RF fluticasone furoate-vilanterol [Breo Ellipta] 100-25 mcg/dose blister with device 1 inh inhalation DAILY Qty: 90 2RF desvenlafaxine succinate 50 mg tablet extended release 24 hr PO Patient Comments: TAKE ONE TABLET BY MOUTH EVERY DAY Trelegy Ellipta 100-62.5-25 mcg blister with device 1 inh inhalation DAILY mecobalamin (vitamin B12) 1,000 mcg tablet,chewable 1,000 mcg PO DAILY metoprolol succinate 25 mg tablet extended release 24 hr 25 mg PO DAILY Qty: 90 3RF fluoxetine 40 mg capsule 40 mg PO DAILY Patient Comments: TAKE 1 CAPSULE BY MOUTH ONCE DAILY metformin 500 mg tablet 500 mg PO BIDWMEAL Patient Comments: TAKE 1 TABLET BY MOUTH TWICE DAILY WITH A MEAL aspirin 81 mg Tablet,Chewable 81 mg PO DAILY ipratropium-albuterol 0.5 mg-3 mg(2.5 mg base)/3 mL Solution For Nebulization 3 ml inhalation Q6HP PRN (Reason: Shortness Of Breath Or Wheezing) Qty: 120 5RF Jardiance 10 mg Tablet 10 mg PO DAILY Qty: 30 5RF tramadol 50 mg Tablet 50 mg PO Q6HP PRN (Reason: pain) Qty: 60 1RF methocarbamol 500 mg tablet 500 mg PO Q8H Qty: 90 0RF omeprazole 20 mg capsule,delayed release(DR/EC) 20 mg PO BID 10 Days Qty: 20 0RF bumetanide 2 mg Tablet 2 mg PO BID Qty: 60 3RF spironolactone [Aldactone] 100 mg Tablet 100 mg PO DAILY Qty: 30 3RF Referrals Follow up/Referrals: Patricia Burroughs MD [Primary Care Provider, Medical] - See instructions Tc Abebe DO [Staff Physician, Orthopedics] - See instructions Activity Restrictions/Add. Instructions Additional Instructions/Restrictions: No evidence of an acute fracture or dislocation on your x-rays please ice elevate compress your ankle and foot and follow-up with orthopedic surgery if you are not improving in 1 to 2 weeks. You may wear your walking boot as needed for comfort. You may also bear weight as you can tolerate. Clinical Impressions Clinical Impression: Ankle sprain, Foot sprain Print Language Print Language: Jordanian Discharge ED Provider: Brionna Love General Adult HPI General Chief complaint: Extremity Injury, Lower Stated complaint: AO 01/14/25 1100, fell, inj ankles, knees, back jasper Time Seen by Provider: 01/15/25 09:54 Mode of Arrival: Ambulatory Source of Information: Patient Description of Symptoms (Recalled from ER Triage Doc. by RN): pt presents to the ED with pain and swelling in her right leg and ankle after a fall yesterday morning at 11:00. pt reports she was trying to put her clothes hamper in the car when her right leg gave out and her right ankle turned . pt has swelling noted to right ankle. pt reports the pain has gotten worse and she has a hard time walking. History of Present Illness HPI narrative: 49-year-old female presenting today with a primarily right lower extremity ankle/foot injury. She states that she fell yesterday her right leg gave out she also fell down to her legs and complained of some bilateral knee and left ankle discomfort as well but primarily she is here with right ankle discomfort and swelling and difficulty walking secondary to the pain. No injuries elsewhere. Related Data Home Medications ?Medication ?Instructions ?Recorded ?Confirmed aspirin 81 mg chewable tablet 81 mg PO DAILY 01/02/24 12/04/24 fluoxetine 40 mg capsule 40 mg PO DAILY 01/02/24 12/04/24 metformin 500 mg tablet 500 mg PO BIDWMEAL 01/02/24 12/04/24 Held on 05/16/24. Instructions: Resume on 05/19/24. hold for 2 days desvenlafaxine succinate 50 mg mg PO 09/10/24 09/10/24 tablet,extended release 24 hr fluticasone fur. 100 mcg-umeclid 1 inh inhalation DAILY 09/10/24 12/04/24 62.5 mcg-vilant 25 mcg inhalat.powder (Trelegy Ellipta) mecobalamin (vitamin B12) 1,000 1,000 mcg PO DAILY 09/10/24 12/04/24 mcg chewable tablet Previous Rx's ?Medication ?Instructions ?Recorded empagliflozin 10 mg tablet 10 mg PO DAILY #30 tabs 01/10/24 (Jardiance) ipratropium 0.5 mg-albuterol 3 mg 3 ml inhalation Q6HP PRN Shortness 01/10/24 (2.5 mg base)/3 mL nebulization Of Breath Or Wheezing #120 mL soln tramadol 50 mg tablet 50 mg PO Q6HP PRN pain #60 tabs 01/10/24 methocarbamol 500 mg tablet 500 mg PO Q8H #90 tabs 02/10/24 omeprazole 20 mg capsule,delayed 20 mg PO BID 10 days #20 caps 02/10/24 release atorvastatin 40 mg tablet 40 mg PO HS #90 tabs 04/30/24 bumetanide 2 mg tablet 2 mg PO BID #60 tabs 05/16/24 spironolactone 100 mg tablet 100 mg PO DAILY #30 tabs 05/16/24 (Aldactone) fluticasone furoate 100 1 inh inhalation DAILY #90 ea 06/13/24 mcg-vilanterol 25 mcg/dose inhalation powder (Breo Ellipta) metoprolol succinate 25 mg 25 mg PO DAILY #90 tabs 09/10/24 tablet,extended release 24 hr naproxen 500 mg tablet 500 mg PO BID PRN pain 7 days #14 01/15/25 tabs Allergies Allergy/AdvReac Type Severity Reaction Status Date / Time ondansetron (From Zofran) Allergy Headache Verified 12/04/24 15:12 [facility] Disclaimer: The information contained in this section may have been updated after the patient was seen, as this information can be updated by other users. Medical History Chronic sinusitis Headache Right ventricular dysfunction Pulmonary emphysema Smoking greater than 30 pack years (HFpEF) heart failure with preserved ejection fraction Elevated brain natriuretic peptide (BNP) level Epigastric abdominal pain Knee pain Pneumonia Pulmonary hypertension RVF (right ventricular failure) HFrEF (heart failure with reduced ejection fraction) Atypical angina Clubbing of digits Cyanosis Acute respiratory failure with hypoxia Pulmonary edema CAD in [place] artery SOB (shortness of breath) on exertion GERD (gastroesophageal reflux disease) IBS (irritable bowel syndrome) History of [place] (myocardial infarction) High cholesterol Hypertension Anxiety Depression Diabetes mellitus, type 2 Surgical History History of right breast biopsy History of D&C History of partial hysterectomy History of Family History Other COPD (chronic obstructive pulmonary disease) Depression FHx: mental illness Hyperlipidemia Social History Smoking Status: Current every day smoker alcohol intake: never current occupational status: disabled Travel in the last 8 weeks?: None Have you lived/traveled outside US in past 30 days?: No Contact w/someone who lives/traveled outside US past 30 days?: No Exposure to someone with infectious disease in past 14 days?: No Do you have a fever (greater than 100.4 F or 38 C)?: No Have you tested positive for COVID-19?: No Exposed to someone with COVID-19 in past 14 days?: No Do you have a sore throat?: No Do you have a cough?: No Do you have any weakness?: No Do you have any diarrhea?: No Are you experiencing any unusual bleeding?: No Do you have any muscle aches/pain?: No Do you have any abdominal pain?: No Are you experiencing loss of taste or smell?: No Other Medical History Have you received the Flu Vaccine for this season: No Have you received the Pneumonia Vaccine: Yes ROS Obtained: Yes All systems reviewed & no additional complaints except as documented Physical Exam General General appearance: alert and in no apparent distress Respiratory Respiratory exam: Present normal lung sounds bilaterally Cardiovascular Cardiovascular exam: Present regular rate Extremities Exam Extremities exam: Present other (Right and left knee and left ankle have normal range of motion and exam no soft tissue swelling erythema warmth etc. however right ankle is extensively swollen circumferentially around the right bilateral malleoli distal tib-fib compression and proximal hindfoot tenderness as well) Neurological Exam Neurological exam: Present alert and oriented X3 Medical Decision Making Medical Records Screening: Per USPSTF and CDC recommendations, given the prevalence of disease in our region, it is our hospital?s policy to screen for HIV and viral Hepatitis for all patients aged 18 and over and those with ongoing risk factors. Obie Inquiry Pt receiving controlled substance: No Vital Signs: 01/15/25 09:31 01/15/25 09:41 01/15/25 10:00 Temperature 97.8 F Temperature Source Oral Pulse Rate 80 74 Pulse Rate [Right] 88 Respiratory Rate 20 Blood Pressure 125/78 111/78 Blood Pressure [Right Arm] 125/78 Blood Pressure Mean [Right Arm] 93 Blood Pressure Source [Right Arm] Automatic Cuff Blood Pressure Position [Right Arm] Supine 02 Sat by Pulse Oximetry 88 L 92 L 95 Oxygen Delivery Method Room Air Orders (Tests/Meds): ED MEDICATIONS Discontinued Medications Generic Name Dose Route Start Last Admin Trade Name Freq PRN Reason Stop Dose Admin Naproxen 500 mg 01/15/25 10:02 01/15/25 10:16 Naproxen 500mg Tablet PO 01/15/25 10:03 500 mg ONCE ONE Administration ORDERS Category Date Time Status Ankle XR -Right minimum 3 Views [XR ankle RT min 3V] Exams 01/15/25 10:00 Taken Stat Foot XR right 2 views [XR foot RT 2V] Stat Exams 01/15/25 10:00 Taken Tibia/fibula XR right 2 views [XR tibia fibula RT 2V] Exams 01/15/25 10:00 Taken Stat Medical Decision Narrative: Patient with above history and physical she twisted her right ankle and fell and subsequently injured her bilateral knee and left ankle as well but those exams are completely normal. She does have an abnormal exam around her ankle and tib-fib and foot area on the right plain films were obtained to rule out any fracture dislocation I personally interpreted these and did not appreciate any fracture or dislocation therefore working diagnosis is an ankle and foot sprain. She has been seen ambulating in the emergency department but was also given a walking boot advised to follow-up outpatient with orthopedic surgery if she is not improving. Critical Care Critical Care Time Critical Care Time: No
[2025-01-15 11:03] VITALS: BP 124/77; PULSE 70; RESP 16; TEMP 36.7
== END 2025-01-15 11:06 | disposition home or self-care (01) ==
PROVIDERS: Emergency Provider Student in an Organized Health Care Education/Training Program; PCP Family Medicine
DX: S93.401A Sprain of unspecified ligament of right ankle, initial encounter (principal); S93.601A Unspecified sprain of right foot, initial encounter; X50.1XXA Overexertion from prolonged static or awkward postures, initial encounter
CPT/HCPCS: 73590; 73610; 73620; 99284

== ENCOUNTER 2025-01-27 16:35 | Outpatient (CLI) | payer MEDICARE, MEDICAID, SELFPAY ==
--- OUTSIDE RECORDS SUMMARY | 2024-12-06 07:00 | XMS_ITS ---
Author Organization [facility] [address] [place] [id number] Care Team Providers Care Human Resources Benefits Manager Name Role Phone Brionna Burroughs Unavailable [phone] Allergies Allergen (clinical drug ingredient) Drug/Non Drug [...] 12/06/2024 Encounters Encounter Location Date Provider Diagnosis [facility] [address], [place] [phone] 12/06/2024 Brionna Burroughs Essential hypertensi on I10 [...] Up: PAP, Reason: Provider Name:Brionna Dietrich er, 02/24/2025 10:15:00 AM, [address], [address], [place], [phone], Provider Name:Brionna Dietrich er, 03/14/2025 11:00:00 AM, [address], [address], [place], [phone], Progress Notes * ARUNA TIANDOB:[birth year] (49 yo F)Acc No.[id number]:12/06/2024 Progress Notes Patient: ARUNA HARTMAN Provider: Brionna Burroughs M.D. :1975 A ge:49 Y S ex:Female Date:12/06/2024 Address:[address] [place] [address] [id number] Subjective: * Chief Complaints: * 1 . 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 [...] AP * Billing Information: * Visit Code: 97333 Office Visit, Est Pt., Level 4. * Procedure Codes: G2211 Complex e/m visit add on. G8752 MOST RECENT SYSTOLIC BP < 140MM HG. G8754 MOST RECENT DIASTOLIC BP < 90MM HG. 3044F HG A1C LEVEL LT 7.0%. * Electronic signature of Brionna Burroughs MD on 01/27/2025 at 04:38 PM EDT Sign off status: Pending * Provider: Brionna Burroughs M.D. Date: 0 12/06/2024 Generated for Iraisi ng/Fagonzálezg/eTransmitting on: 0 01/27/2025 04:38 PM EDT History and Physical Notes * HPI [...]
--- OUTSIDE RECORDS SUMMARY | 2024-12-09 11:00 | XMS_ITS ---
Author Organization [facility] Address [address] [place] [id number] Care Team Providers Care Structures Assembler Name Role Phone Brionna Burroughs Unavailable [phone] Allergies Allergen (clinical drug ingredient) Drug/Non Drug [...] and other clinical and laboratory findings. See https://www.Biodesy.com/ sites/default/files/2017/AW-12820_002_01.pd f for further information. Test performed by [facility] d/b/a [facility], [address] [place] [address] , [address], [place] [address], Abdiel Oates DO, Pin Pusher, [facility]# [id number] P-Pap Test Thin Prep (Not ye t [...] SQUAMOUS CELLS OF UNDETERMINED SIGNIFICANCE Shift in siaak suggestive of bacterial vaginosis The following tests have been ordered as requested and a separate report will be issued: HPV High Risk Screen (TMA), HPV Genotype (TMA) This specimen has been analyzed by the [employer] Imaging System, an interactive computer system which assists the lab in the screening of ThinPrep Pap Test slides. Following imaging, the slide was reviewed by a Insurance Examining Clerk and/or Pathologist. End of Report Technical services provided by [facility], d/b/a [facility], [address] [place] [address] , [place] [address] Jose Meza MD, Pin Pusher. Case reviewed and diagnosis rendered at [facility] d/b/a [facility], [address] [place] [address] Michael Mora MD, Pin Pusher. CONFIDENTIAL HPV Genotype (TMA) (Not yet reviewed by provider) Interpretation:Negative Performing Lab: Notes/Report: HPV Type 16 NOT DETECTED The human papillomavirus (HPV) Genotype test is an FDA-approved in-vitro diagnostic amplified nucleic acid test for the qualitative detection of E6/E7 viral mRNA of independent HPV types 16 and 18/45 in cervical specimens. See https://www.Biodesy.com/ sites/default/files/2017AW-12821_002_01.pd f for further information. Test performed by [facility] d/b/a [address] [place], [place] [address], Abdiel Oates DO, Pin Pusher, [place]# [id number] HPV Type 18/45 NOT DETECTED The human papillomavirus (HPV) Genotype test is an FDA-approved in-vitro diagnostic amplified nucleic acid test for the qualitative detection of E6/E7 viral mRNA of independent HPV types 16 and 18/45 in cervical specimens. See https://www.Biodesy.com/ sites/default/files/2017AW-12821_002_01.pd f for further information. Test performed by [facility] d/b/a [facility], [address] [place] [address] [address] [place] [address], Abdiel Oates DO, Pin Pusher, [facility]# [id number] REASON FOR VISIT pap, Needs shingles vaccine [...] Problem Status W/U Status Risk Notes Problem [id number] BMI 32.0-32.9,ad ult (Z68.32) Active confirmed Vital Signs Blood pressure systolic 114 mm Hg 12/10/19 25 Blood pressure diastolic 70 mm Hg 025 Heart Rate 71 /min 12/09/2024 Height 63.5 in 12/09/2024 Weight 188.6 lbs 12/09/2024 BMI 32.88 kg/m2 12/09/2024 Encounters Encounter Location Date Provider Diagnosis [facility] [address] [place] [id number] 12/09/2024 Brionna Burroughs Well woman exam with [...] 3 Months, Reason: Provider Name:Brionna Dietrich , 02/24/2025 10:15:00 AM, [address] [facility], [address], [place], [id number], Provider Name:Brionna Dietrich , 03/14/2025 11:00:00 AM, [address] [facility], [address], [place], [id number], Progress Notes * ARUNA TIANDOB:[birth year] (49 yo F)Acc No.[id number]:12/09/2024 Progress Notes Patient: ARUNA HARTMAN Provider: Brionna Burroughs M.D. :1975 A ge:49 Y S ex:Female Date:12/09/2024 Address:[address] [place] [address] [place], [id number] Subjective: * Chief Complaints: * 1 . [...] acute respiratory failure with hypoxia; ASCVD of jamul coronoary artery; T2 DM; Breast mass 01/01-01/10/2024. [...] PV Type 18/45 NOT DETECTED - * [facility], IT support 12/12/2024 09:25:03 : This order was created by the Interface. ?Lab: HPV High Risk Screen (TMA) (Collection Date & Time - 12/09/2024 03:13 PM)?DETECTED* Value Reference Range H PV High Risk DETECTED A - * [facility], IT support 12/12/2024 09:25:03 : This order was created by the Interface. * Procedure Codes: G 2211 Complex e/m visit add on, G8752 MOST RECENT SYSTOLIC BP < 140MM HG, G8754 MOST RECENT DIASTOLIC BP < 90MM HG * Follow Up: 3 Months * Billing Information: * Visit Code: 31617 Preventive Care Est Pt Age 40-64. * Procedure Codes: G2211 Complex e/m visit add on. G8752 MOST RECENT SYSTOLIC BP < 140MM HG. G8754 MOST RECENT DIASTOLIC BP < 90MM HG. * Electronic signature of Brionna Burroughs MD on 01/27/2025 at 04:38 PM EDT Sign off status: Pending * Provider: Brionna Burroughs M.D. Date: 0 12/09/2024 Generated for Grace houser/Doreen/eTransmitting on: 0 01/27/2025 04:38 PM EDT History and Physical Notes * HPI (History of Present Illness) Category Sub-Category Detail Notes Category Not es BAKER APPRENTICE Fever She describes a Partial hysterectomy and [...] normal Chest: normal shape and exp ansion BAKER APPRENTICE Vagina: normal, no lesio ns , cuff well healed, I DO NOT THINK THERE IS CERVICAL TISSUE, but a PAP was performed with broom and brush Uterus: absent Adnexa: normal, no masses Urethra: meatus normal Rectal exam: normal , no masses Breasts: not examined, wearin g bra External genitalia normal , no lesions seen
--- NOTE | 2025-01-27 | XR_ITS ---
PROCEDURE INFORMATION: Exam: XR Chest Exam date and time: 01/27/2025 4:40 PM Age: 49 years old Clinical indication: Other: Pulmonary emphysema TECHNIQUE: Imaging protocol: Radiologic exam of the chest. Views: 2 views. COMPARISON: CR XR CHEST PORTABLE 05/25/2024 11:45 AM FINDINGS: Lungs: No consolidation or pulmonary edema. Pleural spaces: No pleural effusion. No pneumothorax. Heart/Mediastinum: The cardiomediastinal silhouette is not enlarged. Bones/joints: Visualized bones demonstrate no acute abnormality. IMPRESSION: No acute abnormality is identified.
--- OUTSIDE RECORDS SUMMARY | 2025-01-27 16:38 | XMS_ITS | Clinical Summary ---
Author Organization Healthcare Address [address] [place] [address] Care Team Providers Care Fellmongering Machine Operator Name Role Phone Pcp, No Primary Care [...] Acute hypoxemic respiratory failure 04/25/2024 CAD in [place] artery 04/25/2024 Diabetes mellitus, type 2 04/25/2024 Congestive heart failure 04/25/2024 HFrEF (heart failure with reduced ejection fract ion) 04/25/2024 History of [place] (myocardial infarction) 04/25/2024 Hypertension 04/25/2024 Pulmonary edema [...] Wellness (AWV) 1975 [facility]-Infant/Child/Adol SDOH Screenings 1975 [id number] Vaccine (#1) 1979 Diabetes: Dental Exam 1984 [...] topic Insurance [place]ICA[place] MEDICARE Care Teams Fellmongering Machine Operator Relationship Specialty Start Date End Date Pcp, [place] [address] PCP - General Family Medicine 04/07/24
--- OUTSIDE RECORDS SUMMARY | 2025-01-27 16:38 | XMS_ITS | Patient Health Record ---
Author Organization [facility] Address [address] [facility] [place] [address] [place] [address] Care Team Providers Care Neurology Nurse Name Role Phone [facility] Unavailable Unavailable Reason For Referral [...] Status Risk Notes Problem Adult health examination (823041286) Encounter for general adult medical examination without abnormal findings (Z00.00) 0 Active confirmed Jose Plan Of Treatment No Information
--- OUTSIDE RECORDS SUMMARY | 2025-01-27 16:38 | XMS_ITS | Patient Health Record ---
Author Organization [facility] Address [address] [place] [id number] Care Team Providers Care Hypnotherapist Name Role Phone Brionna Burroughsory Unavailable [phone] TamCarlie reagan Unavailable [phone] Allergies Allergen (clinical drug ingredient) Drug/Non Drug [...] date:11/20/2024 03:57:30 PM Interpretation: Performing Lab: Notes/Report: CBC Venipuncture (in house) (Not yet reviewed by provider) Interpretation: Performing Lab: Notes/Report: wbc 15.2 3.5 - 10 lymph 29.9% 15 - 50 mid 6.8% 2 - 15 gran 63.3% 35 - 80 rbc 4.91 3.5 - 5.5 hgb 14.9 11.5 - 16.5 hct 45.3 35 - 55 mcv 92.3 75 - 100 mch 30.4 25 - 35 mchc 32.9 31 - 38 platlet 352 100 - 400 Ultrasound : Breast, left Reviewed date:12/25/2024 04:35:33 PM Interpretation:probably benign, 6 month f/u Performing Lab: Notes/Report: probably benign, 6 month f/u Mammogram, Bilateral Diagnos tic Reviewed date:11/13/2024 04:09:12 PM Interpretation:Needs Additional Imaging; Left Breast US Needed Performing Lab: Notes/Report: Needs Additional Imaging; Left Breast US Needed MRI : Lumbar Spine without c ontrast Reviewed date:12/26/2024 12:28:24 PM Interpretation: Performing Lab: Notes/Report: Urinalysis - Inhouse Reviewed date:02/02/2024 04:05:42 PM Interpretation: Performing Lab: Notes/Report: Color/Clarity yellow/clear Leuk Neg Nitrite Neg Urobili 3.2 Protein Neg pH 5.5 Blood trace-intact Sp. Gr. <1.005 Ketone Neg Bili 3+ CBC Venipuncture (in house) Reviewed date:02/02/2024 04:06:42 PM Interpretation: Performing Lab: Notes/Report: wbc 12.3 3.5 - 10 lymph 14.7% 15 - 50 mid 4.0% 2 - 15 gran 81.3% 35 - 80 rbc 6.02`18.0 3.5 - 5.5 hgb 55.5 11.5 - 16.5 hct 92.1 35 - 55 mcv 30.0 75 - 100 mch 32.5 25 - 35 mchc 248 31 - 38 P-Basic Metabolic Panel (BMP ) Reviewed date:02/05/2024 11:42:06 AM Interpretation:gluc 165, bun 24, Ca 11.6 Performing Lab: Notes/Report: Test performed by [facility] [address] [place] [address] , [address], [place] [address] Christopher Valdez MD, Rfid Engineer CLIA: [id number] Sodium 135 135-145 mmol/L Potassium 5.2 3.5-5.3 mmol/L Chloride 97 97-108 mmol/L CO2 23 22-32 mmol/L Glucose 165 65-99 mg/dL BUN 24 6-20 mg/dL Creatinine 0.83 0.50-1.00 mg/dL Calcium 11.6 8.6-10.4 mg/dL eGFR by Creatinine 86 >59 mL/min/1.73m2 P-Culture, Urine Reviewed date:02/05/2024 11:42:06 AM Interpretation:No growth Performing Lab: Notes/Report: Test performed by [facility] [address] [place] [address] Josselyn Baptiste, [address], [place] [address] Christopher Valdez MD, Rfid Engineer CLIA: [id number] Specimen Source Urine - Void Culture, Urine See Below Final Report : No growth Biopsy : Stereotactic, right breast Reviewed date:02/26/2024 08:40:19 AM Interpretation:surgical consult recommended for excisional biopsy Performing Lab: Notes/Report: surgical consult recommended for excisional biopsy CBC Venipuncture (in house) Reviewed date:08/30/2024 03:09:09 [...] Notes/Report: glycohemoglobin 7.2% 5 - 6.5 % Cologuard Reviewed date:01/15/2025 11:39:07 AM Interpretation:Negative Performing Lab: Notes/Report: Negative Cologuard Reviewed date:01/15/2025 11:39:07 AM Interpretation:Negative Performing Lab: Notes/Report: Negative P-Comprehensive Metabolic Pa elena (CMP) Reviewed date:09/02/2024 08:34:24 AM Interpretation:gluc 139, Ca 11.2 Performing Lab: Notes/Report: Test performed by [facility] [address] [place] [address] , [address], [place] [address] Christopher Valdez MD, Rfid Engineer CLIA: [id number] Sodium 139 135-145 mmol/L Potassium 4.4 3.5-5.3 [...] Interpretation:Normal Performing Lab: Notes/Report: Test performed by [facility] [address] [place] [address] , [address], [place] [address] Christopher Valdez MD, Rfid Engineer CLIA: [id number] Albumin/Creatinine Ratio, Urine 11 0-30 ug/mg Microalbumin, Urine, Random 0.4 Creatinine, Urine 36.1 CT Scan : Sinuses, without c ontrast Reviewed date:09/09/2024 12:32:35 PM Interpretation:Abnormal Performing Lab: Notes/Report: Abnormal Glycohemoglobin A1c (in hous e) Reviewed date:10/28/2024 09:50:31 AM Interpretation:6.7 Performing Lab: Notes/Report: 6.7 glycohemoglobin 6.7% 5 - 6.5 % P-Comprehensive Metabolic Pa elena (CMP) Reviewed date:10/28/2024 09:50:31 AM Interpretation:gluc 143, Ca 11.3 Performing Lab: Notes/Report: Test performed by [facility] [address] [place] [address] , [address], [place] [address] Christopher Valdez MD, Rfid Engineer CLIA: [id number] Sodium 135 135-145 mmol/L Potassium 4.5 3.5-5.3 [...] 132 Performing Lab: Notes/Report: Test performed by [facility], [address] , [place] [address] Christopher Valdez MD, Rfid Engineer CLIA: [id number] Cholesterol 164 <200 mg/dL Triglycerides 176 <150 [...] date:11/20/2024 03:24:49 PM Interpretation: Performing Lab: Notes/Report: P-Pap Test Thin Prep (Not ye t [...] imaging, the slide was reviewed by a Pre School Manager and/or Pathologist. End of Report Technical services provided by [facility], [facility], d/b/a [facility], [address] [place] [address] , [place] [address] Jose Meza MD, Rfid Engineer. Case reviewed and diagnosis rendered at [facility], [facility], d/b/a [facility], [address] [place] [address] Michael Mora MD, Rfid Engineer. CONFIDENTIAL HPV High Risk Screen (TMA) ( Not yet reviewed by provider) Interpretation:DETECTED Performing Lab: Notes/Report: HPV High Risk DETECTED The human papillomavirus (HPV) High Risk Screen is an FDA-approved in-vitro amplified nucleic acid test for the qualitative detection of E6/E7 viral mRNA. Results should be correlated with patient presentation, history, cervical cytology and other clinical and laboratory findings. See https://www.[employer] m/sites/default/files/ 2017-10/[email or web address]_[email or web address] 1.pd f for further information. Test performed by [facility], [facility] d/b/a [address] [place] [address], Abdiel Oates DO, Rfid Engineer, CLIA# [id number] HPV Genotype (TMA) (Not yet reviewed by provider) Interpretation:Negative Performing Lab: Notes/Report: HPV Type 16 NOT DETECTED The human papillomavirus (HPV) Genotype test is an FDA-approved in-vitro diagnostic amplified nucleic acid test for the qualitative detection of E6/E7 viral mRNA of independent HPV types 16 and 18/45 in cervical specimens. See https://www.[employer] /sites/default/files/ AW-12821_002_0 1.pd f for further information. Test performed by [facility], [facility] d/b/a [address] [place] [address], Abdiel Oates DO, Rfid Engineer, CLIA# [id number] HPV Type 18/45 NOT DETECTED The human papillomavirus (HPV) Genotype test is an FDA-approved in-vitro diagnostic amplified nucleic acid test for the qualitative detection of E6/E7 viral mRNA of independent HPV types 16 and 18/45 in cervical specimens. See https://www.[employer] /sites/default/files/ AW-12821_002_0 1.pd f for further information. Test performed by [facility], [facility] d/b/a [address] [place] [address], Abdiel Oates DO, Rfid Engineer, CLIA# [id number] Reason For Referral Diagnosis 1 Abnormal breast biop sy (R89.7) Referral Organization [facility] Referring Provider First Name Brionna Pritchett Referring Provider Last Name Manjeet Referring Provider Speciality Family Pra okjesenia Referred Provider SABINO FLORENTINO Referred Provider Specialty General Surg pennie General Notes Yuliya Ruiz 02/27/20 2:23:34 PM > Per Dr. Burroughs- Biopsy does not show malignancy, but excision is recommended for definitive diagnosis. , Padmini Ocampo 02/28/2024 8:53:44 AM > left message with BJ with results Referral Priority Routine Reason Breast mass Diagnosis 1 Abnormal breast biop sy (R89.7) [facility] Referring Provider First Name Brionna Pritchett Referring Provider Last Name Manjeet Referring Provider [facility] ctice Referred Provider SABINO FLORENTINO Referred Provider Specialty General Surg pennie General Notes Padmini Ocampo 02/29/20 3:39:40 PM > informed Dr. Florentino's office of patient results via message to Referral Priority Routine Reason seeking letter for e motional support animal Diagnosis 1 Depression with anxi ety (F41.8) Ref[facility] Referring Provider First Name Brionna Pritchett Referring Provider Last Name Manjeet Referring Provider [facility] ctice Referred Organization [facility] OP Referred Provider Petra Oconnor Referred Address [address] [facility] [address] [place],[id number], Referred Provider Specialty Psychiatry General Notes Padmini Ocampo 04/19/20 8:46:23 AM > faxed referral to Nneka Ortiz Leigh Ann 04/19/2024 10:15:37 AM > Maribel wong [phone] please call sisterAdarsh Shannon 04/30/2024 2:03:45 PM > patient is not wanting to see Petra for anxiety and depression , she is only wanting the letter for the animal, spoke with Augustina and Petra will not see her for only that reason Referral Priority Routine Diagnosis [address] scan, si nus (R93.0) Ref[facility] Referring Provider First Name Brionna Pritchett Referring Provider Last Name Manjeet Referring Provider [facility] ctice Referred Provider Specialty ENT General Notes Padmini Ocampo 3:04:54 PM > faxed to [facility], Padmini Ocampo 09/12/2024 9:43:54 AM > spoke with Margie at [facility]; confirmed they received referral Referral Priority Routine Diagnosis 1 Left hip pain (M25.5 52) Diagnosis 2 Toe pain, left (M79. 675) Diagnosis 3 Acute midline low ba ck pain without sciatica (M54.50) Referral Organization [facility] Referring Provider First Name Carlie Referring Provider Last Name Radha Referring Provider Speciality Physician Booster Assembler Referred Provider Orthopedics, . Referred Provider Specialty [...] Once a day for 30 day(s) Active Nitroglycerin 0.4 MG as directed Sublingual Active Vitamin B-12 1000 MCG 1 tablet Orally Once a day Active Desvenlafaxine Succinate ER 50 mg TAKE ONE TABLET BY MOUTH EVERY DAY for 30 Active Trelegy Ellipta 100-62.5-25 MCG/ACT 1 puff Inhalation Once a day Active predniSONE 10 mg TAKE 1/2 TABLET BY MOUTH EVERY DAY - TAKE WITH FOOD- for 90 Not-Taking Metoprolol Succinate ER 25 MG 1 tablet Orally Once a day for 30 day(s) Active Mupirocin 2 % 1 application Externally Twice a day for 7 days 09/19/2024 Active Azithromycin 500 MG 1 tablet Orally Once a day for 3 days 01/27/2025 Active Acetaminophen PM 500-25 MG 1 tablet at bedtime as needed Orally Once a day Not-Taking Stool Softener Laxative 8.6-50 MG 2 TABS Orally Twice a day Active metFORMIN HCl 500 MG 1 tablet with a meal Orally once daily for 90 days Active Bumetanide 2 MG 1 tablet Orally Two times a day Active oxyBUTYnin Chloride ER 5 MG 1 tablet Orally Once a day for 30 day(s) Urinary Incontinence 09/09/2024 Not-Taking Omeprazole 20 MG 1 capsule 30 [...] Once a day for 30 day(s) Not-Taking Atorvastatin Calcium 40 MG 1 tablet Orally Once a day for 90 days Active Ipratropium-Albutero l 0.5-2.5 (3) MG/3ML 3 mL as needed Inhalation every 6 hrs Not-Taking Immunizations Vaccine Route Administration Date Status Comme nts Fluzone Quad (6months&older) IM Intramuscular 04/18/2024 Administered PNEUMOVAX 23 VACCINE IM Intramuscular 04/18/2024 Pending Social History Tobacco Use: Social History Observation Description Date Smoking Status WARNING: Information temporarily unavailable CURRENT TOBACCO USE: Question Answer Notes Are you a: 1/2 pack per day Problems Problem Type SNOMED Code ICD Code Onset Dates Problem Status W/U Status Risk Notes Problem Gastroesophageal reflux disease (628126028) GERD (gastroesophageal reflux disease) (K21.9) Active confirmed Problem 68914647 Essential hypertension (I10) Active confirmed Problem 079098091 Abnormal mammogr am (R92.8) Active confirmed Problem Constipation (49765573) Constipation (K59.00) Active confirmed Problem 408302474 Depression with anxiety (F41.8) Active confirmed Problem 630225388 BMI 32.0-32.9,adult (Z68.32) Active confirmed Problem 459259525 BMI 33.0-33.9,adult (Z68.33) Active confirmed Problem 918822667 Bandemia (D72.825) Active confirmed Problem 45022449 Pulmonary emphysema, unspecified emphysema type (J43.9) Active confirmed Problem 49751471 Hyperlipidemia, unspecified hyperlipidemia type (E78.5) Active confirmed Problem 18032996 Acute sinusitis, recurrence not specified, unspecified location (J01.90) Active confirmed Problem 901072354 Type 2 diabetes mellitus without complication, without long-term current use of insulin (E11.9) Active confirmed Problem 097546996 Atherosclerosis of lytton coronary artery without angina pectoris, unspecified whether lytton or transplanted heart (I25.10) Active confirmed Problem 16678171 Pulmonary hypertension (I27.20) Active confirmed Problem 281417009 Type 2 diabetes mellitus without complication, unspecified whether snf insulin use (E11.9) Active confirmed Problem 306504603 Abnormal x-ray (R93.89) Active confirmed Problem 259195817 Abnormal breast biopsy (R89.7) Active confirmed Vital Signs Heart Rate 71 /min 01/27/2025 Blood pressure diastolic 60 mm Hg 01/27/2025 Height 63.5 in 01/27/2025 Blood pressure systolic 90 mm Hg 01/27/2025 Weight 190.6 lbs 01/27/2025 BMI 33.23 kg/m2 01/27/2025 Encounters Encounter Location Date Provider Diagnosis [facility] [address] [place] [address] [place] [id number] 02/01/2024 Brionna Burroughs Pulmonary hypertensi on I27.20 ; Pulmonary emphysema, unspecified emphysema type J43.9 ; Type 2 diabetes mellitus without complication, without long-term current use of insulin E11.9 ; Mass of right breast on mammogram N63.10 ; Acute UTI N39.0 and Bandemia D72.825 [facility] [address] [place] [id number] 02/29/2024 Brionna Burroughs Abnormal breast biop sy R89.7 ; Pulmonary emphysema, unspecified emphysema type J43.9 ; Type 2 diabetes mellitus without complication, unspecified whether snf insulin use E11.9 and Depression with anxiety F41.8 [facility] [address] [place] [address] [place] [id number] 04/18/2024 Brionna Burroughs Pulmonary emphysema, unspecified emphysema type J43.9 ; 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 ; Type 2 diabetes mellitus without complication, without long-term current use of insulin E11.9 ; Depression with anxiety F41.8 and Encounter for immunization Z23 [facility] [address] [place] [address] [place] [id number] 08/30/2024 Brionna Burroughs Acute sinusitis, recurrence not specified, unspecified location J01.90 ; Type 2 diabetes mellitus without complication, without long-term current use of insulin E11.9 ; Essential hypertension I10 ; Pulmonary hypertension I27.20 ; Bandemia D72.825 and Screen for colon cancer Z12.11 [facility] [address] [place] [id number] 09/19/2024 Brionna Burroughs Abscess of left ear canal H60.02 ; Type 2 diabetes mellitus without complication, without long-term current use of insulin E11.9 and Pulmonary emphysema, unspecified emphysema type J43.9 [facility] [address] [place] [address] [place] [id number] 10/25/2024 Brionna Burroughs Type 2 diabetes iva itus without complication, unspecified whether snf insulin use E11.9 ; Pulmonary emphysema, unspecified emphysema type J43.9 ; Essential hypertension I10 ; Pulmonary hypertension I27.20 ; Acute sinusitis, recurrence not specified, unspecified location J01.90 ; Constipation K59.00 ; Abnormal breast biopsy R89.7 ; Headache, unspecified R51.9 and Hyperlipidemia, unspecified hyperlipidemia type E78.5 [facility] [address], [place] [id number] 11/14/2024 Carlie Crowdy Left hip pain M25.55 2 ; Acute midline low back pain without sciatica M54.50 ; Toe pain, left M79.675 ; Tobacco use Z72.0 and BMI 33.0-33.9,adult Z68.33 [facility] [address], [place] [id number] 12/06/2024 Brionna Burroughs Essential hypertensi on I10 ; Type 2 diabetes mellitus without complication, without long-term current use of insulin E11.9 ; Blood in stool K92.1 and Chronic constipation K59.09 [place] [address], [place] [id number] 12/09/2024 Brionna Burroughs Well woman exam with routine gynecological exam Z01.419 and BMI 32.0-32.9,adult Z68.32 [place] [address], [place] [id number] 01/27/2025 Brionna Burroughs Bandemia D72.825 ; Pulmonary emphysema, unspecified emphysema type J43.9 and Type 2 diabetes mellitus without complication, unspecified whether snf insulin use E11.9 [facility] [address], [place] [id number] 02/02/2024 Brionna Burroughs Type 2 diabetes iva itus without complication, without long-term current use of insulin E11.9 ; Congestive heart failure with right heart failure I50.810 ; Pulmonary hypertension I27.20 and Pulmonary emphysema, unspecified emphysema type J43.9 [facility] [address], [place] [id number] 02/02/2024 Brionna Burroguhs [facility] [address] [place], [place] [id number] 02/05/2024 J Shreyas Burroughs [facility] [address] [place], [place] [id number] 02/07/2024 Brionna Burroughs Pulmonary hypertensi on I27.20 [facility] [address] [place], [place] [id number] 02/12/2024 J Shreyas Burroughs [facility] [address] [place], [place] [id number] 02/26/2024 J Shreyas Burroughs Abnormal breast biop sy R89.7 [facility] [address] [place], [place] [id number] 04/19/2024 J Shreyas Burroughs Pulmonary emphysema, unspecified emphysema type J43.9 ; Congestive heart failure with right heart failure I50.810 ; Type 2 diabetes mellitus without complication, without long-term current use of insulin E11.9 and Pulmonary hypertension I27.20 [facility] [address] [place], [place] [id number] 04/30/2024 J Shreyas Burroughs [facility] [address] [place], [place] [id number] 05/22/2024 Brionna Burroughs Type 2 diabetes iva itus without complication, without long-term current use of insulin E11.9 [facility] [address] [place], [place] [id number] 06/13/2024 Brionna Burroughs [facility] [address] [place], [place] [id number] 07/12/2024 J Shreyas Burroughs [facility] [address] [place], [place] [id number] 08/13/2024 J Shreyas Burroughs [facility] [address] [place], [place] [id number] 09/02/2024 J Shreyas Burroughs [facility] [address] [place], [place] [id number] 09/05/2024 Brionna Burroughs [facility] [address] [place], [place] [id number] 09/09/[address] Ab[address] CT scan, si nus R93.0 [facility] [address] [place], [place] [id number] 10/21/2024 Brionna Burroughs [facility] [address] [place], [place] [id number] 10/28/2024 J Shreays Burroughs [facility] [address] [place] [id number] 11/13/2024 Brionna Burroughs [facility] [address] [place] [id number] 11/20/2024 Carlie Garcia [facility] [address] [place], [place] [id number] 12/05/2024 J Shreyas Burroughs [facility] [address] [place] [id number] 12/18/2024 Brionna Burroughs [facility] [address] [place], [place] [id number] 12/26/2024 Carlie Garcia Assessments Encounter Date Diagnosis (ICD Code) Assessment Notes Treatment Notes Treatment Clinical Notes Section Notes 02/01/2024 Pulmonary emphysema, unspecified emphysema type (ICD-10 [...] 2 diabetes mellitus without complication, unspecified whether long term care social worker insulin use (ICD-10 - E11.9) 11/14/2024 Left hip pain (ICD-10 - M25.552) 11/14/2024 Acute midline low back pain without sciatica (ICD-10 - M54.50) 12/06/2024 Essential hypertension (ICD-10 - I10) 12/06/2024 Type 2 diabetes mellitus without complication, without long-term current use of insulin (ICD-10 - E11.9) 12/09/2024 BMI 32.0-32.9,adult (ICD-10 - Z68.32) 12/09/2024 Well woman exam with routine gynecological exam (ICD-10 - Z01.419) 01/27/2025 Bandemia (ICD-10 - D72.825) 01/27/2025 Pulmonary emphysema, unspecified emphysema type (ICD-10 - J43.9) 12/06/2024 Blood in stool (ICD-10 - K92.1) [...] 2 diabetes mellitus without complication, unspecified whether snf insulin use (ICD-10 - E11.9) Jardiance samples given 02/01/2024 Type 2 diabetes mellitus without complication, without long-term current use of insulin (ICD-10 - E11.9) 02/02/2024 Congestive heart failure with right heart failure (ICD-10 - I50.810) 11/14/2024 Toe pain, left (ICD-10 - M79.675) 11/14/2024 Tobacco use (ICD-10 - Z72.0) 02/02/2024 Pulmonary hypertension (ICD-10 - I27.20) 02/01/2024 Mass of right breast on mammogram (ICD-10 - N63.10) 02/29/2024 Depression with anxiety (ICD-10 - F41.8) 04/18/2024 Depression with anxiety (ICD-10 - F41.8) 04/19/2024 Type 2 diabetes mellitus without complication, without long-term current use of insulin (ICD-10 - E11.9) 08/30/2024 Pulmonary hypertension (ICD-10 - I27.20) 12/06/2024 Chronic constipation (ICD-10 - K59.09) 01/27/2025 Type 2 diabetes mellitus without complication, unspecified whether long term care social worker insulin use (ICD-10 - E11.9) 10/25/2024 Pulmonary hypertension (ICD-10 - I27.20) 10/25/2024 Acute sinusitis, recurrence not specified, unspecified location (ICD-10 - J01.90) 11/14/2024 BMI 33.0-33.9,adult (ICD-10 - Z68.33) 04/19/2024 Pulmonary hypertension (ICD-10 - I27.20) 08/30/2024 Bandemia (ICD-10 - D72.825) 04/18/2024 Encounter for immunization (ICD-10 - Z23) 02/02/2024 Pulmonary emphysema, unspecified emphysema type (ICD-10 - J43.9) 02/01/2024 Acute UTI (ICD-10 - N39.0) 02/01/2024 Bandemia (ICD-10 - D72.825) 08/30/2024 Screen for colon cancer (ICD-10 - Z12.11) 10/25/2024 Constipation (ICD-10 - K59.00) Miralax recommended 10/25/2024 Abnormal breast biopsy (ICD-10 - R89.7) 10/25/2024 Headache, unspecified (ICD-10 - R51.9) 10/25/2024 Hyperlipidemia, unspecified hyperlipidemia type (ICD-10 - E78.5) Plan Of Treatment Pending Test Test Name Order Date CXR 01/27/2025 CBC Venipuncture (in house) 01/27/2025 HPV High Risk Screen (TMA) 12/09/2024 P-Pap Test Thin Prep 12/09/2024 HPV Genotype (TMA) 12/09/2024 Next Appt Details Provider Name:Brionna Pritchett [facility], 02/24/2025 10:15:00 AM, [address] [place] [address], [address], [place], [place], [id number], Provider Name:Brionna Pritchett [facility], 03/14/2025 11:00:00 AM, [address] [place] [address] [address] [facility], [address], [place], [place], [id number], Insurance Providers Payer Name Payer Address Payer Phone Subscriber Number Group Number Insured Name Patient Relationship to Insured Coverage Start Date Coverage End Date [employer] (MEDICAR E) [address] [address] [place] [phone] [id number] ARUNA TIAN Self - patient is the insured Medical (General) History Medical History History ICD Code Hypertension Heart attack 40 yo, Sep 03, [address] Hyperlipidemia Diabetes Allergies Arthritis Irritable Bowel Syndrome Depression Kidney stones GERD pulmonary HTN ASCVD T2DM Positive RA 01/2024 Surgical History Surgery Date(Month/Year) C section 1996 & 1999 Partial Hysterectomy D & C Right breast Biopsy Hospitalization History Reason Date(Month/Year) [facility] Pulmonary HTN; Right hrt failure; acute respiratory failure with hypoxia; ASCVD of lytton coronoary artery; T2 DM; Breast mass 01/01-01/10/2024
--- OUTSIDE RECORDS SUMMARY | 2025-01-27 16:38 | XMS_ITS | Encounter Summary ---
Author Organization Healthcare Address [address] [place] [address] Care Team Providers Care Second Shift Supervisor Name Role Phone Pcp, No Primary Care Provider Unavailabl e Encounter Details Date Type Department Care Team (Late st Contact Info) Description 04/18/2024 Lab Requisition [facility] [address] [place] [address] Marcella Lui MD [address] [facility] [address] [place] [address] Unspecified lump in unspecified breast Social History [...] EDT) Case Report Sugical Pathology Consult Case: [id number] Authorizing Provider: Marcella Lui MD Collected: 04/18/2024 1053 Ordering Location: [facility] Received: 04/18/2024 1054 Pathologist: Peyton Urena MD Specimen: Breast, Right, [id number] 04/23/2024 9:24 AM EDT [facility] Final Diagnosis A. BREAST, RIGHT, NEEDLE CORE BIOPSY (OUTSIDE SLIDES [id number], 03/29/24): - FIBROADENOMA WITH ASSOCIATED DUCTAL CALCIFICATIONS 04/23/2024 9:24 AM EDT [facility] at 0924 EDT Clinical Information N63.0 - Unspecified lump in unspecified breast [ICD-10-CM] 04/23/2024 9:24 AM EDT [facility] Gross Description A. [id number] Received along with a corresponding pathology report from [facility] are 5 slides labeled outside case: [id number] collected on 03/29/2024. 04/23/2024 9:24 AM EDT [facility] Note: A resident was involved in the service. I attest I examined the relevant preparations for the specimens and confirmed the diagnosis or interpretation. 04/23/2024 9:24 AM EDT [facility] Tissue Right breast structure / Unknown 04/18/2024 10:53 AM EDT 04/18/2024 10:54 AM EDT us Marcella Lui MD LAB PATHOLOGY ORDERABLES F inal Result [facility] [address] [place] [address] documented in this encounter Visit Diagnoses Diagnosis Unspecified lump in unspecified breast documented in this encounter Care Teams Second Shift Supervisor Relationship Specialty Start Date End Date Pcp, No [address] [place] [address] PCP - General Family Medicine 04/07/24 documented as of this encounter
== END 2025-01-27 23:59 | disposition home or self-care (01) ==
LOC: RAD 16:36
PROVIDERS: PCP Family Medicine; Visit Provider Family Medicine
DX: J43.9 Emphysema, unspecified (principal)
CPT/HCPCS: 71046

== ENCOUNTER 2025-07-11 13:26 | Emergency (ER) | payer MEDICARE, MEDICAID, SELFPAY ==
[2025-07-11] VITALS (7 sets, daily range): BP systolic 112–147; BP diastolic 60–97; PULSE 60–82; RESP 9–20; TEMP 37–37.3; O2SAT 90–99; BMI 32.5
--- NOTE | 2025-07-11 13:33 | ECG_ITS ---
APPROVED REPORT Exam: Resting ECG HR:77 bpm ECG Measurements Heart Rate 77 AXES NC 180 P 64 QRSd 112 QRS 98 QT 372 T 65 QTc 404 Conclusion SINUS RHYTHM RIGHT BUNDLE BRANCH BLOCK [120+ ms QRS DURATION, UPRIGHT V1, 40+ ms S IN I/aVL/V4/V5/V6] ABNORMAL ECG UNCONFIRMED REPORT Normal sinus rhythm. Right bundle branch block. No STEMI Electronically signed by : JOEL MONTERROSO, 07/12/2025 15:28:50
--- NOTE | 2025-07-11 13:48 | XR_ITS ---
FINAL REPORT CLINICAL HISTORY: Shortness of air, chest pain FINDINGS: A portable view of the chest is obtained. There is no prior exam for comparison. Cardiac and mediastinal silhouettes are normal. The lungs are clear. There is no pleural effusion or pneumothorax. IMPRESSION: No acute process on this portable exam. Reviewed, Interpreted and Dictated by Elizabeth Garrido MD Transcribed by Nita Alfred Authenticated and [facility]
--- NOTE | 2025-07-11 13:48 | ED_ITS ---
<Statement entered by Tahir Mcgraw MD - 07/12/25 15:30> I was consulted by the DANTE, and we discussed the complexity of the problems being addressed. I approve the treatment and management plan for this patient's care in the emergency department, thus performing a substantive portion of the medical decision making. Tahir Mcgraw MD <Statement entered by Daniel Can DO - 07/11/25 23:22> I was consulted by the DANTE, and we discussed the complexity of problems being addressed. I approved the treatment and management plan for this patient's care in the emergency department, thus performing a substantive portion of the medical decision making. Daniel Can DO I independently evaluated this patient as well. She tells me that she has had multiple recurrent episodes of expectorating blood over the last couple of years. She states that normally this will last for maybe 2 to 3 days at a time but this time is lasting for 3 days and has not decreased over time. This ultimately prompted her presentation today. I have really tried hard to discern from the patient whether this is potentially hemoptysis versus hematemesis. She tells me that when she coughs she will sometimes expectorate some specks of blood, but nearly every time that she does cough her sputum is primarily clear. She tells me that she will have a sensation of reflux in the back of her throat and on the back of her tongue that happened spontaneously while resting and when she spits she sees blood on the napkin. Therefore this does seem like it could potentially be GI in origin. While in the emergency department we worked the patient up with hematologic labs as well as advanced imaging. Labs were personally turbid by me and demonstrate no evidence of coagulopathy, no anemia, and a mild leukocytosis. She has no electrolyte derangements that are correctable and no acute kidney injury. CTA of the chest abdomen pelvis does not show any findings that would explain her expectoration of blood. The patient has remained stable while in the emergency department for long period of time. She has not expectorated any large amounts while under our care. Therefore we ultimately spoke with her about following up with Dr. Andujar for further evaluation of her gastrointestinal tract. She is actually scheduled for an endoscopy with Dr. Andujar at the end of this month. Feel that this is a reasonable timeframe for follow-up. She understands that she should return to the emergency department should any new or worsening symptoms. At this time all questions were answered and all parties were agreeable with discharge Discharge Plan Disposition Patient Disposition: Home, Self-Care Condition: Good Prescriptions Prescriptions: No Action atorvastatin 40 mg tablet 40 mg PO HS Qty: 90 3RF celecoxib 200 mg capsule 200 mg PO DAILY Patient Comments: TAKE ONE CAPSULE BY MOUTH EVERY DAY metoprolol succinate 25 mg tablet extended release 24 hr 12.5 mg PO DAILY Qty: 45 3RF spironolactone [Aldactone] 100 mg tablet 50 mg PO DAILY Qty: 45 3RF bumetanide 1 mg tablet 2 mg PO DAILY Qty: 180 3RF fluticasone furoate-vilanterol [Breo Ellipta] 100-25 mcg/dose blister with device 1 inh inhalation DAILY Qty: 90 2RF desvenlafaxine succinate 50 mg tablet extended release 24 hr PO Patient Comments: TAKE ONE TABLET BY MOUTH EVERY DAY mecobalamin (vitamin B12) 1,000 mcg tablet,chewable 1,000 mcg PO DAILY omeprazole 40 mg capsule,delayed release(DR/EC) 40 mg PO DAILY Qty: 30 2RF clopidogrel [Plavix] 75 mg tablet 75 mg PO DAILY Qty: 30 5RF fluoxetine 40 mg capsule 40 mg PO DAILY Patient Comments: TAKE 1 CAPSULE BY MOUTH ONCE DAILY metformin 500 mg tablet 500 mg PO BIDWMEAL Patient Comments: TAKE 1 TABLET BY MOUTH TWICE DAILY WITH A MEAL ipratropium-albuterol 0.5 mg-3 mg(2.5 mg base)/3 mL Solution For Nebulization 3 ml inhalation Q6HP PRN (Reason: Shortness Of Breath Or Wheezing) Qty: 120 5RF Referrals Follow up/Referrals: Padilla Andujar II, MD [Staff Physician, Gastroenterology] - See instructions Patricia Burroughs MD [Primary Care Provider, Medical] - See instructions Bubba Johnson MD [Referring, Medical] - See instructions Activity Restrictions/Add. Instructions Additional Instructions/Restrictions: Please return to the emergency department with any worsening signs or symptoms. Please keep your follow-up with GI doctor in the upcoming days/weeks, please call for appointment, please call for appointment with vascular surgery team for incidental findings of aneurysms. Clinical Impressions Clinical Impression: Coughing up blood, AAA (abdominal aortic aneurysm) Instructions Patient Instructions: DI for Aortic Aneurysm, DI for Hemoptysis Print Language Print Language: German Discharge ED Provider: Tahir Mcgraw General Adult HPI <TAYLOR Lester - Last Filed: 07/11/25 18:07> General Chief complaint: Abdominal Pain Stated complaint: acid reflux with blood, headache, dizzy Time Seen by Provider: 07/11/25 13:34 Mode of Arrival: Ambulatory Source of Information: Patient Description of Symptoms (Recalled from ER Triage Doc. by RN): patient states she she has been coughing up blood for 3 days this has been going on intermittenly since august. History of Present Illness HPI narrative: 50-year-old female presents to the emergency department with generalized abdominal pain, most localized to the midepigastric region this been going on for quite some time, her main complaint however is throwing up blood . Patient describes it is not a true hematemesis, describes more as of a hemoptysis, patient describes it as you know when you have GERD and you have that taste that is sour that comes up? But mine is blood , patient then proceeds to show me a medicine bottle with her bloody phlegm as well as several tissues with bloody phlegm. Patient denies any fever chills chest pain shortness of breath, denies any overt cough, congestion, does have nausea, no overt vomiting, no constipation, no diarrhea, no melena no hematochezia, no hematuria, no urinary symptomatology, patient's current everyday smoker, data deficient/former history of alcohol use, denies any overt drug use. Other past medical history consistent with pulmonary hypertension HFpEF, CAD status post stent placement, GERD, T2DM, COPD, hyperlipidemia, patient is on endplate therapy with Plavix but discontinued her aspirin therapy. Initial triage vitals are unremarkable. Also data deficient history that the patient has had intermittent similar symptomatology since August of this year. Please note that above description of symptoms, in this electronic medical record under categorization of recalled from ER triage doctor by RN are reflective of an initial nursing assessment, however, is not reflective of my full history and physical exam that was personally taken and clarified. Consequentially, this preceding description of symptoms, which may include the patient's categorized chief complaint in the EMR, do not reflect my personal clinical impression, and the ultimate description of history of present illness and patient stated complaints should be deferred to this section of the note. Unless stated otherwise or congruent with this section of the note, additional signs, symptoms, or incongruence should be interpreted as inaccurate with my clinical impression. Onset (ago): day(s) Related Data Home Medications ?Medication ?Instructions ?Recorded ?Confirmed fluoxetine 40 mg capsule 40 mg PO DAILY 01/02/2406/07 metformin 500 mg tablet 500 mg PO BIDWMEAL 01/02/24 06/16/25 Held on 05/16/24. Instructions: Resume on 05/19/24. hold for 2 days desvenlafaxine succinate 50 mg mg PO 09/10/24 06/16/25 tablet,extended release 24 hr mecobalamin (vitamin B12) 1,000 1,000 mcg PO DAILY 11/2906/16/25 mcg chewable tablet celecoxib 200 mg capsule 200 mg PO DAILY 03/10/2505/31 Previous Rx's ?Medication ?Instructions ?Recorded ipratropium 0.5 mg-albuterol 3 mg 3 ml inhalation Q6HP PRN Shortness 01/10/24 (2.5 mg base)/3 mL nebulization Of Breath Or Wheezing #120 mL soln atorvastatin 40 mg tablet 40 mg PO HS #90 tabs 4 fluticasone furoate 100 1 inh inhalation DAILY #90 e a 06/13/24 mcg-vilanterol 25 mcg/dose inhalation powder (Breo Ellipta) bumetanide 1 mg tablet 2 mg (2 x 1 mg) PO DAILY #18 0 tabs 03/10/25 metoprolol succinate 25 mg 12.5 mg (1/2 x 25 mg) PO DA ASHLEY #45 03/10/25 tablet,extended release 24 hr tabs spironolactone 100 mg tablet 50 mg (1/2 x 100 mg) PO D AILY #45 03/10/25 (Aldactone) tabs clopidogrel 75 mg tablet (Plavix) 75 mg PO DAILY #30 t abs 06/16/25 omeprazole 40 mg capsule,delayed 40 mg PO DAILY #30 ca ps 06/16/25 release Allergies Allergy/AdvReac Type Severity Reaction Status Date / Time ondansetron (From Zofran) Allergy Headache Verified 06/16/25 10:30 [facility] <TAYLOR Lester - Last Filed: 07/11/25 18:07> [facility] Disclaimer: The information contained in this section may have been updated after the patient was seen, as this information can be updated by other users. Medical History Hypotension Dizziness Daytime somnolence Nocturnal hypoxia Chronic sinusitis Headache Right ventricular dysfunction Pulmonary emphysema Smoking greater than 30 pack years (HFpEF) heart failure with preserved ejection fraction Elevated brain natriuretic peptide (BNP) level Epigastric abdominal pain Knee pain Pneumonia Pulmonary hypertension RVF (right ventricular failure) HFrEF (heart failure with reduced ejection fraction) Atypical angina Clubbing of digits Cyanosis Acute respiratory failure with hypoxia Pulmonary edema CAD in [place] artery SOB (shortness of breath) on exertion GERD (gastroesophageal reflux disease) IBS (irritable bowel syndrome) History of SC (myocardial infarction) High cholesterol Hypertension Anxiety Depression Diabetes mellitus, type 2 Surgical History History of right breast biopsy History of D&C History of partial hysterectomy History of Family History Other COPD (chronic obstructive pulmonary disease) Depression FHx: mental illness Hyperlipidemia Social History Smoking Status: Current every day smoker alcohol intake: never current occupational status: disabled Travel in the last 8 weeks?: None Have you lived/traveled outside [place] in past 30 days?: No Contact w/someone who lives/traveled outside US past 30 days?: No Exposure to someone with infectious disease in past 14 days?: No Do you have a fever (greater than 100.4 F or 38 C)?: No Have you tested positive for COVID-19?: No Exposed to someone with COVID-19 in past 14 days?: No Do you have a sore throat?: No Do you have a cough?: No Do you have any weakness?: No Do you have any diarrhea?: No Are you experiencing any unusual bleeding?: No Do you have any muscle aches/pain?: No Do you have any abdominal pain?: No Are you experiencing loss of taste or smell?: No Other Medical History Have you received the Flu Vaccine for this season: No Have you received the Pneumonia Vaccine: No <TAYLOR Lester - Last Filed: 07/11/25 18:07> ROS Obtained: Yes All systems reviewed & no additional complaints except as documented Physical Exam <TAYLOR Lester - Last Filed: 07/11/25 18:07> General General appearance: alert and in no apparent distress Head Head exam: atraumatic and normocephalic Eye Eye exam: Present PERRL and EOMI ENT ENT exam: Present mucous membranes moist Neck Neck exam: Present normal inspection Chest Chest inspection: Present normal inspection and symmetric chest wall rise Respiratory Respiratory exam: Present normal lung sounds bilaterally; Absent respiratory distress Cardiovascular Cardiovascular exam: Present regular rate and normal rhythm Abdominal Exam Abdominal exam: Present soft and tenderness; Absent guarding, rebound or rigidity Abdominal tenderness: Present diffuse and mild Extremities Exam Extremities exam: Present normal inspection Neurological Exam Neurological exam: Present alert and oriented X3 Psychiatric Psychiatric exam: Present normal affect Skin Skin exam: Present warm and dry Medical Decision Making <TAYLOR Lester - Last Filed: 07/11/25 18:07> Medical Records Medical records reviewed: Yes I reviewed the patient's medical records. Screening: Per USPSTF and CDC recommendations, given the prevalence of disease in our region, it is our hospital?s policy to screen for HIV and viral Hepatitis for all patients aged 18 and over and those with ongoing risk factors. Obie Inquiry Pt receiving controlled substance: No Obie was queried for this patient: No Vital Signs: 07/11/25 13:37 07/11/25 13:41 07/11/25 14:00 Temperature 99.1 F Temperature Source Oral Pulse Rate 82 73 Pulse Rate [Right Radial] 81 Respiratory Rate 9 L 18 20 Blood Pressure 129/79 Blood Pressure [Right Arm] 147/97 H Blood Pressure Mean [Right Arm] 113 Blood Pressure Source [Right Arm] Automatic Cuff Blood Pressure Position [Right Arm] Supine 02 Sat by Pulse Oximetry 97 97 96 Oxygen Delivery Method Room Air Room Air Room Air 07/11/25 16:27 07/11/25 16:30 07/11/25 17:00 Temperature Temperature Source Pulse Rate 68 71 60 Pulse Rate [Right Radial] Respiratory Rate Blood Pressure 112/60 113/76 112/72 Blood Pressure [Right Arm] Blood Pressure Mean [Right Arm] Blood Pressure Source [Right Arm] Blood Pressure Position [Right Arm] 02 Sat by Pulse Oximetry 91 L 93 L 90 L Oxygen Delivery Method Lab Data Lab results reviewed: Yes I reviewed the patient's lab results. Lab Results 07/11/25 13:35: WBC 11.2 H, RBC 5.02, Hgb 15.4, Hct 45.1, MCV 89.8, MCH 30.7, MCHC 34.1, RDW 12.7, Plt Count 339, MPV 10.5 H, Neut % (Auto) 58.6, Lymph % (Auto) 31.2, Gray % (Auto) 5.6, Eos % (Auto) 3.0, Baso % (Auto) 1.2, Neut # (Auto) 6.6, Lymph # (Auto) 3.5, Gray # (Auto) 0.6, Eos # (Auto) 0.3, Baso # (Auto) 0.1, PT 10.9, INR 0.98, APTT 24.8, Sodium 133 L, Potassium 4.2, Chloride 101, Carbon Dioxide 23, Anion Gap 13.2, BUN 15, Creatinine 0.80, Estimated Creat Clear 110, Estimated GFR 76, Est GFR ( Amer) 92, Glucose 120 H, Calcium 10.7 H, Magnesium 1.8, Total Bilirubin 0.8, AST 28, ALT 20, Alkaline Phosphatase 107, Total Protein 8.5 H, Albumin 4.8, Globulin 3.7 H, Albumin/Globulin Ratio 1.3, Lipase 141, HCV Ab CARLOTA w/Rflx PCR Qn Negative, HIV Ag/Ab Combo Qual Negative 07/11/25 13:58: Lactate 1.1, Blood Type O Positive, Antibody Screen Negative 07/11/25 13:35 07/11/25 13:35 Orders (Tests/Meds): ED MEDICATIONS Discontinued Medications Generic Name Dose Route Start Last Admin Trade Name Freq PRN Reason Stop Dose Admin Iopamidol 80 ml 07/11/25 14:43 07/11/25 14:44 Iopamidol-370 (76%);100ml Bottle IV 07/11/25 14:44 80 ml ONCE ONE Administration Sodium Chloride 10 ml 07/11/25 14:43 07/11/25 14:44 Sodium Chloride 0.9% 10ml Syr (Rad Only) IV 07/11/25 14:44 10 ml ONCE ONE Administration Sodium Chloride 50 ml 07/11/25 14:43 07/11/25 14:44 0.9 % Sodium Chloride 50 Ml Vial IV 07/11/25 14:44 50 ml ONCE ONE Administration ORDERS Category Date Time Status Type and Screen Stat BBK 07/11/25 13:[address] angio abd/pel - GI Bleed Stat Cat Scan 07/11/25 14:[address] angio chest PE protocol Stat Cat Scan 07/11/25 14:13 Completed XR chest portable Stat Exams 07/11/25 13:48 Completed Complete Blood Count Auto Diff Stat Lab 07/11/25 13:35 Completed Comprehensive Metabolic Panel Stat Lab 07/11/25 13:35 Completed HIV Combo Stat Lab 07/11/25 13:35 Completed Hepatitis C Ab Qual. W/ RFX Stat Lab 07/11/25 13:35 Completed Lactic Acid Stat Lab 07/11/25 13:58 Completed Lipase Stat Lab 07/11/25 13:35 Completed Magnesium Stat Lab 07/11/25 13:35 Completed PT INR [Prothrombin Time INR] Stat Lab 07/11/25 13:35 Completed PTT [Activated Partial Thrombo Time] Stat Lab 07/11/25 13:35 Completed Medical Decision Narrative: 50-year-old female presents the emergency department with hemoptysis versus hematemesis last 3 days and generalized abdominal pain and nausea differential diagnose include but not limited to, upper GI bleed, PUD, gastritis, GERD, malignancy, PE, among others. I discussed this patient's case with the attending physician as well as Dr. Can at shift change. Will obtain basic laboratory studies, lactic acid level, lipase level magnesium level EKG, Will obtain CT angio of the abdomen pelvis GI bleed protocol as well as CT angio of the chest PE protocol, will obtain coagulation studies. type and screen and chest x-ray. Mild hyponatremia at 133, mild hypercalcemia 10.7, No lactic acidosis Blood type O+, antibody screen negative. CBC is notable for minimal leukocytosis at 11.2 otherwise Coags within normal limits. I reviewed the patient's chest x-ray along the corresponding radiologic report no acute process on portable exam. I reviewed the patient's CTA abdomen pelvis with contrast along the corresponding radiologic report, no CT evidence of active gastrointestinal bleed, hepatomegaly hepatosteatosis, small of millimeter focus of arterial phase hyperenhancement within the periphery of the lateral segment of the left lobe of the liver this does persist on delayed imaging findings are somewhat nonspecific indeterminate no other suspicious mass or lesion within the liver, fusiform dilation of the infrarenal abdominal aorta this measures up to 2.3 x 2.4 cm in greatest diameter moderate to large amount scattered atherosclerotic plaque major branch vessels are patent saccular aneurysm dilation and slight undermining of plaque scattered within the distal aspect of the right common iliac artery appears unchanged patchy ground glass airspace opacity and slight interstitial prominence is present through out to the visualized portion of the right and left lower lungs findings may correspond to mild edema, no focal airspace consolidation or suspicious pulmonary nodule, advanced osteoarthritic changes are present at the left hip joint mild osteoarthritic change appearance of the right hip joint other incidental nonemergent findings. I reviewed the patient's CTA chest without contrast PE protocol along the corresponding radiologic report, no CT evidence of central or segmental pulmonary embolism distalmost aspect of the subcentimeter not well-opacified which limits evaluationmediastinal mass fluid collection, calcified left hilar lymph nodes are present, in keeping with prior granulomatous disease, very small 3.8 mm nodule in the right middle lobe, no pleural effusion, large 7.7 cm mass is present within the posterior lateral aspect of the right breast associate with coarse calcification are present potential biopsy marker clip is present within the mass, please correlate patient's history of prior breast biopsy. I discussed all results with the patient at the bedside, patient has had previous breast biopsy and is following breast surgeon, discussed need to follow-up with GI for endoscopy, patient states she has slated GI follow-up later this month advised her to keep this, patient was given very strict ED return precautions, advised to follow-up with vascular surgeon noted incidental finding/aneurysmal findings on patient's CTA abdomen pelvis. Patient voiced understanding and agreement with current discharge plan/treatment plan. <Tahir Mcgraw MD - Last Filed: 07/11/25 14:37> Vital Signs: 07/11/25 13:37 07/11/25 13:41 07/11/25 14:00 Temperature 99.1 F Temperature Source Oral Pulse Rate 82 73 Pulse Rate [Right Radial] 81 Respiratory Rate 9 L 18 20 Blood Pressure 129/79 Blood Pressure [Right Arm] 147/97 H Blood Pressure Mean [Right Arm] 113 Blood Pressure Source [Right Arm] Automatic Cuff Blood Pressure Position [Right Arm] Supine 02 Sat by Pulse Oximetry 97 97 96 Oxygen Delivery Method Room Air Room Air Room Air 07/11/25 16:27 07/11/25 16:30 07/11/25 17:00 Temperature Temperature Source Pulse Rate 68 71 60 Pulse Rate [Right Radial] Respiratory Rate Blood Pressure 112/60 113/76 112/72 Blood Pressure [Right Arm] Blood Pressure Mean [Right Arm] Blood Pressure Source [Right Arm] Blood Pressure Position [Right Arm] 02 Sat by Pulse Oximetry 91 L 93 L 90 L Oxygen Delivery Method Lab Data Lab Results 07/11/25 13:35: WBC 11.2 H, RBC 5.02, Hgb 15.4, Hct 45.1, MCV 89.8, MCH 30.7, MCHC 34.1, RDW 12.7, Plt Count 339, MPV 10.5 H, Neut % (Auto) 58.6, Lymph % (Auto) 31.2, Gray % (Auto) 5.6, Eos % (Auto) 3.0, Baso % (Auto) 1.2, Neut # (Auto) 6.6, Lymph # (Auto) 3.5, Gray # (Auto) 0.6, Eos # (Auto) 0.3, Baso # (Auto) 0.1, PT 10.9, INR 0.98, APTT 24.8, Sodium 133 L, Potassium 4.2, Chloride 101, Carbon Dioxide 23, Anion Gap 13.2, BUN 15, Creatinine 0.80, Estimated Creat Clear 110, Estimated GFR 76, Est GFR ( Amer) 92, Glucose 120 H, Calcium 10.7 H, Magnesium 1.8, Total Bilirubin 0.8, AST 28, ALT 20, Alkaline Phosphatase 107, Total Protein 8.5 H, Albumin 4.8, Globulin 3.7 H, Albumin/Globulin Ratio 1.3, Lipase 141, HCV Ab CARLOTA w/Rflx PCR Qn Negative, HIV Ag/Ab Combo Qual Negative 07/11/25 13:58: Lactate 1.1, Blood Type O Positive, Antibody Screen Negative Orders (Tests/Meds): ED MEDICATIONS Discontinued Medications Generic Name Dose Route Start Last Admin Trade Name Freq PRN Reason Stop Dose Admin Iopamidol 80 ml 07/11/25 14:43 07/11/25 14:44 Iopamidol-370 (76%);100ml Bottle IV 07/11/25 14:44 80 ml ONCE ONE Administration Sodium Chloride 10 ml 07/11/25 14:43 07/11/25 14:44 Sodium Chloride 0.9% 10ml Syr (Rad Only) IV 07/11/25 14:44 10 ml ONCE ONE Administration Sodium Chloride 50 ml 07/11/25 14:43 07/11/25 14:44 0.9 % Sodium Chloride 50 Ml Vial IV 07/11/25 14:44 50 ml ONCE ONE Administration ORDERS Category Date Time Status Type and Screen Stat BBK 07/11/25 13:[address] angio abd/pel - GI Bleed Stat Cat Scan 07/11/25 14:[address] angio chest PE protocol Stat Cat Scan 07/11/25 14:13 Completed XR chest portable Stat Exams 07/11/25 13:48 Completed Complete Blood Count Auto Diff Stat Lab 07/11/25 13:35 Completed Comprehensive Metabolic Panel Stat Lab 07/11/25 13:35 Completed HIV Combo Stat Lab 07/11/25 13:35 Completed Hepatitis C Ab Qual. W/ RFX Stat Lab 07/11/25 13:35 Completed Lactic Acid Stat Lab 07/11/25 13:58 Completed Lipase Stat Lab 07/11/25 13:35 Completed Magnesium Stat Lab 07/11/25 13:35 Completed PT INR [Prothrombin Time INR] Stat Lab 07/11/25 13:35 Completed PTT [Activated Partial Thrombo Time] Stat Lab 07/11/25 13:35 Completed ECG Data Tracing #1: I reviewed this ECG and interpreted as documented below: Patient was administered. Normal sinus rhythm. Right bundle branch block. QTc normal at [address] elevation or depression Critical Care <TAYLOR Lester - Last Filed: 07/11/25 18:07> Critical Care Time Critical Care Time: No
[2025-07-11 13:58] LABS: Alanine Aminotransferase 20 U/L (12-78); Albumin Level 4.8 g/dl (3.5-5.0); Albumin/Globulin Ratio 1.3 (1.1-1.8); Alkaline Phosphatase 107 U/L (38-126); Anion Gap 13.2 mEq/L (5-15); Aspartate Amino Transferase 28 U/L (14-36); Bilirubin,Total 0.8 mg/dl (0.2-1.3); Blood Urea Nitrogen 15 mg/dl (7-17); Calcium 10.7 mg/dl (8.4-10.2); Carbon Dioxide 23 mmol/L (22.0-30.0); Chloride 101 mmol/L (98-107); Creatinine Clearance Estimated 110 mL/min (50-200); Creatinine,Serum 0.80 mg/dl (0.52-1.04); Estimated Glomerular Filt Rate 76 ml/min (>60); GFR (African American) 92 ML/MIN (>60); Globulin 3.7 g/dL (1.3-3.2); Glucose 120 mg/dl (74-100); Lipase 141 U/L (23-300); Magnesium 1.8 mg/dl (1.6-2.3); Potassium 4.2 mmoL/L (3.5-5.1); Sodium 133 mmol/L (136-145); Total Protein,Serum 8.5 g/dl (6.3-8.2)
[2025-07-11 14:03] LABS: Hematocrit 45.1 % (37.0-47.0); Hemoglobin 15.4 g/dL (12.2-16.2); Immature Granulocytes % 0.4 %; Mean Corpuscular HGB Conc 34.1 g/dL (31.8-35.4); Mean Corpuscular Hemoglobin 30.7 pg (27.0-31.2); Mean Corpuscular Volume 89.8 fl (81-99); Nucleated Red Blood Cells % 0 %; Platelet Count 339 K/mm3 (142-424); Red Blood Count 5.02 M/mm3 (4.20-5.40); Red Cell Distribution Width-SD 41.4 fL; White Blood Count 11.2 K/mm3 (4.8-10.8)
--- NOTE | 2025-07-11 14:12 | CT_ITS ---
PROCEDURE INFORMATION: Exam: CTA Abdomen and Pelvis With Contrast Exam date and time: 07/11/2025 2:32 PM Age: 50 years old Clinical indication: Other: Hematemesis, midepigastric abdominal pain TECHNIQUE: Imaging protocol: Computed tomographic angiography of the abdomen and pelvis with contrast. Exam focused on the arteries. 3D rendering (Not supervised by radiologist): MIP and/or 3D reconstructed images were created by the technologist. Radiation optimization: All CT scans at this facility use at least one of these dose optimization techniques: automated exposure control; mA and/or kV adjustment per patient size (includes targeted exams where dose is matched to clinical indication); or iterative reconstruction. Contrast material: ISOVUE; Contrast volume: 80 ml; Contrast route: INTRAVENOUS (IV); COMPARISON: CT ABDOMEN PELVIS W CON 01/02/2024 7:15 PM FINDINGS: Lungs: Diffuse mild interstitial prominence and patchy ground-glass airspace opacity is present throughout the right and left lower lung. Findings may correspond to changes of mild edema. No focal dense airspace consolidation. No suspicious pulmonary nodule or mass. Pleural spaces: No pleural effusion. Heart: No cardiomegaly or pericardial effusion. Aorta: Abdominal aorta is patent. Jlrgjyqj-va-hlund amount of scattered heterogeneous calcified and noncalcified atherosclerotic plaque. Mild fusiform dilatation of the infrarenal abdominal aorta measuring up to 2.3 x 2.4 cm in greatest diameter. No evidence for dissection. Celiac and mesenteric arteries: Celiac artery is patent. Superior mesenteric artery is patent. Renal arteries: Renal arteries are patent. Right iliac arteries: Iliac arteries are patent. Saccular aneurysmal dilatation involving the distal aspect of the right common iliac artery. Maximal luminal diameter at the level of the aneurysm measuring up to 1.8 cm. Linear areas of undermining of plaque is present at the area of the small aneurysm. Findings appear similar compared to the prior CT scan. Left iliac arteries: Left common iliac artery is patent. Internal and external iliac arteries are patent. No high-grade stenosis. Liver: Hepatomegaly. Diffuse decreased density throughout the liver in keeping with hepatic steatosis. Focal 11 mm area of arterial phase enhancement is present within the periphery of the lateral segment of the left lobe of the liver. This does not appear to be within the adjacent stomach. This does persist on the delayed images. Findings are somewhat nonspecific. No other suspicious mass or lesion within the liver. Liver surface is smooth. Gallbladder and biliary ducts: The gallbladder is unremarkable. No biliary ductal dilatation. Pancreas: The pancreas is unremarkable. Spleen: 4 mm benign calcified granuloma within the spleen. No suspicious mass or lesion within the spleen. Adrenal glands: The adrenal glands are unremarkable. Kidneys and ureters: Right kidney is unremarkable as visualized. No mass or stone seen. No hydronephrosis. Left kidney is unremarkable as visualized. No mass or stone seen. No hydronephrosis. The ureters appear unremarkable. Stomach and bowel: Precontrast images demonstrate no dense material within the stomach, duodenum, small intestine or colon. Arterial phase images demonstrate no areas of hyperenhancement or intraluminal contrast extravasation. Delayed images demonstrate no contrast pooling within the stomach, duodenum, small intestines are colon. The stomach appears unremarkable. Small bowel loops are normal in caliber no evidence of a small bowel obstruction. There are a few scattered diverticula along the colon. No evidence for acute colitis or acute diverticulitis. Appendix: Normal appendix. Intraperitoneal space: No significant peritoneal free fluid. No free peritoneal air. Lymph nodes: There are no enlarged or suspicious intra-abdominal, pelvic or retroperitoneal lymph nodes. Urinary bladder: The bladder appears unremarkable. Reproductive: There has been a hysterectomy. No adnexal cysts or masses are identified. Bones/joints: No acute osseous abnormality. No acute fracture. No suspicious bone lesion. Mild degenerative changes are present throughout the spine. Bilateral pars interarticularis defects are present at L5. Very mild grade 1 anterolisthesis of L5 on S1. Advanced osteoarthritic changes are present at the left hip joint. Mild osteoarthritic changes are present at the right hip joint. Soft tissues: Small 3.7 cm circumscribed lipoma along the upper margin of the left oblique abdominal musculature. Very small periumbilical hernia containing fat. IMPRESSION: 1. No CT evidence of an active gastrointestinal bleed. 2. Hepatomegaly. Hepatic steatosis. Small 11 mm focus of arterial phase hyperenhancement within the periphery of the lateral segment of the left lobe of the liver. This does persist on the delayed images. Findings are somewhat nonspecific and indeterminate. No other suspicious mass or lesion within the liver. 3. Mild fusiform dilatation of the infrarenal abdominal aorta. This measures up to 2.3 x 2.4 cm in greatest diameter. Kzibosuh-db-yeycl amount of scattered atherosclerotic plaque. Major branch vessels are patent. 4. Saccular aneurysmal dilatation and slight undermining of plaque within the distal aspect of the right common iliac artery appears unchanged. 5. Patchy ground-glass airspace opacity and slight interstitial prominence is present throughout the visualized portion of the right and left lower lung. Findings may correspond to mild edema. No focal airspace consolidation or suspicious pulmonary nodule. 6. Advanced osteoarthritic changes are present at the left hip joint. Mild osteoarthritic changes are present at the right hip joint. 7. Other incidental and nonemergent findings are discussed above.
--- NOTE | 2025-07-11 14:13 | CT_ITS ---
PROCEDURE INFORMATION: Exam: CTA Chest With Contrast Exam date and time: 07/11/2025 2:32 PM Age: 50 years old Clinical indication: Shortness of breath and other: Shortness of air, hemoptysis versus hematemesis TECHNIQUE: Imaging protocol: Computed tomographic angiography of the chest with contrast. Exam focused on the arteries. 3D rendering (Not supervised by radiologist): MIP and/or 3D reconstructed images were created by the technologist. Radiation optimization: All CT scans at this facility use at least one of these dose optimization techniques: automated exposure control; mA and/or kV adjustment per patient size (includes targeted exams where dose is matched to clinical indication); or iterative reconstruction. Contrast material: ISOVUE; Contrast volume: 80 ml; Contrast route: INTRAVENOUS (IV); COMPARISON: CT ANGIO CHEST PE PROTOCOL 01/03/2024 2:27 AM FINDINGS: Pulmonary arteries: Main pulmonary artery is normal in caliber. No CT evidence of a central or segmental pulmonary embolism. Distal most aspect of the subsegmental branches are not well opacified which limits evaluation. Aorta: Normal caliber of the ascending and descending thoracic aorta. Scattered atherosclerotic plaque of the aortic arch. Origins of the great vessels appear patent. No evidence for dissection. Thyroid: Thyroid gland appears unremarkable. Trachea: Trachea is midline in position. Central airways are clear. No significant bronchiectasis. Lungs: Diffuse mild ground-glass airspace opacity is present throughout the right and left lung. Respiratory motion limits evaluation. No focal dense airspace consolidation suspicious for a pneumonia. 3.8 mm nodule within the right middle lobe (image 184 of series 13). Benign calcified granuloma within the posterior aspect of the left lower lobe (image 214 of series 13). Pleural spaces: No significant pleural effusion. No pneumothorax. Heart: Heart size is within normal limits. No pericardial effusion. Probable coronary artery stent within the left coronary artery. Lymph nodes: No suspicious axillary lymphadenopathy or mass. No supraclavicular lymphadenopathy. Mild fullness of the precarinal lymph node measuring up to 10 mm in short axis. This is upper limits for normal. No mediastinal mass or fluid collection. Several small lymph nodes are present within the prevascular space. Mildly prominent subcarinal lymph node measures 12 mm in short axis. There is fullness of the intrapulmonary lymphoid tissue at the right and left hilum. Calcified left hilar lymph nodes are present. No suspicious hilar mass. Bones/joints: No acute osseous abnormality. No acute fracture. No suspicious bone lesion. Multilevel degenerative changes are present throughout the spine. Soft tissues: Large 7.7 cm mass is present within the posterolateral aspect of the right breast. Associated coarse calcifications are present. Potential biopsy marker clip is present within the mass. Please correlate with patient's history of prior breast biopsy. Soft tissues are otherwise unremarkable as visualized. Other findings: No acute findings in the upper abdomen. IMPRESSION: 1. No CT evidence of a central or segmental pulmonary embolism. Distal most aspect of the subsegmental branches are not well opacified which limits evaluation. 2. No suspicious mediastinal mass or fluid collection. 3. Calcified left hilar lymph nodes are present in keeping with prior granulomatous disease. 4. Very small 3.8 mm nodule within the right middle lobe. For patients at low risk (minimal or absent history of smoking and of other known risk factors), no routine follow-up is indicated. For patients at high risk (history of smoking or of other known risk factors), consider optional CT Chest at 12 months. (Reference: Bandar) 5. No pleural effusion. 6. Large 7.7 cm mass is present within the posterolateral aspect of the right breast. Associated coarse calcifications are present. Potential biopsy marker clip is present within the mass. Please correlate with patient's history of prior breast biopsy. REFERENCES: Bandar Sellers, et al. Guidelines for Management of Incidental Pulmonary Nodules Detected on CT Images: From the Fleischner Society 2017. Radiology. 2017;284(1):228-243.
[2025-07-11] MEDS: SODIUM CHLORIDE 0.9% 10ML SYR (RAD ONLY) 10 ML IV (14:44)
[2025-07-11] MEDS: IOPAMIDOL-370 (76%);100ML BOTTLE 80 ML IV (14:44)
[2025-07-11] MEDS: 0.9 % SODIUM CHLORIDE 50 ML VIAL IV (14:44)
[2025-07-11 14:59] LABS: Hepatitis C Ab Qual. W/ RFX NEGATIVE (Negative)
[2025-07-11 15:09] LABS: Activated Partial Thrombo Time 24.8 seconds (22.8-30.6); INR 0.98 (0.9-1.1); Prothrombin Time 10.9 seconds (10.1-12.5)
--- NOTE | 2025-07-11 15:55 | PC.NURSE ---
Called radiology regarding rad reports and if there is a preliminary report. manufacturing engineering technician states that radiologist is locked on
--- NOTE | 2025-07-11 16:48 | PC.NURSE ---
Called radiology to check on status of CT scans, juan gan states that she will message [facility].
--- NOTE | 2025-07-11 18:21 | PC.NURSE ---
patient requesting caravan service, sakshi nye states he will transport if someone else staff linares can go since its to personal home.
== END 2025-07-11 18:14 | disposition home or self-care (01) ==
PROVIDERS: Physician Assistant; Emergency Provider Student in an Organized Health Care Education/Training Program; PCP Family Medicine
DX: I71.40 Abdominal aortic aneurysm, without rupture, unspecified (principal); R04.2 Hemoptysis; R10.13 Epigastric pain; F17.210 Nicotine dependence, cigarettes, uncomplicated; E87.1 Hypo-osmolality and hyponatremia
CPT/HCPCS: 71045; 71275; 74174; 80053; 83605; 83690; 83735; 85025; 85610; 85730; 86803; 86850; 87389; 93005; 99285; Q9967

== ENCOUNTER 2025-07-14 16:02 | Outpatient (CLI) | payer MEDICARE, MEDICAID, SELFPAY ==
--- NOTE | 2025-07-14 16:07 | XR_ITS ---
PROCEDURE INFORMATION: Exam: XR Right Hand Exam date and time: 07/14/2025 4:08 PM Age: 50 years old Clinical indication: Pain; Hand; Right TECHNIQUE: Imaging protocol: Radiologic exam of the right hand. Views: 3 or more views. COMPARISON: No relevant prior studies available. FINDINGS: Bones/joints: Mild osteoarthritis involving the 1st metacarpophalangeal, radiocarpal, and 1st carpometacarpal joints, as manifested by mildly decreased joint space and marginal osteophyte formation. Focal ovoid erosive changes at the base of the 1st metacarpal. No acutely displaced fractures. No joint dislocation. Soft tissues: Significant swelling at the radial aspect of the wrist. IMPRESSION: 1. Focal ovoid erosive changes at the base of the 1st metacarpal. Concerning for inflammatory arthropathy or underlying infectious process. 2. Significant swelling at the radial aspect of the wrist.
== END 2025-07-14 23:59 ==
LOC: RAD 16:03
PROVIDERS: PCP Family Medicine; Visit Provider Family Medicine
DX: G56.01 Carpal tunnel syndrome, right upper limb (principal); M19.041 Primary osteoarthritis, right hand; M18.9 Osteoarthritis of first carpometacarpal joint, unspecified
CPT/HCPCS: 73130

== ENCOUNTER 2025-07-29 06:50 | Outpatient (CLI) | payer MEDICARE, MEDICAID, SELFPAY ==
--- OUTSIDE RECORDS SUMMARY | 2024-10-25 05:15 | XMS_ITS ---
[facility] [address] [facility] [address] [place] [id number] Care Team Providers Care Manpower Development Advisor Name Role Phone Brionna Burroughs Unavailable [phone] Allergies Allergen (clinical drug ingredient) Drug/Non Drug Allergy documented on EMR Reaction Allergy Type Onset Date Status buspirone busPIRone HCl Unknown Drug Allergy Act edson sertraline Zoloft Unknown Drug Allergy Active Results Component Value Reference Range Notes Glycohemoglobin A1c (in hous e) Reviewed date:10/28/2024 09:50:31 AM Interpretation:6.7 Performing Lab: Notes/Report: 6.7 glycohemoglobin 6.7% 5 - 6.5 % P-Comprehensive Metabolic Pa elena (CMP) Reviewed date:10/28/2024 09:50:31 AM Interpretation:gluc 143, Ca 11.3 Performing Lab: Notes/Report: Test performed by [facility] [address] [place] [address] , [address], [place] [address] Christopher Valdez MD, Chemistry Faculty Member CLIA: [id number] Sodium 135 135-145 mmol/L Potassium 4.5 3.5-5.3 mmol/L Chloride 98 97-108 mmol/L CO2 26 22-32 mmol/L Glucose 143 65-99 mg/dL BUN 20 6-20 mg/dL Creatinine 0.91 0.50-1.00 mg/dL Calcium 11.3 8.6-10.4 mg/dL eGFR by Creatinine 77 >59 mL/min/1.73m2 Protein 7.6 6.0-8.3 g/dL Albumin 4.8 3.5-5.3 g/dL Alkaline Phosphatase 92 35-121 IU/L ALT (SGPT) 14 <5-47 IU/L AST (SGOT) 15 <5-40 IU/L Bilirubin, Total 0.4 <0.2-1.2 mg/dL A/G Ratio 1.7 1.1-2.5 P-Lipid Panel Reviewed date:10/28/2024 09:50:31 AM Interpretation:trigs 176, hdl 32, chol/hdl 5.13, non-hdl 132 Performing Lab: Notes/Report: Test performed by [facility], [place] [id number] [facility] , [address], [place] [address] Christopher Valdez MD, Chemistry Faculty Member CLIA: [id number] Cholesterol 164 <200 mg/dL Triglycerides 176 <150 mg/dL HDL Cholesterol 32 >39 mg/dL Cholesterol / HDL Ratio 5.13 0.00-4.44 Ratio Non-HDL Cholesterol 132 <130 mg/dL LDL Cholesterol (Calculation) 97 <130 mg/dL LDL Cholesterol Levels* Less than 100 mg/dL Optimal 100 to 129 mg/dL Near Optimal/ Above Optimal 130 to 159 mg/dL Borderline High 160 to 189 mg/dL High 190 mg/dL and above Very High * Categories as recommended by the 2004 ATPIII guidelines LDL/HDL Ratio 3.0 <3.3 Ratio LDL Cholesterol Patient History Test Date: 10/25/2024 LDL Results: 97 Units: mg/dL % Change: - Mammogram Reviewed date:11/20/2024 03:24:49 PM Interpretation: Performing Lab: Notes/Report: REASON FOR VISIT 2 month checkup Medications Medication SIG (Take, Route, Frequency, Duration) Notes Start Date End Date Status Mupirocin 2 % 1 application Externally Twice a day; Duration: 7 days 09/19/2024 Active Potassium Chloride ER 20 MEQ 1 tablet with food Orally Once a day; Duration: 30 day(s) Not-Taking FLUoxetine HCl 40 MG 1 capsule Orally Once a day; Duration: 30 day(s) Not-Taking Sildenafil Citrate 20 MG 1/2 tablet Orally Three times a day Would like delivered Not-Taking Ipratropium-Albutero l 0.5-2.5 (3) MG/3ML 3 mL as needed Inhalation every 6 hrs Not-Taking Desvenlafaxine Succinate ER 50 MG 1 tablet Orally Once a day; Duration: 30 day(s) Active Spironolactone 100 MG 1 tablet Orally Once a day Active oxyBUTYnin Chloride ER 5 MG 1 tablet Orally Once a day; Duration: 30 day(s) Urinary Incontinence 09/09/2024 Active Bumetanide 2 MG 1 tablet Orally Two times a day Active Omeprazole 20 MG 1 capsule 30 minutes before morning meal Orally Once a day; Duration: 30 day(s) Active Trelegy Ellipta 100-62.5-25 MCG/ACT 1 puff Inhalation Once a day Active Aspirin 81 81 MG 1 tablet Orally Once a day Active Nitroglycerin 0.4 MG as directed Sublingual Active Atorvastatin Calcium 40 MG 1 tablet Orally Once a day; Duration: 90 days Active predniSONE 10 mg TAKE 1/2 TABLET BY MOUTH EVERY DAY --TAKE WITH FOOD--; Duration: 90 Active metFORMIN HCl 500 MG 1 tablet with a meal Orally once daily; Duration: 90 days Active traMADol HCl 50 MG 1 tablet as needed Orally four times a day as needed; Duration: 15 day(s) 10/25/2024 Active Jardiance 10 MG 1 tablet Orally Once a day; Duration: 90 days Active Stool Softener Laxative 8.6-50 MG 2 tablet as needed Orally once a day Active Vitamin B-12 1000 MCG 1 tablet Orally Once a day Active Metoprolol Succinate ER 25 MG 1 tablet Orally Once a day; Duration: 30 day(s) Active Acetaminophen PM 500-25 MG 1 tablet at bedtime as needed Orally Once a day Active Social History Tobacco Use: Social History Observation Description Date Smoking Status WARNING: Information temporarily unavailable CURRENT TOBACCO USE: Question Answer Notes Are you a: 1/2 pack per day Problems Problem Type SNOMED Code ICD Code Onset Dates Problem Status W/U Status Risk Notes Problem Constipation (47015396) Constipation (K59.00) Active confirmed Problem Hyperlipidaemia (33433995) Hyperlipidemia, unspecified hyperlipidemia type (E78.5) Active confirmed Vital Signs Blood pressure systolic 114 mm Hg 10/26/19 25 Blood pressure diastolic 80 mm Hg 025 Heart Rate 79 /min 10/25/2024 Height 63.5 in 10/25/2024 Weight 191.2 lbs 10/25/2024 BMI 33.33 kg/m2 10/25/2024 Encounters Encounter [facility] Date [facility] [address] [phone] 10/25/2024 Brionna Burroughs Type 2 diabetes iva itus without complication, unspecified whether pencil maker insulin use E11.9 ; Pulmonary emphysema, unspecified emphysema type J43.9 ; Essential hypertension I10 ; Pulmonary hypertension I27.20 ; Acute sinusitis, recurrence not specified, unspecified location J01.90 ; Constipation K59.00 ; Abnormal breast biopsy R89.7 ; Headache, unspecified R51.9 and Hyperlipidemia, unspecified hyperlipidemia type E78.5 Assessments Encounter Date Diagnosis (ICD Code) Assessment Notes Treatment Notes Treatment Clinical Notes Section Notes 10/25/2024 Type 2 diabetes mellitus without complication, unspecified whether senior care insulin use (ICD-10 - E11.9) 10/25/2024 Pulmonary emphysema, unspecified emphysema type (ICD-10 - J43.9) 10/25/2024 Essential hypertension (ICD-10 - I10) 10/25/2024 Pulmonary hypertension (ICD-10 - I27.20) 10/25/2024 Acute sinusitis, recurrence not specified, unspecified location (ICD-10 - J01.90) 10/25/2024 Constipation (ICD-10 - K59.00) Miralax recommended 10/25/2024 Abnormal breast biopsy (ICD-10 - R89.7) 10/25/2024 Headache, unspecified (ICD-10 - R51.9) 10/25/2024 Hyperlipidemia, unspecified hyperlipidemia type (ICD-10 - E78.5) Plan Of Treatment Medication Medication Name Sig Start Date Stop Date Notes metFORMIN HCl 500 MG 1 tablet with a osorio l Orally once daily; Duration: 90 days traMADol HCl 50 MG 1 tablet as needed O rally four times a day as needed; Duration: 15 day(s) 10/25/2024 Jardiance 10 MG 1 tablet Orally Once a day; Duration: 90 days Treatment Notes Assessment Notes Constipation Miralax recommended Next Appt Details Follow Up: 4 Months, Reason: Provider Name:Brionna Dietrich , 09/08/2025 10:15:00 AM, [address], [address], [place], [place], [phone], Provider Name:Brionna Dietrich , 09/15/2025 10:45:00 AM, [address] [facility], [address], [place], [place], [phone], Progress Notes * Gina TIANDOB:[birth year] (50 yo F)Acc No.[id number]:10/25/2024 Progress Notes Patient: Gina HARTMAN Provider: Brionna Burroughs M.D. :1975 A ge:49 Y S ex:Female Date:10/25/2024 Address:[address] [place] [address] [id number] Subjective: * Chief Complaints: * 1 . 2 month checkup. * HPI: C ardiology: The patient is here for a check up on Hypertension and Diabetes. She has new glasses RX and has a new healing aid and there has been a real chaaange in quality of life. Pt states she is still having head aches but not as bad since she got her glasses. Pt c/o intermittent constipation and lower abdominal pain. Pt states she is fasting. 49 year old female presents with c/o Palpitations. Denies : Chest Pain. D enies : Short of Breath. D enies : Dizziness. G YN: She is uncertain if she still has a cervix post hysterectomy. Thinks she may need a PAP. * ROS: D ERMATOLOGY: no R josafat. n o H gage. G ASTROENTEROLOGY: no N ausea. n o V omiting. n o D iarrhea.? U ROLOGY: no D ifficulty urinating. n o B lood in urine. * Medical History: H ypertension, Heart attack 40 yo, Sep 03, 2014 with stent, Hyperlipidemia, Diabetes, Allergies, Arthritis, Irritable Bowel Syndrome, Depression, Kidney stones, GERD, pulmonary HTN, ASCVD, T2DM, Positive RA 01/2024. * Surgical History: C section 1995 & 1998, Partial Hysterectomy , D & C , Right breast Biopsy . * Hospitalization/Major Diagno stic Procedure: H [facility] Pulmonary HTN; Right hrt failure; acute respiratory failure with hypoxia; ASCVD of [place] coronoary artery; T2 DM; Breast mass 01/01-01/10/2024. * Family History: F ather: . M other: alive, diagnosed with Hypertension, Mental Illness. 5 brother(s) , 3 sister(s) . . Father COPD Mom depression and Hypertension 1 Brother - liver disease 1 sister dies from lung disease. * Social History: C URRENT TOBACCO USE: Yes A re you a: 1/2 pack per day. C affeine: yes, frequency: 1 cup coffee and 1 soda per day. Marital Status: Single. Alcohol: yes, 1 glass wine occasionally. Recreational drug use: no. * Medications: T aking Metoprolol Succinate ER 25 MG Tablet Extended Release 24 Hour 1 tablet Orally Once a day , Taking Acetaminophen PM 500-25 MG Tablet 1 tablet at bedtime as needed Orally Once a day , Taking Stool Softener Laxative 8.6-50 MG Tablet 2 tablet as needed Orally once a day , Taking Vitamin B-12 1000 MCG Tablet 1 tablet Orally Once a day , Taking Trelegy Ellipta 100-62.5-25 MCG/ACT Aerosol Powder Breath Activated 1 puff Inhalation Once a day , Taking Nitroglycerin 0.4 MG Tablet Sublingual as directed Sublingual , Taking Aspirin 81 81 MG Tablet Chewable 1 tablet Orally Once a day , Taking Jardiance 10 MG Tablet 1 tablet Orally Once a day , Taking Atorvastatin Calcium 40 MG Tablet 1 tablet Orally Once a day , Taking predniSONE 10 mg Tablet TAKE 1/2 TABLET BY MOUTH EVERY DAY --TAKE WITH FOOD-- , Taking Omeprazole 20 MG Capsule Delayed Release 1 capsule 30 minutes before morning meal Orally Once a day , Taking Desvenlafaxine Succinate ER 50 MG Tablet Extended Release 24 Hour 1 tablet Orally Once a day , Taking metFORMIN HCl 500 MG Tablet 1 tablet with a meal Orally once daily , Taking traMADol HCl 50 MG Tablet 1 tablet as needed Orally four times a day as needed , Taking Spironolactone 100 MG Tablet 1 tablet Orally Once a day , Taking Bumetanide 2 MG Tablet 1 tablet Orally Two times a day , Taking oxyBUTYnin Chloride ER 5 MG Tablet Extended Release 24 Hour 1 tablet Orally Once a day , Notes to Pharmacist: Urinary Incontinence, Taking Mupirocin 2 % Ointment 1 application Externally Twice a day , Not-Taking FLUoxetine HCl 40 MG Capsule 1 capsule Orally Once a day , Not-Taking Potassium Chloride ER 20 MEQ Tablet Extended Release 1 tablet with food Orally Once a day , Not-Taking Ipratropium-Albuterol 0.5-2.5 (3) MG/3ML Solution 3 mL as needed Inhalation every 6 hrs , Not-Taking Sildenafil Citrate 20 MG Tablet 1/2 tablet Orally Three times a day , Notes to Pharmacist: Would like delivered, Medication List reviewed and reconciled with the patient * Allergies: Z oloft: Side Effects, busPIRone HCl: Side Effects. Objective: * Vitals: W t:191.2, Temp:97.9, BP:114/80, HR:79, O2 Sat: 98%, Nurse:DIONY, Ht: 63.5, BMI:33.33. * Examination: G eneral Examination: General Appearance: N AD, color is good. H EENT: u nremarkable. O ral cavity: n o lesions, mucosa moist and WNL, no erythema. N annalee: s upple, no lymphadenopathy, no carotid bruits. C hest: n ormal shape and expansion. H eart: R SR. L ungs: c lear to auscultation. A bdomen: soft and nontender, no organomegaly or masses. N eurologic Exam: I ntact, gait normal. S kin: n ormal, no rash. P eripheral pulses: n ormal . B ack: normal. E xtremities: n o significant l eg edema, clubbing of fingers, n ails painted. Assessment: * Assessment: 1. T ype 2 diabetes mellitus without complication, unspecified whether senior care insulin use - E11.9 (Primary) 2 . P ulmonary emphysema, unspecified emphysema type - J43.9? 3. E ssential hypertension - I10 4 . P ulmonary hypertension - I27.20 5 . A cute sinusitis, recurrence not specified, unspecified location - J01.90 6 . C onstipation - K59.00 7 . A bnormal breast biopsy - R89.7 8 . H eadache, unspecified - R51.9 9 . H yperlipidemia, unspecified hyperlipidemia type - E78.5 Plan: * Treatment: Value Reference Range g lycohemoglobin 6.7% 5 - 6.5 % * Jaja Hunt 10/25/2024 11: 36:43 AM > Yuliya Ruiz 10/28/2024 9:50:18 AM >See phone encounter 2.?Essential hypertension?LAB: P-Comprehensive Metabolic Panel (CMP) (Collection Date & Time - 10/25/2024 10:40 AM)?gluc 143, Ca 11.3* Value Reference Range A /G Ratio 1.7 1.1-2.5 - * A lbumin 4.8 3.5-5.3 - g/dL * A lkaline Phosphatase 92 35-121 - IU/L * A LT (SGPT) 14 <5-47 - IU/L * A ST (SGOT) 15 <5-40 - IU/L * B ilirubin, Total 0.4 <0.2-1.2 - mg/dL * B UN 20 6-20 - mg/dL * C alcium 11.3 H 8.6-10.4 - mg/dL * C hloride 98 97-108 - mmol/L * C O2 26 22-32 - mmol/L * C reatinine 0.91 0.50-1.00 - mg/dL * G lucose 143 H 65-99 - mg/dL * P otassium 4.5 3.5-5.3 - mmol/L * S odium 135 135-145 - mmol/L * P rotein 7.6 6.0-8.3 - g/dL * e GFR by Creatinine 77 >59 - mL/min/1.73m2 * Yuliya Ruiz 10/28/2024 9:50: 18 AM >See phone encounter 3.?Acute sinusitis, recurrence not specified, unspecified location? Refill traMADol HCl Tablet, 50 MG, 1 tablet as needed, Orally, four times a day as needed, 15 day(s), 40, Refills 0.??4.?Constipation? Notes: Miralax recommended??5.?Abnormal breast biopsy?Imaging: Mammogram (Performed Date - 11/20/2024)* Padmini Ocampo 10/28/2024 09:3 4:07 AM >faxed to [facility] Arlene Hunter 10/28/2024 11:29:44 AM > diagnostic order sent to [facility] see duplicate order 6.?Hyperlipidemia, unspecified hyperlipidemia type?LAB: P-Lipid Panel (Collection Date & Time - 10/25/2024 10:40 AM)?trigs 176, hdl 32, chol/hdl 5.13, non-hdl 132* Value Reference Range C holesterol / HDL Ratio 5.13 H 0.00-4.44 - Ratio * C holesterol 164 <200 - mg/dL * H DL Cholesterol 32 L >39 - mg/dL * L DL Cholesterol (Calculation) 97 <130 - mg/d L * L DL/HDL Ratio 3.0 <3.3 - Ratio * N on-HDL Cholesterol 132 H <130 - mg/dL * T riglycerides 176 H <150 - mg/dL * SaraYuliya 10/28/2024 9:50: 18 AM >See phone encounter * Procedure Codes: G 2211 Complex e/[place], [address] [place], [address] CAPILLARY BLOOD DRAW, 88083 GLYCATED HEMOGLOBIN TEST, Modifiers: QW , 3044F HG A1C LEVEL LT 7.0%, G8752 MOST RECENT SYSTOLIC BP < 140MM HG, G8754 MOST RECENT DIASTOLIC BP < 90MM HG * Follow Up: 4 Months * Images: Billing Information: * Visit Code: 88188 Office Visit, Est Pt., Level 4. * Procedure Codes: G2211 Complex e/[place]. [address] [place] [address] CAPILLARY BLOOD DRAW. 31396 GLYCATED HEMOGLOBIN TEST. Modifiers: QW 3044F HG A1C LEVEL LT 7.0%. G8752 MOST RECENT SYSTOLIC BP < 140MM HG. G8754 MOST RECENT DIASTOLIC BP < 90MM HG. * Electronic signature of Brionna Burroughs MD on 07/29/2025 at 06:52 AM EST Sign off status: Pending * Provider: Brionna Burroughs M.D. 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 Thinks she may need a PAP. Cardiology Short of Breath Chest Pain Palpitations Dizziness Examination Category Sub-Category Detail Notes Category Not es General Examination HEENT: unremarkable Heart: RSR Lungs: clear to auscultatio n Abdomen: soft and nontender, no organomegaly or masses Extremities: no significant leg e tosin, clubbing of fingers, nails painted General Appearance: NAD, color is good Skin: normal, no rash Neurologic Exam: Intact, gait normal Neck: supple, no lymphaden opathy, no carotid bruits Oral cavity: no lesions, mucosa m oist and WNL, no erythema Peripheral pulses: normal Back: normal Chest: normal shape and exp ansion
--- OUTSIDE RECORDS SUMMARY | 2024-11-14 08:30 | XMS_ITS ---
Author Organization [facility] Address [address] [facility] [address] [place] [id number] Care Team Providers Care Mixing Machine Operator Name Role Phone Brionna Burroughs Unavailable [phone] Carlie Garcia Unavailable [phone] Allergies Allergen (clinical drug ingredient) Drug/Non Drug Allergy documented on EMR Reaction Allergy Type Onset Date Status buspirone busPIRone HCl Unknown Drug Allergy Act edson sertraline Zoloft Unknown Drug Allergy Active Results Component Value Reference Range Notes X ray : Spine, lumbosacral Reviewed date:11/20/2024 03:57:30 PM Interpretation: Performing Lab: Notes/Report: X ray : Spine, lumbosacral Reviewed date:11/20/2024 03:57:30 PM Interpretation: Performing Lab: Notes/Report: X ray : Hip, left Reviewed date:11/20/2024 03:57:30 PM Interpretation: Performing Lab: Notes/Report: X ray : Toe Reviewed date:11/20/2024 03:57:30 PM Interpretation: Performing Lab: Notes/Report: Reason For Referral Diagnosis 1 Left hip pain (M25.5 52) Diagnosis 2 Toe pain, left (M79. 675) Diagnosis 3 Acute midline low ba ck pain without sciatica (M54.50) Referral Organization [facility] Referring Provider First Name Carlie Referring Provider Last Name Radha Referring Provider Speciality Physician Spiritual Counselor Referred Provider Orthopedics, . Referred Provider Specialty Orthopedic S urgery General Notes Carlie Garcia 11/14 4:32:41 PM > Pt needs an appt with Damaris Keith Brynn 11/15/2024 08:53:33 AM > lvm for Dr. Abebe's office to call me back, Padmini Ocampo 11/18/2024 10:16:08 AM > 11/20/2024 at 11:00am Referral Priority Routine REASON FOR VISIT hip, lower back pain, lump on thigh Medications Medication SIG (Take, Route, Frequency, Duration) Notes Start Date End Date Status FLUoxetine HCl 40 MG 1 capsule Orally Once a day; Duration: 30 day(s) Not-Taking Potassium Chloride ER 20 MEQ 1 tablet with food Orally Once a day; Duration: 30 day(s) Not-Taking Mupirocin 2 % 1 application Externally Twice a day; Duration: 7 days 09/19/2024 Active Ipratropium-Albutero l 0.5-2.5 (3) MG/3ML 3 mL as needed Inhalation every 6 hrs Not-Taking Sildenafil Citrate 20 MG 1/2 tablet Orally Three times a day Would like delivered Not-Taking Spironolactone 100 MG 1 tablet Orally Once a day Active Bumetanide 2 MG 1 tablet Orally Two times a day Active Desvenlafaxine Succinate ER 50 MG 1 tablet Orally Once a day; Duration: 30 day(s) Active Medrol 4 MG as directed orally daily; Duration: 6 days 11/14/2024 Active oxyBUTYnin Chloride ER 5 MG 1 tablet Orally Once a day; Duration: 30 day(s) Urinary Incontinence 09/09/2024 Active Nitroglycerin 0.4 MG as directed Sublingual Active predniSONE 10 mg TAKE 1/2 TABLET BY MOUTH EVERY DAY --TAKE WITH FOOD--; Duration: 90 Active Omeprazole 20 MG 1 capsule 30 minutes before morning meal Orally Once a day; Duration: 30 day(s) Active Aspirin 81 81 MG 1 tablet Orally Once a day Active Atorvastatin Calcium 40 MG 1 tablet Orally Once a day; Duration: 90 days Active Metoprolol Succinate ER 25 MG 1 tablet Orally Once a day; Duration: 30 day(s) Active Acetaminophen PM 500-25 MG 1 tablet at bedtime as needed Orally Once a day Active Trelegy Ellipta 100-62.5-25 MCG/ACT 1 puff Inhalation Once a day Active Stool Softener Laxative 8.6-50 MG 2 tablet as needed Orally once a day Active Vitamin B-12 1000 MCG 1 tablet Orally Once a day Active metFORMIN HCl 500 MG 1 tablet with a meal Orally once daily; Duration: 90 days Active Jardiance 10 MG 1 tablet Orally Once a day; Duration: 90 days Active traMADol HCl 50 MG 1 tablet as needed Orally four times a day as needed; Duration: 15 day(s) 10/25/2024 Active Social History Tobacco Use: Social History Observation Description Date Smoking Status WARNING: Information temporarily unavailable CURRENT TOBACCO USE: Question Answer Notes Are you a: 1/2 pack per day Problems Problem Type SNOMED Code ICD Code Onset Dates Problem Status W/U Status Risk Notes Problem Obese class I ([id number]) BMI 33.0-33.9,a dult (Z68.33) Active confirmed Vital Signs Blood pressure systolic 100 mm Hg 11/15/19 25 Blood pressure diastolic 72 mm Hg 025 Heart Rate 78 /min 11/14/2024 Height 63.5 in 11/14/2024 Weight 190.0 lbs 11/14/2024 BMI 33.13 kg/m2 11/14/2024 Encounters Encounter Location Date Provider Diagnosis [facility]ANDID[facility]athie[facility]Efraín [address] [facility] 36 [facility] [address] [place], [place] [id number] 11/14/2024 Carlie Crowdy Left hip pain M25.55 2 ; Acute midline low back pain without sciatica M54.50 ; Toe pain, left M79.675 ; Tobacco use Z72.0 and BMI 33.0-33.9,adult Z68.33 Assessments Encounter Date Diagnosis (ICD Code) Assessment Notes Treatment Notes Treatment Clinical Notes Section Notes 11/14/2024 Left hip pain (ICD-10 - M25.552) 11/14/2024 Acute midline low back pain without sciatica (ICD-10 - M54.50) 11/14/2024 Toe pain, left (ICD-10 - M79.675) 11/14/2024 Tobacco use (ICD-10 - Z72.0) 11/14/2024 BMI 33.0-33.9,adult (ICD-10 - Z68.33) Plan Of Treatment Medication Medication Name Sig Start Date Stop Date Notes Medrol 4 MG as directed orally daily; Duration: 6 days 05/2025 Referrals Referral Date Details 11/14/2024 11/14/2024, . Orthop edics Next Appt Details Follow Up: via phone to repo rt test results, Reason: Provider Name:Brionna king, 09/08/2025 10:15:00 AM, [address], [place], [place], [id number], Provider Name:Brionna Dietrich er, 09/15/2025 10:45:00 AM, [address], [address], [place], [id number], Progress Notes * Gina TIANDOB:[birth year] (50 yo F)Acc No.[id number]:11/14/2024 Progress Notes Patient: Gina HARTMAN Provider: TAYLOR Franco :1975 A ge:49 Y S ex:Female Date:11/14/2024 Address:[address] [place] [address] [id number] Subjective: * Chief Complaints: * 1 . Hip, lower back pain, lump on thigh. * HPI: H ip/Thigh: The patient is here today with c/o left hip pain. Pt states over the past 2 weeks the pain has gotten worse and the pain is in the left lower back and into the left buttock. Pt rates the pain 6 out of 10. Pt states she has also had pain in the left great toe when she bends it. 49 year old female presents with c/o hip pain. c/o radiation of pain. * ROS: D ERMATOLOGY: no R josafat. [...] acute respiratory failure with hypoxia; ASCVD of [place] coronoary artery; T2 DM; Breast mass 01/01-01/10/2024. [...] drug use: no. * Medications: T aking metFORMIN HCl 500 MG Tablet 1 tablet with a meal Orally once daily , Taking Jardiance 10 MG Tablet 1 tablet Orally Once a day , Taking traMADol HCl 50 MG Tablet 1 tablet as needed Orally four times a day as needed , Taking Metoprolol Succinate ER 25 MG Tablet Extended [...] tablet Orally Once a day , Taking Spironolactone 100 MG Tablet 1 [...] HCl: Side Effects. Objective: * Vitals: W t:190.0, Temp:98.2, BP:100/72, HR:78, Nurse:DIONY, Ht: 63.5, BMI:33.13. * Examination: H ip / Thigh: Hip joint: left. I nspection: n o effusion, ecchymosis or deformities. P alpation: tenderness on trochanteric bursa and in the groin area.?Range of motion: restricted rotations and abduction. I psilateral knee joint: n ormal ROM, no tenderness. G ait: favoring affected side. L ower back: Inspection: n ormal curvature of spine. P alpation:?vertebral spine tenderness along the lower lumbar spine. S traight leg raising test: n egative bilaterally. M otor system: pain with figure 4 test. S ensory exam: n ormal bilateral LE. G ait: favoring affected side. R kamille of motion: decreased at terminal ranges. A nkle / Foot: Foot: left great toe unable to fully flex. ? Assessment: * Assessment: 1. L eft hip pain - M25.552 (Primary) 2 . A cute midline low back pain without sciatica - M54.50 3 . T oe pain, left - M79.675 4 . T obacco use - Z72.0 5 . B ID 33.0-33.9,adult - Z68.33 Plan: * Treatment: ? Referral To:. Orthopedics??Orthopedic Surgery ?Reason: 2.?Acute midline low back pain without sciatica?Imaging: X ray : Spine, lumbosacral (Performed Date - 11/15/2024)* Carlie Garcia 11/14/2024 01:56:28 PM > left great toe Arlene Browning 11/20/2024 03:55:26 PM > See phone encounter ? Referral To:. Orthopedics??Orthopedic Surgery ?Reason: 3.?Toe pain, left?Imaging: X ray : Toe (Performed Date - 11/14/2024)* Carlie Garcia 11/14/2024 01:56:28 PM > left great toe Arlene Browning 11/20/2024 03:55:26 PM > See phone encounter ? Referral To:. Orthopedics??Orthopedic Surgery ?Reason: * Procedure Codes: G 2211 Complex e/m visit add on, G8752 MOST RECENT SYSTOLIC BP < 140MM HG, G8754 MOST RECENT DIASTOLIC BP < 90MM HG * Follow Up: v ia phone to report test results * Images: Billing Information: * Visit Code: 05222 Office Visit, Est Pt., Level 4. * Procedure Codes: G2211 Complex e/m visit add on. G8752 MOST RECENT SYSTOLIC BP < 140MM HG. G8754 MOST RECENT DIASTOLIC BP < 90MM HG. * Electronic signature of TAYLOR Barber on 07/29/2025 at 06:53 AM EST Sign off status: Pending * Provider: TAYLOR Franco Date: 0 11/14/2024 Generated for Grace houser/Doreen/Krystinaitting on: 1 09/29/2024 06:53 AM EST History and Physical Notes * HPI (History of Present Illness) Category Sub-Category Detail Notes Category Not es Hip/Thigh radiation of pain hip pain Examination Category Sub-Category Detail Notes Category Not es Lower back Straight leg raising test: negative bilat erally Motor system: pain with figure 4 t est Sensory exam: normal bilateral LE Gait: favoring affected si de Inspection: normal curvature of spine Palpation: vertebral spine tend erness along the lower lumbar spine Range of motion: decreased at termina l ranges Hip / Thigh Gait: favoring affected side Range of motion: restricted rotations and abduction Ipsilateral knee joint: normal ROM, no t enderness Hip joint: left Inspection: no effusion, ecchymo sis or deformities Palpation: tenderness on trocha nteric bursa and in the groin area Ankle / Foot Foot: left great toe unable to ful ly flex Consultation Request Notes Referral Date Referring Provider Referred Provider Not es 11/14/2024 Carlie Garcia Orthopedics, .
--- OUTSIDE RECORDS SUMMARY | 2024-12-06 06:00 | XMS_ITS ---
Author Organization [facility] Address [facility] [facility] [address] [place] [id number] Care Team Providers Care [facility] Dean Name Role Phone Brionna Burroughs Unavailable [phone] Allergies Allergen (clinical drug ingredient) Drug/Non Drug Allergy documented on EMR Reaction Allergy Type Onset Date Status buspirone busPIRone HCl Unknown Drug Allergy Act edson sertraline Zoloft Unknown Drug Allergy Active REASON FOR VISIT fu on mammogram Medications Medication SIG (Take, Route, Frequency, Duration) Notes Start Date End Date Status Ipratropium-Albutero l 0.5-2.5 (3) MG/3ML 3 mL as needed Inhalation every 6 hrs Not-Taking Sildenafil Citrate 20 MG 1/2 tablet Orally Three times a day Would like delivered Not-Taking Stool Softener Laxative 8.6-50 MG 2 TABS Orally Twice a day Active FLUoxetine HCl 40 MG 1 capsule Orally Once a day; Duration: 30 day(s) Not-Taking Potassium Chloride ER 20 MEQ 1 tablet with food Orally Once a day; Duration: 30 day(s) Not-Taking Bumetanide 2 MG 1 tablet Orally Two times a day Active oxyBUTYnin Chloride ER 5 MG 1 tablet Orally Once a day; Duration: 30 day(s) Urinary Incontinence 09/09/2024 Active Mupirocin 2 % 1 application Externally Twice a day; Duration: 7 days 09/19/2024 Active Atorvastatin Calcium 40 MG 1 tablet Orally Once a day; Duration: 90 days Active Desvenlafaxine Succinate ER 50 MG 1 tablet Orally Once a day; Duration: 30 day(s) Active Spironolactone 100 MG 1 tablet Orally Once a day Active predniSONE 10 mg TAKE 1/2 TABLET BY MOUTH EVERY DAY --TAKE WITH FOOD--; Duration: 90 Not-Taking Omeprazole 20 MG 1 capsule 30 minutes before morning meal Orally Once a day; Duration: 30 day(s) Active Aspirin 81 81 MG 1 tablet Orally Once a day Active Trelegy Ellipta 100-62.5-25 MCG/ACT 1 puff Inhalation Once a day Active Nitroglycerin 0.4 MG as directed Sublingual Active Vitamin B-12 1000 MCG 1 tablet Orally Once a day Active Acetaminophen PM 500-25 MG 1 tablet at bedtime as needed Orally Once a day Active traMADol HCl 50 MG 1 tablet as needed Orally four times a day as needed; Duration: 15 day(s) 10/25/2024 Active Metoprolol Succinate ER 25 MG 1 tablet Orally Once a day; Duration: 30 day(s) Active metFORMIN HCl 500 MG 1 tablet with a meal Orally once daily; Duration: 90 days Active Social History Tobacco Use: Social History Observation Description Date Smoking Status WARNING: Information temporarily unavailable CURRENT TOBACCO USE: Question Answer Notes Are you a: 1/2 pack per day Vital Signs Blood pressure systolic 112 mm Hg 12/07/19 25 Blood pressure diastolic 72 mm Hg 025 Heart Rate 80 /min 12/06/2024 Height 63.5 in 12/06/2024 Weight 188.2 lbs 12/06/2024 BMI 32.81 kg/m2 12/06/2024 Encounters Encounter Location Date Provider Diagnosis [facility] [facility] [address] [id number] 12/06/2024 Brionna Burroughs Essential hypertensi on I10 ; Type 2 diabetes mellitus without complication, without long-term current use of insulin E11.9 ; Blood in stool K92.1 and Chronic constipation K59.09 Assessments Encounter Date Diagnosis (ICD Code) Assessment Notes Treatment Notes Treatment Clinical Notes Section Notes 12/06/2024 Essential hypertension (ICD-10 - I10) 12/06/2024 Type 2 diabetes mellitus without complication, without long-term current use of insulin (ICD-10 - E11.9) 12/06/2024 Blood in stool (ICD-10 - K92.1) 12/06/2024 Chronic constipation (ICD-10 - K59.09) Plan Of Treatment Medication Medication Name Sig Start Date Stop Date Notes Jardiance 10 MG 1 tablet Orally Once a day Stool Softener Laxative 8.6- 50 MG 2 TABS Orally Twice a day Next Appt Details Follow Up: PAP, Reason: Provider Name:Brionna Dietrich er, 09/08/2025 10:15:00 AM, [address], [address], [place], [phone], Provider Name:Brionna Dietrich er, 09/15/2025 10:45:00 AM, [address], [address], [place], [phone], Progress Notes * Gina TIANDOB:[birth year] (50 yo F)Acc No.[id number]:12/06/2024 Progress Notes Patient: Gina HARTMAN Provider: Brionna Burroughs M.D. :1975 A ge:49 Y S ex:Female Date:12/06/2024 Address:[address] [place], [place] [id number] Subjective: * Chief Complaints: * 1 . Fu on mammogram. * HPI: H ip/Thigh: The patient is here for a follow up on Hip xray. See pt docs. Pt states she is still having intermittent pain in her hip. Pt states she is still having problems with constipation. The pt states she did have a BM this morning and had some bright red blood in the toilet. Pt states she has not yet had the Breast ultra sound. 49 year old female presents with c/o hip pain. G astroenterology: WE HAVE NO COLOGUARD REPORT. * ROS: D ERMATOLOGY: no R josafat. 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 [...] tablet Orally Once a day , Taking Omeprazole 20 MG Capsule Delayed [...] application Externally Twice a day , Not-Taking predniSONE 10 mg Tablet TAKE 1/2 TABLET BY MOUTH EVERY DAY --TAKE WITH FOOD-- , Not-Taking FLUoxetine HCl 40 MG Capsule [...] , Notes to Pharmacist: Would like delivered, Discontinued Medrol 4 MG Tablet Therapy Pack as directed orally daily , Medication List reviewed and reconciled with the patient * Allergies: Z oloft: Side Effects, busPIRone HCl: Side Effects. Objective: * Vitals: W t: 188.2, Temp: 98.1, BP: 112/72, HR: 80, O2 Sat: 98%, Nurse: DIONY, Ht: 63.5, BMI:32.81. * Examination: G eneral Examination: General Appearance: N AD, color is good. H EENT: u nremarkable. O ral cavity: n o lesions, mucosa moist and WNL, no erythema. N annalee: s upple, no lymphadenopathy, no carotid bruits. C hest: n ormal shape and expansion. H eart: R SR. L ungs: c lear to auscultation, occasional wheeze. A bdomen: soft and nontender, no organomegaly or masses. N eurologic Exam: I ntact, gait normal. S kin:?normal, no rash. P eripheral pulses: n ormal . B ack: normal. E xtremities: n o significant l eg edema, clubbing of fingers, n ails painted. ? Assessment: * Assessment: 1. E ssential hypertension - I10 (Primary) 2 . T ype 2 diabetes mellitus without complication, without long-term current use of insulin - E11.9 3 . B lood in stool - K92.1 4 . C hronic constipation - K59.09 Plan: * Treatment: 2. C hronic constipation Refill Stool Softener Laxative Tablet, 8.6-50 MG, 2 TABS, Orally, Twice a day, 120, Refills 3. * Procedure Codes: G 2211 Complex e/m visit add on, G8752 MOST RECENT SYSTOLIC BP < 140MM HG, G8754 MOST RECENT DIASTOLIC BP < 90MM HG, 3044F HG A1C LEVEL LT 7.0% * Follow Up: P AP * Images: Billing Information: * Visit Code: 10117 Office Visit, Est Pt., Level 4. * Procedure Codes: G2211 Complex e/m visit add on. G8752 MOST RECENT SYSTOLIC BP < 140MM HG. G8754 MOST RECENT DIASTOLIC BP < 90MM HG. 3044F HG A1C LEVEL LT 7.0%. * Electronic signature of Brionna Burroughs MD on 07/29/2025 at 06:53 AM EST Sign off status: Pending * Provider: Brionna Burroughs M.D. Date: 0 12/06/2024 Generated for Grace houser/Doreen/Krystinaitting on: 09/29/2024 06:53 AM EST History and Physical Notes * HPI (History of Present Illness) Category Sub-Category Detail Notes Category Not es Hip/Thigh hip pain Gastroenterology WE HAVE NO COLOGUARD REPORT. Examination Category Sub-Category Detail Notes Category Not es General Examination HEENT: unremarkable Heart: RSR Lungs: clear to auscultatio n, occasional wheeze Abdomen: soft and nontender, no organomegaly or [...]
--- OUTSIDE RECORDS SUMMARY | 2025-01-27 10:15 | XMS_ITS ---
Author Organization [facility] Address [address] [facility] [address] [place] [id number] Care Team Providers Care Yarn Texture Machine Operator Name Role Phone Brionna Burroughs Shreyas Unavailable [phone] Allergies Allergen (clinical drug ingredient) Drug/Non Drug Allergy documented on EMR Reaction Allergy Type Onset Date Status buspirone busPIRone HCl Unknown Drug Allergy Act edson sertraline Zoloft Unknown Drug Allergy Active Results Component Value Reference Range Notes CBC Venipuncture (in house) Reviewed date:01/31/2025 03:38:32 PM Interpretation: Performing Lab: Notes/Report: wbc 15.2 3.5 - 10 lymph 29.9% 15 - 50 mid 6.8% 2 - 15 gran 63.3% 35 - 80 rbc 4.91 3.5 - 5.5 hgb 14.9 11.5 - 16.5 hct 45.3 35 - 55 mcv 92.3 75 - 100 mch 30.4 25 - 35 mchc 32.9 31 - 38 platlet 352 100 - 400 CXR Reviewed date:02/04/2025 02:57:56 PM Interpretation:Negative Performing Lab: Notes/Report: Negative REASON FOR VISIT arthritis in hands Medications Medication SIG (Take, Route, Frequency, Duration) Notes Start Date End Date Status FLUoxetine HCl 40 MG 1 capsule Orally Once a day; Duration: 30 day(s) Active predniSONE 10 mg TAKE 1/2 TABLET BY MOUTH EVERY DAY - TAKE WITH FOOD-; Duration: 90 Not-Taking Sildenafil Citrate 20 MG 1/2 tablet Orally Three times a day Would like delivered Not-Taking Potassium Chloride ER 20 MEQ 1 tablet with food Orally Once a day; Duration: 30 day(s) Not-Taking Ipratropium-Albutero l 0.5-2.5 (3) MG/3ML 3 mL as needed Inhalation every 6 hrs Not-Taking Desvenlafaxine Succinate ER 50 mg TAKE ONE TABLET BY MOUTH EVERY DAY; Duration: 30 Active Mupirocin 2 % 1 application Externally Twice a day; Duration: 7 days 09/19/2024 Active Stool Softener Laxative 8.6-50 MG 2 TABS Orally Twice a day Active Bumetanide 2 MG 1 tablet Orally Two times a day Active oxyBUTYnin Chloride ER 5 MG 1 tablet Orally Once a day; Duration: 30 day(s) Urinary Incontinence 09/09/2024 Not-Taking Nitroglycerin 0.4 MG as directed Sublingual Active Omeprazole 20 MG 1 capsule 30 minutes before morning meal Orally Once a day; Duration: 30 day(s) Active Spironolactone 100 MG 1 tablet Orally Once a day Active Aspirin 81 81 MG 1 tablet Orally Once a day Active Atorvastatin Calcium 40 MG 1 tablet Orally Once a day; Duration: 90 days Active Vitamin B-12 1000 MCG 1 tablet Orally Once a day Active Trelegy Ellipta 100-62.5-25 MCG/ACT 1 puff Inhalation Once a day Active Metoprolol Succinate ER 25 MG 1 tablet Orally Once a day; Duration: 30 day(s) Active Acetaminophen PM 500-25 MG 1 tablet at bedtime as needed Orally Once a day Not-Taking Azithromycin 500 MG 1 tablet Orally Once a day; Duration: 3 days 01/27/2025 Active metFORMIN HCl 500 MG 1 tablet with a meal Orally once daily; Duration: 90 days Active Social History Tobacco Use: Social History Observation Description Date Smoking Status WARNING: Information temporarily unavailable CURRENT TOBACCO USE: Question Answer Notes Are you a: 1/2 pack per day Problems Problem Type SNOMED Code ICD Code Onset Dates Problem Status W/U Status Risk Notes Problem Cardiomyopathy (69881107) Cardiomyopathy, unspecified type (I42.9) Active confirmed Problem Type 2 diabetes mellitus with other specified complication, unspecified whether intermediate frame tender insulin use (E11.69) Active confirmed Problem Rheumatoid arthritis (94264840) Rheumatoid arthritis, involving unspecified site, unspecified whether rheumatoid factor present (M06.9) Active confirmed Vital Signs Blood pressure systolic 90 mm Hg 01/28/20 25 Blood pressure diastolic 60 mm Hg 025 Heart Rate 71 /min 01/27/2025 Height 63.5 in 01/27/2025 Weight 190.6 lbs 01/27/2025 BMI 33.23 kg/m2 01/27/2025 Encounters Encounter Location Date Provider Diagnosis [facility] [address] [facility] [address] [place] [id number] 01/27/2025 Brionna Burroughs Bandemia D72.825 ; Pulmonary emphysema, unspecified emphysema type J43.9 ; Type 2 diabetes mellitus without complication, unspecified whether intermediate frame tender insulin use E11.9 ; Cardiomyopathy, unspecified type I42.9 ; Type 2 diabetes mellitus with other specified complication, unspecified whether intermediate frame tender insulin use E11.69 and Rheumatoid arthritis, involving unspecified site, unspecified whether rheumatoid factor present M06.9 Assessments Encounter Date Diagnosis (ICD Code) Assessment Notes Treatment Notes Treatment Clinical Notes Section Notes 01/27/2025 Bandemia (ICD-10 - D72.825) 01/27/2025 Pulmonary emphysema, unspecified emphysema type (ICD-10 - J43.9) 01/27/2025 Type 2 diabetes mellitus without complication, unspecified whether group home insulin use (ICD-10 - E11.9) 01/27/2025 Cardiomyopathy, unspecified type (ICD-10 - I42.9) 01/27/2025 Type 2 diabetes mellitus with other specified complication, unspecified whether group home insulin use (ICD-10 - E11.69) 01/27/2025 Rheumatoid arthritis, involving unspecified site, unspecified whether rheumatoid factor present (ICD-10 - M06.9) Plan Of Treatment Medication Medication Name Sig Start Date Stop Date Notes Azithromycin 500 MG 1 tablet Orally Once a day; Duration: 3 days 01/27/2025 Next Appt Details Follow Up: 6 Weeks, Reason: Provider Name:Brionna king, 09/08/2025 10:15:00 AM, [address] [facility] [address] [facility], [address], [place], [phone], Provider Name:Brionna Dietrich , 09/15/2025 10:45:00 AM, [address] [facility] [address] [facility], [address], [place], [phone], Progress Notes * Gina TIANDOB:[birth year] (50 yo F)Acc No.[id number]:01/27/2025 Progress Notes Patient: Gina HARTMAN Provider: Brionna Burroughs M.D. :1975 A ge:49 Y S ex:Female Date:01/27/2025 Address:[address] [place] [address] [place] [id number] Subjective: * Chief Complaints: * 1 . Arthritis in hands. * HPI: W rist/Hand: The patient is here today with c/o increased pain in her hands. Pt states this has been getting worse over the past month. E NT/respiratory: The pt states last week 3 days in a row she coughed up some blood. Pt is scheduled to follow up with pulmonology tomorrow. * ROS: D ERMATOLOGY: no R josafat. [...] acute respiratory failure with hypoxia; ASCVD of [place] coronoary artery; T2 DM; Breast mass 01/01-01/10/2024. [...] a meal Orally once daily , Taking Metoprolol Succinate ER 25 MG Tablet Extended Release 24 Hour 1 tablet Orally Once a day , Taking Vitamin [...] meal Orally Once a day , Taking Spironolactone 100 MG Tablet 1 tablet Orally Once a day , Taking Bumetanide 2 MG Tablet 1 tablet Orally Two times a day , Taking Mupirocin 2 % Ointment 1 application Externally Twice a day , Taking Stool Softener Laxative 8.6-50 MG Tablet 2 TABS Orally Twice a day , Taking Desvenlafaxine Succinate ER 50 mg Tablet Extended Release 24 Hour TAKE ONE TABLET BY MOUTH EVERY DAY , Taking FLUoxetine HCl 40 MG Capsule 1 capsule Orally Once a day , Not-Taking Acetaminophen PM 500-25 MG Tablet 1 tablet at bedtime as needed Orally Once a day , Not-Taking oxyBUTYnin Chloride ER 5 MG Tablet Extended Release 24 Hour 1 tablet Orally Once a day , Notes to Pharmacist: Urinary Incontinence, Not-Taking predniSONE 10 mg Tablet TAKE 1/2 TABLET BY MOUTH EVERY DAY - TAKE WITH FOOD- , Not-Taking Potassium Chloride ER 20 MEQ Tablet Extended Release 1 tablet with food Orally Once a day , Not-Taking Ipratropium-Albuterol 0.5-2.5 (3) MG/3ML Solution 3 mL as needed Inhalation every 6 hrs , Not-Taking Sildenafil Citrate 20 MG Tablet 1/2 tablet Orally Three times a day , Notes to Pharmacist: Would like delivered, Discontinued traMADol HCl 50 MG Tablet 1 tablet as needed Orally four times a day as needed , Medication List reviewed and reconciled with the patient * Allergies: Z oloft: Side Effects, busPIRone HCl: Side Effects. Objective: * Vitals: W t: 190.6, Temp: 97.8, BP: 90/60, HR: 71, O2 Sat: 88% on RA, Nurse: DIONY, Ht: 63.5, BMI:33.23. * Examination: G eneral Examination: General Appearance: N AD, color is good. H EENT: u nremarkable. O ral cavity: n o lesions, mucosa moist and WNL, no erythema. N annalee: s upple, no lymphadenopathy, no carotid bruits. C hest: n ormal shape and expansion. H eart: R SR. L ungs: c lear to auscultation , decreased breath sounds. A bdomen: soft and nontender, no organomegaly or masses. N eurologic Exam: I ntact, gait normal. S kin: n ormal, no rash. P eripheral pulses: n ormal . B ack: normal. E xtremities: n o significant l eg edema, clubbing of fingers, n ails painted. ? Assessment: * Assessment: 1. B andemia - D72.825 (Primary) 2 . P ulmonary emphysema, unspecified emphysema type - J43.9 3 . T ype 2 diabetes mellitus without complication, unspecified whether intermediate frame tender insulin use - E11.9 4 . C ardiomyopathy, unspecified type - I42.9 5 . T ype 2 diabetes mellitus with other specified complication, unspecified whether intermediate frame tender insulin use - E11.69 6 . R heumatoid arthritis, involving unspecified site, unspecified whether rheumatoid factor present - M06.9 Plan: * Treatment: 2. P ulmonary emphysema, unspecified emphysema type I maging: CXR (Performed Date - 01/27/2025) N egative * Labs: * L ab: CBC Venipuncture (in house) (Collection Date & Time - 01/27/2025) Value Reference Range w bc 15.2 3.5 - 10 * l ymph 29.9% 15 - 50 * m id 6.8% 2 - 15 * g ran 63.3% 35 - 80 * r bc 4.91 3.5 - 5.5 * h gb 14.9 11.5 - 16.5 * h ct 45.3 35 - 55 * m cv 92.3 75 - 100 * m ch 30.4 25 - 35 * m chc 32.9 31 - 38 * p latlet 352 100 - 400 * Jaja Hunt 01/27/2025 04 :09:10 PM EDT > Provider reviewed results while patient in office. * Procedure Codes: G 2211 Complex e/[place] [address] CBC WITH AUTO DIFF, 46387 VENIPUNCT, ROUTINE*, G8783 BP SCR PRFRM RCMDD DEFIND SCR INTVL, G8752 MOST RECENT SYSTOLIC BP < 140MM HG, G8754 MOST RECENT DIASTOLIC BP < 90MM HG * Follow Up: 6 Weeks * Images: Billing Information: * Visit Code: 68432 Office Visit, Est Pt., Level 3. * Procedure Codes: G2211 Complex e/[place]. [address] CBC WITH AUTO DIFF. 40401 VENIPUNCT, ROUTINE*. G8783 BP SCR PRFRM RCMDD DEFIND SCR INTVL. G8752 MOST RECENT SYSTOLIC BP < 140MM HG. G8754 MOST RECENT DIASTOLIC BP < 90MM HG. * Electronic signature of Brionna Burroughs MD on 07/29/2025 at 06:54 AM EST Sign off status: Pending * Provider: Brionna Burroughs M.D. Date: 0 01/27/2025 Generated for Printi ng/Fagonzálezg/eTransmitting on: 1 09/29/2024 06:54 AM EST History and Physical Notes * Examination Category Sub-Category Detail Notes Category Not [...]
--- OUTSIDE RECORDS SUMMARY | 2025-02-14 05:30 | XMS_ITS ---
Author Organization Jessie Address [address] [facility] [address] [facility] [address] [place] [id number] Care Team Providers Care Cylinder Filler Name Role Phone Brionna Burroughs Unavailable [phone] REASON FOR VISIT 2 Month Check Up Encounters Encounter Location Date Provider Diagnosis [facility] [address] [place] [id number] 02/14/2025 Brionna Burroughs Plan Of Treatment Next Appt Details Provider Name:Brionna Dietrich er, 09/08/2025 10:15:00 AM, [address], [address], [place], [id number], Provider Name:Brionna Dietrich er, 09/15/2025 10:45:00 AM, [address], [address], [place], [id number], Progress Notes * Gina TIANDOB:[birth year] (50 yo F)Acc No.[id number]:02/14/2025 Progress Notes Patient: Gina HARTMAN Provider: Brionna Burroughs M.D. :1975 A ge:49 Y S ex:Female Date:02/14/2025 Address:[facility] [id number] Subjective: * Chief Complaints: * 1 . 2 Month Check Up. * Medical History: Objective: * Vitals: Assessment: Plan: * Treatment: * Images: Billing Information: * Visit Code: * Procedure Codes: * Electronic signature of Brionna Burroughs MD on 07/29/2025 at 06:53 AM EST Sign off status: Pending * Provider: Brionna Burroughs M.D. Date: 0 02/14/2025 Generated for Grace houser/Doreen/Rip on: 1 09/29/2024 06:53 AM EST
--- OUTSIDE RECORDS SUMMARY | 2025-03-07 06:00 | XMS_ITS ---
[facility] Address [address] [facility] [address] [place] [id number] Care Team Providers Care Weighter Name Role Phone Brionna Burroughs Unavailable [phone] Allergies Allergen (clinical drug ingredient) Drug/Non Drug Allergy documented on EMR Reaction Allergy Type Onset Date Status buspirone busPIRone HCl Unknown Drug Allergy Act edson sertraline Zoloft Unknown Drug Allergy Active Results Component Value Reference Range Notes Glycohemoglobin A1c (in hous e) Reviewed date:03/07/2025 12:34:55 PM Interpretation:7.3 Performing Lab: Notes/Report: 7.3 glycohemoglobin 7.3% 5 - 6.5 % P-Comprehensive Metabolic Pa elena (CMP) Reviewed date:03/10/2025 08:50:25 AM Interpretation:gluc 164, Ca 10.8 Performing Lab: Notes/Report: Test performed by [facility] [address] [place] [address] , [address], [place] [address] Christopher Valdez MD, Fire Assistant CLIA: [id number] Sodium 137 135-145 mmol/L Potassium 4.5 3.5-5.3 mmol/L Chloride 103 97-108 mmol/L CO2 21 20-32 mmol/L Glucose 164 65-99 mg/dL BUN 18 6-20 mg/dL Creatinine 0.85 0.50-1.00 mg/dL Calcium 10.8 8.6-10.4 mg/dL eGFR by Creatinine 83 >59 mL/min/1.73m2 Protein 7.0 6.0-8.3 g/dL Albumin 4.2 3.5-5.3 g/dL Alkaline Phosphatase 99 35-121 IU/L ALT (SGPT) 10 <5-47 IU/L AST (SGOT) 11 <5-40 IU/L Bilirubin, Total 0.5 <0.2-1.2 mg/dL A/G Ratio 1.5 1.1-2.5 P-Lipid Panel Reviewed date:03/10/2025 08:50:25 AM Interpretation:hdl 28, chol/hdl 5.57, ldl/hdl 3.8 Performing Lab: Notes/Report: Test performed by [facility], [address] , [address], [place] [address] Christopher Valdez MD, Fire Assistant CLIA: [id number] Cholesterol 156 <200 mg/dL Triglycerides 107 <150 mg/dL HDL Cholesterol 28 >39 mg/dL Cholesterol / HDL Ratio 5.57 0.00-4.44 Ratio Non-HDL Cholesterol 128 <130 mg/dL LDL Cholesterol (Calculation) 107 <130 mg/dL LDL Cholesterol Levels* Less than 100 mg/dL Optimal 100 to 129 mg/dL Near Optimal/ Above Optimal 130 to 159 mg/dL Borderline High 160 to 189 mg/dL High 190 mg/dL and above Very High * Categories as recommended by the 2004 ATPIII guidelines LDL/HDL Ratio 3.8 <3.3 Ratio LDL Cholesterol Patient History Test Date: 10/25/2024 LDL Results: 97 Units: mg/dL % Change: - Test Date: 03/07/2025 LDL Results: 107 Units: mg/dL % Change: +10% Reason For Referral Diagnosis 1 Atypical squamous ce ll of undetermined significance of cervix (R87.610) [facility] Referring Provider First Name Brionna Pritchett Referring Provider Last Name Manjeet Referring Provider [facility] ctice Referred Provider Sylvia Maldonado Referred Provider Specialty OB - Gynecol ogy General Notes Padmini Ocampo 2024 11:49:49 AM > faxed to [facility], Padmini Ocampo 03/13/2025 10:24:37 AM > referral received by [facility] Referral Priority Routine Diagnosis 1 Rheumatoid arthritis involving hand with positive rheumatoid factor, unspecified laterality (M05.749) [facility] Referring Provider First Name Brionna Pritchett Referring Provider Last Name Manjeet Referring Provider [facility] ctice Referred Provider Specialty Rheumatology General Notes Padmini Ocampo 2024 12:16:33 PM > faxed referral to [facility] Referral Priority Routine REASON FOR VISIT Follow up, discuss Rheumatoid Arthritis, Discuss abnormal PAP results Medications Medication SIG (Take, Route, Frequency, Duration) Notes Start Date End Date Status Trelegy Ellipta 100-62.5-25 MCG/ACT 1 puff Inhalation Once a day Not-Taking oxyBUTYnin Chloride ER 5 MG 1 tablet Orally Once a day; Duration: 30 day(s) Urinary Incontinence 09/09/2024 Not-Taking Sildenafil Citrate 20 MG 1/2 tablet [...] a day; Duration: 7 days 09/19/2024 Active Celecoxib 200 MG 1 Orally Once a day; Duration: 30 days 03/07/2025 Active Stool Softener Laxative 8.6-50 MG 2 TABS Orally Twice a day Active Bumetanide 2 MG 1 tablet Orally Two times a day Active Nitroglycerin 0.4 MG as directed Sublingual Active Metoprolol Succinate ER 25 MG 1 tablet Orally Once a day; Duration: 30 day(s) Active Vitamin B-12 1000 MCG 1 tablet Orally Once a day Active Aspirin 81 81 MG 1 tablet Orally Once a day Active Atorvastatin Calcium 40 MG 1 tablet Orally Once a day; Duration: 90 days Active Spironolactone 100 MG 1 tablet Orally Once a day Active Breo Ellipta 100-25 MCG/ACT 1 puff Inhalation Once a day Active FLUoxetine HCl 40 mg 1 p.o. daily; Duration: 90 days Active Omeprazole 20 mg 1 daily; Duration: 90 days Active metFORMIN HCl 500 MG 1 tablet with a meal Orally once daily; Duration: 90 days Active Social History Tobacco Use: Social History Observation Description Date Smoking Status WARNING: Information temporarily unavailable CURRENT TOBACCO USE: Question Answer Notes Are you a: 1/2 pack per day Problems Problem Type SNOMED Code ICD Code Onset Dates Problem Status W/U Status Risk Notes Problem Cervical high risk HPV (human papillomavirus ) test positive (973592504) Cervical high risk HPV (human papillomavirus ) test positive (R87.810) Active confirmed Vital Signs Blood pressure systolic 112 mm Hg 03/07/20 25 Blood pressure diastolic 74 mm Hg 025 Heart Rate 73 /min 03/07/2025 Height 63.5 in 03/07/2025 Weight 187.2 lbs 03/07/2025 BMI 32.64 kg/m2 03/07/2025 Encounters Encounter Location Date Provider Diagnosis [facility] [address] [facility] [address] [place], [place] [id number] 03/07/2025 Brionna Burroughs Rheumatoid arthritis involving hand with positive rheumatoid factor, unspecified laterality M05.749 ; Cervical high risk HPV (human papillomavirus) test positive R87.810 ; Atypical squamous cell of undetermined significance of cervix R87.610 ; Essential hypertension I10 ; Type 2 diabetes mellitus without complication, without long-term current use of insulin E11.9 ; Type 2 diabetes mellitus without complication, unspecified whether local company intermodal truck driver insulin use E11.9 ; GERD (gastroesophageal reflux disease) K21.9 ; Pulmonary emphysema, unspecified emphysema type J43.9 and Atherosclerosis of [place] coronary artery without angina pectoris, unspecified whether [place] or transplanted heart I25.10 Assessments Encounter Date Diagnosis (ICD Code) Assessment Notes Treatment Notes Treatment Clinical Notes Section Notes 03/07/2025 Rheumatoid arthritis involving hand with positive rheumatoid factor, unspecified laterality (ICD-10 - M05.749) 03/07/2025 Cervical high risk HPV (human papillomavirus) test positive (ICD-10 - R87.810) 03/07/2025 Atypical squamous cell of undetermined significance of cervix (ICD-10 - R87.610) 03/07/2025 Essential hypertension (ICD-10 - I10) 03/07/2025 Type 2 diabetes mellitus without complication, without long-term current use of insulin (ICD-10 - E11.9) 03/07/2025 Type 2 diabetes mellitus without complication, unspecified whether local company intermodal truck driver insulin use (ICD-10 - E11.9) 03/07/2025 GERD (gastroesophageal reflux disease) (ICD-10 - K21.9) 03/07/2025 Pulmonary emphysema, unspecified emphysema type (ICD-10 - J43.9) 03/07/2025 Atherosclerosis of [place] coronary artery without angina pectoris, unspecified whether [place] or transplanted heart (ICD-10 - I25.10) Plan Of Treatment Medication Medication Name Sig Start Date Stop Date Notes Celecoxib 200 MG 1 Orally Once a day; Duration: 30 days 03/07/2025 Spironolactone 100 MG 1 tablet Orally Once a day FLUoxetine HCl 40 mg 1 p.o. daily; Duration: 90 days Omeprazole 20 mg 1 daily; Duration: 90 days metFORMIN HCl 500 MG 1 tablet with a osorio l Orally once daily; Duration: 90 days Referrals Referral Date Details 03/07/2025 03/07/2025, Sylvia siddiqui 03/07/2025 03/07/2025 Next Appt Details Follow Up: 2 Months, Reason: Provider Name:Brionna king, 09/08/2025 10:15:00 AM, [address], [address], [place], [place], [id number], Provider Name:Brionna king, 09/15/2025 10:45:00 AM, [address], [address], [place], [phone], Progress Notes * Gina TIANDOKeyla:[birth year] (50 yo F)Acc No.[id number]:03/07/2025 Progress Notes Patient: Gina HARTMAN Provider: Brionna Burroughs M.D. :1975 A ge:49 Y S ex:Female Date:03/07/2025 Address:[address] [place], [place] [id number] Subjective: * Chief Complaints: * 1 . Follow up, discuss Rheumatoid Arthritis. 2. Discuss abnormal PAP results. * HPI: H PI: 49 year old female presents with c/o Patient is here today for?Pt is here today to discuss Rheumatoid Arthritis. Pt states she is having increased pain in both hands. Pt states she has tried stretching exercises with her hands and that has helped some. Pt states she is needing refills sent to Clinic pharmacy for the Metformin, Fluoxetine, Omeprazole, and Spironolactone. E ndocrinology: The pt is here for a check up on Diabetes. Pt states her glucose has been running lower. Pt is needing refills. G YN: 12/12/24 PAP revealed HPV High Risk and Atypical Squamous Cells of undetermined significance. * ROS: D ERMATOLOGY: no R josafat. [...] acute respiratory failure with hypoxia; ASCVD of [place] coronoary artery; T2 DM; Breast mass 01/01-01/10/2024. [...] drug use: no. * Medications: T aking Breo Ellipta 100-25 MCG/ACT Aerosol Powder Breath Activated 1 puff Inhalation Once a day , Taking metFORMIN HCl 500 MG Tablet 1 tablet with a meal Orally once daily , Taking Metoprolol Succinate ER 25 MG Tablet Extended Release 24 Hour 1 tablet Orally Once a day , Taking Vitamin B-12 1000 MCG Tablet 1 tablet Orally Once a day , Taking Nitroglycerin 0.4 [...] TABLET BY MOUTH EVERY DAY , Taking Omeprazole 20 mg Capsule Delayed Release TAKE ONE CAPSULE BY MOUTH 30 minutes BEFORE morning meal ONCE daily , Taking FLUoxetine HCl 40 mg Capsule TAKE ONE CAPSULE BY MOUTH EVERY DAY , Not-Taking Trelegy Ellipta 100-62.5-25 MCG/ACT Aerosol Powder Breath Activated 1 puff Inhalation Once a day , Not-Taking oxyBUTYnin Chloride ER 5 MG Tablet Extended Release 24 Hour 1 tablet Orally Once a day , Notes to Pharmacist: Urinary Incontinence, Not-Taking Potassium Chloride ER 20 MEQ Tablet [...] Side Effects. Objective: * Vitals: W t: 187.2, Temp: 97.9, BP: 112/74, HR: 73, O2 Sat: 98% on RA, Nurse: DIONY, Ht: 63.5, BMI:32.64. * Examination: G eneral Examination: General Appearance: [...] ails painted. ? Assessment: * Assessment: 1. R heumatoid arthritis involving hand with positive rheumatoid factor, unspecified laterality - M05.749 (Primary) 2 . C ervical high risk HPV (human papillomavirus) test positive - R87.810 3 . A typical squamous cell of undetermined significance of cervix - R87.610 4 . E ssential hypertension - I10 5 . T ype 2 diabetes mellitus without complication, without long-term current use of insulin - E11.9 6. T ype 2 diabetes mellitus without complication, unspecified whether prison insulin use - E11.9 7 . G ERD (gastroesophageal reflux disease) - K21.9 8 . P ulmonary emphysema, unspecified emphysema type - J43.9 9 . A therosclerosis of [place] coronary artery without angina pectoris, unspecified whether [place] or transplanted heart - I25.10 Plan: * Treatment: 2. A typical squamous cell of undetermined significance of cervix Referral To:Sylvia Maldonado OB - Gynecology Reason: 3. E ssential hypertension L AB: P-Comprehensive Metabolic Panel (CMP) (Collection Date & Time - 03/07/2025 11:21 AM) g seun 164, Ca 10.8 Value Reference Range A /G Ratio 1.5 1.1-2.5 - * A lbumin 4.2 3.5-5.3 - g/dL * A lkaline Phosphatase 99 35-121 - IU/L * A LT (SGPT) 10 <5-47 - IU/L * A ST (SGOT) 11 <5-40 - IU/L * B ilirubin, Total 0.5 <0.2-1.2 - mg/dL * B UN 18 6-20 - mg/dL * C alcium 10.8 H 8.6-10.4 - mg/dL * C hloride 103 97-108 - mmol/L * C O2 21 20-32 - mmol/L * C reatinine 0.85 0.50-1.00 - mg/dL * G lucose 164 H 65-99 - mg/dL * P otassium 4.5 3.5-5.3 - mmol/L * S odium 137 135-145 - mmol/L * P rotein 7.0 6.0-8.3 - g/dL * e GFR by Creatinine 83 >59 - mL/min/1.73m2 * Yuliya Ruiz 03/10/2025 08:50 :18 AM EDT > See phone encounter 4.?Type 2 diabetes mellitus without complication, without long-term current use of insulin? Refill metFORMIN HCl Tablet, 500 MG, 1 tablet with a meal, Orally, once daily, 90 days, 90, Refills1.?LAB: Glycohemoglobin A1c (in house) (Collection Date & Time - 03/07/2025)? 7.3* Value Reference Range g lycohemoglobin 7.3% 5 - 6.5 % * Jaja Hunt 03/07/2025 11: 01:15 AM EDT > Provider reviewed results while patient in office. 5.?GERD (gastroesophageal reflux disease)? Refill Omeprazole Capsule Delayed Release, 20 mg, 1, daily, 90 days, 90, Refills 1.??6.?Atherosclerosis of [place] coronary artery without angina pectoris, unspecified whether [place] or transplanted heart?LAB: P-Lipid Panel (Collection Date & Time - 03/07/2025 11:21 AM)?hdl 28, chol/hdl 5.57, ldl/hdl 3.8* Value Reference Range C holesterol / HDL Ratio 5.57 H 0.00-4.44 - Ratio * C holesterol 156 <200 - mg/dL * H DL Cholesterol 28 L >39 - mg/dL * L DL Cholesterol (Calculation) 107 <130 - mg/d L * L DL/HDL Ratio 3.8 H <3.3 - Ratio * N on-HDL Cholesterol 128 <130 - mg/dL * T riglycerides 107 <150 - mg/dL * Yuliya Ruiz 03/10/2025 08:50 :18 AM EDT > See phone encounter 7.?Others? Refill FLUoxetine HCl Capsule, 40 mg, 1, p.o., daily, 90 days, 90, Refills 0.?? * Procedure Codes: G 2211 Complex e/[place], [address] GLYCATED HEMOGLOBIN TEST, Modifiers: QW , 3051F HG A1C>EQUAL 7.0%<8.0%, G8950 PREHTN/HTN BP DOC INDCD F/U DOC, G8752 MOST RECENT SYSTOLIC BP < 140MM HG, G8754 MOST RECENT DIASTOLIC BP < 90MM HG * Follow Up: 2 Months * Images: Billing Information: * Visit Code: 50475 Office Visit, Est Pt., Level 4. * Procedure Codes: G2211 Complex e/[place]. [address] GLYCATED HEMOGLOBIN TEST. Modifiers: QW 3051F HG A1C>EQUAL 7.0%<8.0%. G8950 PREHTN/HTN BP DOC INDCD F/U DOC. G8752 MOST RECENT SYSTOLIC BP < 140MM HG. G8754 MOST RECENT DIASTOLIC BP < 90MM HG. * Electronic signature of Brionna Burroughs MD on 07/29/2025 at 06:54 AM EST Sign off status: Pending * Provider: Brionna Burroughs M.D. 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 Pt states she is having increased pain in both hands. Pt states she has tried stretching exercises with her hands and that has helped some. Pt states she is needing refills sent to Clinic pharmacy for the Metformin, Fluoxetine, Omeprazole, and Spironolactone Examination Category Sub-Category Detail Notes Category Not [...] normal Chest: normal shape and exp ansion Consultation Request Notes Referral Date Referring Provider Referred Provider Not es 03/07/2025 Brionna Burroughs Ashley 03/07/2025 Brionna Burroughs ,
--- OUTSIDE RECORDS SUMMARY | 2025-03-14 06:00 | XMS_ITS ---
Author Organization Jessie Address [address] [facility] [address] [facility] [address] [place] [id number] Care Team Providers Care Director Information Security Name Role Phone Brionna Burroughs Unavailable [phone] REASON FOR VISIT 6 weeks Encounters Encounter Location Date Provider Diagnosis [facility] [address] [place] [id number] 03/14/2025 Brionna Burroughs Plan Of Treatment Next Appt Details Provider Name:Brionna Dietrich er, 09/08/2025 10:15:00 AM, [address], [address], [place], [place], [id number], Provider Name:Brionna Dietrich er, 09/15/2025 10:45:00 AM, [address], [address], [place], [place], [id number], Progress Notes * Gina TIANDOB:[birth year] (50 yo F)Acc No.[id number]:03/14/2025 Progress Notes Patient: Gina HARTMAN Provider: Brionna Burroughs M.D. :1975 A ge:49 Y S ex:Female Date:03/14/2025 Address:[facility] [id number] Subjective: * Chief Complaints: * 1 . 6 weeks. * Medical History: Objective: * Vitals: Assessment: Plan: * Treatment: * Images: Billing Information: * Visit Code: * Procedure Codes: * Electronic signature of Brionna Burroughs MD on 07/29/2025 at 06:53 AM EST Sign off status: Pending * Provider: Brionna Burroughs M.D. Date: 0 03/14/2025 Generated for Grace houser/Doreen/Krystinaitting on: 1 09/29/2024 06:53 AM EST
--- OUTSIDE RECORDS SUMMARY | 2025-06-06 05:15 | XMS_ITS ---
[facility] Organization [facility] [address] [facility] [address] [place] [id number] Care Team Providers Care Fitness Management Director Name Role Phone Brionna Burroughs Unavailable [phone] Allergies Allergen (clinical drug ingredient) Drug/Non Drug Allergy documented on EMR Reaction Allergy Type Onset Date Status buspirone busPIRone HCl Unknown Drug Allergy Act edson sertraline Zoloft Unknown Drug Allergy Active Results Component Value Reference Range Notes Glycohemoglobin A1c (in hous e) Reviewed date:06/11/2025 10:01:37 AM Interpretation:6.8 Performing Lab: Notes/Report: 6.8 glycohemoglobin 6.8% 5 - 6.5 % P-Comprehensive Metabolic Pa elena (CMP) Reviewed date:06/11/2025 10:01:37 AM Interpretation:Glu 119, BUN 22, Spike 11.3 Performing Lab: Notes/Report: Test performed by [facility] [address] [place] [address] , [address], [place] [address] Christopher Valdez MD, [employer] [place] [employer] CLIA: [id number] Sodium 136 135-145 mmol/L Potassium 4.8 3.5-5.3 mmol/L Chloride 99 97-108 mmol/L CO2 27 20-32 mmol/L Glucose 119 65-99 mg/dL BUN 22 6-20 mg/dL Creatinine 0.88 0.50-1.00 mg/dL Calcium 11.3 8.6-10.4 mg/dL eGFR by Creatinine 80 >59 mL/min/1.73m2 Protein 7.5 6.0-8.3 g/dL Albumin 4.8 3.5-5.3 g/dL Alkaline Phosphatase 112 35-121 IU/L ALT (SGPT) 15 <5-47 IU/L AST (SGOT) 15 <5-40 IU/L Bilirubin, Total 0.5 <0.2-1.2 mg/dL A/G Ratio 1.8 1.1-2.5 REASON FOR VISIT 2 months Medications Medication SIG (Take, Route, Frequency, Duration) Notes Start Date End Date Status Ipratropium-Albutero l 0.5-2.5 (3) MG/3ML 3 mL as needed Inhalation every 6 hrs Not-Taking Potassium Chloride ER 20 MEQ 1 tablet with food Orally Once a day; Duration: 30 day(s) Not-Taking oxyBUTYnin Chloride ER 5 MG 1 tablet Orally Once a day; Duration: 30 day(s) Urinary Incontinence 09/09/2024 Not-Taking Trelegy Ellipta 100-62.5-25 MCG/ACT 1 puff Inhalation Once a day Not-Taking Sildenafil Citrate 20 MG 1/2 tablet Orally Three times a day Would like delivered Not-Taking metFORMIN HCl 500 mg TAKE ONE TABLET BY MOUTH EVERY DAY with a meal; Duration: 90 Active Spironolactone 100 MG 1 tablet Orally Once a day Active Omeprazole 20 mg 1 daily; Duration: 90 days Active Desvenlafaxine Succinate ER 50 mg 1 tablet orally once a day; Duration: 30 days Active Bumetanide 2 MG 1 tablet Orally Two times a day; Duration: 90 days Active FLUoxetine HCl 40 mg 1 p.o. daily; Duration: 90 days Active Celecoxib 200 MG 1 Orally Once a day; Duration: 30 days Active Stool Softener Laxative 8.6-50 MG 2 TABS Orally Twice a day Active Mupirocin 2 % 1 application Externally Twice a day; Duration: 7 days 09/19/2024 Active Breo Ellipta 100-25 MCG/ACT 1 puff Inhalation Once a day Active Atorvastatin Calcium 40 MG 1 tablet Orally Once a day; Duration: 90 days Active Aspirin 81 81 MG 1 tablet Orally Once a day Active Nitroglycerin 0.4 MG as directed Sublingual Active Vitamin B-12 1000 MCG 1 tablet Orally Once a day Not-Taking Metoprolol Succinate ER 25 MG 1/2 tablet Orally Once a day; Duration: 30 days Active Social History Tobacco Use: Social History Observation Description Date Smoking Status WARNING: Information temporarily unavailable CURRENT TOBACCO USE: Question Answer Notes Are you a: 1/2 pack per day Problems Problem Type SNOMED Code ICD Code Onset Dates Problem Status W/U Status Risk Notes Problem Localized, primary osteoarthritis of the hand (685389394) Arthropathy of hand (M19.049) Active confirmed Vital Signs Blood pressure systolic 104 mm Hg 06/06/20 25 Blood pressure diastolic 72 mm Hg 025 Heart Rate 77 /min 06/06/2025 Height 63.5 in 06/06/2025 Weight 185.4 lbs 06/06/2025 BMI 32.32 kg/m2 06/06/2025 Encounters Encounter Location Date Provider Diagnosis RADHAEfraín [address] [facility] [address] [facility] [address] [place] [id number] 06/06/2025 Brionna Burroughs Type 2 diabetes iva itus without complication, without long-term current use of insulin E11.9 ; Pulmonary emphysema, unspecified emphysema type J43.9 ; Abnormal mammogram R92.8 ; Arthropathy of hand M19.049 ; Depression with anxiety F41.8 and Hyperlipidemia, unspecified hyperlipidemia type E78.5 Assessments Encounter Date Diagnosis (ICD Code) Assessment Notes Treatment Notes Treatment Clinical Notes Section Notes 06/06/2025 Type 2 diabetes mellitus without complication, without long-term current use of insulin (ICD-10 - E11.9) 06/06/2025 Pulmonary emphysema, unspecified emphysema type (ICD-10 - J43.9) 06/06/2025 Abnormal mammogram (ICD-10 - R92.8) 06/06/2025 Arthropathy of hand (ICD-10 - M19.049) 06/06/2025 Depression with anxiety (ICD-10 - F41.8) 06/06/2025 Hyperlipidemia, unspecified hyperlipidemia type (ICD-10 - E78.5) Plan Of Treatment Medication Medication Name Sig Start Date Stop Date Notes FLUoxetine HCl 40 mg 1 p.o. daily; Durat ion: 90 days Celecoxib 200 MG 1 Orally Once a day; Duration: 30 days Breo Ellipta 100-25 MCG/ACT 1 puff Inhalation Once a day Atorvastatin Calcium 40 MG 1 tablet Oral ly Once a day; Duration: 90 days Next Appt Details Follow Up: 3 Months, Reason: Provider Name:Brionna king, 09/08/2025 10:15:00 AM, [address] [facility] [address] [facility], [address], [place], [phone], Provider Name:Brionna king, 09/15/2025 10:45:00 AM, [address], [address], [place], [phone], Progress Notes * Gina TIANDOB:[birth year] (50 yo F)Acc No.[id number]:06/06/2025 Progress Notes Patient: Gina HARTMAN Provider: Brionna Burroughs M.D. :1975 A ge:49 Y S ex:Female Date:06/06/2025 Address:[address] [place], [place] [id number] Subjective: * Chief Complaints: * 1 . 2 months. * HPI: C ardiology: The pt is here for a check up on Hypertension and Diabetes. Pt states she is taking the Celebrex and it did help some but still having a lot of pain in her hands. Denies : Chest Pain. D enies : Short of Breath. D enies : Dizziness. D enies : Palpitations. E NT/respiratory: April note from Dr. Aviles reviewed. G YN: April note from Dr. Maldonado reviewed. * ROS: C ONSTITUTIONAL: Positive for A nother physician seen since last visit? No, Change in medication since last visit? No, Are you taking antibiotics? No, Are you taking steroids? No. D ERMATOLOGY: no R josafat. 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 [...] puff Inhalation Once a day , Taking Metoprolol Succinate ER 25 MG Tablet Extended Release 24 Hour 1/2 tablet Orally Once a day , Taking Nitroglycerin 0.4 MG Tablet Sublingual as directed Sublingual , Taking Aspirin 81 81 MG Tablet Chewable 1 tablet Orally Once a day , Taking Atorvastatin Calcium 40 MG Tablet 1 tablet Orally Once a day , Taking Mupirocin 2 % Ointment 1 application Externally Twice a day , Taking Stool Softener Laxative 8.6-50 MG Tablet 2 TABS Orally Twice a day , Taking FLUoxetine HCl 40 mg Capsule 1 p.o. daily , Taking Omeprazole 20 mg Capsule Delayed Release 1 daily , Taking Spironolactone 100 MG Tablet 1 tablet Orally Once a day , Taking metFORMIN HCl 500 mg Tablet TAKE ONE TABLET BY MOUTH EVERY DAY with a meal , Taking Bumetanide 2 MG Tablet 1 tablet Orally Two times a day , Taking Desvenlafaxine Succinate ER 50 mg Tablet Extended Release 24 Hour 1 tablet orally once a day , Taking Celecoxib 200 MG Capsule 1 Orally Once a day , Not-Taking Vitamin B-12 1000 MCG Tablet 1 tablet Orally Once a day , Not-Taking Trelegy Ellipta 100-62.5-25 MCG/ACT Aerosol [...] Side Effects. Objective: * Vitals: W t: 185.4, Temp: 98.0, BP: 104/72, HR: 77, O2 Sat: 98, Nurse: DIONY, Ht: 63.5, BMI:32.32. * Examination: G eneral Examination: General Appearance: [...] ails painted. ? Assessment: * Assessment: 1. T ype 2 diabetes mellitus without complication, without long-term current use of insulin - E11.9 (Primary) 2 . P ulmonary emphysema, unspecified emphysema type - J43.9 3 . A bnormal mammogram - R92.8 4 . A rthropathy of hand - M19.049 5 . D epression with anxiety - F41.8 6 . H yperlipidemia, unspecified hyperlipidemia type - E78.5 Plan: * Treatment: Value Reference Range A /G Ratio 1.8 1.1-2.5 - * A lbumin 4.8 3.5-5.3 - g/dL * A lkaline Phosphatase 112 35-121 - IU/L * A LT (SGPT) 15 <5-47 - IU/L * A ST (SGOT) 15 <5-40 - IU/L * B ilirubin, Total 0.5 <0.2-1.2 - mg/dL * B UN 22 H 6-20 - mg/dL * C alcium 11.3 H 8.6-10.4 - mg/dL * C hloride 99 97-108 - mmol/L * C O2 27 20-32 - mmol/L * C reatinine 0.88 0.50-1.00 - mg/dL * G lucose 119 H 65-99 - mg/dL * P otassium 4.8 3.5-5.3 - mmol/L * S odium 136 135-145 - mmol/L * P rotein 7.5 6.0-8.3 - g/dL * e GFR by Creatinine 80 >59 - mL/min/1.73m2 * Arlene Browning 06/11/2025 09: 57:40 AM EST > See phone encounter ?LAB: Glycohemoglobin A1c (in house) (Collection Date & Time - 06/06/2025)? 6.8* Value Reference Range g lycohemoglobin 6.8% 5 - 6.5 % * Jaja Hunt 06/06/2025 1 0:51:01 AM EDT > Provider reviewed results while patient in office. Arlene Browning 06/11/2025 09:57:40 AM EST > See phone encounter 2.?Pulmonary emphysema, unspecified emphysema type? Refill Breo Ellipta Aerosol Powder Breath Activated, 100-25 MCG/ACT, 1 puff, Inhalation, Once a day, 1, Refills 3.??3.?Arthropathy of hand? Refill Celecoxib Capsule, 200 MG, 1, Orally, Once a day, 30 days, 30, Refills 3.??4.?Depression with anxiety? Refill FLUoxetine HCl Capsule, 40 mg, 1, p.o., daily, 90 days, 90, Refills 1.?? 5.?Hyperlipidemia, unspecified hyperlipidemia type? Refill Atorvastatin Calcium Tablet, 40 MG, 1 tablet, Orally, Once a day, 90 days, 90 Tablet, Refills 1.?? * Procedure Codes: G 2211 Complex e/[place], [address] CAPILLARY BLOOD DRAW, 45030 GLYCATED HEMOGLOBIN TEST, Modifiers: QW , 3044F HG A1C LEVEL LT 7.0%, G8783 BP SCR PRFRM RCMDD DEFIND SCR INTVL, G8752 MOST RECENT SYSTOLIC BP < 140MM HG, G8754 MOST RECENT DIASTOLIC BP < 90MM HG, 3074F SYST BP LT 130 MM HG, 3078F DIAST BP < 80 MM HG * Follow Up: 3 Months * Images: Billing Information: * Visit Code: 70547 Office Visit, Est Pt., Level 4. * Procedure Codes: G2211 Complex e/[place]. [address] CAPILLARY BLOOD DRAW. 37849 GLYCATED HEMOGLOBIN TEST. Modifiers: QW 3044F HG A1C LEVEL LT 7.0%. G8783 BP SCR PRFRM RCMDD DEFIND SCR INTVL. G8752 MOST RECENT SYSTOLIC BP < 140MM HG. G8754 MOST RECENT DIASTOLIC BP < 90MM HG. 3074F SYST BP LT 130 MM HG. 3078F DIAST BP < 80 MM HG. * Electronic signature of Brionna Burroughs MD on 07/29/2025 at 06:53 AM EST Sign off status: Pending * Provider: Brionna Burroughs M.D. Date: Generated for Grace houser/Doreen/eTransmitting on: 09/29/2024 06:53 AM EST History and Physical Notes * HPI (History of Present Illness) Category Sub-Category Detail Notes Category Not es Cardiology Short of Breath Chest Pain Palpitations [...]
--- OUTSIDE RECORDS SUMMARY | 2025-07-14 09:45 | XMS_ITS ---
Author Organization [facility] Address [address] [facility] [address] [place] [id number] Care Team Providers Care Semiconductor Lab Technician Name Role Phone Brionna Burroughs Shreyas Unavailable [phone] Allergies Allergen (clinical drug ingredient) Drug/Non Drug Allergy documented on EMR Reaction Allergy Type Onset Date Status buspirone busPIRone HCl Unknown Drug Allergy Act edson sertraline Zoloft Unknown Drug Allergy Active Results Component Value Reference Range Notes X ray : Hand, right Reviewed date:07/17/2025 11:33:54 AM Interpretation: Performing Lab: Notes/Report: REASON FOR VISIT right hand pain, needs Kidney Evaluation and Diabetic eye exam Medications Medication SIG (Take, Route, Frequency, Duration) Notes Start Date End Date Status Spironolactone 100 MG 1 tablet Orally Once a day Active Omeprazole 20 mg 1 daily; Duration: 90 days Active Bumetanide 2 MG 1 tablet Orally Two times a day; Duration: 90 days Active metFORMIN HCl 500 mg TAKE ONE TABLET BY MOUTH EVERY DAY with a meal; Duration: 90 Active Atorvastatin Calcium 40 MG 1 tablet Orally Once a day; Duration: 90 days Active Stool Softener Laxative 8.6-50 MG 2 TABS Orally Twice a day Active Nitroglycerin 0.4 MG as directed Sublingual Active Mupirocin 2 % 1 application Externally Twice a day; Duration: 7 days 09/19/2024 Active Aspirin 81 81 MG 1 tablet Orally Once a day Active Desvenlafaxine Succinate ER 50 mg TAKE ONE TABLET BY MOUTH EVERY DAY; Duration: 30 days Active Potassium Chloride ER 20 MEQ 1 [...] as needed Inhalation every 6 hrs Not-Taking Metoprolol Succinate ER 25 MG 1/2 tablet Orally Once a day; Duration: 30 days Active Trelegy Ellipta 100-62.5-25 MCG/ACT 1 puff Inhalation Once a day Not-Taking Vitamin B-12 1000 MCG 1 tablet Orally Once a day Not-Taking Celecoxib 200 MG 1 Orally Once a day; Duration: 30 days Active Breo Ellipta 100-25 MCG/ACT 1 puff Inhalation Once a day Active FLUoxetine HCl 40 mg 1 p.o. daily; Duration: 90 days Active Social History Tobacco Use: Social History Observation Description Date Smoking Status WARNING: Information temporarily unavailable CURRENT TOBACCO USE: Question Answer Notes Are you a: 1/2 pack per day Problems Problem Type SNOMED Code ICD Code Onset Dates Problem Status W/U Status Risk Notes Problem Carpal tunnel syndrome (00990355) Right carpal tunnel syndrome (G56.01) Active confirmed Problem Aneurysm of iliac artery (80773533) Iliac artery aneurysm, right (I72.3) Active confirmed Vital Signs Blood pressure systolic 120 mm Hg 07/14/20 25 Blood pressure diastolic 70 mm Hg 025 Heart Rate 76 /min 07/14/2025 Height 63.5 in 07/14/2025 Weight 185.8 lbs 07/14/2025 BMI 32.39 kg/m2 07/14/2025 z Encounters Encounter Location Date Provider [facility] [address] [id number] 07/14/2025 Brionna Burroughs Essential hypertensi on I10 ; Type 2 diabetes mellitus without complication, without long-term current use of insulin E11.9 ; Pulmonary hypertension I27.20 ; Pulmonary emphysema, unspecified emphysema type J43.9 ; Right carpal tunnel syndrome G56.01 ; Rheumatoid arthritis, involving unspecified site, unspecified whether rheumatoid factor present M06.9 ; Depression with anxiety F41.8 and Iliac artery aneurysm, right I72.3 Assessments Encounter Date Diagnosis (ICD Code) Assessment Notes Treatment Notes Treatment Clinical Notes Section Notes 07/14/2025 Essential hypertension (ICD-10 - I10) 07/14/2025 Type 2 diabetes mellitus without complication, without long-term current use of insulin (ICD-10 - E11.9) 07/14/2025 Pulmonary hypertension (ICD-10 - I27.20) 07/14/2025 Pulmonary emphysema, unspecified emphysema type (ICD-10 - J43.9) 07/14/2025 Right carpal tunnel syndrome (ICD-10 - G56.01) 07/14/2025 Rheumatoid arthritis, involving unspecified site, unspecified whether rheumatoid factor present (ICD-10 - M06.9) 07/14/2025 Depression with anxiety (ICD-10 - F41.8) 07/14/2025 Iliac artery aneurysm, right (ICD-10 - I72.3) Plan Of Treatment Medication Medication Name Sig Start Date Stop Date Notes Desvenlafaxine Succinate ER 50 mg TAKE O NE TABLET BY MOUTH EVERY DAY; Duration: 30 days Next Appt Details Follow Up: 2 Months, Reason: [facility] 10:15:00 AM, [address] [facility] [address] [facility], [place], [phone], [facility] 09/15/2025 10:45:00 AM, [address] [facility] [address] [facility], [place], [phone], Progress Notes * Gina TIANDOB:[birth year] (50 yo F)Acc No.[id number]:07/14/2025 Progress Notes Patient: Gina HARTMAN Provider: Brionna Burroughs M.D. :1975 A ge:50 Y S ex:Female Date:07/14/2025 Address:[address] [place], [place] [id number] Subjective: * Chief Complaints: * 1 . Right hand pain. 2. needs Kidney Evaluation and Diabetic eye exam. * HPI: W rist/Hand: The pt is here today with c/o right hand pain. Pt states she has some knots in the thumb and wrist on her right hand. Pt states the finger will sometime lock up. Pt also c/o some spots on both arms around the elbows she would like checked out. E NT/respiratory: ER visit 07/11/25 for hemoptysis. Incidental finding of right iliac artey aneurysm 1.8 cm. * ROS: C ONSTITUTIONAL: Positive for A nother physician seen since last visit?Yes, Change in medication since last visit? No, [...] acute respiratory failure with hypoxia; ASCVD of campo coronoary artery; T2 DM; Breast mass 01/01-01/10/2024. [...] TABS Orally Twice a day , Taking Omeprazole 20 mg Capsule Delayed Release 1 daily , Taking Spironolactone 100 MG Tablet 1 tablet Orally Once a day , Taking metFORMIN HCl 500 mg Tablet TAKE ONE TABLET BY MOUTH EVERY DAY with a meal , Taking Bumetanide 2 MG Tablet 1 tablet Orally Two times a day , Taking Atorvastatin Calcium 40 MG Tablet 1 tablet Orally Once a day , Taking Celecoxib 200 MG Capsule 1 Orally Once a day , Taking FLUoxetine HCl 40 mg Capsule 1 p.o. daily , Taking Breo Ellipta 100-25 MCG/ACT Aerosol Powder Breath Activated 1 puff Inhalation Once a day , Taking Desvenlafaxine Succinate ER 50 mg Tablet Extended Release 24 Hour TAKE ONE TABLET BY MOUTH EVERY DAY , Not-Taking Vitamin B-12 1000 MCG Tablet [...] Side Effects. Objective: * Vitals: W t: 185.8, Temp: 98.1, BP: 120/70, HR: 76, O2 Sat: 98% on RA, Nurse: DIONY, Ht: 63.5, BMI:32.39. z. * Examination: G eneral Examination: General Appearance: [...] edema, clubbing of fingers, n ails painted. Wasting of the right thenar eminence. Tinnels neg, Phallens equivocal. Assessment: * Assessment: 1. E ssential hypertension - I10 (Primary) 2 . T ype 2 diabetes mellitus without complication, without long-term current use of insulin - E11.9 3 . P ulmonary hypertension - I27.20 4 . P ulmonary emphysema, unspecified emphysema type - J43.9 5 . R ight carpal tunnel syndrome - G56.01 6 . R heumatoid arthritis, involving unspecified site, unspecified whether rheumatoid factor present - M06.9? 7. D epression with anxiety - F41.8 8 . I liac artery aneurysm, right - I72.3 Plan: * Treatment: 2.?Depression with anxiety? Refill Desvenlafaxine Succinate ER Tablet Extended Release 24 Hour, 50 mg, TAKE ONE TABLET BY MOUTHEVERY DAY, 30 days, 30, Refills 5.?? * Procedure Codes: G 2211 Complex e/m visit add on, G8950 PREHTN/HTN BP DOC INDCD F/U DOC, G8752 MOST RECENT SYSTOLIC BP < 140MM HG, G8754 MOST RECENT DIASTOLIC BP < 90MM HG, 3074F SYST BP LT 130 MM HG, 3078F DIAST BP < 80 MM HG * Follow Up: 2 Months * Images: Billing Information: * Visit Code: 54083 Office Visit, Est Pt., Level 4. * Procedure Codes: G2211 Complex e/m visit add on. G8950 PREHTN/HTN BP DOC INDCD F/U DOC. G8752 MOST RECENT SYSTOLIC BP < 140MM HG. G8754 MOST RECENT DIASTOLIC BP < 90MM HG. 3074F SYST BP LT 130 MM HG. 3078F DIAST BP < 80 MM HG. * Electronic signature of Brionna Burroughs MD on 07/29/2025 at 06:53 AM EST Sign off status: Pending * Provider: Brionna Burroughs M.D. Date: 09/14/2024 Generated for Grace houser/Faxing/eTransmitting on: 1 09/29/2024 06:53 AM EST History and Physical Notes * HPI (History of Present Illness) Category Sub-Category Detail Notes Category Not es ENT/respiratory ER visit 07/11/25 for hemoptysis. Incidental finding of right iliac artey aneurysm 1.8 cm. Examination Category Sub-Category Detail Notes Category Not es General Examination HEENT: unremarkable Heart: RSR Lungs: clear to auscultatio n , decreased breath sounds Abdomen: soft and nontender, no organomegaly or masses Extremities: no significant leg e tosin, clubbing of fingers, nails painted. Wasting of the right thenar eminence. Tinnels neg, Phallens equivocal General Appearance: NAD, color is good Skin: normal, no rash Neurologic Exam: Intact, gait normal Neck: supple, no lymphaden opathy, no carotid bruits Oral cavity: no lesions, mucosa m oist and WNL, no erythema Peripheral pulses: normal Back: normal Chest: normal shape and exp ansion
--- NOTE | 2025-07-29 | CA_ITS ---
APPROVED REPORT Exam: Pharmacologic Technologist: Wandy Agustin Stress Nurse: Mame DIAS, RN Ht: 5 ft 3 in Wt: 186 lbs BSA: 1.88 m2 HR: 61 bpm BP: 104/59 mmHg Indications: Chest pain, Coronary artery disease history Stress Test Details Test: Lexiscan HR Resting HR: 61 bpm Max Heart Rate (APMHR): 169.645850 bpm Max HR Achieved: 103 bpm Target HR (85% APMHR): 143.822111 bpm % of APMHR: 60.95 Recovery HR: 85 bpm BP Resting BP: 104.0/59.0 mmHg Max BP: 119.0/75.0 mmHg Recovery BP: 115.0/76.0 mmHg ECG Resting ECG: Sinus rhythm Stress ECG Conclusion Lungs clear to auscultation prior to test start. Symptoms: None Arrhythmias/Ectopy: PVC ST-T Changes: Less than 0.[address] segment changes. Conclusion: Nondiagnostic ECG/Lexiscan Electronically signed by : Tierney Contreras MD 07/30/2025 21:10:29
--- OUTSIDE RECORDS SUMMARY | 2025-07-29 06:53 | XMS_ITS | Clinical Summary ---
Author Organization [facility] Address [address] [place] [address] Care Team Providers Care Kennel Aide Name Role Phone Pcp, No Primary Care [...] time each day at the same time. Active nitroglycerin (Nitrostat) 0.4 MG SL tablet [...] Date Obesity (BMI 35.0-39.9 without comorbidity) 04/08 CAD in eek artery 04/25/2024 Diabetes mellitus, type 2 04/25/2024 Congestive heart failure 04/25/2024 HFrEF (heart failure with reduced ejection fract ion) 04/25/2024 History of VT (myocardial infarction) 04/25/2024 Hypertension 04/25/2024 Pulmonary edema 04/25/2024 Pulmonary hypertension 04/25/2024 Resolved Problems Problem Noted Date Diagnosed Date Resolved Date Acute hypoxemic respiratory failure 04/25/2024 04/27/2025 Family History Medical History Relation Name Comments [...] Wellness (AWV) 1975 [facility]-Infant/Child/Adol SDOH Screenings 1975 [id number] Vaccine (#1) 01/05/1975 Diabetes: Dental Exam 1984 [facility]- SDOH Screenings [...] 2019 [facility]-Breast Cancer Screening 2024 [facility]-Influenza Vaccine (#1) 2025 [facility]-Depression Screening 04/25/2025 04/25/2024 [facility]-Obesity Intervention Completed 04/25/2024 HPV Vaccines (No Doses Required) Completed [facility]-HIB Vaccines Aged Out No longer e [...] topic Insurance [place] MED[place] Care Teams Kennel Aide Relationship Specialty Start Date End Date [place], [place] [address] PCP - General Family Medicine 04/07/24
--- OUTSIDE RECORDS SUMMARY | 2025-07-29 06:53 | XMS_ITS | Encounter Summary ---
[facility] Organization [facility] Address [address] [place] [address] Care Team Providers Care Roll Bucker Name Role Phone Jenny Torrez APRN Primary Care Provider [phone] Reason for Visit * Reason Comments Med Refill Encounter Details Date Type Department Care Team (Late st Contact Info) Description 06/09/2020 Refill [facility] [address] [place] [address] Torrez, Jenny Bobby APRN [address] [address] Nausea Social History Tobacco Use Types Packs/Day Years Used Date Smoking Tobacco: Every Day Cigarettes Smokeless Tobacco: Never Alcohol Use Standard Drinks/Week Comments No 0 (1 standard drink = 0.6 oz pur e alcohol) PHQ-2 Answer Date Recorded Retired Total Score 4 05/26/2020 Comments No Sex and Gender Information Value Date Recorded Sex Assigned at Not on file Legal Sex Female 7:24 AM EDT Gender Identity Not on file Sexual Orientation Not on file documented as of this encounter Plan of Treatment Not on file documented as of this encounter Visit Diagnoses Diagnosis Nausea Nausea alone documented in this encounter Additional Health Concerns Infection Onset Date Last Indicated Resolved Time COVID Screen (preop/placement) 02/24/2021 02/24/2021 09/28/2023 12:11 PM EST documented as of this encounter Care Teams Roll Bucker Relationship Specialty Start Date End Date Torrez, Jenny Bobby APRN PCP - General Family Medicine 11/16/18 documented as of this encounter
--- OUTSIDE RECORDS SUMMARY | 2025-07-29 06:53 | XMS_ITS | Encounter Summary ---
Author Organization [facility] Address [address] [place] [address] Care Team Providers Care Residential Pest Control Technician Name Role Phone Torrez, Jenny Barneytee HALE Primary Care Provider [phone] Reason for Visit * Reason Onset Date Comments REFILL 01/05/2018 Encounter Details Date Type Department Care Team (Late st Contact Info) Description 01/05/2018 Telephone [facility] [address] [facility] [address], [facility] [address] [place] [address] Gideon Gramajo MD [address] [facility] [address] [place] [address] REFILL Social History Tobacco Use Types Packs/Day Years Used Date Smoking Tobacco: Every Day Cigarettes Smokeless Tobacco: Never Alcohol Use Standard Drinks/Week Comments No 0 (1 standard drink = 0.6 oz pur e alcohol) Comments No Sex and Gender Information Value Date Recorded Sex Assigned at Not on file Legal Sex Female 7:24 AM EDT Gender Identity Not on file Sexual Orientation Not on file documented as of this encounter Miscellaneous Notes * Telephone Encounter - Gideon Gramajo MD - 01/11/2018 8:59 AM CDT OK * Telephone Encounter - Mame Maya - 01/08/2018 1:50 PM CDT CALLED AND S/P WITH PT SHE NEEDS REFILL ON MEDS. I TOLD HER WE COULD GIVE HER ENOUGH UNTIL HER NEXTAPPT BUT SHE NEEDS TO KEEP THAT APPT ON 02/28/18 * Telephone Encounter - Neetu Ellis RegSched Rep - 01/05/2018 3:15 PM CDT Pt is needing medication refilled. I made an appt with dr connie wilkes available. pls call patient with details regarding medication. documented in this encounter Plan of Treatment Not on file documented as of this encounter Visit Diagnoses Not on filedocumented in this encounter Additional Health Concerns Infection Onset Date Last Indicated Resolved Time COVID Screen (preop/placement) 02/24/2021 02/24/2021 09/28/2023 12:11 PM EST documented as of this encounter Care Teams Residential Pest Control Technician Relationship Specialty Start Date End Date Torrez, Jenny Bobby APRN PCP - General Family Medicine 11/16/18 documented as of this encounter
--- OUTSIDE RECORDS SUMMARY | 2025-07-29 06:53 | XMS_ITS | Encounter Summary ---
Author Organization [facility] Address [address] [facility], [address] [place] [address] Care Team Providers Care Music Worker Name Role Phone Jossue Orourke MD Primary Care Provider [phone] Encounter Details Date Type Department Care Team (Late st Contact Info) Description 04/24/2023 Orders Only Bonnie CUEVAS [address] [place] [address] ProviderBonnie MD Social History Tobacco Use Types Packs/Day Years Used Date Smoking Tobacco: Every Day Cigarettes Smokeless Tobacco: Never Alcohol Use Standard Drinks/Week Comments No 0 (1 standard drink = 0.6 oz pur e alcohol) Overall Financial Resource Strain (CARDI) Answe r Date Recorded How hard is [...] place to sleep or slept in a long-term (including now)? No 04/05/2023 Food Insecurity Answer [...] on filedocumented in this encounter Care Teams Music Worker Relationship Specialty Start Date End Date Jossue Orourke MD [address] [place] [address] [phone] PCP - General Family Medicine 02/13/22 documented as of this encounter
--- OUTSIDE RECORDS SUMMARY | 2025-07-29 06:53 | XMS_ITS | Patient Health Record ---
[facility] Address [address] [place] [id number] Care Team Providers Care Business And Marketing Teacher Name Role Phone Brionna Burroughs Shreyas Unavailable [phone] Carlie Garcia Unavailable [phone] Allergies Allergen (clinical drug ingredient) Drug/Non Drug Allergy documented on EMR Reaction Allergy Type Onset Date Status buspirone busPIRone HCl Unknown Drug Allergy Act edson sertraline Zoloft Unknown Drug Allergy Active Results Component Value Reference Range Notes P-Comprehensive Metabolic Pa elena (CMP) Reviewed date:06/11/2025 10:01:37 AM Interpretation:Glu 119, BUN 22, Spike 11.3 Performing Lab: Notes/Report: Test performed by [facility] , [address], [place] [address] Christopher Valdez MD, Sugarcane Research Technician CLIA: [id number] Sodium 136 135-145 mmol/L Potassium 4.8 3.5-5.3 [...] 0.5 <0.2-1.2 mg/dL A/G Ratio 1.8 1.1-2.5 Glycohemoglobin A1c (in hous e) Reviewed date:03/07/2025 12:34:55 PM Interpretation:7.3 Performing Lab: Notes/Report: 7.3 glycohemoglobin 7.3% 5 - 6.5 % P-Comprehensive Metabolic Pa elena (CMP) Reviewed date:03/10/2025 08:50:25 AM Interpretation:gluc 164, Ca 10.8 Performing Lab: Notes/Report: Test performed by [facility] [address] [place] [address] , [address], [place] [address] Christopher Valdez MD, Sugarcane Research Technician CLIA: [id number] Sodium 137 135-145 mmol/L Potassium 4.5 3.5-5.3 [...] 3.8 Performing Lab: Notes/Report: Test performed by [facility] [address] [place] [address] , [address], [place] [address] Christopher Valdez MD, Sugarcane Research Technician CLIA: [id number] Cholesterol 156 <200 mg/dL Triglycerides 107 <150 [...] Results: 97 Units: mg/dL % Change: - ------- Test Date: 03/07/2025 LDL Results: 107 Units: mg/dL % Change: +10% P-Microalbumin/Creatinine, R andom Urine Sample Reviewed date:09/02/2024 08:34:24 AM Interpretation:Normal Performing Lab: Notes/Report: Test performed by [facility], [address], [place] [address] Christopher Valdez MD, Sugarcane Research Technician CLIA: [id number] Albumin/Creatinine Ratio, Urine 11 0-30 ug/mg Microalbumin, Urine, Random 0.4 Creatinine, Urine 36.1 CT Scan : Sinuses, without c ontrast Reviewed date:09/09/2024 12:32:35 PM Interpretation:Abnormal Performing Lab: Notes/Report: Abnormal P-Comprehensive Metabolic Pa elena (CMP) Reviewed date:09/02/2024 08:34:24 AM Interpretation:gluc 139, Ca 11.2 Performing Lab: Notes/Report: Test performed by [facility] [address] [place] [address] , [address], [place] [address] Christopher Valdez MD, Sugarcane Research Technician CLIA: [id number] Sodium 139 135-145 mmol/L Potassium 4.4 3.5-5.3 [...] 0.5 <0.2-1.2 mg/dL A/G Ratio 1.8 1.1-2.5 Glycohemoglobin A1c (in hous e) Reviewed date:08/30/2024 03:09:19 PM Interpretation: Performing Lab: Notes/Report: glycohemoglobin 7.2% 5 - 6.5 % CBC Venipuncture (in house) Reviewed date:08/30/2024 03:09:09 [...] - 38 platlet 284 100 - 400 X ray : Hand, right Reviewed date:07/17/2025 11:33:54 AM Interpretation: Performing Lab: Notes/Report: EMG/NCV, bilateral Reviewed date:07/24/2025 10:10:35 AM Interpretation: Performing Lab: Notes/Report: EMG/NCV, bilateral Reviewed date:07/24/2025 10:10:35 AM Interpretation: Performing Lab: Notes/Report: Glycohemoglobin A1c (in hous e) Reviewed date:06/11/2025 10:01:37 AM Interpretation:6.8 Performing Lab: Notes/Report: 6.8 glycohemoglobin 6.8% 5 - 6.5 % Cologuard Reviewed date:01/15/2025 11:39:07 AM Interpretation:Negative Performing Lab: Notes/Report: Negative Cologuard Reviewed date:01/15/2025 11:39:07 AM Interpretation:Negative Performing Lab: Notes/Report: Negative X ray : Spine, lumbosacral Reviewed date:11/20/2024 03:57:30 PM Interpretation: Performing Lab: Notes/Report: X ray : Spine, lumbosacral Reviewed date:11/20/2024 03:57:30 PM Interpretation: Performing Lab: Notes/Report: X ray : Hip, left Reviewed date:11/20/2024 03:57:30 PM Interpretation: Performing Lab: Notes/Report: Glycohemoglobin A1c (in hous e) Reviewed date:10/28/2024 09:50:31 AM Interpretation:6.7 Performing Lab: Notes/Report: 6.7 glycohemoglobin 6.7% 5 - 6.5 % P-Comprehensive Metabolic Pa elena (CMP) Reviewed date:10/28/2024 09:50:31 AM Interpretation:gluc 143, Ca 11.3 Performing Lab: Notes/Report: Test performed by [facility] [address] [place] [address] , [address], [place] [address] Christopher Valdez MD, Sugarcane Research Technician CLIA: [id number] Sodium 135 135-145 mmol/L Potassium 4.5 3.5-5.3 [...] 132 Performing Lab: Notes/Report: Test performed by [facility], [address] , [facility], [place] [address] Christopher Valdez MD, Sugarcane Research Technician CLIA: [id number] Cholesterol 164 <200 mg/dL Triglycerides 176 <150 [...] date:11/20/2024 03:24:49 PM Interpretation: Performing Lab: Notes/Report: X ray : Toe Reviewed date:11/20/2024 03:57:30 PM Interpretation: Performing Lab: Notes/Report: HPV Genotype (TMA) Reviewed date:03/06/2025 01:09:22 PM Interpretation:Negative Performing Lab: Notes/Report: HPV Type 16 NOT DETECTED The human papillomavirus (HPV) Genotype test is an FDA-approved in-vitro diagnostic amplified nucleic acid test for the qualitative detection of E6/E7 viral mRNA of independent HPV types 16 and 18/45 in cervical specimens. See https://www.WaveDeck /sites/default/files/ AW-12821_002_0 1.pd f for further information. Test performed by [facility], [facility] d/b/a [address] , [place] [address], Abdiel Oates DO, Sugarcane Research Technician, CLIA# [id number] HPV Type 18/45 NOT DETECTED The human papillomavirus (HPV) Genotype test is an FDA-approved in-vitro diagnostic amplified nucleic acid test for the qualitative detection of E6/E7 viral mRNA of independent HPV types 16 and 18/45 in cervical specimens. See https://www.WaveDeck /sites/default/files/ AW-12821_002_0 1.pd f for further information. Test performed by [facility], [facility] d/b/a [facility], [address] [place] [address] [address], [place] [address], Abdiel Oates DO, Sugarcane Research Technician, CLIA# [id number] P-Pap Test Thin Prep Reviewed date:03/06/2025 01:09:22 PM Interpretation:ATYPICAL SQUAMOUS CELLS OF UNDETERMINED SIGNIFICANCE Performing [...] imaging, the slide was reviewed by a Legal Researcher and/or Pathologist. End of Report Technical services provided by [facility], [facility], [facility]b/a [facility], [address] [place] [address] , [place] [address] Jose Meza MD, Sugarcane Research Technician. Case reviewed and diagnosis rendered at [facility], [facility], d/b/a [facility], [address] [place] [address] Michael Mora MD, Sugarcane Research Technician. CONFIDENTIAL HPV High Risk Screen (TMA) Reviewed date:03/06/2025 01:09:21 PM Interpretation:DETECTED Performing Lab: Notes/Report: HPV High Risk DETECTED The human papillomavirus (HPV) High Risk Screen is an FDA-approved in-vitro amplified nucleic acid test for the qualitative detection of E6/E7 viral mRNA. Results should be correlated with patient presentation, history, cervical cytology and other clinical and laboratory findings. See https://www.TapZen.Surfingbird /sites/default/files/ 2017-10/AW-12820_002_0 1.pd f for further information. Test performed by [facility], [facility] d/b/a [address] [facility], [place] [address], Abdiel Oates DO, Sugarcane Research Technician, CLIA# [id number] Mammogram, Bilateral Diagnos tic Reviewed date:11/13/2024 04:09:12 PM Interpretation:Needs Additional Imaging; Left Breast US Needed Performing Lab: Notes/Report: Needs Additional Imaging; Left Breast US Needed MRI : Lumbar Spine without c ontrast Reviewed date:12/26/2024 12:28:24 PM Interpretation: Performing Lab: Notes/Report: CBC Venipuncture (in house) Reviewed date:01/31/2025 03:38:32 [...] 02:57:56 PM Interpretation:Negative Performing Lab: Notes/Report: Negative Ultrasound : Breast, left Reviewed date:12/25/2024 04:35:33 PM Interpretation:probably benign, 6 month f/u Performing Lab: Notes/Report: probably benign, 6 month f/u Reason For Referral Diagnosis [address] scan, si nus (R93.0) [facility] Referring Provider First Name Brionna Pritchett Referring Provider Last Name Manjeet Referring Provider Speciality Family Venancio vallesice Referred Provider Specialty ENT General Notes Padmini Ocampo 3:04:54 PM > [facility] 09/12/2024 9:43:54 AM > spoke with Margie at [facility]; confirmed they received referral Referral Priority Routine Diagnosis 1 Left hip pain (M25.5 52) Diagnosis 2 Toe pain, left (M79. 675) Diagnosis 3 Acute midline low ba ck pain without sciatica (M54.50) Referral Organization [facility] Referring Provider First Name Carlie Referring Provider Last Name Radha Referring Provider Speciality Physician Feed Miller Referred Provider Orthopedics, . Referred Provider Specialty Orthopedic S urgery General Notes Carlie Garcia 11/14 4:32:41 PM > Pt needs an appt with Damaris Keith Brynn 11/15/2024 08:53:33 AM > lvm for Dr. Abebe's office to call me backDamaris Brynn 11/18/2024 10:16:08 AM > 11/20/2024 at 11:00am Referral Priority Routine Diagnosis 1 Atypical squamous ce ll of undetermined significance of cervix (R87.610) [facility] Referring Provider First Name Brionna Pritchett Referring Provider Last Name Manjeet Referring Provider [facility] ctice Referred Provider Sylvia Maldonado Referred Provider Specialty OB - Gynecol ogy General Notes Padmini Ocampo 2024 11:49:49 AM > faxed to [facility], Padmini Ocampo 03/13/2025 10:24:37 AM > referral received by [facility] Referral Priority Routine Diagnosis 1 Rheumatoid arthritis involving hand with positive rheumatoid factor, unspecified laterality (M05.749) [facility] Referring Provider First Name Brionna Pritchett Referring Provider Last Name Manjeet Referring Provider [facility] nasir Referred Provider Specialty Rheumatology General Notes Padmini Ocampo 2024 12:16:33 PM > faxed referral to [facility] Referral Priority Routine Medications Medication SIG (Take, Route, Frequency, Duration) Notes Start Date End Date Status Stool Softener Laxative 8.6-50 MG 2 TABS Orally Twice a day Active Trelegy Ellipta 100-62.5-25 MCG/ACT 1 puff Inhalation Once a day Not-Taking Vitamin B-12 1000 MCG 1 tablet Orally Once a day Not-Taking Spironolactone 100 MG 1 tablet Orally Once a day Active Potassium Chloride ER 20 MEQ 1 tablet with food Orally Once a day; Duration: 30 day(s) Not-Taking Omeprazole 20 mg 1 daily; Duration: 90 days Active oxyBUTYnin Chloride ER 5 MG 1 tablet Orally Once a day; Duration: 30 day(s) Urinary Incontinence 09/09/2024 Not-Taking Bumetanide 2 MG 1 tablet Orally Two times a day; Duration: 90 days Active Sildenafil Citrate 20 MG 1/2 tablet Orally Three times a day Would like delivered Not-Taking metFORMIN HCl 500 mg TAKE ONE TABLET BY MOUTH EVERY DAY with a meal; Duration: 90 Active Ipratropium-Albutero l 0.5-2.5 (3) MG/3ML 3 mL as needed Inhalation every 6 hrs Not-Taking Celecoxib 200 MG 1 Orally Once a day; Duration: 30 days Active Atorvastatin Calcium 40 MG 1 tablet Orally Once a day; Duration: 90 days Active Nitroglycerin 0.4 MG as directed Sublingual Active Breo Ellipta 100-25 MCG/ACT 1 puff Inhalation Once a day Active Metoprolol Succinate ER 25 MG 1/2 tablet Orally Once a day; Duration: 30 days Active FLUoxetine HCl 40 mg 1 p.o. daily; Duration: 90 days Active Mupirocin 2 % 1 application Externally Twice a day; Duration: 7 days 09/19/2024 Active Aspirin 81 81 MG 1 tablet Orally Once a day Active Desvenlafaxine Succinate ER 50 mg TAKE ONE TABLET BY MOUTH EVERY DAY; Duration: 30 days Active Immunizations Vaccine Route Administration Date Status Comme [...] Status Risk Notes Problem Gastroesophageal reflux disease (337399493) GERD (gastroesophageal reflux disease) (K21.9) Active confirmed Problem Essential hypertension (43226131) Essential hypertension (I10) Active confirmed Problem Abnormal mammogram (907865903) Abnormal mammogram (R92.8) Active confirmed Problem Constipation (37498551) Constipation (K59.00) Active confirmed Problem Mixed anxiety and depressive disorder (637054088) Depression with anxiety (F41.8) Active confirmed Problem BMI 30+ - obesity (685243774) BMI 32.0-32.9,adult (Z68.32) Active confirmed Problem Obese class I (084009465044555) BMI 33.0-33.9,adult (Z68.33) Active confirmed Problem Bandemia (401385344) Bandemia (D72.825) Active confirmed Problem Pulmonary emphysema (72634858) Pulmonary emphysema, unspecified emphysema type (J43.9) Active confirmed Problem Hyperlipidaemia (89660217) Hyperlipidemia, unspecified hyperlipidemia type (E78.5) Active confirmed Problem Acute sinusitis (39787308) Acute sinusitis, recurrence not specified, unspecified location (J01.90) Active confirmed Problem Type II diabetes mellitus without complication (224591594) Type 2 diabetes mellitus without complication, without long-term current use of insulin (E11.9) Active confirmed Problem Carpal tunnel syndrome (86022937) Right carpal tunnel syndrome (G56.01) Active confirmed Problem 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 (004545642978234) Atherosclerosis of jackson coronary artery without angina pectoris, unspecified whether jackson or transplanted heart (I25.10) Active confirmed Problem Cardiomyopathy (57312975) Cardiomyopathy, unspecified type (I42.9) Active confirmed Problem Localized, primary osteoarthritis of the hand (214135290) Arthropathy of hand (M19.049) Active confirmed Problem Pulmonary hypertension (81432885) Pulmonary hypertension (I27.20) Active confirmed Problem Type II diabetes mellitus without complication (572904279) Type 2 diabetes mellitus without complication, unspecified whether halfway insulin use (E11.9) Active confirmed Problem Plain X-ray result abnormal (687248661) Abnormal x-ray (R93.89) Active confirmed Problem Type 2 diabetes mellitus with other specified complication, unspecified whether ocean transportation intermediary insulin use (E11.69) Active confirmed Problem Cervical high risk HPV (human papillomavirus) test positive (710842871) Cervical high risk HPV (human papillomavirus) test positive (R87.810) Active confirmed Problem Rheumatoid arthritis (98167019) Rheumatoid arthritis, involving unspecified site, unspecified whether rheumatoid factor present (M06.9) Active confirmed Problem Aneurysm of iliac artery (08104049) Iliac artery aneurysm, right (I72.3) Active confirmed Problem Abnormal breast biopsy (R89.7) Active confirmed Problem Joint locking (626457619) Joint locking (M24.80) Active confirmed Vital Signs Heart Rate 76 /min 07/14/2025 z Blood pressure diastolic 70 mm Hg 07/14/2025 z Height 63.5 in 07/14/2025 z Blood pressure systolic 120 mm Hg 07/14/2025 z Weight 185.8 lbs 07/14/2025 z BMI 32.39 kg/m2 07/14/2025 z Encounters Encounter Location Date Provider Diagnosis [facility] [address] [place] [id number] 08/30/2024 Brionna Burroughs Acute sinusitis, recurrence not specified, unspecified location J01.90 ; Type 2 diabetes mellitus without complication, without long-term current use of insulin E11.9 ; Essential hypertension I10 ; Pulmonary hypertension I27.20 ; Bandemia D72.825 and Screen for colon cancer Z12.[address] [id number] 09/19/2024 Brionna Burroughs Abscess of left ear canal H60.02 ; Type 2 diabetes mellitus without complication, without long-term current use of insulin E11.9 and Pulmonary emphysema, unspecified emphysema type J43.[address] [id number] 10/25/2024 Brionna Burroughs Type 2 diabetes iva itus without complication, unspecified whether halfway insulin use E11.9 ; Pulmonary emphysema, unspecified emphysema type J43.9 ; Essential hypertension I10 ; Pulmonary hypertension I27.20 ; Acute sinusitis, recurrence not specified, unspecified location J01.90 ; Constipation K59.00 ; Abnormal breast biopsy R89.7 ; Headache, unspecified R51.9 and Hyperlipidemia, unspecified hyperlipidemia type E78.[address] [id number] 11/14/2024 Carlie Crowdy Left hip pain M25.55 2 ; Acute midline low back pain without sciatica M54.50 ; Toe pain, left M79.675 ; Tobacco use Z72.0 and BMI 33.0-33.9,adult Z68.[address] [id number] 12/06/2024 Brionna Burroughs Essential hypertensi on I10 ; Type 2 diabetes mellitus without complication, without long-term current use of insulin E11.9 ; Blood in stool K92.1 and Chronic constipation K59.[address] [id number] 01/27/2025 Brionna Burroughs Bandemia D72.825 ; Pulmonary emphysema, unspecified emphysema type J43.9 ; Type 2 diabetes mellitus without complication, unspecified whether halfway insulin use E11.9 ; Cardiomyopathy, unspecified type I42.9 ; Type 2 diabetes mellitus with other specified complication, unspecified whether ocean transportation intermediary insulin use E11.69 and Rheumatoid arthritis, involving unspecified site, unspecified whether rheumatoid factor present M06.9 [facility] [address] [place] [id number] 03/07/2025 Brionna Burroughs Rheumatoid arthritis involving hand with positive rheumatoid factor, unspecified laterality M05.749 ; Cervical high risk HPV (human papillomavirus) test positive R87.810 ; Atypical squamous cell of undetermined significance of cervix R87.610 ; Essential hypertension I10 ; Type 2 diabetes mellitus without complication, without long-term current use of insulin E11.9 ; Type 2 diabetes mellitus without complication, unspecified whether halfway insulin use E11.9 ; GERD (gastroesophageal reflux disease) K21.9 ; Pulmonary emphysema, unspecified emphysema type J43.9 and Atherosclerosis of jackson coronary artery without angina pectoris, unspecified whether jackson or transplanted heart I25.10 [facility] [address] [place] [address] [place] [id number] 06/06/2025 Brionna Burroughs Type 2 diabetes iva itus without complication, without long-term current use of insulin E11.9 ; Pulmonary emphysema, unspecified emphysema type J43.9 ; Abnormal mammogram R92.8 ; Arthropathy of hand M19.049 ; Depression with anxiety F41.8 and Hyperlipidemia, unspecified hyperlipidemia type E78.5 [address] [id number] 07/14/2025 Brionna Burroughs Essential hypertensi on I10 ; Type 2 diabetes mellitus without complication, without long-term current use of insulin E11.9 ; Pulmonary hypertension I27.20 ; Pulmonary emphysema, unspecified emphysema type J43.9 ; Right carpal tunnel syndrome G56.01 ; Rheumatoid arthritis, involving unspecified site, unspecified whether rheumatoid factor present M06.9 ; Depression with anxiety F41.8 and Iliac artery aneurysm, right I72.[address] [place] [id number] 12/09/2024 Brionna Burroughs Well woman exam with routine gynecological exam Z01.419 and BMI 32.0-32.9,adult Z68.[address] [place] [id number] 07/17/2025 Brionna Pritchett Manjeet [facility] [address] [place], [place] [id number] 07/24/2025 J Shreyas Manjeet [facility] [address] [place], [place] [id number] 07/28/2025 J Shreyas Manjeet [facility] [address] [place], [place] [id number] 08/13/2024 J Shreyas Manjeet [facility] [address] [place], [place] [id number] 09/02/2024 J Shreyas Manjeet [facility] [address] [place], [place] [id number] 09/05/2024 J Shreyas Manjeet [facility] [address] [place], [place] [id number] 09/09/2024 J Shreyas Burroughs Abnormal CT scan, si nus R93.0 [facility] [address] [place], [place] [id number] 10/21/2024 J Shreyas Manjeet [facility] [address] [place], [place] [id number] 10/28/2024 J Shreyas Manjeet [facility] [address] [place], [place] [id number] 11/13/2024 J Shreyas Manjeet [facility] [address] [place], [place] [id number] 11/20/2024 Carlie Turciosdy [facility] [address] [place], [place] [id number] 12/05/2024 J Shreyas Manjeet [facility] [address] [place], [place] [id number] 12/18/2024 J Shreyas Manjeet [facility] [address] [place] [id number] 12/26/2024 Carlie Garcia [facility] [address] [place], [place] [id number] 03/06/2025 J Shreyas Manjeet [facility] [address] [place], [place] [id number] 03/10/2025 Brionna Burroughs [facility] [address] [place], [place] [id number] 04/30/2025 Brionna Burroughs Pulmonary hypertensi on I27.20 [facility] [address] [place], [place] [id number] 06/11/2025 Brionna Burroughs Assessments Encounter Date Diagnosis (ICD Code) Assessment Notes Treatment Notes Treatment Clinical Notes Section Notes 08/30/2024 Acute sinusitis, recurrence not specified, unspecified location (ICD-10 - J01.90) 08/30/2024 Type 2 diabetes mellitus without complication, without long-term current use of insulin (ICD-10 - E11.9) 09/09/[address] scan, sinus (ICD-10 - R93.0) 09/19/2024 Abscess of left ear canal (ICD-10 - H60.02) 09/19/2024 Type 2 diabetes mellitus without complication, without long-term current use of insulin (ICD-10 - E11.9) 10/25/2024 Type 2 diabetes mellitus without complication, unspecified whether halfway insulin use (ICD-10 - E11.9) 10/25/2024 Pulmonary emphysema, unspecified emphysema type (ICD-10 - J43.9) 11/14/2024 Left hip pain (ICD-10 - M25.552) 11/14/2024 Acute midline low back pain without sciatica (ICD-10 - M54.50) 12/06/2024 Essential hypertension (ICD-10 - I10) 12/06/2024 Type 2 diabetes mellitus without complication, without long-term current use of insulin (ICD-10 - E11.9) 12/09/2024 Well woman exam with routine gynecological exam (ICD-10 - Z01.419) 12/09/2024 BMI 32.0-32.9,adult (ICD-10 - Z68.32) 01/27/2025 Bandemia (ICD-10 - D72.825) 01/27/2025 Pulmonary emphysema, unspecified emphysema type (ICD-10 - J43.9) 07/14/2025 Essential hypertension (ICD-10 - I10) 07/14/2025 Type 2 diabetes mellitus without complication, without long-term current use of insulin (ICD-10 - E11.9) 03/07/2025 Rheumatoid arthritis involving hand with positive rheumatoid factor, unspecified laterality (ICD-10 - M05.749) 03/07/2025 Cervical high risk HPV (human papillomavirus) test positive (ICD-10 - R87.810) 06/06/2025 Type 2 diabetes mellitus without complication, without long-term current use of insulin (ICD-10 - E11.9) 06/06/2025 Pulmonary emphysema, unspecified emphysema type (ICD-10 - J43.9) 04/30/2025 Pulmonary hypertension (ICD-10 - I27.20) 06/06/2025 Abnormal mammogram (ICD-10 - R92.8) 03/07/2025 Atypical squamous cell of undetermined significance of cervix (ICD-10 - R87.610) 07/14/2025 Pulmonary hypertension (ICD-10 - I27.20) 01/27/2025 Type 2 diabetes mellitus without complication, unspecified whether halfway insulin use (ICD-10 - E11.9) 12/06/2024 Blood in stool (ICD-10 - K92.1) 11/14/2024 Toe pain, left (ICD-10 - M79.675) 10/25/2024 Essential hypertension (ICD-10 - I10) 09/19/2024 Pulmonary emphysema, unspecified emphysema type (ICD-10 - J43.9) 08/30/2024 Essential hypertension (ICD-10 - I10) 08/30/2024 Pulmonary hypertension (ICD-10 - I27.20) 10/25/2024 Pulmonary hypertension (ICD-10 - I27.20) 11/14/2024 Tobacco use (ICD-10 - Z72.0) 12/06/2024 Chronic constipation (ICD-10 - K59.09) 01/27/2025 Cardiomyopathy, unspecified type (ICD-10 - I42.9) 07/14/2025 Pulmonary emphysema, unspecified emphysema type (ICD-10 - J43.9) 03/07/2025 Essential hypertension (ICD-10 - I10) 06/06/2025 Arthropathy of hand (ICD-10 - M19.049) 06/06/2025 Depression with anxiety (ICD-10 - F41.8) 03/07/2025 Type 2 diabetes mellitus without complication, without long-term current use of insulin (ICD-10 - E11.9) 07/14/2025 Right carpal tunnel syndrome (ICD-10 - G56.01) 01/27/2025 Type 2 diabetes mellitus with other specified complication, unspecified whether ocean transportation intermediary insulin use (ICD-10 - E11.69) 11/14/2024 BMI 33.0-33.9,adult (ICD-10 - Z68.33) 10/25/2024 Acute sinusitis, recurrence not specified, unspecified location (ICD-10 - J01.90) 08/30/2024 Bandemia (ICD-10 - D72.825) 08/30/2024 Screen for colon cancer (ICD-10 - Z12.11) 10/25/2024 Constipation (ICD-10 - K59.00) Miralax recommended 01/27/2025 Rheumatoid arthritis, involving unspecified site, unspecified whether rheumatoid factor present (ICD-10 - M06.9) 07/14/2025 Rheumatoid arthritis, involving unspecified site, unspecified whether rheumatoid factor present (ICD-10 - M06.9) 03/07/2025 Type 2 diabetes mellitus without complication, unspecified whether ocean transportation intermediary insulin use (ICD-10 - E11.9) 06/06/2025 Hyperlipidemia, unspecified hyperlipidemia type (ICD-10 - E78.5) 03/07/2025 GERD (gastroesophageal reflux disease) (ICD-10 - K21.9) 07/14/2025 Depression with anxiety (ICD-10 - F41.8) 10/25/2024 Abnormal breast biopsy (ICD-10 - R89.7) 10/25/2024 Headache, unspecified (ICD-10 - R51.9) 07/14/2025 Iliac artery aneurysm, right (ICD-10 - I72.3) 03/07/2025 Pulmonary emphysema, unspecified emphysema type (ICD-10 - J43.9) 03/07/2025 Atherosclerosis of jackson coronary artery without angina pectoris, unspecified whether jackson or transplanted heart (ICD-10 - I25.10) 10/25/2024 Hyperlipidemia, unspecified hyperlipidemia type (ICD-10 - E78.5) Plan Of Treatment Next Appt Details Provider Name:Brionna Dietrich er, 09/08/2025 10:15:00 AM, [address], [address], [place], [phone], Provider Name:Brionna Dietrich er, 09/15/2025 10:45:00 AM, [address], [address], [place], [id number], Insurance Providers Payer Name Payer Address Payer Phone Subscriber Number Group Number Insured Name Patient Relationship to Insured Coverage Start Date Coverage End Date [employer] (MEDICARE) [address] [address] [place] [address] [id number] Gina Frankel Self - patient is the insured MED[employer] [address] [place] [id number] Gina Frankel Self - patient is the insured Medical [...] acute respiratory failure with hypoxia; ASCVD of jackson coronoary artery; T2 DM; Breast mass 01/01-01/10/2024
--- OUTSIDE RECORDS SUMMARY | 2025-07-29 06:53 | XMS_ITS | Encounter Summary ---
[facility] Organization [facility] Address [address] [place] [address] Care Team Providers Care Clinical Education Assistant Name Role Phone Jenny Torrez APRN Primary Care Provider [phone] Reason for Visit * Reason Comments Med Refill Encounter Details Date Type Department Care Team (Late st Contact Info) Description 05/19/2021 Refill [facility] [address] [place] [address] Jenny Torrez APRN [address] [address] Mixed hyperlipidemia due to type 2 diabetes mellitus Social History Tobacco Use Types Packs/Day Years Used Date Smoking Tobacco: Every Day Cigarettes Smokeless Tobacco: Never Alcohol Use Standard Drinks/Week Comments No 0 (1 standard drink = 0.6 oz pur e alcohol) PHQ-2 Answer Date Recorded Retired Total Score 0 12/17/2020 Comments No Sex and Gender Information Value Date Recorded Sex Assigned at Not on file Legal Sex Female 7:24 AM EDT Gender Identity Not on file Sexual Orientation Not on file documented as of this encounter Plan of Treatment Not on file documented as of this encounter Visit Diagnoses Diagnosis Mixed hyperlipidemia due to type 2 diabetes mellitus documented in this encounter Additional Health Concerns Infection Onset Date Last Indicated Resolved Time COVID Screen (preop/placement) 02/24/2021 02/24/202109/28/2023 12:11 PM EST documented as of this encounter Care Teams Clinical Education Assistant Relationship Specialty Start Date End Date Torrez, Jenny Bobby APRN PCP - General Family Medicine 11/16/18 documented as of this encounter
--- OUTSIDE RECORDS SUMMARY | 2025-07-29 06:53 | XMS_ITS | Encounter Summary ---
Author Organization Healthcare Address [address] [place] [address] Care Team Providers Care Floor Installation Mechanic Name Role Phone Pcp, No Primary Care Provider Unavailabl e Encounter Details Date Type Department Care Team (Late st Contact Info) Description 04/18/2024 Lab Requisition [facility] [address] [place] [address] Marcella Lui MD [address] [facility] [place] [facility] [address] [place] [address] Unspecified lump in unspecified breast Social History [...] EDT) Case Report Sugical Pathology Consult Case: [id number] Authorizing Provider: Marcella Lui MD Collected: 04/18/2024 1053 Ordering Location: [facility] Received: 04/18/2024 1054 Pathologist: Peyton Urena MD Specimen: Breast, Right, [id number] 04/23/2024 9:24 AM EDT [facility] Final Diagnosis A. BREAST, RIGHT, NEEDLE CORE BIOPSY (OUTSIDE SLIDES [id number], 03/29/24): - FIBROADENOMA WITH ASSOCIATED DUCTAL CALCIFICATIONS 04/23/2024 9:24 AM EDT [facility] at 0924 EDT Clinical Information N63.0 - Unspecified lump in unspecified breast [ICD-10-CM] 04/23/2024 9:24 AM EDT [facility] Gross Description A. [id number] Received along with a corresponding pathology report from [facility] are 5 slides labeled outside case: [id number] collected on 03/29/2024. 04/23/2024 9:24 AM EDT [facility] Note: A resident was involved in the service. I attest I examined the relevant preparations for the specimens and confirmed the diagnosis or interpretation. 04/23/2024 9:24 AM EDT [facility] Tissue Right breast structure / Unknown 04/18/2024 10:53 AM EDT 04/18/2024 10:54 AM EDT us Marcella Lui MD LAB PATHOLOGY ORDERABLES F inal Result [facility] [address] [place] [address] documented in this encounter Visit Diagnoses Diagnosis Unspecified lump in unspecified breast documented in this encounter Care Teams Floor Installation Mechanic Relationship Specialty Start Date End Date Pcp, No [address] [place] [address] PCP - General Family Medicine 04/07/24 documented as of this encounter
--- OUTSIDE RECORDS SUMMARY | 2025-07-29 06:53 | XMS_ITS | Clinical Summary ---
Author Organization [facility] Address [address] [place] [address] Care Team Providers Care Cloud Engagement Partner Name Role Phone Torrez, Jenny Bobby APRN Primary Care Provider [phone] Allergies Active Allergy Reactions Criticality Noted Date Comments Aspirin GI Intolerance Low 06/24/2016 Irritates stomach AT HIGH DOSE AND IS ABLE TO TAKE LOW DOSE Buspirone Anxiety Low 11/22/2018 Corticosteroids Other (See Comments) 11/22/2018 Pt states elevates blood sugar Lorazepam Other (See Comments) 12/10/2018 suicidal l thoughts, messed with pt head Ondansetron Hcl Other (See Comments) 01/10/2019 Headache and no relief of nausea Sertraline Hallucinations 11/16/2018 Medications Lancets (FREESTYLE) lancetsIndications :Type 2 diabetes mellitus without complication, without long-term current use of insulin For fingerstick blood sugar testing twice daily for dx E.11.9 100 each 12 11/17/19 19 Active glucose blood test stripIndications:T ype 2 diabetes mellitus without complication, without long-term current use of insulin One touch mini brand fingerstick glucose test strips. Test twice daily for dx E11.9 100 each 12 11/17/19 19 Active hydrOXYzine (ATARAX) 25 MG tabletIndications: Generalized anxiety disorder with panic attacks,Agoraphobi a Take 1 tablet by mouth Every 8 (Eight) Hours As Needed for Anxiety. 270 tablet 3 12/18/19 21 Active nitroglycerin (NITROSTAT) 0.4 MG SL tabletIndications: Coronary artery disease involving quinault coronary artery of quinault heart with angina pectoris Place 1 under the tongue as needed for angina. May repeat every 5 mins for up three doses. 100 tablet 11 12/18/19 21 Active promethazine (PHENERGAN) 25 MG tabletIndications: Chronic nausea Take 1 tablet by mouth Every 8 (Eight) Hours As Needed for Nausea or Vomiting. 60 tablet 5 12/18/19 21 Active atorvastatin (LIPITOR) 40 MG tabletIndications: Mixed hyperlipidemia due to type 2 diabetes mellitus Take 1 tablet by mouth Every Night. For cholesterol 90 tablet 1 01/12/20 21 Active folic acid (FOLVITE) 800 MCG tabletIndications: Folate deficiency Take 1 tablet by mouth Daily. 90 tablet 3 01/12/20 21 Active cholecalciferol (VITAMIN D3) 1.25 MG (44209 UT) capsuleIndications :Vitamin D deficiency Take 1 capsule by mouth Every 7 (Seven) Days. 12 capsule 3 01/12/20 21 Active metoclopramide (REGLAN) 10 MG tabletIndications: Chronic nausea Take 1 tablet by mouth 4 (Four) Times a Day Before Meals & at Bedtime. 120 tablet 3 01/12/20 21 Active desvenlafaxine (PRISTIQ) 50 MG 24 hr tabletIndications: Generalized anxiety disorder with panic attacks TAKE 1 TABLET BY MOUTH DAILY. 90 tablet 3 01/24/20 21 Active vitamin D (ERGOCALCIFEROL) 1.25 MG (42113 UT) capsule capsule 01/12/20 21 Active lamoTRIgine (LaMICtal) 25 MG tabletIndications: Generalized anxiety disorder with panic attacks,Agoraphobi a,Anxiety TAKE TWO TABLETS BY MOUTH NIGHTLY. 60 tablet 3 07/13/20 21 Active metFORMIN ER (GLUCOPHAGE-XR) 500 MG 24 hr tablet TAKE TWO TABLETS BY MOUTH DAILY 180 tablet 1 07/13/20 21 Active atenolol (TENORMIN) 50 MG tabletIndications: Essential hypertension TAKE ONE TABLET BY MOUTH DAILY FOR BLOOD PRESSURE. 30 tablet 4 07/27/20 21 Active FLUoxetine (PROzac) 40 MG capsuleIndications :Generalized anxiety disorder with panic attacks,Agoraphobi a TAKE ONE CAPSULE BY MOUTH DAILY 30 capsule 4 08/19/19 22 Active Aspirin Low Dose 81 MG EC tabletIndications: Coronary artery disease involving quinault coronary artery of quinault heart with angina pectoris TAKE ONE TABLET BY MOUTH DAILY 90 tablet 9 12/28/19 Active Hospital, Clinic, or Other Facility Administered Medication Ordered Dose Route Frequency Start Date End Date Status cyanocobalamin injection 1,000 mcgIndications:Vitamin B 12 deficiency 1000 mcg IM Every 28 Days 01/11/2021 Active Active Problems Problem Noted Date Diagnosed Date Nausea and vomiting 01/26/2021 Overview (01/26/2021): Added automatically from request for surgery [id number] Diarrhea 01/26/2021 Overview (01/26/2021): Added automatically from request for surgery [id number] Periumbilical abdominal pain 01/26/2021 Overview (01/26/2021): Added automatically from request for surgery [id number] Hemorrhage of anus and rectum 01/26/2021 Overview (01/26/2021): Added automatically from request for surgery [id number] Folate deficiency 01/26/2021 Overview (01/26/2021): Added automatically from request for surgery [id number] Vitamin D deficiency 01/26/2021 Overview (01/26/2021): Added automatically from request for surgery [id number] History of colitis 01/26/2021 Overview (01/26/2021): Added automatically from request for surgery [id number] Abdominal obesity and metabolic syndrome 019 Agoraphobia 11/23/2018 Psychophysiological insomnia 11/23/2018 Coronary artery disease invo lving quinault coronary artery of quinault heart with angina pectoris 11/23/2018 Mixed hyperlipidemia due to type 2 diabetes iva itus 11/23/2018 Coronary artery disease due to lipid rich plaque 11/22/2018 Chest pain 11/13/2018 Smoker 1 PPD 03/28/2018 LVH (left ventricular hypertrophy) 03/28/2018 Precordial chest pain 02/28/2018 Chronic pain of both knees 02/28/2018 Morbid obesity 02/28/2018 Gastroesophageal reflux disease without esophagi tis 08/23/2016 Type 2 diabetes mellitus wit h hyperglycemia, without long-term current use of insulin 08/23/2016 Generalized anxiety disorder with panic attacks 08/23/2016 Resolved Problems Problem Noted Date Diagnosed Date Resolved Date Anxiety 08/23/2016 11/23/2018 Coronary artery disease 02/05 Family History Medical History Relation Name Comments Heart disease Brother Lung cancer Father Hypertension Mother Coronary artery disease Other Family Diabetes Sister Heart failure Sister Hypertension Sister Relation Name Status Comments Brother Father lung cancer Mother Other Family Sister Social History Tobacco Use Types Packs/Day Years Used Date Smoking Tobacco: Every Day Cigarettes Smokeless Tobacco: Never Tobacco Cessation:Ready to Q uit: No; Counseling Given: Yes Alcohol Use Standard Drinks/Week Comments No 0 (1 standard drink = 0.6 oz pur e alcohol) PHQ-2 Answer Date Recorded Retired Total Score 0 12/17/2020 Abuse Screen Answer Date Recorded Unsafe at Home or Work/School Not on file Feels Threatened by Someone? Not on file 06/2023 Does Anyone Keep You from Co ntacting Others or Doint Things Outside the Home? Not on file 05/17/2023 Physical Sign of Abuse Present Not on file 1 Housing Stability Answer Date Recorded Current Living Arrangements Not on file 05/07 Potentially Unsafe Housing Conditions Not on dede e 05/17/2023 Family and Community Support Answer Anthony e Recorded Help with Day-to-Day Activities Not on file 05/17/2023 Lonely or Isolated Not on file 05/17/2023 Employment Answer Date Recorded Do you want help finding or keeping work or a micky b? Not on file 05/17/2023 Disabilities Answer Date Recorded Concentrating, Remembering, or Making Decisions Difficulty Not on file 05/17/2023 Doing Errands Independently Difficulty Not on fi le 05/17/2023 Education Answer Date Recorded Help with school or training? Not on file Preferred Language Not on file 05/17/2023 Comments No Sex and Gender Information Value Date Recorded Sex Assigned at Not on file Legal Sex Female 7:24 AM EDT Gender Identity Not on file Sexual Orientation Not on file Last Filed Vital Signs Vital Sign Reading Time Taken Comments Blood Pressure 118/70 01/26/2021 10:23 AM CDT Pulse 65 01/26/2021 10:23 AM CDT Temperature 36.9 C (98.4 F) 09/10/2020 11:56 AM FAST FOOD SHIFT LEAD Respiratory Rate 16 12/17/2020 8:22 AM CDT Oxygen Saturation 98% 01/11/2021 10:08 AM CDT Inhaled Oxygen Concentration - - Weight 103 kg (228 lb) 01/26/2021 10:23 AM CDT Height 160 cm (5' 3 ) 01/26/2021 10:23 AM CDT Body Mass Index 40.39 01/26/2021 10:23 AM CDT Plan of Treatment Health Maintenance Due Date Last Done Comments Annual Gynecologic Pelvic an d Breast Exam 1974 ANNUAL PHYSICAL 09/20/2016 HEPATITIS C SCREENING 09/20/2016 COLOGUARD 2019 COLON CANCER SCREENING 5 YEA R SIGMOIDOSCOPY 2019 COLONOSCOPY 2019 01/03/2007 COLOR[address]AL CANCER SCREENING 2019 CT COLONOGRAPHY 2019 FECAL OCCULT BLOOD TEST 2019 FIT Testing (1 year) 2019 MAMMOGRAM 07/29/2021 07/29/2019, 01/05, 01/16/2018 LIPID PANEL 12/17/2021 12/17/2020, 11/05, 01/10/2017, Additional history exists Pneumococcal Vaccine 50+ (1 of 1 - PCV) 2024 ZOSTER VACCINE (1 of 2) 2024 INFLUENZA VACCINE 03/07/2025 TDAP/TD VACCINES (2 - Td or Tdap) 01/29/2027 017, 05/14/1996 HEMOGLOBIN A1C Discontinued 12/17/2020, 11/05, 04/26/2017, Additional history exists URINE MICROALBUMIN-CREATININ E RATIO (uACR) Discontinued 12/17/2020, 05/26/2020 Medical Devices Implanted Type Area Back Seam Stitcher Device Identifier Shelf Expiration Date Model / Serial / Lot Implant Implant Bilateral: Breast Description:BILATERAL BREAST MARKERS Implant Implant N/A: Tooth Description:DENTAL IMPLANT U PPER FRONT Procedures Procedure Name Priority Date/Time Associated Diagnosis Comments MICROALBUMIN / CREATININE URINE RATIO Routine 12/17/2020 9:51 AM CDT Essential hypertension Type 2 diabetes mellitus without complication, without long-term current use of insulin HEMOGLOBIN A1C Routine 12/17/2020 9:51 AM CDT Type 2 diabetes mellitus without complication, without long-term current use of insulin LIPID PANEL Routine 12/17/2020 9:51 AM CDT Mixed hyperlipidemia due to type 2 diabetes mellitus MAMMO DIAGNOSTIC DIGITAL TOMOSYNTHESIS BILATERAL W CAD Routine 07/29/2019 11:48 AM FAST FOOD SHIFT LEAD Unspecified lump in the right breast, unspecified quadrant SCANNED - COLONOSCOPY 01/03/2007 from Last 3 Months or Most Recently Relevant to Health Maintenance Results * Microalbumin / Creatinine Urine Ratio - Urine, Clean Catch (12/17/2020 9:51 AM CDT) Microalbumin/C reatinine Ratio 17.7 mg/g 12/18/2020 1:20 AM CDT [facility] Creatinine, Urine 130.0 mg/dL 12/18/2020 1:20 AM CDT [facility] Microalbumin, Urine 2.3 mg/dL 12/18/2020 1:20 AM CDT [facility] Urine Urine specimen collection, clean catch / Unknown Collection / Unknown 12/17/2020 9:51 AM CDT 12/17/2020 9:51 AM CDT Jenny Torrez ONION TIER URINE ORDERABLES Final Re sult [facility]
[address] [place] [address], * (ABNORMAL) Hemoglobin A1c (12/17/2020 9:51 AM CDT) Hemoglobin A1C 6.70(H) 4.80 - 5.60 % 12/18/2020 12:59 AM CDT [facility] Blood Venipuncture / Unknown 12/17/2020 9:51 AM CDT 12/17/2020 9:51 AM CDT Narrative [facility] - 12/18/2020 12:59 AM CDT Hemoglobin A1C Ranges: Increased Risk for Diabetes 5.7% to 6.4% Diabetes >= 6.5% Diabetic Goal < 7.0% Jenny Diamantetee Torrez ONION TIER LAB BLOOD ORDERABLES Katina l Result [facility]
[address] [place] [address], [place] [phone] * (ABNORMAL) Lipid Panel (12/17/2020 9:51 AM CDT) Total Cholesterol 159 150 - 200 mg/dL 12/17/2020 10:26 AM CDT [facility] Triglycerides 125 <=150 mg/dL 12/17/2020 10:26 AM CDT [facility] HDL Cholesterol 22(L) 40 - 59 mg/dL 12/17/2020 10:26 AM CDT [facility] LDL Cholesterol 114(H) <=100 mg/dL 12/17/2020 10:26 AM CDT [facility] VLDL Cholesterol 23 5 - 40 mg/dL 12/17/2020 10:26 AM T [facility] LDL/HDL Ratio 5.09(H) 0.00 - 3.22 12/17/2020 10:26 AM T [facility] Blood Venipuncture / Unknown 12/17/2020 9:51 AM CDT 12/17/2020 9:51 AM CDT Jenny Diamantetee Torrez APRN LAB BLOOD ORDERABLES Katina l Result [facility]
[address] [place] [address], [place] [phone] * Mammo diagnostic digital tomosynthesis bilateral w CAD (07/29/2019 11:48 AM FAST FOOD SHIFT LEAD) Anatomical Region Laterality Modality Breast Bilateral Mammography 07/29/2019 11:0 0 AM FAST FOOD SHIFT LEAD Impressions 07/29/2019 12:47 PM FAST FOOD SHIFT LEAD CONCLUSION: 1. No suspicious mammographic findings. 2. Recommend annual screening mammography unless clinical circumstances dictate earlier evaluation 3. BI-RADS category 2, benign findings Electronically signed by: Ruben Alvarez MD 07/29/2019 12:47 PM FAST FOOD SHIFT LEAD [id number] 07/29/2019 12:47 PM FAST FOOD SHIFT LEAD PROCEDURE: MAMMO BREAST DIAGNOSTIC TOMOSYNTHESIS BILATERAL, US BREAST UNILATERAL LIMITED HISTORY: lumps in right breast, N63.10 Unspecified lump in the right breast, unspecified quadrant COMPARISON: Previous mammogram 01/16/2018. Previous right breast ultrasound dated 01/16/2018. Computer-aided detection was utilized during this exam. Digital breast tomosynthesis was performed. FINDINGS: There is a large multilobulated solid mass in the palpable area of concern of the upper outer aspect of the right breast similar in size and appearance compared with the prior exam of 01/16/2018. A biopsy clip is noted inside of this mass also similar to the prior exam. The underlying parenchymal pattern of both breasts is scattered. There are also biopsy clips in the left breast which appear stable. No suspicious microcalcifications or architectural distortion noted. Ultrasound performed of the right breast in the palpable area of concern in the 10:00 axis, 10 cm from the nipple shows a large multilobulated cystic mass with heterogeneous internal contents and lobulated margins similar to the prior exam measuring at least 5 x 2 x 5 cm, not significantly changed in size compared to the prior exam. Tiny cystic areas inside the mass are also noted. In addition, there is a tiny simple cyst superficial to the mass which measures 0.5 cm in diameter. Jenny Torrez ONION TIER IMG MAMMOGRAPHY ORDERABLE S Final Result * SCANNED - COLONOSCOPY (01/03/2007) Neftaly Daniels DO CHART REVIEW TABS Final R esult from Last 3 Months or Most Recently Relevant to Health Maintenance Advance Directives * CPR (Attempt to Resuscitate) (Latest Code Status on File) Date Activated Date Inactivated Comments 11/13/2018 10:37 PM 11/14/2018 4:16 PM Question Answer Comments Code Status (Patient has no pulse and is not breathing): CPR (Attempt to Resuscitate) Medical Interventions (Patie nt has pulse or is breathing): Full Care Teams Cloud Engagement Partner Relationship Specialty Start Date End Date Torrez, Jenny BarneyGEOFFREY oliveira PCP - General Family Medicine 11/16/18
--- OUTSIDE RECORDS SUMMARY | 2025-07-29 06:53 | XMS_ITS | Clinical Summary ---
Author Organization [facility] Address [address], [address] [place] [address] Care Team Providers Care Steamship Agent Name Role Phone Jossue Orourke MD Primary Care Provider [phone] Allergies Active Allergy Reactions Criticality Noted Date Comments Aspirin 06/24/2016 Irritates stomach Medications aspirin 81 MG tablet Take 1 tablet by mouth daily Active NITROSTAT 0.4 MG SL tablet AMIE 11 6 Active folic acid (FOLVITE) 400 MCG tablet Take 1 tablet by mouth daily Active Cholecalciferol (VITAMIN D3) 1.25 MG (47667 UT) CAPSIndications:Vit shipman D deficiency Take 1 [...] place to sleep or slept in a jail (including now)? No 04/05/2023 Food Insecurity Answer [...] Comments Blood Pressure 121/76 08/30/2023 11:05 AM SENIOR MAINTENANCE TECHNICIAN Pulse 120 08/30/2023 11:05 AM SENIOR MAINTENANCE TECHNICIAN Temperature 36.5 C (97.7 F) 08/30/2023 11:05 AM SENIOR MAINTENANCE TECHNICIAN Respiratory Rate 20 02/08/2022 3:25 PM CDT Oxygen Saturation 91% 08/30/2023 11: 05 AM SENIOR MAINTENANCE TECHNICIAN Inhaled Oxygen Concentration - - Weight 100.6 kg (221 lb 12.8 oz) 2023 11:05 AM SENIOR MAINTENANCE TECHNICIAN Height 160 cm (5' 3 ) 08/30/2023 11:05 AM SENIOR MAINTENANCE TECHNICIAN Body Mass Index 39.29 08/30/2023 11:05 AM SENIOR MAINTENANCE TECHNICIAN Plan of Treatment Health Maintenance Due Date [...] 02/08/2023 02/08/2022, 11/24/2017, 11/23/2017, Additional history exists A1C test (Diabetic or Prediabetic) 04/14/2024 04/14/2023, 02/08/2022 Lipids 04/14/2024 04/14/2023, 02/08/2022 Shingles vaccine (1 of 2) 2024 Annual Wellness Visit (Medicare Advantage) 08/07/2024 Flu vaccine (#1) 03/07/2025 COVID-19 Vaccine (1 - season) 2025 DTaP/Tdap/Td vaccine (2 - Td or [...] current use of insulin (HCC) Primary hypertension [facility] W OR WO CAD [...] 136 - 145 mmol/L 02/08/2022 4:49 PM [facility] Potassium 5.2(H) 3.5 - 5.0 mmol/L 02/08/2022 4:49 PM [facility] Chloride 103 98 - 111 mmol/L 02/08/2022 4:49 PM [facility] CO2 20(L) 22 - 29 mmol/L 02/08/2022 4:49 PM [facility] Anion Gap 16 7 - 19 mmol/L 02/08/2022 4:49 PM [facility] Glucose 128(H) 74 - 109 mg/dL 02/08/2022 4:49 PM [facility] BUN 7 6 - 20 mg/dL 02/08/2022 4:49 PM [facility] Creatinine 0.4(L) 0.5 - 0.9 mg/dL 02/08/2022 4:49 PM [facility] GFR Non- >60 >60 02/08/2022 4:49 PM [facility] Comment: This calculation may be inaccurate for patients under the age of 18 years. For ages 18 and older, a GFR >60 mL/min/1.73m2 (not corrected for weight) is valid for stable renal function. GFR >59 >59 02/08/2022 4:49 PM [facility] Comment: Chronic Kidney Disease: less than 60 ml/min/1.73 sq.m. Kidney Failure: less than 15 ml/min/1.73 sq.m. Results valid for patients 18 years and older. Calcium 10.1(H) 8.6 - 10.0 mg/dL 02/08/2022 4:49 PM [facility] Total Protein 7.3 6.6 - 8.7 g/dL 02/08/2022 4:[address] PM [address] [facility] Albumin 4.3 3.5 - 5.2 g/dL 02/08/2022 4:49 PM [facility] Total Bilirubin 0.3 0.2 - 1.2 mg/dL 02/08/2022 4:49 PM [address] [facility] Alkaline Phosphatase 90 35 - 104 U/L 02/08/2022 4:49 PM [facility] ALT 10 5 - 33 U/L 02/08/2022 4:49 PM [facility] AST 13 5 - 32 U/L 02/08/2022 4:49 PM [facility] BLOOD SPECIMEN / Unknown 02/08/2022 4:20 PM CDT 02/08/2022 5:30 PM CDT us Jossue Orourke MD CHEMISTRY ORDERABLES Final Resul t [facility] [address] [place] [address], [facility] [phone] * Microalbumin / Creatinine Urine Ratio (02/08/2022 4:19 PM CDT) Microalb, Ur 1.50 0.00 - 19.00 mg/dL 02/09/2022 10:38 AM [facility] Creatinine, Ur 55.2 4.2 - 622.0 mg/dL 02/09/2022 10:38 AM [facility] Albumin/Creatin ine Ratio 27.2 mg/g 02/09/2022 10:38 AM [facility] Comment: Normal: 0-29 mg/g creatinine Moderately increased: 30-300 mg/g creatinine Severely increased: >300 mg/g creatinine URINE SPECIMEN / Unknown 02/08/2022 4:19 PM CDT 02/09/2022 11:26 AM CDT us Jossue Orourke MD URINE ORDERABLES Final Result [facility] [address] [place] [id number], [facility] [phone] * [facility] W OR WO [...] on 01/16/2018 3:38 PM Deya Gleason PA-C IM MAMMOGRAPHY ORDERABLES Final Result from Last 3 Months or Most Recently Relevant to Health Maintenance Insurance Advance Directives Documents on File Type Date Recorded Patient Terminal Gauger Expl anation ACP-Advance Directive 11/23/2017 5:34 AM Care Teams Steamship Agent Relationship Specialty Start Date End Date Jossue Orourke MD [address] [place] [address] PCP - General Family Medicine 02/13/22
--- OUTSIDE RECORDS SUMMARY | 2025-07-29 06:54 | XMS_ITS | Encounter Summary ---
Author Organization [employer] Address [address] [id number] Care Team Providers Care Block Chopper Hand Name Role Phone [place], Rj Hart MD Unavailable [phone] Maci Mays APRN Unavailable [phone] Jenny Torrez APRN Primary Care Provider [phone] Reason for Visit * Reason Comments Medication Refill Encounter Details Date Type Department Care Team (Late st Contact Info) Description 10/23/[facility] Cardiology [address] [place] [address] Maci Mays, CERTIFIED PHLEBOTOMIST [address] [phone] Medication Refill Social History Tobacco Use Types Packs/Day Years Used Date Smoking Tobacco: Some Days Cigarettes 0.5 30 Smokeless Tobacco: Never Alcohol Use Standard Drinks/Week Comments Never 0 (1 standard drink = 0.6 oz pur e alcohol) AUDIT-C Answer Date Recorded Frequency of Alcohol Consumption Never 01/19/2019 Average Number of Drinks Not on file 019 Frequency of Binge Drinking Not on file 01/05 Comments No Sex and Gender Information Value Date Recorded Sex Assigned at Not on file Legal Sex Female 11:31 AM CDT Gender Identity Not on file Sexual Orientation Not on file documented as of this encounter Plan of Treatment Not on file documented as of this encounter Visit Diagnoses Not on filedocumented in this encounter Care Teams Block Chopper Hand Relationship Specialty Start Date End Date Torrez GEOFFREY Alvarado [address] [place] [address] PCP - General Nurse Practitioner - Family 11/22/18 Rj Gill MD [address] [place] [phone] Consulting Physician Internal Medicine - Cardiovascular Disease 11/08/18 Maci Mays APRN [address] [place] [phone] Advanced Practice Registered Nurse Nurse Practitioner - Family 11/22/18 documented as of this encounter Additional Source Comments IMPORTANT NOTICES REGARDING PATIENT RECORDS DISCLOSED THROUGH CARE EVERYWHERE:1. If the informationreleased to you contains information about AIDs or HIVtest results, that information has been disclosed to you from records whoseconfidentiality is protected by state law ([place]RS 214.625). State law proh ibitsyou from making any further disclosure of such information relating to AIDS orHIV without the specific written consent of the person to whom such informationpertains, or as otherwise permitted by state law. A general authorization forthe release of medical or other information is NOT sufficient for this purpose.2. If the information released to you contains information about alcohol ordrug abuse diagnosis, treatment for such abuse, or referrals for treatment, andif the release was made by a program as defined in 42 CFR 2.11, thisinformation has been disclosed to you from records protected by Federalconfidentiality rules ( TheFederal rules restrict any use of the information to criminally investigate orprosecute any alcohol or drug abuse patient.3. If the information released to you contains information about a person'smental health or chemical dependency, you may not redisclose or otherwisereveal information concerning the mental health or chemical dependency of thatperson, beyond the purpose for which the disclosure was made, without firstobtaining that person's specific written consent to the redisclosure. [id number].[facility]
--- OUTSIDE RECORDS SUMMARY | 2025-07-29 06:54 | XMS_ITS | Encounter Summary ---
Author Organization [employer] Address [address] [place] [address] Care Team Providers Care Veneer Splicer Name Role Phone [place], Rj Hart MD Unavailable [phone] Maci Mays APRN Unavailable [phone] Jenny Torrez APRN Primary Care Provider [phone] Reason for Visit * Reason Comments Medication Refill Encounter Details Date Type Department Care Team (Late st Contact Info) Description 10/02/2019 Refill [facility] Cardiology [address] [place] [address] Maci Mays, CAT TENDER [address] [phone] Medication Refill Social History Tobacco Use Types [...] encounter Miscellaneous Notes * Telephone Encounter - Allyson Blackman - 10/03/2019 2:53 PM CST WILFREDO- 01/02/2019 and NO future appt. She has canceled 3 appts. It was written on last refill, that she needed a appt. ER AND PAINTER documented in this encounter Plan of Treatment Not on file documented as of this encounter Visit Diagnoses Not on filedocumented in this encounter Care Teams Veneer Splicer Relationship Specialty Start Date End Date Jenny Torrez APRN [address] [place] [phone] PCP - General Nurse Practitioner - Family 11/22/18 Rj Gill MD [address] [place] [phone] Consulting Physician Internal Medicine - Cardiovascular Disease 11/08/18 Maci Mays APRN [address] [place] [phone] Advanced Practice Registered Nurse Nurse Practitioner [...] person's specific written consent to the redisclosure. [id number].[facility]
--- OUTSIDE RECORDS SUMMARY | 2025-07-29 06:54 | XMS_ITS | Clinical Summary ---
Author Organization [employer] Address [address] [place] [address] Care Team Providers Care Route Salesperson Name Role Phone [place], Rj Hart MD Unavailable [phone] Maci Mays APRN Unavailable [phone] Jenny Torrez APRN Primary Care Provider [phone] Allergies Active Allergy Reactions Criticality Noted Date Comments Aspirin 11/22/2018 High doses Buspirone 11/22/2018 Lorazepam 12/10/2018 suicidal l thoughts, messed with pt head Ondansetron Hcl 01/10/2019 Headache and no relief of nausea Corticosteroids (Glucocorticoids) 11/22/2018 Sertraline 11/22/2018 Medications atorvastatin (LIPITOR) 20 MG tablet 20 mg by mouth every evening Active nitroGLYCERIN (NITROSTAT) 0.4 MG SL tablet 0.4 mg under the tongue every 5 (five) minutes as needed for Chest pain Active metFORMIN (GLUCOPHAGE) 1000 MG tablet Take 1,000 mg by mouth daily with breakfast. Active FLUoxetine (PROZAC) 20 MG capsule Take 40 mg by mouth daily. Active lamoTRIgine (LAMICTAL) 25 MG tablet 25 mg by mouth daily Active hydrOXYzine (ATARAX) 25 MG tabletIndicatio ns:anxiety Take 25 mg by mouth 3 (three) times daily as needed. Active aspirin (ECOTRIN) 81 MG EC tablet 81 mg by mouth daily Active pioglitazone (ACTOS) 15 MG tablet Take 15 mg by mouth daily. Active meclizine (ANTIVERT) 25 mg tablet Take 25 mg by mouth 2 (two) times daily as needed. Active desvenlafaxine succinate (PRISTIQ) 50 MG 24 hr tablet Take 50 mg by mouth daily. 01/10/2019 Active fenofibrate (TRICOR) 48 MG tablet Take 48 mg by mouth daily. 3 05/10/2019 Active atenoloL (TENORMIN) 50 MG tablet Take 50 mg by mouth daily. 03/20/2020 Active promethazine (PHENERGAN) 12.5 MG tablet Take 1 tablet (12.5 mg total) by mouth every 8 (eight) hours as needed for Nausea. Every 8 hours as needed 20 tablet 12/09/2020 Active pantoprazole (PROTONIX) 40 MG tablet Take 1 tablet (40 mg total) by mouth daily. 30 tablet 12/09/2020 Active Active Problems Problem Noted Date Diagnosed Date Coronary artery disease due to lipid rich plaque 11/22/2018 Sinus tachycardia 11/22/2018 Type 2 diabetes mellitus wit hout complication, without long-term current use of insulin 11/22/2018 Hyperlipidemia, unspecified hyperlipidemia type 11/22/2018 Essential hypertension 11/22/2018 Anxiety 11/22/2018 Smoker 03/28/2018 Chronic pain of both knees 02/28/2018 Morbid obesity 02/28/2018 Precordial chest pain 02/28/2018 Gastroesophageal reflux disease without esophagi tis 08/23/2016 Family History Medical History Relation Comments Cancer Father Diabetes Mother Hypertension Mother Relation Status Comments Father Mother Alive Social History Tobacco Use Types Packs/Day Years Used Date Smoking Tobacco: Some Days Cigarettes 1 30 Smokeless Tobacco: Never Alcohol Use Standard Drinks/Week Comments Not Currently 0 (1 standard drink = 0.6 oz pur e alcohol) AUDIT-C Answer Date Recorded Frequency of Alcohol Consumption Never 01/19/2019 Average Number of Drinks Not on file 019 Frequency of Binge Drinking Not on file 01/05 [place] Housing Stability Vital Sign Answer Date Recorded What is your living situation today? Not on file 08/04/[address] you li ve. Do you have problems with any of the following? Not on file 08/04/2023 Safety and Environment Answer Date Deandre rded How often does anyone, josr antonio family and friends, physically hurt you? Not on file 09/27/2023 How often does anyone, josr antonio family and friends, insult or talk down to you? Not on file 09/27/2023 How often does anyone, josr antonio family and friends, threaten you with harm? Not on file 09/27/2023 How often does anyone, inclu ding family and friends, scream or curse at you?' Not on file 09/27/2023 Comments No Sex and Gender Information Value Date Recorded Sex Assigned at Not on file Legal Sex Female 11:31 AM CDT Gender Identity Not on file Sexual Orientation Not on file Last Filed Vital Signs Vital Sign Reading Time Taken Comments Blood Pressure 119/75 12/09/2020 4:45 PM CDT Pulse 101 12/09/2020 4:45 PM CDT Temperature 36.8 C (98.2 F) 12/09/2020 1:55 PM CDT Respiratory Rate 18 12/09/2020 3:45 PM CDT Oxygen Saturation 93% 12/09/2020 4:45 PM CDT Inhaled Oxygen Concentration - - Weight 127 kg (280 lb) 12/09/2020 1:55 PM CDT Height 162.6 cm (5' 4 ) 12/09/2020 1:55 PM CDT Body Mass Index 48.06 12/09/2020 1:55 PM CDT Plan of Treatment Health Maintenance Due Date Last Done Comments IMM Schedule: Varicella (1 o f 2 - 13+ 2-dose series) 1987 IMM Schedule: Hepatitis B (1 of 3 - 19+ 3-dose series) 1993 IMM Schedule: Diphtheria, Te tanus, and Pertussis (1 - Tdap) 05/15/1996 05/14/1996 BREAST CANCER SCREENING EVER Y 2 YEARS 2015 Colon Cancer Screening Colonoscopy 2019 Colon Cancer Screening FIT-D NA (Cologuard) (3 year) 2019 Colon Cancer Screening FOBT/ FIT (1 year) 2019 Colon Cancer Screening 2019 Sigmoidoscopy (5 year) Colon Cancer Screening 2019 IMM Schedule: Pneumococcal ( 50+ Years) (1 of 1 - PCV) 2024 IMM Schedule: Zoster (1 of 2) 2024 COVID-19 Vaccine ( - 2024-2 6 season) 2025 IMM Schedule: Influenza (#1) 2025 IMM Schedule: Hepatitis A Aged Out No longer eligible based on patient's age to complete this topic IMM Schedule: Meningococcal ACWY (Menhibrix/Menomune) Aged Out No longer eligible based on patient's age to complete this topic IMM Schedule: Meningococcal B Aged Out No longer eligible based on patient's age to complete this topic IMM Schedule: RSV <20 Months Aged Out No longer eligible based on patient's age to complete this topic Care Teams Route Salesperson Relationship Specialty Start Date End Date Jenny Torrez APRN [address] [place] [phone] PCP - General Nurse Practitioner - Family 11/22/18 Rj Gill MD [address] [place], [place] [phone] Consulting Physician Internal Medicine - Cardiovascular Disease 11/08/18 Maci Mays APRN [address] [place], [place] [phone] Advanced Practice Registered Nurse Nurse Practitioner - Family 11/22/18 Additional Source Comments IMPORTANT NOTICES REGARDING PATIENT [...] person's specific written consent to the redisclosure. [id number].[facility]
--- OUTSIDE RECORDS SUMMARY | 2025-07-29 06:54 | XMS_ITS | Encounter Summary ---
Author Organization [email or web address] Address [address] [id number] Care Team Providers Care Package Center Supervisor Name Role Phone [place], Rj Hart MD Unavailable [phone] Maci Mays APRN Unavailable [phone] Jenny Torrez APRN Primary Care Provider [phone] Reason for Visit * Reason Comments Medication Refill Encounter Details Date Type Department Care Team (Late st Contact Info) Description 09/27/2019 [facility] Cardiology [address] [place] [address] Maci Mays, WELDER TACK [address] [phone] Medication Refill Social History Tobacco Use Types [...] on filedocumented in this encounter Care Teams Package Center Supervisor Relationship Specialty Start Date End Date Torrez GEOFFREY Alvarado [address] [place] [address] PCP - General Nurse Practitioner - Family 11/22/18 Rj Gill MD [address] [place] [phone] Consulting Physician Internal Medicine - Cardiovascular Disease 11/08/18 Maci Mays APRN [address] [place] [phone] Advanced Practice Registered Nurse Nurse Practitioner [...] person's specific written consent to the redisclosure. [id number].[facility]
--- OUTSIDE RECORDS SUMMARY | 2025-07-29 06:54 | XMS_ITS | Encounter Summary ---
Author Organization [employer] Address [address] [id number] Care Team Providers Care Rat Exterminator Name Role Phone [place], Rj Hart MD Unavailable [phone] Maci Mays APRN Unavailable [phone] Jenny Torrez APRN Primary Care Provider [phone] Reason for Visit * Reason Comments Medication Refill Encounter Details Date Type Department Care Team (Late st Contact Info) Description 10/23/2019 [facility] Cardiology [address] [place] [address] Maci Mays, LANGUAGE ASSISTANT [address] [phone] Medication Refill Social History Tobacco Use Types [...] on filedocumented in this encounter Care Teams Rat Exterminator Relationship Specialty Start Date End Date Torrez GEOFFREY Alvarado [address] [place] [address] PCP - General Nurse Practitioner - Family 11/22/18 Rj Gill MD [address] [place] [phone] Consulting Physician Internal Medicine - Cardiovascular Disease 11/08/18 Maci Mays APRN [address] [place] [phone] Advanced Practice Registered Nurse Nurse Practitioner [...] person's specific written consent to the redisclosure. [id number].[facility]
--- NOTE | 2025-07-29 07:00 | NM_ITS ---
APPROVED REPORT Exam: Nuclear Stress Test Indication: HTN, DM, High cholesterol, Tobacco use, Family history, CAD Patient Location: Outpatient Stress Tech: Wandy Agustin NM Tech:Nevaeh Medina, ARRT, RT (R)(N) Ht: 5 ft 3 in Wt: 180 lbs Bra Size: 42D HR: 63 bpm BP: 104/59 mmHg BSA: 1.85 m2 TID: 1.14 BMI: 31.8 History: HTN, DM, High cholesterol, Tobacco use, Family history, CAD Procedure: Patient received 0.4 mg of intravenous Lexiscan, resting heart rate 63 bpm, resting blood pressure 104/59 mmHg, with Lexiscan maximum heart rate achieved was 103 bpm which is % of the maximum predicted heart rate and blood pressure was 119/75 mmHg. With Lexiscan, patient denied any complaint of chest pain. Cardiac Stress and Resting SPECT Images: Cardiac Stress and Resting SPECT images were obtained using technetium 99m Myoview 31.1 mCi stress and 10.61 mCi at rest. Technically difficult study due to significant soft tissue overlap of the cardiac borders. This may affect the diagnostic interpretation of the study findings. Resting and stress imaging in supine and prone positions demonstrate a large sized, moderate, partially reversible perfusion defect in the anterior LV wall. This may represent soft tissue attenuation, but true reversible perfusion defect cannot be entirely ruled out. Gated imaging demonstrates normal global LV systolic function. LVEF is calculated at 51%. Conclusion: Technically difficult study. Large sized, moderate, partially reversible perfusion defect in the anterior LV wall. This may represent soft tissue attenuation, but true reversible perfusion defect cannot be entirely ruled out. Gated imaging demonstrates normal global LV systolic function. LVEF is calculated at 51%. Electronically signed by : Tierney Contreras MD 07/30/2025 20:59:38
[2025-07-29 08:30] VITALS: BP 104/59; PULSE 61; RESP 16
[2025-07-29] MEDS: ISOTOPE MYOVIEW (PER STUDY) 1 DOSE IV (08:48)
[2025-07-29] MEDS: SODIUM CHLORIDE 0.9% 10ML SYR (RAD ONLY) 10 ML IV ×2 (08:48)
== END 2025-07-29 23:59 | disposition home or self-care (01) ==
LOC: RAD 06:51
PROVIDERS: PCP Family Medicine; Visit Provider Physician Assistant
DX: I49.3 Ventricular premature depolarization (principal); I25.10 Atherosclerotic heart disease of native coronary artery without angina pectoris; R94.39 Abnormal result of other cardiovascular function study; E11.9 Type 2 diabetes mellitus without complications; E78.00 Pure hypercholesterolemia, unspecified; Z72.0 Tobacco use; I10 Essential (primary) hypertension
CPT/HCPCS: 78452; 93017; 93018; A9502; J2785